=== PATIENT | female | born 1950 | race Hispanic/Latino ===

== ENCOUNTER 2018-04-19 09:06 | Emergency (ER) | payer OTHER ==
--- NOTE | 2018-04-19 11:08 | EDPHYS ---
Physician Documentation [facility] Name: Mita Luong Age: 67 yrs Sex: Female : 1950 Arrival Date: 04/19/2018 Time: 09:11 Bed 14 Private MD: ED Physician Delio Lainez HPI: 04/19 10:16 This 67 yrs old Female presents to ER via Ambulatory with complaints of Leg jr8 Swelling. 10:16 Family stated that she lost her compression socks. Stated that her right leg had total jr8 knee repair a month ago. Has been going to rehab for the knee. For the past week noticed increase in swelling to leg with pain . Historical: - Allergies: : No Known Allergies; ss - PMHx: :31 Diabetes - NIDDM; Hypertension; ss - Immunization history:: Adult Immunizations up to date. - Social history:: Smoking status: Patient/guardian denies using tobacco. - Ebola Screening: : No symptoms or risks identified at this time. ROS: 10:16 Constitutional: Negative for fever, chills, and weight loss. jr8 10:16 MS/extremity: Positive for pain, swelling, tenderness, of the right leg. 10:16 All other systems are negative. Exam: 10:16 Cardiovascular: Regular rate and rhythm with a normal S1 and S2. No gallops, murmurs, jr8 or rubs. Normal PMI, no JVD. No pulse deficits. Respiratory: Lungs have equal breath sounds bilaterally, clear to auscultation and percussion. No rales, rhonchi or wheezes noted. No increased work of breathing, no retractions or nasal flaring. Abdomen/GI: Soft, non-tender, with normal bowel sounds. No distension or tympany. No guarding or rebound. No evidence of tenderness throughout. Back: No spinal tenderness. No costovertebral tenderness. Full range of motion. Skin: Warm, dry with normal turgor. Normal color with no rashes, no lesions, and no evidence of cellulitis. Neuro: Awake and alert, GCS 15, oriented to person, place, time, and situation. Cranial nerves II-XII grossly intact. Motor strength 5/5 in all extremities. Sensory grossly intact. Cerebellar exam normal. Normal gait. 10:16 Musculoskeletal/extremity: Extremities: grossly normal except: noted in the right leg: Edema to right leg from knee to foot. 2+ pedal pulses present bilateral with normal sensation. Mild warmth noted to right leg when compared to left. Tenderness to anterior tibial region with palpation . Vital Signs: 09:31 BP 123 / 58; Pulse 78; Resp 17; Temp 97.6(TE); Pulse Ox 99% on R/A; Weight 96.62 kg; aa5 Height 5 ft. 6 in. (167.64 cm); Pain 5/10; 11:00 BP 124 / 60; Pulse 74; Resp 16 S; Pulse Ox 98% on R/A; Pain 4/10; aa5 09:31 Body Mass Index 34.38 (96.62 kg, 167.64 cm) aa5 MDM: 09:28 Patient medically screened. jr8 11:05 Data reviewed: vital signs, nurses notes, radiologic studies, ultrasound. Data jr8 interpreted: Pulse oximetry: on room air is 100 %. Interpretation: normal. Counseling: I had a detailed discussion with the patient and/or guardian regarding: the historical points, exam findings, and any diagnostic results supporting the discharge/admit diagnosis, radiology results, the need for outpatient follow up, a family practitioner, to return to the emergency department if symptoms worsen or persist or if there are any questions or concerns that arise at home. 04/19 10:04 Order name: US Extremity Venous Unilateral Ltd; Complete Time: 11:31 jr8 04/19 10:22 Order name: Qi Monteiro Jason; Complete Time: 10:22 aa5 Administered Medications: No medications were administered Disposition: 12:29 Co-signature as Attending Physician, Delio Lainez MD I agree with the assessment and ivonne plan of care. Disposition: 04/19/18 11:07 Discharged to Home. Impression: Edema, unspecified - Right lower extremity . - Condition is Stable. - Discharge Instructions: Edema. - Medication Reconciliation Form, Thank You Letter, Antibiotic Education, Prescription Opioid Use form. - Follow up: Private Physician; When: 5 - 6 days; Reason: Recheck today's complaints, Continuance of care, Re-evaluation by your physician. - Problem is new. - Symptoms have improved. Signatures: Dispatcher [employer] Delio Maria MD MD cha Calderon, Audri, RN RN [facility] Samara Russo RN RN Danie Bagley PA PA 8 Corrections: (The following items were deleted from the chart) 11:33 11:07 04/19/2018 11:07 Discharged to Home. Impression: Edema, unspecified - Right lower aa5 extremity . Condition is Stable. Forms are Medication Reconciliation Form, Thank You Letter, Antibiotic Education, Prescription Opioid Use. Follow up: Private Physician; When: 5 - 6 days; Reason: Recheck today's complaints, Continuance of care, Re-evaluation by your physician. Problem is new. Symptoms have improved. jr8
--- NOTE | 2018-04-19 11:08 | ER ---
Nurse's Notes [facility] Name: Mita Luong Age: 67 yrs Sex: Female : 1950 Arrival Date: 04/19/2018 Time: 09:11 Bed 14 Private MD: Diagnosis: Edema, unspecified-Right lower extremity Presentation: 04/19 09:29 Presenting complaint: Patient states: Sent by Pysical therapy to R/O DVT to R leg. Pt ss reports she had a R total knee replacement on 03/18/18 and has had redness, swelling and warmth to touch since then. Transition of care: patient was not received from another setting of care. Onset of symptoms was March 18, 2018. Risk Assessment: Do you want to hurt yourself or someone else? Patient reports no desire to harm self or others. Initial Sepsis Screen: Does the patient meet any 2 criteria? No. Patient's initial sepsis screen is negative. Does the patient have a suspected source of infection? No. Patient's initial sepsis screen is negative. Care prior to arrival: None. 09:29 Method Of Arrival: Ambulatory ss 09:29 Acuity: RODNEY 3 ss Historical: - Allergies: 09:31 No Known Allergies; ss - PMHx: 09:31 Diabetes - NIDDM; Hypertension; ss - Immunization history:: Adult Immunizations up to date. - Social history:: Smoking status: Patient/guardian denies using tobacco. - Ebola Screening: : No symptoms or risks identified at this time. Screenin:40 Abuse screen: Denies threats or abuse. Nutritional screening: No deficits noted. aa5 Tuberculosis screening: No symptoms or risk factors identified. Fall Risk Fall in past 12 months (25 points). No secondary diagnosis (0 pts). No IV (0 pts). Ambulatory Aid- Crutches/Cane/Walker (15 pts). Gait- Normal/Bed Rest/Wheelchair (0 pts) Mental Status- Oriented to own ability (0 pts). Total Benites Fall Scale indicates Low Risk Score (25-44 pts). Fall prevention measures have been instituted. Side Rails Up X 2 Placed close to Nursing Station Family Present and informed to notify staff if they need to leave bedside. Assessment: 09:40 General: Appears comfortable, Behavior is calm, cooperative. Pain: Complains of pain in aa5 right knee Pain does not radiate. Pain currently is 4 out of 10 on a pain scale. Quality of pain is described as aching, Pain began 1 month ago Is continuous, Aggravated by increased activity. Neuro: Level of Consciousness is awake, alert, obeys commands, Oriented to person, place, time, situation. Cardiovascular: Heart tones S1 S2 present Rhythm is regular. Respiratory: Airway is patent Respiratory effort is even, unlabored, Respiratory pattern is regular, symmetrical, Breath sounds are clear bilaterally. GI: Abdomen is obese, Bowel sounds present X 4 quads. Abd is soft and non tender X 4 quads. : No signs and/or symptoms were reported regarding the genitourinary system. EENT: No signs and/or symptoms were reported regarding the EENT system. Derm: Skin is pink, warm \T\ dry. Musculoskeletal: Range of motion: intact in all extremities, Swelling present in right knee, right lower leg, and dorsum of right foot. No redness noted to right leg, right leg is mildly hot to the touch compared to left lower leg. 10:50 Reassessment: Patient is alert, oriented x 3, equal unlabored respirations, skin aa5 warm/dry/pink. Anti-embolism stocking applied by PA to right leg. . 11:30 Reassessment: Patient is alert, oriented x 3, equal unlabored respirations, skin aa5 warm/dry/pink. Vital Signs: 09:31 BP 123 / 58; Pulse 78; Resp 17; Temp 97.6(TE); Pulse Ox 99% on R/A; Weight 96.62 kg; aa5 Height 5 ft. 6 in. (167.64 cm); Pain 5/10; 11:00 BP 124 / 60; Pulse 74; Resp 16 S; Pulse Ox 98% on R/A; Pain 4/10; aa5 09:31 Body Mass Index 34.38 (96.62 kg, 167.64 cm) aa5 ED Course: 09:11 Patient arrived in ED. mr 09:28 Danie Bagley PA is PHCP. jr8 09:28 Delio Lainez MD is Attending Physician. jr8 09:31 Triage completed. ss 09:31 Arm band placed on right wrist. ss 09:32 Bindu Lacy, SERA is Primary Nurse. aa5 09:40 Patient has correct armband on for positive identification. Placed in gown. Bed in low aa5 position. Call light in reach. Side rails up X2. Adult w/ patient. 10:00 No provider procedures requiring assistance completed. aa5 10:56 US Extremity Venous Unilateral Ltd In Process Unspecified. EDMS 11:30 Patient did not have IV access during this emergency room visit. aa5 Administered Medications: No medications were administered Outcome: 11:07 Discharge ordered by . will 11:30 Discharged to home ambulatory, with walker and accompanied by aa5 11:30 Condition: good 11:30 Discharge instructions given to patient, Instructed on discharge instructions, follow up and referral plans. Demonstrated understanding of instructions, follow-up care. 11:33 Patient left the ED. aa5 Signatures: Dispatcher [employer] LAURANE Jessica Ulrich ReginoBindu, RN RN aaSamara Reyes RN RN Danie Jeffers, ESPERANZA MATA jr8 Corrections: (The following items were deleted from the chart) 11:16 09:31 Resp 17bpm; Temp 97.6F Temporal; 96.62 kg; Height 5 ft. 6 in.; BMI: 34.3; Pain aa5 5/10; ss 11:36 09:31 BP 123 / 58; Pulse 78bpm; Resp 17bpm; Temp 97.6F Temporal; 96.62 kg; Height 5 ft. aa5 6 in.; BMI: 34.3; Pain 5/10; aa5
--- NOTE | 2018-04-19 11:27 | RAD REPORT ---
EXAM DESCRIPTION: US - Extremity Venous Uni Ltd - 04/19/2018 11:22 am CLINICAL HISTORY: Right leg pain and swelling COMPARISON: None. TECHNIQUE: Real-time sonographic evaluation of the right lower extremity deep venous systems was per formed. FINDINGS: Normal compressibility, flow augmentation, phasic flow and spontaneous flow are identified in the right lower extremity common femoral, superficial femoral, popliteal and posterior tibial vei ns. No intraluminal filling defects seen. IMPRESSION: No DVT in the right lower extremity.
== END 2018-04-19 11:33 | disposition home or self-care (01) ==
LOC: ER 09:06
DX: R60.0 Localized edema (principal); I10 Essential (primary) hypertension
CPT/HCPCS: 93971; 99283

== ENCOUNTER 2023-11-07 20:05 | Emergency (ER) | payer OTHER ==
--- OUTSIDE RECORDS SUMMARY | 2023-11-07 20:10 | XMS REPORT | Continuity of Care Document ---
Author Name Unknown Address [address] [facility] [address] [place] [address] [facility] thconnect Address [address] [facility] [place] [address] Care Team Providers Care Nuclear Reactor Technician Name Role Phone Solomon Medina Primary Care Physician [phone] Solomon Medina Attending Clinician Unavailable Dulce Fernández MA Attending Clinician Unavaildong Perez NP, Shabbir Attending Clinician [phone] SHABBIR PEREZ Attending Clinician Unavailjordana ble Doctor Unassigned, [place] Attending Clinician U GARRETT Gomez Attending Clinician Unavailable Payers Payer Name Policy Type Policy Number Effective Date Expirati on Date Source [id number] 2021 00:00:00 [facility] MEDICAID OF [place] [id number] 2017 00:00:00 MEDICARE PART A \T\ B [id number] 2014 00:00:00 [facility] (Medicaid) [id number] 2014 00:00:00 [facility] [employer] (Medicaid) [id number] 2014 00:00:00 [facility] Problems Condition Name Condition Details Condition Category Status Onset Date Resolution Date Last Treatment Date Treating Clinician Comments Source Intertrigi nous candidiasi s Intertrigi nous candidiasi s Disease Active 08-26 00:00: 00 [facility] Hypertensi ve heart failure Hypertensi ve heart disease with heart failure Problem [facility] Heart failure Heart failure, unspecifie d Problem [facility] Type 2 diabetes mellitus without complicati on Type 2 diabetes mellitus without complicati on Problem [facility] 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 Atheroscle rotic heart disease Problem [facility] [id number] Thrombocyt openic Problem [facility] [id number] Odynophagi a Problem [facility] [id number] Pain, joint, hip, right Problem [facility] [id number] Unilateral post-traum atic osteoarthr itis, right hip Problem [facility] [id number] Mixed hyperlipid emia Problem [facility] [id number] Right sciatic nerve pain Problem [facility] [id number] Type 2 diabetes mellitus with hyperglyce iraj, without long-term current use of insulin Problem [facility] 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 Problem [facility] [id number] Memory changes Problem [facility] [id number] Coronary artery disease involving [place] coronary artery of [place] heart with other form of angina pectoris Problem [facility] [id number] Adult BMI 33.0-33.9 kg/sq m Problem [facility] Chronic kidney disease stage 3 (disorder) Chronic kidney disease, stage 3 unspecifie d Problem [facility] [id number] GERD without esophagiti s Problem [facility] [id number] Essential hypertensi on Problem [facility] [id number] Trochanter ic bursitis of right hip Problem [facility] [id number] Primary osteoarthr itis of right hip Problem [facility] [id number] Pain from implanted hardware, subsequent encounter Problem [facility] [id number] 105 History of total right knee replacemen t Problem [facility] Allergies, Adverse Reactions, Alerts Allergy Name Allergy Type Status Severity Reaction(s) Onset Date Inactive Date Treating Clinician Comments Source NO KNOWN ALLERGIE S Drug Class Active [facility] sulfamet hoxazole / trimetho prim sulfamet hoxazole / trimetho prim Active hives, itching [facility] Social History Social Habit Start Date Stop Date Quantity Comments Source History of Tobacco Use [facility] Sex Assigned At [facility] Alcohol intake 2021-10-18 00:00:00 2021-10-18 00:00:00 Ex-drinker (finding) [facility] Tobacco use and exposure 2021-08-26 00:00:00 2021-08-26 00:00:00 Smokeless tobacco non-user [facility] Smoking Status Start Date Stop Date Source Never Smoker [facility] Ex-smoker 2021-08-26 00:00:00 2021-08-26 00:00:00 U [facility] Medications Ordered Medication Name Filled Medication Name Start Date Stop Date Current Medication? Ordering Clinician Indication Dosage Frequency Signature (SIG) Comments Components Source Lidocaine Lidocaine 06-20 00:00: 00 No 5mL [facility] Kenalog (Triamcinol one) Kenalog (Triamcinol one) 06-20 00:00: 00 No 2mL [facility] Cephalexin 500 MG Cephalexin 500 MG 2022-06 00:00: 00 No 1{table t} TID Cephalexin 500 MG fluconazole 200 mg tablet 10-18 00:00: 00 12-18 04:59 :00 No [id number] 200mg Take 1 tablet by mouth weekly for 60 days. [facility] nystatin 100,000 unit/gram powder 10-18 00:00: 00 10-29 04:59 :00 No [id number] Apply to area(s) 2 (two) times daily for 10 days. [facility] nystatin-tr iamcinolone cream 10-18 00:00: 00 10-26 04:59 :00 No [id number] Apply to area(s) 3 (three) times daily for 7 days. [facility] omeprazole 40 mg capsule 08-26 15:30: 07 Yes 40mg Take 40 mg by mouth daily. [facility] BABY ASPIRIN ORAL 08-26 15:30: 07 Yes 81mg Take 81 mg by mouth daily. [facility] clopidogrel (PLAVIX) 75 mg tablet 08-26 15:30: 07 Yes 75mg Take 75 mg by mouth daily. [facility] gabapentin 100 mg capsule 08-26 15:30: 07 Yes 100mg Take 100 mg by mouth 3 (three) times daily. [facility] carvedilol (COREG) 12.5 mg tablet 08-26 15:30: 07 Yes 12.5mg Take 12.5 mg by mouth 2 (two) times daily with meals. [facility] pravastatin 40 mg tablet 08-26 15:30: 07 Yes 40mg Take 40 mg by mouth at bedtime. [facility] losartan 50 mg tablet 08-26 15:30: 07 Yes 50mg Take 50 mg by mouth daily. [facility] furosemide (LASIX) 40 mg tablet 08-26 15:30: 07 Yes 40mg Take 40 mg by mouth daily. [facility] metFORMIN 500 mg tablet 08-26 14:43: 23 Yes 500mg Take 500 mg by mouth daily. [facility] ONETOUCH ULTRA TEST strip 08-11 00:00: 00 Yes [id number] USE DIRECTED EVERY MORNING AND EVENING [facility] Losartan Potassium 25 MG Losartan Potassium 25 MG No 1{table t} QD Losartan Potassium 25 MG Pantoprazol e Sodium 40 MG Pantoprazol e Sodium 40 MG No 1{table t} QD Pantoprazo le Sodium 40 MG Pravastatin Sodium 40 MG Pravastatin Sodium 40 MG No 1{table t} QD Pravastati n Sodium 40 MG metFORMIN HCl 500 MG metFORMIN HCl 500 MG No 1{table t_with_ a_meal} QD metFORMIN HCl 500 MG Clopidogrel Bisulfate 75 MG Clopidogrel Bisulfate 75 MG No 1{table t} QD Clopidogre l Bisulfate 75 MG Carvedilol 12.5 MG Carvedilol 12.5 MG No 1{table t_with_ food} QD Carvedilol 12.5 MG Furosemide 40 MG Furosemide 40 MG No 1{table t} QD Furosemide 40 MG Thiamine Mononitrate 100 MG Thiamine Mononitrate 100 MG No Thiamine Mononitrat e 100 MG Immunizations Ordered Immunization Name Filled Immunization Name Date Status Comments Source Moderna COVID-19 Vaccine (Low Dose Booster) Moderna COVID-19 Vaccine (Low Dose Booster) 2021-08-24 09:59:00 Completed [facility] Moderna COVID-19 Vaccine (Low Dose Booster) Moderna COVID-19 Vaccine (Low Dose Booster) 2021-08-24 09:59:00 Completed [facility] Moderna COVID-19 Vaccine (Low Dose Booster) Moderna COVID-19 Vaccine (Low Dose Booster) 2021-08-24 09:59:00 Completed [facility] Moderna COVID-19 Vaccine (Low Dose Booster) Moderna COVID-19 Vaccine (Low Dose Booster) 2021-08-24 09:59:00 Completed [facility] Moderna COVID-19 Vaccine (Low Dose Booster) Moderna COVID-19 Vaccine (Low Dose Booster) 2021-08-24 09:59:00 Completed [facility] Moderna COVID-19 Vaccine (Low Dose Booster) Moderna COVID-19 Vaccine (Low Dose Booster) 2021-08-24 09:59:00 Completed [facility] Moderna COVID-19 Vaccine (Low Dose Booster) Moderna COVID-19 Vaccine (Low Dose Booster) 2021-08-24 09:59:00 Completed [facility] Moderna COVID-19 Vaccine (Low Dose Booster) Moderna COVID-19 Vaccine (Low Dose Booster) 2021-08-24 09:59:00 Completed [facility] Moderna COVID-19 Vaccine (Low Dose Booster) Moderna COVID-19 Vaccine (Low Dose Booster) 2021-08-24 09:59:00 Completed [facility] Moderna COVID-19 Vaccine (Low Dose Booster) Moderna COVID-19 Vaccine (Low Dose Booster) 2021-08-24 09:59:00 Completed [facility] Moderna COVID-19 Vaccine (Low Dose Booster) Moderna COVID-19 Vaccine (Low Dose Booster) 2021-08-24 09:59:00 Completed [facility] Moderna COVID-19 Vaccine (Low Dose Booster) Moderna COVID-19 Vaccine (Low Dose Booster) 2021-08-24 09:59:00 Completed [facility] Moderna COVID-19 Vaccine (Low Dose Booster) Moderna COVID-19 Vaccine (Low Dose Booster) 2021-08-24 09:59:00 Completed [facility] Moderna COVID-19 Vaccine (Low Dose Booster) Moderna COVID-19 Vaccine (Low Dose Booster) 2021-08-24 09:59:00 Completed [facility] Moderna COVID-19 Vaccine (Low Dose Booster) Moderna COVID-19 Vaccine (Low Dose Booster) 2021-08-24 09:59:00 Completed [facility] Moderna COVID-19 Vaccine (Low Dose Booster) Moderna COVID-19 Vaccine (Low Dose Booster) 2021-08-24 09:59:00 Completed [facility] Moderna COVID-19 Vaccine (Low Dose Booster) Moderna COVID-19 Vaccine (Low Dose Booster) 2021-08-24 09:59:00 Completed [facility] Moderna COVID-19 Vaccine (Low Dose Booster) Moderna COVID-19 Vaccine (Low Dose Booster) 2021-08-24 09:59:00 Completed [facility] Moderna COVID-19 Vaccine (Low Dose Booster) Moderna COVID-19 Vaccine (Low Dose Booster) 2021-08-24 09:59:00 Completed [facility] Moderna COVID-19 Vaccine Moderna COVID-19 Vaccine 2020-12-17 09:20:00 Completed [facility] Moderna COVID-19 Vaccine Moderna COVID-19 Vaccine 2020-12-17 09:20:00 Completed [facility] Moderna COVID-19 Vaccine Moderna COVID-19 Vaccine 2020-12-17 09:20:00 Completed [facility] Moderna COVID-19 Vaccine Moderna COVID-19 Vaccine 2020-12-17 09:20:00 Completed [facility] Moderna COVID-19 Vaccine Moderna COVID-19 Vaccine 2020-12-17 09:20:00 Completed [facility] Moderna COVID-19 Vaccine Moderna COVID-19 Vaccine 2020-12-17 09:20:00 Completed [facility] Moderna COVID-19 Vaccine Moderna COVID-19 Vaccine 2020-12-17 09:20:00 Completed [facility] Moderna COVID-19 Vaccine Moderna COVID-19 Vaccine 2020-12-17 09:20:00 Completed [facility] Moderna COVID-19 Vaccine Moderna COVID-19 Vaccine 2020-12-17 09:20:00 Completed [facility] Moderna COVID-19 Vaccine Moderna COVID-19 Vaccine 2020-12-17 09:20:00 Completed [facility] Moderna COVID-19 Vaccine Moderna COVID-19 Vaccine 2020-12-17 09:20:00 Completed [facility] Moderna COVID-19 Vaccine Moderna COVID-19 Vaccine 2020-12-17 09:20:00 Completed [facility] Moderna COVID-19 Vaccine Moderna COVID-19 Vaccine 2020-12-17 09:20:00 Completed Common [facility] Moderna COVID-19 Vaccine Moderna COVID-19 Vaccine 2020-12-17 09:20:00 Completed [facility] Moderna COVID-19 Vaccine Moderna COVID-19 Vaccine 2020-12-17 09:20:00 Completed [facility] Moderna COVID-19 Vaccine Moderna COVID-19 Vaccine 2020-12-17 09:20:00 Completed [facility] Moderna COVID-19 Vaccine Moderna COVID-19 Vaccine 2020-12-17 09:20:00 Completed [facility] Moderna COVID-19 Vaccine Moderna COVID-19 Vaccine 2020-12-17 09:20:00 Completed [facility] Moderna COVID-19 Vaccine Moderna COVID-19 Vaccine 2020-12-17 09:20:00 Completed [facility] Moderna COVID-19 Vaccine Moderna COVID-19 Vaccine 2020-12-17 09:20:00 Completed [facility] Moderna COVID-19 Vaccine Moderna COVID-19 Vaccine 2020-12-17 09:20:00 Completed [facility] Moderna COVID-19 Vaccine Moderna COVID-19 Vaccine 2020-12-17 09:20:00 Completed [facility] Moderna COVID-19 Vaccine Moderna COVID-19 Vaccine 2020-12-17 09:20:00 Completed [facility] Moderna COVID-19 Vaccine Moderna COVID-19 Vaccine 2020-12-17 09:20:00 Completed [facility] Moderna COVID-19 Vaccine Moderna COVID-19 Vaccine 2020-12-17 09:20:00 Completed [facility] Moderna COVID-19 Vaccine Moderna COVID-19 Vaccine 2020-12-17 09:20:00 Completed [facility] Moderna COVID-19 Vaccine Moderna COVID-19 Vaccine 2020-12-17 09:20:00 Completed [facility] Moderna COVID-19 Vaccine Moderna COVID-19 Vaccine 2020-12-17 09:20:00 Completed [facility] Moderna COVID-19 Vaccine (Low Dose Booster) Moderna COVID-19 Vaccine (Low Dose Booster) Unknown Completed [facility] Moderna COVID-19 Vaccine Moderna COVID-19 Vaccine Unknown Completed [facility] Moderna COVID-19 Vaccine (Low Dose Booster) Moderna COVID-19 Vaccine (Low Dose Booster) Unknown Completed [facility] Moderna COVID-19 Vaccine Moderna COVID-19 Vaccine Unknown Completed [facility] MODERNA COVID-19 VACCINE (LOW DOSE BOOSTER) MODERNA COVID-19 VACCINE (LOW DOSE BOOSTER) Unknown Completed [facility] Moderna COVID-19 Vaccine Moderna COVID-19 Vaccine Unknown Completed [facility] MODERNA COVID-19 VACCINE (LOW DOSE BOOSTER) MODERNA COVID-19 VACCINE (LOW DOSE BOOSTER) Unknown Completed [facility] Moderna COVID-19 Vaccine Moderna COVID-19 Vaccine Unknown Completed [facility] MODERNA COVID-19 VACCINE (LOW DOSE BOOSTER) MODERNA COVID-19 VACCINE (LOW DOSE BOOSTER) Unknown Completed [facility] Moderna COVID-19 Vaccine Moderna COVID-19 Vaccine Unknown Completed [facility] MODERNA COVID-19 VACCINE (LOW DOSE BOOSTER) MODERNA COVID-19 VACCINE (LOW DOSE BOOSTER) Unknown Completed [facility] Moderna COVID-19 Vaccine Moderna COVID-19 Vaccine Unknown Completed [facility] Moderna COVID-19 Vaccine (Low Dose Booster) Moderna COVID-19 Vaccine (Low Dose Booster) Unknown Completed [facility] Moderna COVID-19 Vaccine Moderna COVID-19 Vaccine Unknown Completed [facility] Moderna COVID-19 Vaccine (Low Dose Booster) Moderna COVID-19 Vaccine (Low Dose Booster) Unknown Completed [facility] Moderna COVID-19 Vaccine Moderna COVID-19 Vaccine Unknown Completed [facility] Moderna COVID-19 Vaccine (Low Dose Booster) Moderna COVID-19 Vaccine (Low Dose Booster) Unknown Completed [facility] Moderna COVID-19 Vaccine Moderna COVID-19 Vaccine Unknown Completed [facility] Moderna COVID-19 Vaccine (Low Dose Booster) Moderna COVID-19 Vaccine (Low Dose Booster) Unknown Completed [facility] Moderna COVID-19 Vaccine Moderna COVID-19 Vaccine Unknown Completed [facility] Moderna COVID-19 Vaccine (Low Dose Booster) Moderna COVID-19 Vaccine (Low Dose Booster) Unknown Completed [facility] Moderna COVID-19 Vaccine Moderna COVID-19 Vaccine Unknown Completed [facility] Moderna COVID-19 Vaccine (Low Dose Booster) Moderna COVID-19 Vaccine (Low Dose Booster) Unknown Completed [facility] Moderna COVID-19 Vaccine Moderna COVID-19 Vaccine Unknown Completed [facility] Moderna COVID-19 Vaccine (Low Dose Booster) Moderna COVID-19 Vaccine (Low Dose Booster) Unknown Completed [facility] Moderna COVID-19 Vaccine Moderna COVID-19 Vaccine Unknown Completed [facility] Moderna COVID-19 Vaccine (Low Dose Booster) Moderna COVID-19 Vaccine (Low Dose Booster) Unknown Completed [facility] Moderna COVID-19 Vaccine Moderna COVID-19 Vaccine Unknown Completed [facility] Moderna COVID-19 Vaccine (Low Dose Booster) Moderna COVID-19 Vaccine (Low Dose Booster) Unknown Completed [facility] Moderna COVID-19 Vaccine Moderna COVID-19 Vaccine Unknown Completed [facility] Vital Signs Vital Name Observation Time Observation Value Comments S brody height 2023-09-07 09:30:00 67 [in_i] Commo n [facility] weight 2023-09-07 09:30:00 213.4 [lb_av] Co [facility] temperature 2023-09-07 09:30:00 97.2 [degF] Com [facility] bmi 2023-09-07 09:30:00 33.42 kg/m2 Comm on [facility] oximetry 2023-09-07 09:30:00 96 % Commo n [facility] blood pressure systolic 2023-09-07 09:30:00 126 mm[Hg] Common [facility] blood pressure diastolic 2023-09-07 09:30:00 66 mm[Hg] Common [facility] height 2023-06-20 14:30:00 67 [in_i] Commo n [facility] weight 2023-06-20 14:30:00 221.4 [lb_av] Co [facility] temperature 2023-06-20 14:30:00 98.6 [degF] Com [facility] bmi 2023-06-20 14:30:00 34.67 kg/m2 Comm on [facility] blood pressure systolic 2023-06-20 14:30:00 128 mm[Hg] [facility] blood pressure diastolic 2023-06-20 14:30:00 62 mm[Hg] Common [facility] height 2023-06-06 08:50:00 67 [in_i] Commo n [facility] weight 2023-06-06 08:50:00 220 [lb_av] Comm on [facility] temperature 2023-06-06 08:50:00 97.4 [degF] Com [facility] bmi 2023-06-06 08:50:00 34.45 kg/m2 Comm on [facility] oximetry 2023-06-06 08:50:00 99 % Commo n [facility] blood pressure systolic 2023-06-06 08:50:00 130 mm[Hg] [facility] blood pressure diastolic 2023-06-06 08:50:00 72 mm[Hg] [facility] height 2023-04-11 13:00:00 67 [in_i] Commo n [facility] weight 2023-04-11 13:00:00 222.0 [lb_av] Co mmon [facility] temperature 2023-04-11 13:00:00 97.7 [degF] Com [facility] bmi 2023-04-11 13:00:00 34.77 kg/m2 Comm on [facility] oximetry 2023-04-11 13:00:00 97 % Commo n [facility] respiratory rate 2023-04-11 13:00:00 18 /min [facility] blood pressure systolic 2023-04-11 13:00:00 139 mm[Hg] [facility] blood pressure diastolic 2023-04-11 13:00:00 63 mm[Hg] [facility] height 2023-02-26 10:40:00 67 [in_i] Commo n [facility] weight 2023-02-26 10:40:00 223.0 [lb_av] Co mmon [facility] temperature 2023-02-26 10:40:00 97.7 [degF] Com mon [facility] bmi 2023-02-26 10:40:00 34.92 kg/m2 Comm on [facility] oximetry 2023-02-26 10:40:00 95 % Commo n [facility] respiratory rate 2023-02-26 10:40:00 17 /min [facility] blood pressure systolic 2023-02-26 10:40:00 124 mm[Hg] [facility] blood pressure diastolic 2023-02-26 10:40:00 73 mm[Hg] [facility] height 2022-11-21 10:30:00 67 [in_i] Commo n [facility] weight 2022-11-21 10:30:00 221.8 [lb_av] Co mmon [facility] temperature 2022-11-21 10:30:00 97.5 [degF] Com mon [facility] bmi 2022-11-21 10:30:00 34.73 kg/m2 Comm on [facility] oximetry 2022-11-21 10:30:00 95 % Commo n [facility] respiratory rate 2022-11-21 10:30:00 17 /min [facility] blood pressure systolic 2022-11-21 10:30:00 129 mm[Hg] [facility] blood pressure diastolic 2022-11-21 10:30:00 72 mm[Hg] [facility] height 2022-08-09 10:00:00 67 [in_i] Commo n [facility] weight 2022-08-09 10:00:00 220.0 [lb_av] Co mmon [facility] temperature 2022-08-09 10:00:00 97.0 [degF] Com mon [facility] bmi 2022-08-09 10:00:00 34.45 kg/m2 Comm on [facility] oximetry 2022-08-09 10:00:00 95 % Commo n [facility] respiratory rate 2022-08-09 10:00:00 16 /min [facility] blood pressure systolic 2022-08-09 10:00:00 127 mm[Hg] [facility] blood pressure diastolic 2022-08-09 10:00:00 69 mm[Hg] Common [facility] height 2022-08-09 10:20:00 67 [in_i] Commo n [facility] weight 2022-08-09 10:20:00 220.0 [lb_av] Co [facility] temperature 2022-08-09 10:20:00 97.0 [degF] Com [facility] bmi 2022-08-09 10:20:00 34.45 kg/m2 Comm on [facility] oximetry 2022-08-09 10:20:00 95 % Commo n [facility] respiratory rate 2022-08-09 10:20:00 16 /min [facility] blood pressure systolic 2022-08-09 10:20:00 127 mm[Hg] Common [facility] blood pressure diastolic 2022-08-09 10:20:00 69 mm[Hg] [facility] height 2022-04-05 10:40:00 67 [in_i] Commo n [facility] weight 2022-04-05 10:40:00 214.7 [lb_av] Co [facility] temperature 2022-04-05 10:40:00 97.3 [degF] Com [facility] bmi 2022-04-05 10:40:00 33.62 kg/m2 Comm on [facility] oximetry 2022-04-05 10:40:00 97 % Commo n [facility] respiratory rate 2022-04-05 10:40:00 17 /min Common [facility] blood pressure systolic 2022-04-05 10:40:00 131 mm[Hg] [facility] blood pressure diastolic 2022-04-05 10:40:00 70 mm[Hg] Common [facility] height 2022-02-08 10:00:00 67 [in_i] Commo n [facility] weight 2022-02-08 10:00:00 214.4 [lb_av] Co mmon [facility] temperature 2022-02-08 10:00:00 97.3 [degF] Com [facility] bmi 2022-02-08 10:00:00 33.58 kg/m2 Comm on [facility] oximetry 2022-02-08 10:00:00 97 % Commo n [facility] respiratory rate 2022-02-08 10:00:00 17 /min Common [facility] blood pressure systolic 2022-02-08 10:00:00 137 mm[Hg] [facility] blood pressure diastolic 2022-02-08 10:00:00 75 mm[Hg] Common [facility] height 2022-01-06 10:30:00 67 [in_i] Commo n [facility] weight 2022-01-06 10:30:00 204.6 [lb_av] Co mmon [facility] temperature 2022-01-06 10:30:00 97.1 [degF] Com [facility] bmi 2022-01-06 10:30:00 32.04 kg/m2 Comm on [facility] oximetry 2022-01-06 10:30:00 95 % Commo n [facility] [facility] respiratory rate 2022-01-06 10:30:00 18 /min Common [facility] blood pressure systolic 2022-01-06 10:30:00 125 mm[Hg[facility] blood pressure diastolic 2022-01-06 10:30:00 62 mm[Hg] [facility] Systolic blood pressure 2021-10-18 14:50:00 138 mm[Hg] [facility] Diastolic blood pressure 2021-10-18 14:50:00 72 mm[Hg] [facility] Heart rate 2021-10-18 14:50:00 78 /min [facility] Body temperature 2021-10-18 14:50:00 36.39 Mehnaz [facility] Respiratory rate 2021-10-18 14:50:00 18 /min [facility] Body height 2021-10-18 14:50:00 160 cm [facility] Body weight 2021-10-18 14:50:00 96.163 kg [facility] BMI 2021-10-18 14:50:00 37.55 kg/m2 [facility] height 2021-10-06 10:20:00 67 [in_i] Commo n [facility] weight 2021-10-06 10:20:00 209.6 [lb_av] Co mmon [facility] temperature 2021-10-06 10:20:00 97.5 [degF] Com [facility] bmi 2021-10-06 10:20:00 32.82 kg/m2 Comm on [facility] oximetry 2021-10-06 10:20:00 97 % Commo n [facility] respiratory rate 2021-10-06 10:20:00 17 /min Common [facility] blood pressure systolic 2021-10-06 10:20:00 134 mm[Hg] [facility] blood pressure diastolic 2021-10-06 10:20:00 62 mm[Hg] Common [facility] height 2021-10-06 10:20:00 67 [in_i] Commo n [facility] weight 2021-10-06 10:20:00 209.6 [lb_av] Co mmon [facility] temperature 2021-10-06 10:20:00 97.5 [degF] Com [facility] bmi 2021-10-06 10:20:00 32.82 kg/m2 Comm on [facility] oximetry 2021-10-06 10:20:00 97 % Commo n [facility] respiratory rate 2021-10-06 10:20:00 17 /min Common [facility] blood pressure systolic 2021-10-06 10:20:00 134 mm[Hg] Common [facility] blood pressure diastolic 2021-10-06 10:20:00 62 mm[Hg] [facility] height 2021-07-25 10:40:00 67 [in_i] Commo n [facility] weight 2021-07-25 10:40:00 213 [lb_av] Comm on [facility] temperature 2021-07-25 10:40:00 96.7 [degF] Com mon [facility] bmi 2021-07-25 10:40:00 33.36 kg/m2 Comm on [facility] oximetry 2021-07-25 10:40:00 95 % Commo n [facility] respiratory rate 2021-07-25 10:40:00 18 /min Common [facility] blood pressure systolic 2021-07-25 10:40:00 133 mm[Hg] [facility] blood pressure diastolic 2021-07-25 10:40:00 63 mm[Hg] Common [facility] height 2021-07-20 13:00:00 67 [in_i] Commo n [facility] weight 2021-07-20 13:00:00 220.0 [lb_av] Co mmon [facility] temperature 2021-07-20 13:00:00 97.4 [degF] Com mon [facility] bmi 2021-07-20 13:00:00 34.45 kg/m2 Comm on [facility] oximetry 2021-07-20 13:00:00 97 % Commo n [facility] respiratory rate 2021-07-20 13:00:00 16 /min Common [facility] blood pressure systolic 2021-07-20 13:00:00 136 mm[Hg] [facility] blood pressure diastolic 2021-07-20 13:00:00 60 mm[Hg] [facility] height 2021-06-27 13:40:00 67 [in_i] Commo n [facility] weight 2021-06-27 13:40:00 235 [lb_av] Comm on [facility] temperature 2021-06-27 13:40:00 95.8 [degF] Com mon [facility] bmi 2021-06-27 13:40:00 36.8 kg/m2 Commo n [facility] blood pressure systolic 2021-06-27 13:40:00 116 mm[Hg] [facility] blood pressure diastolic 2021-06-27 13:40:00 71 mm[Hg] Common [facility] height 2021-06-15 11:40:00 67 [in_i] Commo n [facility] weight 2021-06-15 11:40:00 200 [lb_av] Comm on [facility] temperature 2021-06-15 11:40:00 98 [degF] Comm on [facility] bmi 2021-06-15 11:40:00 31.32 kg/m2 Comm on [facility] height 2021-05-02 10:50:00 67 [in_i] Commo n [facility] weight 2021-05-02 10:50:00 228.3 [lb_av] Co mmon [facility] temperature 2021-05-02 10:50:00 97.3 [degF] Com mon [facility] bmi 2021-05-02 10:50:00 35.75 kg/m2 Comm on [facility] oximetry 2021-05-02 10:50:00 83 % Commo n [facility] respiratory rate 2021-05-02 10:50:00 16 /min Common [facility] blood pressure systolic 2021-05-02 10:50:00 133 mm[Hg] [facility] blood pressure diastolic 2021-05-02 10:50:00 76 mm[Hg] [facility] Encounters Start Date/Time End Date/Time Encounter Type Admission Type Attending [facility] Care Facility Care Department Encounter ID Source 2023-09-05 10:21:00 Outpatient Medina, Solomon STLMLC STLMLC [id number] [facility] 2023-08-31 16:02:00 Outpatient Medina, Solomon STLMLC STLMLC [id number] [facility] 2023-07-10 16:00:00 Outpatient Medina, Solomon STLMLC STLMLC [id number] [facility] 2023-06-20 14:30:00 Outpatient Medina, Solomon STLMLC STLMLC [id number] [facility] 2023-06-18 16:17:00 Outpatient Medina, Sloomon STLC STLMLC [id number] [facility] 2023-06-13 10:18:00 Outpatient Medina, Solomon STLMLC STLMLC [id number] [facility] 2023-05-09 15:40:00 Outpatient Medina, Solomon STLC STLMLC [id number] [facility] 2023-04-10 15:20:00 Outpatient Medina, Solomon STLMLC STLMLC [id number] [facility] 2023-01-10 13:29:00 Outpatient Medina, Solomon STLMLC STLMLC [id number] [facility] 2022-12-08 10:35:00 Outpatient Medina, Solomon STLMLC STLMLC [id number] [facility] 2022-04-03 10:44:02 Outpatient Medina, Solomon STLMLC STLMLC [id number] [facility] 2022-02-08 10:57:01 Outpatient Medina, Solomon STLC STLC [id number] [facility] 2022-02-06 13:16:01 Outpatient Medina, Solomon STLC STLC [id number] [facility] 2022-02-01 09:59:01 [facility] [id number] [facility] 2021-10-05 10:04:00 Outpatient Medina, Solomon STLC STLC [id number] [facility] 2021-08-24 09:59:00 Outpatient Medina, Solomon STLC STLC [id number] [facility] 2021-08-08 11:26:00 Outpatient Medina, Solomon STLC STLC [id number] [facility] 2021-07-21 16:15:10 Outpatient Medina[facility] [id number] [facility] 2021-07-20 13:06:02 Outpatient Medina, [facility] [id number] [facility] 2021-07-06 14:35:51 Outpatient Medina, [facility] [id number] [facility] 2021-07-06 14:31:16 Outpatient Medina, Solomon STLC STLC [id number] [facility] 2021-07-06 13:41:42 Outpatient Medina, Solomon STLC STLC [id number] [facility] 2021-07-06 13:39:08 Outpatient Medina, Solomno STLC STLC [id number] [facility] 2021-07-06 13:23:59 Outpatient Medina, Solomon STLC STLC [id number] [facility] 2021-07-06 12:49:32 Outpatient Medina, Solomon STLMLC STLMLC [id number] [facility] 2021-07-06 12:34:18 Outpatient Medina, Solomon STLMLC STLMLC [id number] [facility] 2021-07-06 12:10:08 Outpatient Medina, Solomon STLMLC STLMLC [id number] [facility] 2021-07-06 11:29:33 Outpatient Medina, Solomon STLMLC STLMLC [id number] [facility] 2023-11-06 00:00:00 2023-11-06 00:00:00 (TEL) STLMLC STLMLC [id number] [facility] 2023-10-22 00:00:00 2023-10-22 00:00:00 (TEL) STLMLC STLMLC [id number] [facility] 2023-09-07 00:00:00 2023-09-07 00:00:00 OFFICE VISIT ESTAB PT LEVEL 4 STLMLC STLMLC [id number] [facility] 2023-06-20 00:00:00 2023-06-20 00:00:00 (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 Patient STLMLC STLMLC [id number] [facility] 2023-06-06 00:00:00 2023-06-06 00:00:00 OFFICE VISIT ESTAB PT LEVEL 4 STLMLC STLMLC [id number] [facility] 2023-04-11 00:00:00 2023-04-11 00:00:00 OFFICE VISIT ESTAB PT LEVEL 3 STLMLC STLMLC [id number] [facility] 2023-04-09 00:00:00 2023-04-09 00:00:00 (TEL) STLMLC STLMLC [id number] [facility] 2023-02-26 00:00:00 2023-02-26 00:00:00 OFFICE VISIT ESTAB PT LEVEL 4 STLMLC STLMLC [id number] [facility] 2023-02-26 00:00:00 2023-02-26 00:00:00 (TEL) STLMLC STLMLC [id number] [facility] 2023-01-10 00:00:00 2023-01-10 00:00:00 (TEL) STLMLC STLMLC [id number] [facility] 2023-01-10 00:00:00 2023-01-10 00:00:00 (TEL) STLMLC STLMLC [id number] [facility] 2022-12-14 00:00:00 2022-12-14 00:00:00 (TEL) STLMLC STLMLC [id number] [facility] 2022-11-21 00:00:00 2022-11-21 00:00:00 OFFICE VISIT ESTAB PT LEVEL 4 STLMLC STLMLC [id number] [facility] 2022-08-09 00:00:00 2022-08-09 00:00:00 OFFICE VISIT ESTAB PT LEVEL 4 STLMLC STLMLC [id number] [facility] 2022-08-09 00:00:00 2022-08-09 00:00:00 SUB ANNUAL [facility] VISIT STLMLC STLMLC [id number] [facility] 2022-05-30 00:00:00 2022-05-30 00:00:00 Case Management Dulce Fernández [id number] [facility] 2022-04-05 00:00:00 2022-04-05 00:00:00 OFFICE VISIT ESTAB PT LEVEL 4 STLMLC STLMLC [id number] [facility] 2022-04-05 00:00:00 2022-04-05 00:00:00 (TEL) STLMLC STLMLC [id number] [facility] 2022-02-10 00:00:00 2022-02-10 00:00:00 (TEL) STLMLC STLMLC [id number] [facility] 2022-02-08 00:00:00 2022-02-08 00:00:00 OFFICE VISIT ESTAB PT LEVEL 4 STLMLC STLMLC [id number] [facility] 2022-01-31 00:00:00 2022-01-31 00:00:00 (TEL) STLMLC STLMLC [id number] [facility] 2022-01-31 00:00:00 2022-01-31 00:00:00 (TEL) STLMLC STLMLC [id number] [facility] 2022-01-19 00:00:00 2022-01-19 00:00:00 (TEL) STLMLC STLMLC [id number] [facility] 2022-01-19 00:00:00 2022-01-19 00:00:00 (TEL) STLMLC STLMLC [id number] [facility] 2022-01-16 00:00:00 2022-01-16 00:00:00 (TEL) STLMLC STLMLC [id number] [facility] 2022-01-06 00:00:00 2022-01-06 00:00:00 OFFICE VISIT ESTAB PT LEVEL 4 STLMLC STLMLC [id number] [facility] 2021-10-25 00:00:00 2021-10-25 00:00:00 Telephone Shabbir Perez [facility] [id number] [facility] 2021-10-18 09:30:00 2021-10-18 14:00:59 Outpatient R SHABBIR PEREZ CHERYAL [facility] [id number] [facility] 2021-10-18 09:30:00 2021-10-18 14:00:59 Office Visit Shabbir Perez [facility] [id number] [facility] 2021-10-06 00:00:00 2021-10-06 00:00:00 OFFICE VISIT ESTAB PT LEVEL 4 STLMLC STLMLC [id number] [facility] 2021-10-06 00:00:00 2021-10-06 00:00:00 (TEL) STLMLC STLMLC [id number] [facility] 2021-10-06 00:00:00 2021-10-06 00:00:00 (TEL) STLMLC STLMLC [id number] [facility] 2021-10-06 00:00:00 2021-10-06 00:00:00 SUB ANNUAL [facility] VIS[facility] STLC STLMLC [id number] [facility] 2021-09-26 00:00:00 2021-09-26 00:00:00 (TEL) STLMLC STLMLC [id number] [facility] 2021-08-26 14:00:00 2021-08-26 15:51:25 Outpatient R SHABBIR PEREZ [facility] [id number] [facility] 2021-08-26 14:00:00 2021-08-26 14:30:00 Office Visit Shabbir Perez [facility] [id number] [facility] 2021-08-26 14:00:00 2021-08-26 14:00:00 Outpatient R SHABBIR PEREZ [facility] [id number] [facility] 2021-08-26 00:00:00 2021-08-26 00:00:00 Orders Only Doctor Unassigned, [place] [facility] [id number] [facility] 2021-08-24 00:00:00 2021-08-24 00:00:00 (COVID Inj) COVID Injection STLMLC STLMLC [id number] [facility] 2021-08-15 00:00:00 2021-08-15 00:00:00 (TEL) STLMLC STLMLC [id number] [facility] 2021-07-25 00:00:00 2021-07-25 00:00:00 OFFICE VISIT EST PT LEVEL 3 STLMLC STLMLC [id number] [facility] 2021-07-20 00:00:00 2021-07-20 00:00:00 OFFICE VISIT EST PT LEVEL 3 STLMLC STLMLC [id number] [facility] 2021-07-19 00:00:00 2021-07-19 00:00:00 (TEL) STLMLC STLMLC [id number] [facility] 2021-07-12 10:30:00 2021-07-12 10:30:00 Outpatient GARRETT MEJIA [facility] [id number] [facility] 2021-07-01 00:00:00 2021-07-01 00:00:00 (TEL) STLMLC STLMLC [id number] [facility] 2021-06-27 00:00:00 2021-06-27 00:00:00 OFFICE VISIT EST PT LEVEL 3 STLMLC STLMLC [id number] [facility] 2021-06-27 00:00:00 2021-06-27 00:00:00 (TEL) STLMLC STLMLC [id number] [facility] 2021-06-15 00:00:00 2021-06-15 00:00:00 OFFICE VISIT EST PT LEVEL 3 STLMLC STLMLC [id number] [facility] 2021-06-15 00:00:00 2021-06-15 00:00:00 (TEL) STLMLC STLMLC [id number] [facility] 2021-05-02 00:00:00 2021-05-02 00:00:00 OFFICE VISIT ESTAB PT LEVEL 4 STLMLC STLMLC [id number] [facility] 2021-03-15 00:00:00 2021-03-15 00:00:00 (TEL) STLMLC STLMLC [id number] [facility] 2021-02-01 00:00:00 2021-02-01 00:00:00 Outpatient STLMLC STLMLC [id number] [facility] 2021-01-06 00:00:00 2021-01-06 00:00:00 Outpatient STLMLC STLMLC [id number] [facility] 2020-12-17 00:00:00 2020-12-17 00:00:00 Outpatient STLMLC STLMLC [id number] [facility] 2020-12-10 00:00:00 2020-12-10 00:00:00 Outpatient STLMLC STLMLC [id number] [facility] 2020-11-22 00:00:00 2020-11-22 00:00:00 Outpatient STLMLC STLMLC [id number] [facility] 2020-11-05 00:00:00 2020-11-05 00:00:00 Outpatient STLMLC STLMLC [id number] [facility] 2020-09-07 00:00:00 2020-09-07 00:00:00 Outpatient STLMLC STLMLC [id number] [facility] 2020-08-10 00:00:00 2020-08-10 00:00:00 Outpatient STLMLC STLMLC [id number] [facility] 2020-07-29 00:00:00 2020-07-29 00:00:00 Outpatient STLMLC STLMLC [id number] [facility] 2020-05-13 00:00:00 2020-05-13 00:00:00 Outpatient STLMLC STLC [id number] [facility] 2020-02-23 15:50:00 2020-02-23 15:50:00 [facility] [id number] [facility] 2020-01-14 10:30:00 2020-01-14 10:30:00 [facility] [id number] [facility] 2020-01-14 10:00:00 2020-01-14 10:00:00 [facility] [id number] [facility] 2019-12-24 09:39:00 2019-12-24 09:39:00 [facility] [id number] [facility] 2019-12-17 11:31:00 2019-12-17 11:31:00 [facility] [id number] [facility] 2019-12-11 11:00:00 2019-12-11 11:00:00 [facility] [id number] [facility] 2011-07-25 00:00:00 2011-07-25 16:17:33 Outpatient [facility] [id number] [address] [place] [address] Results Test Description Test Time Test Comments Results Result Co mments Source HEMOGLOBIN [id number] 00:00:00* Test Item Value Reference Range Interpretation Comme nts HEMOGLOBIN A1c (test code = 4548-4) 5.5 % See_Comment [Automated [employer]] The system which generated this result transmitted reference range: 4.2-5.6 %. The reference range was not used to interpret this result as normal/abnormal. LIPID PANEL WITH REFLEX DIRECT [id number] 00:00:00* Test Item Value Reference Range Interpretation Comme nts CALC LDL CHOL (test code = 55581-0) 89 MG/DL See_Comment [Automated messa ge] The system which generated this result transmitted reference range: <100 MG/DL. The reference range was not used to interpret this result as normal/abnormal. CHOLESTEROL (test code = 2093-3) 206 MG/DL See_Comment H [Automated messa ge] The system which generated this result transmitted reference range: <200 MG/DL. The reference range was not used to interpret this result as normal/abnormal. HDL CHOLESTEROL (test code = 2085-9) 100 MG/DL See_Comment [Automated messa ge] The system which generated this result transmitted reference range: >39 MG/DL. The reference range was not used to interpret this result as normal/abnormal. RISK RATIO LDL/HDL (test code = 42291-2) 0.89 RATIO See_Comment [Automated message] The system which generated this result transmitted reference range: <3.22 RATIO. The reference range was not used to interpret this result as normal/abnormal. TRIGLYCERIDES (test code = 2571-8) 77 MG/DL See_Comment [Automated messa ge] The system which generated this result transmitted reference range: <150 MG/DL. The reference range was not used to interpret this result as normal/abnormal. ALBUMIN/CREATININE RATIO, RANDOM [id number] 00:00:00* Test Item Value Reference Range Interpretation Comme nts ALBUMIN, URINE, RANDOM (test code = 94831-9) 0.4 MG/DL NOT ESTAB MG/DL CALC ALBUMIN/CREAT, RND (test code = 89245-2) 4 MG/G See_Comment [Automated messa ge] The system which generated this result transmitted reference range: <30 MG/G. The reference range was not used to interpret this result as normal/abnormal. CREATININE, URINE, CONC. (test code = 2161-8) 110.9 MG/DL NOT ESTAB MG/DL COMPREHENSIVE METABOLIC [id number] 00:00:00* Test Item Value Reference Range Interpretation Comme nts ALBUMIN (test code = 1751-7) 3.9 G/DL See_Comment [Automated messa ge] The system which generated this result transmitted reference range: 3.5-5.2 G/DL. The reference range was not used to interpret this result as normal/abnormal. ALKALINE PHOSPHATASE (test code = 6768-6) 109 U/L See_Comment [Automated message] The system which generated this result transmitted reference range: 40-142 U/L. The reference range was not used to interpret this result as normal/abnormal. BILIRUBIN, TOTAL (test code = 1975-2) 0.7 MG/DL See_Comment [Automated message] The system which generated this result transmitted reference range: <=1.2 MG/DL. The reference range was not used to interpret this result as normal/abnormal. BUN (test code = 3094-0) 17 MG/DL See_Comment [Automated messa ge] The system which generated this result transmitted reference range: 8-23 MG/DL. The reference range was not used to interpret this result as normal/abnormal. CALCIUM (test code = 99261-4) 9.1 MG/DL See_Comment [Automated messa ge] The system which generated this result transmitted reference range: 8.5-10.5 MG/DL. The reference range was not used to interpret this result as normal/abnormal. CALC A/G RATIO (test code = 1759-0) 1.9 RATIO See_Comment [Automated messa ge] The system which generated this result transmitted reference range: 1.0-2.6 RATIO. The reference range was not used to interpret this result as normal/abnormal. CALC BUN/CREAT (test code = 3097-3) 15 RATIO See_Comment [Automated messa ge] The system which generated this result transmitted reference range: 6-28 RATIO. The reference range was not used to interpret this result as normal/abnormal. CALC GLOBULIN (test code = 30514-0) 2.1 G/DL See_Comment [Automated messa ge] The system which generated this result transmitted reference range: 1.9-3.7 G/DL. The reference range was not used to interpret this result as normal/abnormal. CARBON DIOXIDE (test code = 1963-8) 28 MEQ/L See_Comment [Automated messa ge] The system which generated this result transmitted reference range: 19-31 MEQ/L. The reference range was not used to interpret this result as normal/abnormal. CHLORIDE (test code = 2075-0) 102 MEQ/L See_Comment [Automated messa ge] The system which generated this result transmitted reference range: 95-107 MEQ/L. The reference range was not used to interpret this result as normal/abnormal. CREATININE (test code = 2160-0) 1.10 MG/DL See_Comment [Automated messa ge] The system which generated this result transmitted reference range: 0.60-1.30 MG/DL. The reference range was not used to interpret this result as normal/abnormal. eGFR (2020 CKD-EPI) (test code = 80609-5) 53 ML/MIN/1.73 See_Comment L [Automated messa ge] The system which generated this result transmitted reference range: >60 ML/MIN/1.73. The reference range was not used to interpret this result as normal/abnormal. GLUCOSE (test code = 1558-6) 118 MG/DL See_Comment H [Automated messa ge] The system which generated this result transmitted reference range: 70-99 MG/DL. The reference range was not used to interpret this result as normal/abnormal. POTASSIUM (test code = 2823-3) 4.5 MEQ/L See_Comment [Automated messa ge] The system which generated this result transmitted reference range: 3.5-5.4 MEQ/L. The reference range was not used to interpret this result as normal/abnormal. PROTEIN, TOTAL (test code = 2885-2) 6.0 G/DL See_Comment L [Automated messa ge] The system which generated this result transmitted reference range: 6.1-8.3 G/DL. The reference range was not used to interpret this result as normal/abnormal. AST (test code = 1920-8) 16 U/L See_Comment [Automated messa ge] The system which generated this result transmitted reference range: 9-40 U/L. The reference range was not used to interpret this result as normal/abnormal. ALT (test code = 1742-6) 14 U/L See_Comment [Automated messa ge] The system which generated this result transmitted reference range: 5-40 U/L. The reference range was not used to interpret this result as normal/abnormal. SODIUM (test code = 2951-2) 141 MEQ/L See_Comment [Automated messa ge] The system which generated this result transmitted reference range: 133-146 MEQ/L. The reference range was not used to interpret this result as normal/abnormal. CBC W/AUTO [id number] 00:00:00* Test Item Value Reference Range Interpretation Comme nts NUCLEATED RBCS (test code = 36723-0) 0.0 /100 WBC'S See_Comment [Automated messa ge] The system which generated this result transmitted reference range: 0.0 /100 WBC'S. The reference range was not used to interpret this result as normal/abnormal. ABSOLUTE EOSINOPHILS (test code = 69467-4) 0.35 K/UL See_Comment [Automated messa ge] The system which generated this result transmitted reference range: 0.00-0.50 K/UL. The reference range was not used to interpret this result as normal/abnormal. ABSOLUTE LYMPHOCYTES (test code = 56091-8) 1.60 K/UL See_Comment [Automated messa ge] The system which generated this result transmitted reference range: 1.00-4.00 K/UL. The reference range was not used to interpret this result as normal/abnormal. ABSOLUTE MONOCYTES (test code = 46032-8) 0.50 K/UL See_Comment [Automated messa ge] The system which generated this result transmitted reference range: 0.20-1.00 K/UL. The reference range was not used to interpret this result as normal/abnormal. ABSOLUTE NEUTROPHILS (test code = 03760-8) 4.85 K/UL See_Comment [Automated messa ge] The system which generated this result transmitted reference range: 1.50-7.50 K/UL. The reference range was not used to interpret this result as normal/abnormal. BASOPHILS (test code = 25387-7) 0.7 % EOSINOPHILS (test code = 33286-8) 4.7 % HEMATOCRIT (test code = 28938-2) 38.9 % See_Comment [Automated messa ge] The system which generated this result transmitted reference range: 34.0-45.0 %. The reference range was not used to interpret this result as normal/abnormal. HEMOGLOBIN (test code = 718-7) 12.8 G/DL See_Comment [Automated messa ge] The system which generated this result transmitted reference range: 11.5-15.5 G/DL. The reference range was not used to interpret this result as normal/abnormal. LYMPHOCYTES (test code = 57698-3) 21.7 % MCH (test code = 99593-4) 29.4 PG See_Comment [Automated messa ge] The system which generated this result transmitted reference range: 25.0-33.0 PG. The reference range was not used to interpret this result as normal/abnormal. MCHC (test code = 87403-0) 32.9 G/DL See_Comment [Automated messa ge] The system which generated this result transmitted reference range: 31.0-36.0 G/DL. The reference range was not used to interpret this result as normal/abnormal. MCV (test code = 54689-3) 89.4 fL See_Comment [Automated messa ge] The system which generated this result transmitted reference range: 80.0-99.0 fL. The reference range was not used to interpret this result as normal/abnormal. MONOCYTES (test code = 72694-9) 6.8 % NEUTROPHILS (test code = 16743-3) 65.8 % PLATELET COUNT (test code = 53766-5) 171 K/UL See_Comment [Automated messa ge] The system which generated this result transmitted reference range: 130-400 K/UL. The reference range was not used to interpret this result as normal/abnormal. RBC (test code = 92464-2) 4.35 M/UL See_Comment [Automated messa ge] The system which generated this result transmitted reference range: 3.80-5.40 M/UL. The reference range was not used to interpret this result as normal/abnormal. RDW (test code = 87123-0) 13.1 % See_Comment [Automated messa ge] The system which generated this result transmitted reference range: 11.5-15.0 %. The reference range was not used to interpret this result as normal/abnormal. WBC (test code = 52437-0) 7.4 K/UL See_Comment [Automated messa ge] The system which generated this result transmitted reference range: 3.5-11.0 K/UL. The reference range was not used to interpret this result as normal/abnormal. HEMOGLOBIN [id number] 00:00:00* Test Item Value Reference Range Interpretation Comme nts HEMOGLOBIN A1c (test code = 4548-4) 5.8 % See_Comment H [Automated messa ge] The system which generated this result transmitted reference range: 4.2-5.6 %. The reference range was not used to interpret this result as normal/abnormal. LIPID PANEL WITH REFLEX DIRECT [id number] 00:00:00* Test Item Value Reference Range Interpretation Comme nts CALC LDL CHOL (test code = 76525-7) 95 MG/DL See_Comment [Automated messa ge] The system which generated this result transmitted reference range: <100 MG/DL. The reference range was not used to interpret this result as normal/abnormal. CHOLESTEROL (test code = 2093-3) 211 MG/DL See_Comment H [Automated messa ge] The system which generated this result transmitted reference range: <200 MG/DL. The reference range was not used to interpret this result as normal/abnormal. HDL CHOLESTEROL (test code = 2085-9) 100 MG/DL See_Comment [Automated messa ge] The system which generated this result transmitted reference range: >39 MG/DL. The reference range was not used to interpret this result as normal/abnormal. RISK RATIO LDL/HDL (test code = 79791-6) 0.95 RATIO See_Comment [Automated message] The system which generated this result transmitted reference range: <3.22 RATIO. The reference range was not used to interpret this result as normal/abnormal. TRIGLYCERIDES (test code = 2571-8) 75 MG/DL See_Comment [Automated messa ge] The system which generated this result transmitted reference range: <150 MG/DL. The reference range was not used to interpret this result as normal/abnormal. ALBUMIN/CREATININE RATIO, RANDOM [id number] 00:00:00* Test Item Value Reference Range Interpretation Comme nts ALBUMIN, URINE, RANDOM (test code = 33406-4) 0.4 MG/DL NOT ESTAB MG/DL CALC ALBUMIN/CREAT, RND (test code = 26423-5) 3 MG/G See_Comment [Automated messa ge] The system which generated this result transmitted reference range: <30 MG/G. The reference range was not used to interpret this result as normal/abnormal. CREATININE, URINE, CONC. (test code = 2161-8) 134.8 MG/DL NOT ESTAB MG/DL COMPREHENSIVE METABOLIC [id number] 00:00:00* Test Item Value Reference Range Interpretation Comme nts ALBUMIN (test code = 1751-7) 4.0 G/DL See_Comment [Automated messa ge] The system which generated this result transmitted reference range: 3.5-5.2 G/DL. The reference range was not used to interpret this result as normal/abnormal. ALKALINE PHOSPHATASE (test code = 6768-6) 118 U/L See_Comment [Automated message] The system which generated this result transmitted reference range: 40-142 U/L. The reference range was not used to interpret this result as normal/abnormal. BILIRUBIN, TOTAL (test code = 1975-2) 0.7 MG/DL See_Comment [Automated message] The system which generated this result transmitted reference range: <=1.2 MG/DL. The reference range was not used to interpret this result as normal/abnormal. BUN (test code = 3094-0) 15 MG/DL See_Comment [Automated messa ge] The system which generated this result transmitted reference range: 8-23 MG/DL. The reference range was not used to interpret this result as normal/abnormal. CALCIUM (test code = 29783-0) 9.0 MG/DL See_Comment [Automated messa ge] The system which generated this result transmitted reference range: 8.5-10.5 MG/DL. The reference range was not used to interpret this result as normal/abnormal. CALC A/G RATIO (test code = 1759-0) 1.8 RATIO See_Comment [Automated messa ge] The system which generated this result transmitted reference range: 1.0-2.6 RATIO. The reference range was not used to interpret this result as normal/abnormal. CALC BUN/CREAT (test code = 3097-3) 14 RATIO See_Comment [Automated messa ge] The system which generated this result transmitted reference range: 6-28 RATIO. The reference range was not used to interpret this result as normal/abnormal. CALC GLOBULIN (test code = 11763-8) 2.2 G/DL See_Comment [Automated messa ge] The system which generated this result transmitted reference range: 1.9-3.7 G/DL. The reference range was not used to interpret this result as normal/abnormal. CARBON DIOXIDE (test code = 1963-8) 28 MEQ/L See_Comment [Automated messa ge] The system which generated this result transmitted reference range: 19-31 MEQ/L. The reference range was not used to interpret this result as normal/abnormal. CHLORIDE (test code = 2075-0) 100 MEQ/L See_Comment [Automated messa ge] The system which generated this result transmitted reference range: 95-107 MEQ/L. The reference range was not used to interpret this result as normal/abnormal. CREATININE (test code = 2160-0) 1.09 MG/DL See_Comment [Automated messa ge] The system which generated this result transmitted reference range: 0.60-1.30 MG/DL. The reference range was not used to interpret this result as normal/abnormal. eGFR (2020 CKD-EPI) (test code = 48969-7) 54 ML/MIN/1.73 See_Comment L [Automated messa ge] The system which generated this result transmitted reference range: >60 ML/MIN/1.73. The reference range was not used to interpret this result as normal/abnormal. GLUCOSE (test code = 1558-6) 121 MG/DL See_Comment H [Automated messa ge] The system which generated this result transmitted reference range: 70-99 MG/DL. The reference range was not used to interpret this result as normal/abnormal. POTASSIUM (test code = 2823-3) 4.1 MEQ/L See_Comment [Automated messa ge] The system which generated this result transmitted reference range: 3.5-5.4 MEQ/L. The reference range was not used to interpret this result as normal/abnormal. PROTEIN, TOTAL (test code = 2885-2) 6.2 G/DL See_Comment [Automated messa ge] The system which generated this result transmitted reference range: 6.1-8.3 G/DL. The reference range was not used to interpret this result as normal/abnormal. AST (test code = 1920-8) 17 U/L See_Comment [Automated messa ge] The system which generated this result transmitted reference range: 9-40 U/L. The reference range was not used to interpret this result as normal/abnormal. ALT (test code = 1742-6) 12 U/L See_Comment [Automated messa ge] The system which generated this result transmitted reference range: 5-40 U/L. The reference range was not used to interpret this result as normal/abnormal. SODIUM (test code = 2951-2) 139 MEQ/L See_Comment [Automated messa ge] The system which generated this result transmitted reference range: 133-146 MEQ/L. The reference range was not used to interpret this result as normal/abnormal. HEMOGLOBIN [id number] 00:00:00* Test Item Value Reference Range Interpretation Comme nts A1C (test code = 4548-4) 5.4
--- NOTE | 2023-11-07 20:30 | EDPHYS ---
Physician Documentation [facility] Name: Mita Olson Age: 73 yrs Sex: Female : 1950 Arrival Date: 11/07/2023 Time: 20:05 Bed IW4 Private MD: ED Physician Clarence Torres HPI: 11/06 20:31 This 73 yrs old Female presents to ER via Ambulatory with complaints of sb4 Laceration To Leg. 20:31 patient sustained a laceration to right lower leg 12 days ago, refused to be seen sb4 initially. saw PCP today and was sent here with concerns of cellulitis. patient denies any fever, chills, nausea, vomiting. she is diabetic, but controllec. Historical: - Allergies: 20:29 No Known Allergies; cm10 - PMHx: 20:29 Diabetes - NIDDM; Hypertension; cm10 - Immunization history:: Adult Immunizations. - Infectious Disease History:: Denies. - Social history:: Smoking status: Patient denies any tobacco usage or history of. ROS: 20:31 Constitutional: Negative for fever, chills, and weight loss, sb4 20:31 Skin: Positive for cellulitis, laceration(s), 20:31 All other systems are negative, Exam: 20:31 Constitutional: This is a well developed, well nourished patient who is awake, alert, sb4 and in no acute distress. Head/Face: Normocephalic, atraumatic. Eyes: Extra-ocular motions intact. Periorbital areas with no swelling, redness, or edema. ENT: Mucous membranes moist. MS/ Extremity: Pulses equal, no cyanosis. Neurovascular intact. Full, normal range of motion. Neuro: Awake and alert, GCS 15, oriented to person, place, time, and situation. Motor strength 5/5 in all extremities. Sensory grossly intact. 20:31 Skin: cellulitis, that is mild, surrounding laceration, injury, laceration(s), the wound is approximately 3 cm(s), of the medial aspect of right calf, that can be described as linear, without bleeding, healing, Vital Signs: 20:26 BP 150 / 65; Pulse 83; Resp 18; Temp 97.4(O); Pulse Ox 98% on R/A; Weight 98.88 kg; cm10 Height 5 ft. 2 in. ; Pain /; 20:26 Body Mass Index 39.87 (98.88 kg, 157.48 cm) cm10 20:26 Pain Scale: Adult cm10 MDM: 20:20 Patient medically screened. sb4 20:31 Data reviewed: vital signs, nurses notes, and as a result, I will discharge patient. sb4 Counseling: I had a detailed discussion with the patient and/or guardian regarding the historical points, exam findings, and any diagnostic results supporting the discharge/admit diagnosis, the need for outpatient follow up, in 1 week for wound recheck, to return to the emergency department if symptoms worsen or persist or if there are any questions or concerns that arise at home. Administered Medications: 20:36 Drug: Trimethoprim-Sulfamethoxazole PO (160 mg-800 mg (DS) 1 tablet PO once Route: PO; cm10 20:36 Follow up: Response: Medication administered at discharge. cm10 Disposition: 11/07 06:05 Co-signature as Attending Physician, Clarence Torres MD I agree with the assessment sp4 and plan of care. I reviewed the patient's care provided by the Advanced Practice Provider and agree with the diagnosis and treatment plan. Disposition Summary: 11/07/23 20:29 Discharge Ordered Notes: Location: Home sb4 Problem: new sb4 Symptoms: are unchanged sb4 Condition: Stable sb4 Diagnosis - Cellulitis of right lower limb sb4 Followup: sb4 - With: Private Physician - When: 1 week - Reason: Wound Recheck Discharge Instructions: - Discharge Summary Sheet sb4 - Cellulitis, Adult sb4 Forms: - Antibiotic Education sb4 - Patient Portal Instructions sb4 - Leadership Thank You Letter sb4 Prescriptions: - Bactrim DS 800-160 mg Oral Tablet - take 1 tablet ORAL route every 12 hours for 10 days; 20 tablet; Refills: 0, sb4 Product Selection Permitted Signatures: Chana Lyon PA-C PA-C sb4 Clarence Torres MD MD sp4 Skyla Rojas RN RN cm10
--- NOTE | 2023-11-07 20:30 | ER ---
Nurse's Notes [facility] Name: Mita Olson Age: 73 yrs Sex: Female : 1950 Arrival Date: 11/07/2023 Time: 20:05 Bed IW4 Private MD: Diagnosis: Cellulitis of right lower limb Presentation: 11/06 20:26 Chief complaint: Patient states: wound to right lower leg onset last Sunday. Pt states cm10 that she had a laceration and was seen at her PCP and was told to come to the ED. Pt reports that she is having drainage. Coronavirus screen: Client denies travel out of the [place] in the last 14 days. At this time, the client does not indicate any symptoms associated with coronavirus-19. Ebola Screen: Patient denies travel to an Ebola-affected area in the 21 days before illness onset. No symptoms or risks identified at this time. Complicating Factors: There are no complicating factors for this patient. Initial Sepsis Screen: Does the patient meet any 2 criteria? No. Patient's initial sepsis screen is negative. Does the patient have a suspected source of infection? No. Patient's initial sepsis screen is negative. Risk Assessment: Do you want to hurt yourself or someone else? Patient reports no desire to harm self or others. Onset of symptoms was November 07, 2023. 20:26 Method Of Arrival: Ambulatory cm10 20:26 Acuity: RODNEY 3 cm10 Triage Assessment: 20:29 General: Appears in no apparent distress. comfortable, Behavior is calm, cooperative. cm10 Pain: Complains of pain in right leg. Neuro: No deficits noted. Level of Consciousness is awake, alert, obeys commands, Oriented to person, place, time, situation. Respiratory: No deficits noted. Airway is patent Respiratory effort is even, unlabored, Respiratory pattern is regular, symmetrical. Derm: Wound noted medial aspect of right calf. Musculoskeletal: No deficits noted. Range of motion: intact in all extremities. Historical: - Allergies: 20:29 No Known Allergies; cm10 - PMHx: 20:29 Diabetes - NIDDM; Hypertension; cm10 - Immunization history:: Adult Immunizations. - Infectious Disease History:: Denies. - Social history:: Smoking status: Patient denies any tobacco usage or history of. Screenin:38 [facility] ED Fall Risk Assessment (Adult) History of falling in the last 3 months, cm10 including since admission No falls in past 3 months (0 pts) Confusion or Disorientation No (0 pts) Intoxicated or Sedated No (0 pts) Impaired Gait No (0 pts) Mobility Assist Device Used No (0 pt) Altered Elimination No (0 pt) Score/Fall Risk Level 0 - 2 = Low Risk Oriented to surroundings, Maintained a safe environment. Abuse screen: Denies threats or abuse. Denies injuries from another. Nutritional screening: No deficits noted. Tuberculosis screening: No symptoms or risk factors identified. Vital Signs: 20:26 BP 150 / 65; Pulse 83; Resp 18; Temp 97.4(O); Pulse Ox 98% on R/A; Weight 98.88 kg; cm10 Height 5 ft. 2 in. ; Pain 2/10; 20:26 Body Mass Index 39.87 (98.88 kg, 157.48 cm) cm10 20:26 Pain Scale: Adult cm10 ED Course: 20:17 Patient arrived in ED. gm2 20:17 Chana Lyon PA-C is PHCP. sb4 20:17 Clarence Torres MD is Attending Physician. sb4 20:29 Triage completed. cm10 20:29 Arm band placed on Patient placed in waiting room. cm10 20:38 Patient has correct armband on for positive identification. Provided Education on: cm10 Follow-up instructions. 20:39 No provider procedures requiring assistance completed. Patient did not have IV access cm10 during this emergency room visit. Administered Medications: 20:36 Drug: Trimethoprim-Sulfamethoxazole PO (160 mg-800 mg (DS) 1 tablet PO once Route: PO; cm10 20:36 Follow up: Response: Medication administered at discharge. cm10 Medication: 20:38 VIS not applicable for this client. cm10 Outcome: 20:29 Discharge ordered by MD. sb4 20:39 Discharged to home ambulatory, with family, cm10 20:39 Condition: good 20:39 Discharge instructions given to patient, family, Instructed on discharge instructions, follow up and referral plans. medication usage, wound care, Demonstrated understanding of instructions, follow-up care, medications, wound care, Prescriptions given X 1, 20:39 Patient left the ED. cm10 Signatures: Chana Lyon PA-C PA-C sb4 Skyla Rojas, RN RN cm10 Karol Delgado gm2 Corrections: (The following items were deleted from the chart) 20: 20:26 Acuity: RODNEY 4 cm10 10
[2023-11-07] MEDS ORDERED: SMZ./TMP. 800/160 MG TABLET ONE (20:32)
[2023-11-07 20:45] VITALS: BP 150/65; TEMP 97.4; O2SAT 98
== END 2023-11-07 20:39 | disposition home or self-care (01) ==
LOC: ER 20:05
DX: L03.115 Cellulitis of right lower limb (principal)
CPT/HCPCS: 99283

== ENCOUNTER 2024-03-19 13:07 | Inpatient (IN) | payer OTHER ==
--- OUTSIDE RECORDS SUMMARY | 2024-03-19 13:17 | XMS REPORT | Continuity of Care Document ---
Author Name Unknown Address [address] [facility] [address] [place] [address] [facility] thconnect Address [address] [facility] [place] [address] Care Team Providers Care Product Safety Associate Name Role Phone Solomon Medina Attending Clinician Unavailable Flavio Ballesteros X Attending Clinician Unavailable Aliza Chavez Cardiology Attending Clinician Unavailable Flavio Ballesteros X Admitting Clinician Unavailable Solomon Medina Admitting Clinician Unavailable UNDEFINED Admitting Clinician Unavailable Physician, No Primary or Family Admitting Clinic doris Unavailable Payers Payer Name Policy Type Policy Number Effective Date Expirati on Date Source [facility] Dual Complete Choice (Regional PPO D-SNP) [id number] 2023 00:00:[address] [facility] (Medicaid) [id number] 2014 00:00:[address] 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 Atheroscle rotic heart disease Problem [facility] [id number] Thrombocyt openic Problem [facility] [id number] Odynophagi a Problem [facility] [id number] Pain, joint, hip, right Problem [facility] [id number] Unilateral post-traum atic osteoarthr itis, right hip Problem [facility] [id number] Mixed hyperlipid emia Problem [facility] [id number] Right sciatic nerve pain Problem [facility] [id number] Type 2 diabetes mellitus with hyperglyce iraj, without long-term current use of insulin Problem [facility] 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 Problem [facility] [id number] Memory changes Problem [facility] [id number] Coronary artery disease involving [place] coronary artery of [place] heart with other form of angina pectoris Problem [facility] [id number] Adult BMI 33.0-33.9 kg/sq m Problem [facility] Chronic kidney disease stage 3 (disorder) Chronic kidney disease, stage 3 unspecifie d Problem [facility] [id number] GERD without esophagiti s Problem [facility] [id number] Essential hypertensi on Problem [facility] [id number] Trochanter ic bursitis of right hip Problem [facility] [id number] Primary osteoarthr itis of right hip Problem [facility] [id number] Pain from implanted hardware, subsequent encounter Problem [facility] [id number] 105 History of total right knee replacemen t Problem [facility] Allergies, Adverse Reactions, Alerts Allergy Name Allergy Type Status Severity Reaction(s) Onset Date Inactive Date Treating Clinician Comments Source No Known Allergie s DA Active U 01-29 00:00: 00 [facility] No Known Allergie s DA Active U 01-20 00:00: 00 [facility] sulfamet hoxazole / trimetho prim sulfamet hoxazole / trimetho prim Active hives, itching [facility] Social History Social Habit Start Date Stop Date Quantity Comments Source History of Tobacco Use [facility] Sex Assigned At [facility] Smoking Status Start Date Stop Date Source Never Smoker [facility] Medications Ordered Medication Name Filled Medication Name Start Date Stop Date Current Medication? Ordering Clinician Indication Dosage Frequency Signature (SIG) Comments Components Source Lidocaine Lidocaine 06-20 00:00: 00 No 5mL [facility] Kenalog (Triamcinol one) Kenalog (Triamcinol one) 06-20 00:00: 00 No 2mL [facility] Losartan Potassium 25 MG Losartan Potassium 25 [...] 1{table t_with_ food} QD Carvedilol 12.5 MG Immunizations Ordered Immunization Name Filled Immunization Name Date Status Comments Source Moderna COVID-19 Vaccine (Low Dose Booster) Moderna COVID-19 Vaccine (Low Dose Booster) 2021-08-24 09:59:00 Completed [facility] Moderna COVID-19 Vaccine (Low Dose Booster) Moderna COVID-19 Vaccine (Low Dose Booster) 2021-08-24 09:59:00 Completed [facility] Moderna COVID-19 Vaccine (Low Dose Booster) Moderna COVID-19 Vaccine (Low Dose Booster) 2021-08-24 09:59:00 Completed [facility] Moderna COVID-19 Vaccine (Low Dose Booster) Moderna COVID-19 Vaccine (Low Dose Booster) 2021-08-24 09:59:00 Completed [facility] Moderna COVID-19 Vaccine (Low Dose Booster) Moderna COVID-19 Vaccine (Low Dose Booster) 2021-08-24 09:59:00 Completed [facility] Moderna COVID-19 Vaccine (Low Dose Booster) Moderna COVID-19 Vaccine (Low Dose Booster) 2021-08-24 09:59:00 Completed [facility] Moderna COVID-19 Vaccine (Low Dose Booster) Moderna COVID-19 Vaccine (Low Dose Booster) 2021-08-24 09:59:00 Completed [facility] Moderna COVID-19 Vaccine (Low Dose Booster) Moderna COVID-19 Vaccine (Low Dose Booster) 2021-08-24 09:59:00 Completed [facility] Moderna COVID-19 Vaccine (Low Dose Booster) Moderna COVID-19 Vaccine (Low Dose Booster) 2021-08-24 09:59:00 Completed [facility] Moderna COVID-19 Vaccine Moderna COVID-19 Vaccine 2020-12-17 09:20:00 Completed [facility] Moderna COVID-19 Vaccine Moderna COVID-19 Vaccine 2020-12-17 09:20:00 Completed [facility] Moderna COVID-19 Vaccine Moderna COVID-19 Vaccine 2020-12-17 09:20:00 Completed [facility] Moderna COVID-19 Vaccine Moderna COVID-19 Vaccine 2020-12-17 09:20:00 Completed [facility] Moderna COVID-19 Vaccine Moderna COVID-19 Vaccine 2020-12-17 09:20:00 Completed [facility] Moderna COVID-19 Vaccine Moderna COVID-19 Vaccine 2020-12-17 09:20:00 Completed [facility] Moderna COVID-19 Vaccine Moderna COVID-19 Vaccine 2020-12-17 09:20:00 Completed [facility] Moderna COVID-19 Vaccine Moderna COVID-19 Vaccine 2020-12-17 09:20:00 Completed [facility] Moderna COVID-19 Vaccine Moderna COVID-19 Vaccine 2020-12-17 09:20:00 Completed [facility] Moderna COVID-19 Vaccine Moderna COVID-19 Vaccine 2020-12-17 09:20:00 Completed [facility] Moderna COVID-19 Vaccine Moderna COVID-19 Vaccine 2020-12-17 09:20:00 Completed [facility] Moderna COVID-19 Vaccine (Low Dose Booster) Moderna COVID-19 Vaccine (Low Dose Booster) Unknown Completed [facility] Moderna COVID-19 Vaccine Moderna COVID-19 Vaccine Unknown Completed [facility] Moderna COVID-19 Vaccine (Low Dose Booster) Moderna COVID-19 Vaccine (Low Dose Booster) Unknown Completed [facility] Moderna COVID-19 Vaccine Moderna COVID-19 Vaccine Unknown Completed [facility] MODERNA COVID-19 VACCINE (LOW DOSE BOOSTER) MODERNA COVID-19 VACCINE (LOW DOSE BOOSTER) Unknown Completed [facility] Moderna COVID-19 Vaccine Moderna COVID-19 Vaccine Unknown Completed [facility] MODERNA COVID-19 VACCINE (LOW DOSE BOOSTER) MODERNA COVID-19 VACCINE (LOW DOSE BOOSTER) Unknown Completed [facility] Moderna COVID-19 Vaccine Moderna COVID-19 Vaccine Unknown Completed [facility] MODERNA COVID-19 VACCINE (LOW DOSE BOOSTER) MODERNA COVID-19 VACCINE (LOW DOSE BOOSTER) Unknown Completed [facility] Moderna COVID-19 Vaccine Moderna COVID-19 Vaccine Unknown Completed [facility] MODERNA COVID-19 VACCINE (LOW DOSE BOOSTER) MODERNA COVID-19 VACCINE (LOW DOSE BOOSTER) Unknown Completed [facility] Moderna COVID-19 Vaccine Moderna COVID-19 Vaccine Unknown Completed [facility] Moderna COVID-19 Vaccine (Low Dose Booster) Moderna COVID-19 Vaccine (Low Dose Booster) Unknown Completed [facility] Moderna COVID-19 Vaccine Moderna COVID-19 Vaccine Unknown Completed [facility] Moderna COVID-19 Vaccine (Low Dose Booster) Moderna COVID-19 Vaccine (Low Dose Booster) Unknown Completed [facility] Moderna COVID-19 Vaccine Moderna COVID-19 Vaccine Unknown Completed [facility] Moderna COVID-19 Vaccine (Low Dose Booster) Moderna COVID-19 Vaccine (Low Dose Booster) Unknown Completed [facility] Moderna COVID-19 Vaccine Moderna COVID-19 Vaccine Unknown Completed [facility] Moderna COVID-19 Vaccine (Low Dose Booster) Moderna COVID-19 Vaccine (Low Dose Booster) Unknown Completed [facility] Moderna COVID-19 Vaccine Moderna COVID-19 Vaccine Unknown Completed [facility] Moderna COVID-19 Vaccine (Low Dose Booster) Moderna COVID-19 Vaccine (Low Dose Booster) Unknown Completed [facility] Moderna COVID-19 Vaccine Moderna COVID-19 Vaccine Unknown Completed [facility] Moderna COVID-19 Vaccine (Low Dose Booster) Moderna COVID-19 Vaccine (Low Dose Booster) Unknown Completed [facility] Moderna COVID-19 Vaccine Moderna COVID-19 Vaccine Unknown Completed [facility] Moderna COVID-19 Vaccine (Low Dose Booster) Moderna COVID-19 Vaccine (Low Dose Booster) Unknown Completed [facility] Moderna COVID-19 Vaccine Moderna COVID-19 Vaccine Unknown Completed [facility] Moderna COVID-19 Vaccine (Low Dose Booster) Moderna COVID-19 Vaccine (Low Dose Booster) Unknown Completed [facility] Moderna COVID-19 Vaccine Moderna COVID-19 Vaccine Unknown Completed [facility] Moderna COVID-19 Vaccine (Low Dose Booster) Moderna COVID-19 Vaccine (Low Dose Booster) [facility] Vaccine Unknown Completed [facility] Vital Signs Vital Name Observation Time Observation Value Comments S ource height 2024-01-07 15:00:00 67 [in_i] Commo n [facility] weight 2024-01-07 15:00:00 213.8 [lb_av] Co mmon [facility] temperature 2024-01-07 15:00:00 97.9 [degF] Com mon [facility] bmi 2024-01-07 15:00:00 33.48 kg/m2 Comm on [facility] oximetry 2024-01-07 15:00:00 96 % Commo n [facility] blood pressure systolic 2024-01-07 15:00:00 130 mm[Hg] [facility] blood pressure diastolic 2024-01-07 15:00:00 66 mm[Hg] Common [facility] height 2024-01-07 15:20:00 67 [in_i] Commo n [facility] weight 2024-01-07 15:20:00 213.8 [lb_av] Co mmon [facility] temperature 2024-01-07 15:20:00 97.9 [degF] Com [facility] bmi 2024-01-07 15:20:00 33.48 kg/m2 Comm on [facility] oximetry 2024-01-07 15:20:00 96 % Commo n [facility] blood pressure systolic 2024-01-07 15:20:00 130 mm[Hg] Common [facility] blood pressure diastolic 2024-01-07 15:20:00 66 mm[Hg] [facility] height 2023-11-07 14:00:00 67 [in_i] Commo n [facility] weight 2023-11-07 14:00:00 218 [lb_av] Comm on [facility] temperature 2023-11-07 14:00:00 97.4 [degF] Com [facility] bmi 2023-11-07 14:00:00 34.14 kg/m2 Comm on [facility] oximetry 2023-11-07 14:00:00 97 % [facility]mo n [facility] respiratory rate 2023-11-07 14:00:00 18 /min [facility] blood pressure systolic 2023-11-07 14:00:00 137 mm[Hg] [facility] blood pressure diastolic 2023-11-07 14:00:00 59 mm[Hg] [facility] height 2023-09-07 09:30:00 67 [in_i] Commo n [facility] weight 2023-09-07 09:30:00 213.4 [lb_av] Co mmon [facility] temperature 2023-09-07 09:30:00 97.2 [degF] Com [facility] bmi 2023-09-07 09:30:00 33.42 kg/m2 Comm on [facility] oximetry 2023-09-07 09:30:00 96 % Commo n [facility] blood pressure systolic 2023-09-07 09:30:00 126 mm[Hg] Common [facility] blood pressure diastolic 2023-09-07 09:30:00 66 mm[Hg] Common [facility] height 2023-06-20 14:30:00 67 [in_i] Commo n [facility] weight 2023-06-20 14:30:00 221.4 [lb_av] Co mmon [facility] temperature 2023-06-20 14:30:00 98.6 [degF] Com mon [facility] bmi 2023-06-20 14:30:00 34.67 kg/m2 Comm on [facility] blood pressure systolic 2023-06-20 14:30:00 128 mm[Hg] Common [facility] blood pressure diastolic 2023-06-20 14:30:00 62 mm[Hg] Common [facility] height 2023-06-06 08:50:00 67 [in_i] Commo n [facility] weight 2023-06-06 08:50:00 220 [lb_av] Comm on [facility] temperature 2023-06-06 08:50:00 97.4 [degF] Com mon [facility] bmi 2023-06-06 08:50:00 34.45 kg/m2 Comm on [facility] oximetry 2023-06-06 08:50:00 99 % Commo n [facility] blood pressure systolic 2023-06-06 08:50:00 130 mm[Hg] [facility] blood pressure diastolic 2023-06-06 08:50:00 72 mm[Hg] Common [facility] height 2023-04-11 13:00:00 67 [in_i] Commo n [facility] weight 2023-04-11 13:00:00 222.0 [lb_av] Co mmon [facility] temperature 2023-04-11 13:00:00 97.7 [degF] Com mon [facility] bmi 2023-04-11 13:00:00 34.77 kg/m2 Comm on [facility] oximetry 2023-04-11 13:00:00 97 % Commo n [facility] respiratory rate 2023-04-11 13:00:00 18 /min Common [facility] blood pressure systolic 2023-04-11 13:00:00 139 mm[Hg] Common [facility] blood pressure diastolic 2023-04-11 13:00:00 63 mm[Hg] [facility] height 2023-02-26 10:40:00 67 [in_i] Commo n [facility] weight 2023-02-26 10:40:00 223.0 [lb_av] Co [facility] temperature 2023-02-26 10:40:00 97.7 [degF] Com [facility] bmi 2023-02-26 10:40:00 34.92 kg/m2 Comm on [facility] oximetry 2023-02-26 10:40:00 95 % Commo n [facility] respiratory rate 2023-02-26 10:40:00 17 /min Common [facility] blood pressure systolic 2023-02-26 10:40:00 124 mm[Hg] Common [facility] blood pressure diastolic 2023-02-26 10:40:00 73 mm[Hg] [facility] height 2022-11-21 10:30:00 67 [in_i] Commo n [facility] weight 2022-11-21 10:30:00 221.8 [lb_av] Co [facility] temperature 2022-11-21 10:30:00 97.5 [degF] Com [facility] bmi 2022-11-21 10:30:00 34.73 kg/m2 Comm on [facility] oximetry 2022-11-21 10:30:00 95 % Commo n [facility] respiratory rate 2022-11-21 10:30:00 17 /min [facility] blood pressure systolic 2022-11-21 10:30:00 129 mm[Hg] [facility] blood pressure diastolic 2022-11-21 10:30:00 72 mm[Hg] [facility] height 2022-08-09 10:00:00 67 [in_i] Commo n [facility] weight 2022-08-09 10:00:00 220.0 [lb_av] Co [facility] temperature 2022-08-09 10:00:00 97.0 [degF] Com [facility] bmi 2022-08-09 10:00:00 34.45 kg/m2 Comm on [facility] oximetry 2022-08-09 10:00:00 95 % Commo n [facility] respiratory rate 2022-08-09 10:00:00 16 /min [facility] blood pressure systolic 2022-08-09 10:00:00 127 mm[Hg] Common [facility] blood pressure diastolic 2022-08-09 10:00:00 69 mm[Hg] Common [facility] height 2022-08-09 10:20:00 67 [in_i] Commo n [facility] weight 2022-08-09 10:20:00 220.0 [lb_av] Co [facility] temperature 2022-08-09 10:20:00 97.0 [degF] Com [facility] bmi 2022-08-09 10:20:00 34.45 kg/m2 Comm on [facility] oximetry 2022-08-09 10:20:00 95 % Commo n [facility] respiratory rate 2022-08-09 10:20:00 16 /min Common [facility] blood pressure systolic 2022-08-09 10:20:00 127 mm[Hg] Common [facility] blood pressure diastolic 2022-08-09 10:20:00 69 mm[Hg] [facility] height 2022-04-05 10:40:00 67 [in_i] Commo n [facility] weight 2022-04-05 10:40:00 214.7 [lb_av] Co [facility]mon [facility] temperature 2022-04-05 10:40:00 97.3 [degF] Com [facility] bmi 2022-04-05 10:40:00 33.62 kg/m2 Comm on [facility] oximetry 2022-04-05 10:40:00 97 % Commo n [facility] respiratory rate 2022-04-05 10:40:00 17 /min [facility] blood pressure systolic 2022-04-05 10:40:00 131 mm[Hg] [facility] blood pressure diastolic 2022-04-05 10:40:00 70 mm[Hg] Common [facility] height 2022-02-08 10:00:00 67 [in_i] Commo n [facility] weight 2022-02-08 10:00:00 214.4 [lb_av] Co mmon [facility] temperature 2022-02-08 10:00:00 97.3 [degF] Com [facility] bmi 2022-02-08 10:00:00 33.58 kg/m2 Comm on [facility] oximetry 2022-02-08 10:00:00 97 % Commo n [facility] respiratory rate 2022-02-08 10:00:00 17 /min [facility] blood pressure systolic 2022-02-08 10:00:00 137 mm[Hg] [facility] blood pressure diastolic 2022-02-08 10:00:00 75 mm[Hg] [facility] height 2022-01-06 10:30:00 67 [in_i] Commo n [facility] weight 2022-01-06 10:30:00 204.6 [lb_av] Co [facility]mon [facility] temperature 2022-01-06 10:30:00 97.1 [degF] Com mon [facility] bmi 2022-01-06 10:30:00 32.04 kg/m2 Comm on [facility] oximetry 2022-01-06 10:30:00 95 % Commo n [facility] respiratory rate 2022-01-06 10:30:00 18 /min [facility] blood pressure systolic 2022-01-06 10:30:00 125 mm[Hg] [facility] blood pressure diastolic 2022-01-06 10:30:00 62 mm[Hg] Common [facility] height 2021-10-06 10:20:00 67 [in_i] Commo n [facility] weight 2021-10-06 10:20:00 209.6 [lb_av] Co [facility] temperature 2021-10-06 10:20:00 97.5 [degF] Com mon [facility] bmi 2021-10-06 10:20:00 32.82 kg/m2 Comm on [facility] oximetry 2021-10-06 10:20:00 97 % Commo n [facility] respiratory rate 2021-10-06 10:20:00 17 /min Common [facility] blood pressure systolic 2021-10-06 10:20:00 134 mm[Hg] [facility] blood pressure diastolic 2021-10-06 10:20:00 62 mm[Hg] [facility] height 2021-10-06 10:20:00 67 [in_i] Commo n [facility] weight 2021-10-06 10:20:00 209.6 [lb_av] Co [facility]mon [facility] temperature 2021-10-06 10:20:00 97.5 [degF] Com [facility] bmi 2021-10-06 10:20:00 32.82 kg/m2 Comm on [facility] oximetry 2021-10-06 10:20:00 97 % Commo n [facility] respiratory rate 2021-10-06 10:20:00 17 /min Common [facility] blood pressure systolic 2021-10-06 10:20:00 134 mm[Hg] Common [facility] blood pressure diastolic 2021-10-06 10:20:00 62 mm[Hg] Common [facility] height 2021-07-25 10:40:00 67 [in_i] Commo n [facility] weight 2021-07-25 10:40:00 213 [lb_av] Comm on [facility] temperature 2021-07-25 10:40:00 96.7 [degF] Com [facility] bmi 2021-07-25 10:40:00 33.36 kg/m2 Comm on [facility] oximetry 2021-07-25 10:40:00 95 % Commo n [facility] respiratory rate 2021-07-25 10:40:00 18 /min Common [facility] blood pressure systolic 2021-07-25 10:40:00 133 mm[Hg] [facility] blood pressure diastolic 2021-07-25 10:40:00 63 mm[Hg] Common [facility] height 2021-07-20 13:00:00 67 [in_i] Commo n [facility] weight 2021-07-20 13:00:00 220.0 [lb_av] Co mmon [facility] temperature 2021-07-20 13:00:00 97.4 [degF] Com mon [facility] bmi 2021-07-20 13:00:00 34.45 kg/m2 Comm on [facility] oximetry 2021-07-20 13:00:00 97 % Commo n [facility] respiratory rate 2021-07-20 13:00:00 16 /min Common [facility] blood pressure systolic 2021-07-20 13:00:00 136 mm[Hg] [facility] blood pressure diastolic 2021-07-20 13:00:00 60 mm[Hg] Common [facility] height 2021-06-27 13:40:00 67 [in_i] Commo n [facility] weight 2021-06-27 13:40:00 235 [lb_av] Comm on [facility] temperature 2021-06-27 13:40:00 95.8 [degF] Com mon [facility] bmi 2021-06-27 13:40:00 36.8 kg/m2 Commo n [facility] blood pressure systolic 2021-06-27 13:40:00 116 mm[Hg] Common [facility] blood pressure diastolic 2021-06-27 13:40:00 71 mm[Hg] Common [facility] height 2021-06-15 11:40:00 67 [in_i] Commo n [facility] weight 2021-06-15 11:40:00 200 [lb_av] Comm on [facility] temperature 2021-06-15 11:40:00 98 [degF] Comm on [facility] bmi 2021-06-15 11:40:00 31.32 kg/m2 Comm on [facility] height 2021-05-02 10:50:00 67 [in_i] Commo n [facility] weight 2021-05-02 10:50:00 228.3 [lb_av] Co mmon [facility] temperature 2021-05-02 10:50:00 97.3 [degF] Com mon [facility] bmi 2021-05-02 10:50:00 35.75 kg/m2 Comm on [facility] oximetry 2021-05-02 10:50:00 83 % Commo n [facility] respiratory rate 2021-05-02 10:50:00 16 /min Common [facility] blood pressure systolic 2021-05-02 10:50:00 133 mm[Hg] [facility] blood pressure diastolic 2021-05-02 10:50:00 76 mm[Hg] [facility] Procedures Procedure Date / Time Performed Performing Clinicia n Source [id number] 2024-02-12 00:00:00 [facility] [id number] 2024-02-12 00:00:00 [facility] [id number] 2024-02-12 00:00:00 POREY [facility] [id number] 2024-02-12 [facility] [id number] 2024-02-12 00:00:00 YOUAD [facility] [id number] 2024-02-12 00:00[facility] [id number] 2024-02-12 00:00:00 [facility] [id number] 2024-02-12 00:00:00 [facility] [id number] 2024-02-12 00:00:00 YOUAD [facility] [id number] 2024-02-12 00:00:00 [facility] [id number] 2024-02-12 00:00:00 POREY [facility] [id number] 2024-02-12 00:00:00 POREY [facility] [id number] 2024-02-12 00:00:00 POREY [facility] [id number] 2024-02-12 00:00:00 AFSHIN [facility] [id number] 2024-02-12 00:00:00 AFSHIN [facility] Encounters Start Date/Time End Date/Time Encounter Type Admission Type Attending [facility] Care Facility Care Department Encounter ID Source 2023-12-07 16:11:00 Outpatient Medina, Solomon STLMLC STLMLC [id number] [facility] 2023-09-05 10:21:00 Outpatient Medina, Solomon STLMLC STLMLC [id number] [facility] 2023-08-31 16:02:00 Outpatient Medina, Solomon STLMLC STLMLC [id number] [facility] 2023-07-10 16:00:00 Outpatient Medina, Solomon STLMLC STLMLC [id number] [facility] 2023-06-20 14:30:00 Outpatient Medina, Solomon STLMLC STLMLC [id number] [facility] 2023-06-18 16:17:00 Outpatient Medina, Solomon STLMLC STLMLC [id number] [facility] 2023-06-13 10:18:00 Outpatient Medina, Solomon STLMLC STLMLC [id number] [facility] 2023-05-09 15:40:00 Outpatient Medina, Solomon STLMLC STLMLC [id number] [facility] 2023-04-10 15:20:00 Outpatient Medina, Solomon STLMLC STLMLC [id number] [facility] 2023-01-10 13:29:00 Outpatient Medina, Solomon STLMLC STLMLC [id number] [facility] 2022-12-08 10:35:00 Outpatient Medina, Solomon STLMLC STLMLC [id number] [facility] 2022-04-03 10:44:02 Outpatient Medina, Solomon STLC STLMLC [id number] [facility] 2022-02-08 10:57:01 Outpatient Medina, Solomon STLC STLMLC [id number] [facility] 2022-02-06 13:16:01 Outpatient Medina, Solomon STLC STLMLC [id number] [facility] 2022-02-01 09:59:01 Outpatient Medina, Solomon STLC STLMLC [id number] [facility] 2021-10-05 10:04:00 Outpatient Medina, Solomon STLC STLC [id number] [facility] 2021-08-24 09:59:00 Outpatient Medina, Solomon STLC STLC [id number] [facility] 2021-08-08 11:26:00 Outpatient Medina, Solomon STLC STLC [id number] [facility] 2021-07-21 16:15:10 Outpatient Medina, Solomon STLC STLC [id number] [facility] 2021-07-20 13:06:02 Outpatient Medina, Solomon STLC STLMLC [id number] [facility] 2021-07-06 14:35:51 Outpatient Medina, Solomon STLC STLMLC [id number] [facility] 2021-07-06 14:31:16 Outpatient Medina, Solomon STLC STLMLC [id number] [facility] 2021-07-06 13:41:42 Outpatient Medina, Solomon STLC STLMLC [id number] [facility] 2021-07-06 13:39:08 Outpatient Medina, Solomon STLC STLMLC [id number] [facility] 2021-07-06 13:23:59 Outpatient Medina, Solomon [facility] [id number] [facility] 2021-07-06 12:49:32 Outpatient Medina, Solomon [facility] [id number] [facility] 2021-07-06 12:34:18 Outpatient Medina, Solomon [facility] [id number] [facility] 2021-07-06 12:10:08 Outpatient Medina, Solomon [facility] [id number] [facility] 2021-07-06 11:29:33 [facility] [id number] [facility] 2024-03-10 00:00:00 2024-03-10 00:00:00 (TEL) STLC STLC [id number] [facility] 2024-03-05 00:00:00 2024-03-05 00:00:00 (TEL) [facility] STLC [id number] [facility] 2024-01-30 12:46:00 2024-02-21 13:10:00 Inpatient EM Flavio Ballesteros [facility] ICU [id number] [facility] 2024-01-30 13:19:00 2024-01-30 13:19:00 [facility] [id number] [facility] 2024-01-26 04:54:00 2024-01-26 04:54:00 Outpatient Aliza Guillaume [facility] C[facility] [id number] [facility] 2024-01-07 00:00:00 2024-01-07 00:00:00 OFFICE VISIT ESTAB PT LEVEL 4 [facility] [id number] [facility] 2024-01-07 00:00:00 2024-01-07 00:00:00 SUB ANNUAL MCR WELLNESS VISIT STLMLC STLMLC [id number] [facility] 2023-12-20 00:00:00 2023-12-20 00:00:00 (TEL) STLMLC STLMLC [id number] [facility] 2023-12-14 08:41:00 2023-12-14 08:41:00 Outpatient Aliza Guillaume [facility] [id number] 94 [facility] 2023-11-07 00:00:00 2023-11-07 00:00:00 OFFICE VISIT ESTAB PT LEVEL 4 STLMLC STLMLC [id number] [facility] 2023-11-06 00:00:00 2023-11-06 00:00:00 (TEL) STLMLC STLMLC [id number] [facility] 2023-10-22 00:00:00 2023-10-22 00:00:00 (TEL) STLMLC STLMLC [id number] [facility] 2023-09-07 00:00:00 2023-09-07 00:00:00 OFFICE VISIT ESTAB PT LEVEL 4 STLMLC STLMLC [id number] [facility] 2023-06-20 00:00:00 2023-06-20 00:00:00 (YOUTH NUTRITIONAL MONITOR) New Patient STLMLC STLMLC [id number] [facility] 2023-06-06 00:00:00 2023-06-06 00:00:00 OFFICE VISIT ESTAB PT LEVEL 4 STLMLC STLMLC [id number] [facility] 2023-04-11 00:00:00 2023-04-11 00:00:00 OFFICE VISIT ESTAB PT LEVEL 3 STLMLC STLMLC [id number] [facility] 2023-04-09 00:00:00 2023-04-09 00:00:00 (TEL) STLMLC STLMLC [id number] [facility] 2023-02-26 00:00:00 2023-02-26 00:00:00 OFFICE VISIT ESTAB PT LEVEL 4 STLMLC STLMLC [id number] [facility] 2023-02-26 00:00:00 2023-02-26 00:00:00 (TEL) STLMLC STLMLC [id number] [facility] 2023-01-10 00:00:00 2023-01-10 00:00:00 (TEL) STLMLC STLMLC [id number] [facility] 2023-01-10 00:00:00 2023-01-10 00:00:00 (TEL) STLMLC STLMLC [id number] [facility] 2022-12-14 00:00:00 2022-12-14 00:00:00 (TEL) STLMLC STLMLC [id number] [facility] 2022-11-21 00:00:00 2022-11-21 00:00:00 OFFICE VISIT ESTAB PT LEVEL 4 STLMLC STLMLC [id number] [facility] 2022-08-09 00:00:00 2022-08-09 00:00:00 OFFICE VISIT ESTAB PT LEVEL 4 STLMLC STLMLC [id number] [facility] 2022-08-09 00:00:00 2022-08-09 00:00:00 SUB ANNUAL [facility] WELLNESS VISIT STLMLC STLMLC [id number] [facility] 2022-04-05 00:00:00 2022-04-05 00:00:00 OFFICE VISIT ESTAB PT LEVEL 4 STLMLC STLMLC [id number] [facility] 2022-04-05 00:00:00 2022-04-05 00:00:00 (TEL) STLMLC STLMLC [id number] [facility] 2022-02-10 00:00:00 2022-02-10 00:00:00 (TEL) STLMLC STLMLC [id number] [facility] 2022-02-08 00:00:00 2022-02-08 00:00:00 OFFICE VISIT ESTAB PT LEVEL 4 STLMLC STLMLC [id number] [facility] 2022-01-31 00:00:00 2022-01-31 00:00:00 (TEL) STLMLC STLMLC [id number] [facility] 2022-01-31 00:00:00 2022-01-31 00:00:00 (TEL) STLMLC STLMLC [id number] [facility] 2022-01-19 00:00:00 2022-01-19 00:00:00 (TEL) STLMLC STLMLC [id number] [facility] 2022-01-19 00:00:00 2022-01-19 00:00:00 (TEL) STLMLC STLMLC [id number] [facility] 2022-01-16 00:00:00 2022-01-16 00:00:00 (TEL) STLMLC STLMLC [id number] [facility] 2022-01-06 00:00:00 2022-01-06 00:00:00 OFFICE VISIT ESTAB PT LEVEL 4 STLMLC STLMLC [id number] [facility] 2021-10-06 00:00:00 2021-10-06 00:00:00 OFFICE VISIT ESTAB PT LEVEL 4 STLMLC STLMLC [id number] [facility] 2021-10-06 00:00:00 2021-10-06 00:00:00 (TEL) STLMLC STLMLC [id number] [facility] 2021-10-06 00:00:00 2021-10-06 00:00:00 (TEL) STLMLC STLMLC [id number] [facility] 2021-10-06 00:00:00 2021-10-06 00:00:00 SUB ANNUAL [facility] WELLNESS VISIT STLMLC STLMLC [id number] [facility] 2021-09-26 00:00:00 2021-09-26 00:00:00 (TEL) STLMLC STLMLC [id number] [facility] 2021-08-24 00:00:00 2021-08-24 00:00:00 (COVID Inj) COVID Injection STLMLC STLMLC [id number] [facility] 2021-08-15 00:00:00 2021-08-15 00:00:00 (TEL) STLMLC STLMLC [id number] [facility] 2021-07-25 00:00:00 2021-07-25 00:00:00 OFFICE VISIT EST PT LEVEL 3 STLMLC STLMLC [id number] [facility] 2021-07-20 00:00:00 2021-07-20 00:00:00 OFFICE VISIT EST PT LEVEL 3 STLMLC STLMLC [id number] [facility] 2021-07-19 00:00:00 2021-07-19 00:00:00 (TEL) STLMLC STLMLC [id number] [facility] 2021-07-01 00:00:00 2021-07-01 00:00:00 (TEL) STLMLC STLMLC [id number] [facility] 2021-06-27 00:00:00 2021-06-27 00:00:00 OFFICE VISIT EST PT LEVEL 3 STLMLC STLMLC [id number] [facility] 2021-06-27 00:00:00 2021-06-27 00:00:00 (TEL) STLMLC STLMLC [id number] [facility] 2021-06-15 00:00:00 2021-06-15 00:00:00 OFFICE VISIT EST PT LEVEL 3 STLMLC STLMLC [id number] [facility] 2021-06-15 00:00:00 2021-06-15 00:00:00 (TEL) STLMLC STLMLC [id number] [facility] 2021-05-02 00:00:00 2021-05-02 00:00:00 OFFICE VISIT ESTAB PT LEVEL 4 STLMLC STLMLC [id number] [facility] 2021-03-15 00:00:00 2021-03-15 00:00:00 (TEL) STLMLC STLMLC [id number] [facility] 2021-02-01 00:00:00 2021-02-01 00:00:00 Outpatient STLMLC STLMLC [id number] [facility] 2021-01-06 00:00:00 2021-01-06 00:00:00 Outpatient STLMLC STLMLC [id number] [facility] 2020-12-17 00:00:00 2020-12-17 00:00:00 Outpatient STLMLC STLMLC [id number] [facility] 2020-12-10 00:00:00 2020-12-10 00:00:00 Outpatient STLMLC STLMLC [id number] [facility] 2020-11-22 00:00:00 2020-11-22 00:00:00 Outpatient STLMLC STLMLC [id number] [facility] 2020-11-05 00:00:00 2020-11-05 00:00:00 Outpatient STLMLC STLMLC [id number] [facility] 2020-09-07 00:00:00 2020-09-07 00:00:00 Outpatient STLMLC STLMLC [id number] [facility] 2020-08-10 00:00:00 2020-08-10 00:00:00 Outpatient STLMLC STLMLC [id number] [facility] 2020-07-29 00:00:00 2020-07-29 00:00:00 Outpatient STLMLC STLMLC [id number] [facility] 2020-05-13 00:00:00 2020-05-13 00:00:00 Outpatient STLMLC STLMLC [id number] [facility] 2020-02-23 15:50:00 2020-02-23 15:50:[address] [facility] [id number] [facility] 2020-01-14 10:30:00 2020-01-14 10:30:00 Outpatient [facility] [id number] [facility] 2020-01-14 10:00:00 2020-01-14 10:00:00 Outpatient [facility] [id number] [facility] 2019-12-24 09:39:00 2019-12-24 09:39:00 Outpatient [facility] [id number] [facility] 2019-12-17 11:31:00 2019-12-17 11:31:00 Outpatient [facility] [id number] [facility] 2019-12-11 11:00:00 2019-12-11 11:00:00 [facility] [id number] [facility] Results Test Description Test Time Test Comments Results Result Co mments Source BASIC METABOLIC [id number] 04:55:00* Test Item Value Reference Range Interpretation Comme nts SODIUM (test code = NA) 136 mmol/L 136-145 N POTASSIUM (test code = K) 3.8 mmol/L 3.5-5.1 N CHLORIDE (test code = CL) 97 mmol/l 98-107 L CARBON DIOXIDE (test code = CO2) 32 mmol/L 20-31 H GLUCOSE (test code = GLU) 109 mg/dL 74-106 H BLOOD UREA NITROGEN (test code = BUN) 29 mg/dL 9-23 H GLOMERULAR FILTRATION RATE (test code = GFR) 53 mL/min >60 L The Glomerular Filtration Rate is a calculated parameterbased on serum Creatinine, patient age and sex. GFR valuesless than 60 mL/min/1.73 square meters are indicative ofChronic Kidney Disease. Values less than 15 mL/min/1.73square meters indicate Kidney failure. The calculation forGFR is based on the CKD-EPI (2020) calculation. This formulais race indifferent and is the recommended formula for GFRby the National Kidney Foundation for Adults.The GFR will not calculate if the sex is unknown or if thepatient's age is <18 years. CREATININE (test code = CREAT) 1.10 mg/dL 0.55-1.02 H CALCIUM (test code = CA) 8.4 mg/dL 8.7-10.4 L [id number] 04:55:00* Test Item Value Reference Range Interpretation Comme nts PHOSPHOROUS (test code = PHOS) 4.2 mg/dL 2.4-5.1 N [id number] 04:55:00* Test Item Value Reference Range Interpretation Comme nts MAGNESIUM (test code = MAG) 2.2 mg/dL 1.6-2.6 N CBC W/AUTO [id number] 04:41:00* Test Item Value Reference Range Interpretation Comme nts WHITE BLOOD CELL (test code = WBC) 6.6 x10 3/uL 4.8-10.8 N RED BLOOD CELL (test code = RBC) 3.52 x10 6/uL 4.20-5.40 L HEMOGLOBIN (test code = HGB) 10.5 g/dL 12.0-16.0 L HEMATOCRIT (test code = HCT) 32.2 % 37.0-47.0 L MEAN CELL VOLUME (test code = MCV) 91.5 fL 81.0-99.0 N MEAN CELL HGB (test code = MCH) 29.8 pg 27-31 N MEAN CELL HGB CONCENTRATION (test code = MCHC) 32.6 G/DL 33-36.5 L RED CELL DISTRIBUTION WIDTH (test code = RDW) 16.8 % 12.9-16.9 N PLATELET COUNT (test code = PLT) 153 x10 3/uL 150-440 N MEAN PLATELET VOLUME (test c ode = MPV) 12.5 fL 8.9-12.4 H NEUTROPHIL % (test code = NT%) 59.0 % 42.2-75.2 N LYMPHOCYTE % (test code = LY%) 25.5 % 20.5-51.1 N MONOCYTE % (test code = MO%) 8.5 % 1.7-9.3 N EOSINOPHIL % (test code = EO%) 5.8 % 0.0-7.0 N BASOPHIL % (test code = BA%) 0.6 % 0-2.5 N NEUTROPHIL # (test code = NT#) 3.90 x10 3/uL 1.80-7.70 N LYMPHOCYTE # (test code = LY#) 1.68 x10 3/uL 1.00-4.80 N MONOCYTE # (test code = MO#) 0.56 x10 3/uL 0.00-0.80 N EOSINOPHIL # (test code = EO#) 0.38 x10 3/uL 0.00-0.45 N BASOPHIL # (test code = BA#) 0.04 x10 3/uL 0.0-0.20 N [id number] 01:03:00* Test Item Value Reference Range Interpretation Comme nts GLUBED (test code = GLUBED) 123 MG/DL 70-105 H [id number] 17:58:00* Test Item Value Reference Range Interpretation Comme nts GLUBED (test code = GLUBED) 206 MG/DL 70-105 H [id number] 12:08:00* Test Item Value Reference Range Interpretation Comme nts GLUBED (test code = GLUBED) 157 MG/DL 70-105 H [id number] 06:39:00* Test Item Value Reference Range Interpretation Comme nts GLUBED (test code = GLUBED) 143 MG/DL 70-105 H COMPREHENSIVE METABOLIC [id number] 03:29:00* Test Item Value Reference Range Interpretation Comme nts SODIUM (test code = NA) 135 mmol/L 136-145 L POTASSIUM (test code = K) 3.7 mmol/L 3.5-5.1 N CHLORIDE (test code = CL) 97 mmol/l 98-107 L CARBON DIOXIDE (test code = CO2) 32 mmol/L 20-31 H GLUCOSE (test code = GLU) 128 mg/dL 74-106 H BLOOD UREA NITROGEN (test code = BUN) 26 mg/dL 9-23 H GLOMERULAR FILTRATION RATE (test code = GFR) 48 mL/min >60 L The Glomerular Filtration Rate is a calculated parameterbased on serum Creatinine, patient age and sex. GFR valuesless than 60 mL/min/1.73 square meters are indicative ofChronic Kidney Disease. Values less than 15 mL/min/1.73square meters indicate Kidney failure. The calculation forGFR is based on the CKD-EPI (2020) calculation. This formulais race indifferent and is the recommended formula for GFRby the National Kidney Foundation for Adults.The GFR will not calculate if the sex is unknown or if thepatient's age is <18 years. CREATININE (test code = CREAT) 1.20 mg/dL 0.55-1.02 H TOTAL PROTEIN (test code = PROT) 5.5 g/dL 5.7-8.2 L ALBUMIN (test code = ALB) 3.6 g/dL 3.2-4.8 N CALCIUM (test code = CA) 8.7 mg/dL 8.7-10.4 N BILIRUBIN TOTAL (test code = BILT) 1.5 mg/dL 0.3-1.2 H SGOT/AST (test code = AST) 32 U/L <34 N SGPT/ALT (test code = ALT) 31 U/L 10-49 N ALKALINE PHOSPHATASE (test code = ALKP) 87.0 U/L 46-116 N [id number] 03:29:00* Test Item Value Reference Range Interpretation Comme nts PHOSPHOROUS (test code = PHOS) 3.4 mg/dL 2.4-5.1 N [id number] 03:29:00* Test Item Value Reference Range Interpretation Comme nts MAGNESIUM (test code = MAG) 2.2 mg/dL 1.6-2.6 N PROTHROMBIN [id number] 03:18:00* Test Item Value Reference Range Interpretation Comme nts PROTHROMBIN TIME PATIENT (test code = PTP) 13.3 SECONDS 10.3-12.9 H INTERNATIONAL NORMAL RATIO (test code = INR) 1.19 0.9-1.11 H INR goals are individualized based on patient specificfactors. The following are only general guidelines: Indications: INR Goal:1. Treatment of venous thromboembolism and 2.0 - 3.0 systemic anticoagulation in a variety of conditions, including atrial fibrillation and mechanical heart valves 2. Mechanical mitral and tricuspid valves, 2.5 - 3.5 systemic anticoagulation for high-risk conditions THROMBOPLASTIN TIME [id number] 03:18:00* Test Item Value Reference Range Interpretation Comme nts THROMBOPLASTIN TIME PARTIAL (test code = PTT) 26.5 secs 23.8-34.8 N INTERPRETATIVE D PABLITO: Therapeutic range: Unfractionated Heparin: 60-90 seconds Argatroban: 60-90 seconds CBC W/AUTO [id number] 03:10:00* Test Item Value Reference Range Interpretation Comme nts WHITE BLOOD CELL (test code = WBC) 6.2 x10 3/uL 4.8-10.8 N RED BLOOD CELL (test code = RBC) 3.42 x10 6/uL 4.20-5.40 L HEMOGLOBIN (test code = HGB) 10.1 g/dL 12.0-16.0 L HEMATOCRIT (test code = HCT) 31.0 % 37.0-47.0 L MEAN CELL VOLUME (test code = MCV) 90.6 fL 81.0-99.0 N MEAN CELL HGB (test code = MCH) 29.5 pg 27-31 N MEAN CELL HGB CONCENTRATION (test code = MCHC) 32.6 G/DL 33-36.5 L RED CELL DISTRIBUTION WIDTH (test code = RDW) 16.1 % 12.9-16.9 N PLATELET COUNT (test code = PLT) 127 x10 3/uL 150-440 L MEAN PLATELET VOLUME (test c ode = MPV) 12.3 fL 8.9-12.4 N NEUTROPHIL % (test code = NT%) 64.0 % 42.2-75.2 N LYMPHOCYTE % (test code = LY%) 20.4 % 20.5-51.1 L MONOCYTE % (test code = MO%) 8.7 % 1.7-9.3 N EOSINOPHIL % (test code = EO%) 5.8 % 0.0-7.0 N BASOPHIL % (test code = BA%) 0.5 % 0-2.5 N NEUTROPHIL # (test code = NT#) 4.00 x10 3/uL 1.80-7.70 N LYMPHOCYTE # (test code = LY#) 1.27 x10 3/uL 1.00-4.80 N MONOCYTE # (test code = MO#) 0.54 x10 3/uL 0.00-0.80 N EOSINOPHIL # (test code = EO#) 0.36 x10 3/uL 0.00-0.45 N BASOPHIL # (test code = BA#) 0.03 x10 3/uL 0.0-0.20 N [id number] 23:09:00* Test Item Value Reference Range Interpretation Comme nts GLUBED (test code = GLUBED) 119 MG/DL 70-105 H [id number] 18:23:00* Test Item Value Reference Range Interpretation Comme nts GLUBED (test code = GLUBED) 214 MG/DL 70-105 H [id number] 12:24:00* Test Item Value Reference Range Interpretation Comme nts GLUBED (test code = GLUBED) 249 MG/DL 70-105 H [id number] 05:42:00* Test Item Value Reference Range Interpretation Comme nts GLUBED (test code = GLUBED) 132 MG/DL 70-105 H COMPREHENSIVE METABOLIC [id number] 04:13:00* Test Item Value Reference Range Interpretation Comme nts SODIUM (test code = NA) 135 mmol/L 136-145 L POTASSIUM (test code = K) 4.4 mmol/L 3.5-5.1 N CHLORIDE (test code = CL) 96 mmol/l 98-107 L CARBON DIOXIDE (test code = CO2) 32 mmol/L 20-31 H GLUCOSE (test code = GLU) 134 mg/dL 74-106 H BLOOD UREA NITROGEN (test code = BUN) 21 mg/dL 9-23 N GLOMERULAR FILTRATION RATE (test code = GFR) 59 mL/min >60 L The Glomerular Filtration Rate is a calculated parameterbased on serum Creatinine, patient age and sex. GFR valuesless than 60 mL/min/1.73 square meters are indicative ofChronic Kidney Disease. Values less than 15 mL/min/1.73square meters indicate Kidney failure. The calculation forGFR is based on the CKD-EPI (2020) calculation. This formulais race indifferent and is the recommended formula for GFRby the National Kidney Foundation for Adults.The GFR will not calculate if the sex is unknown or if thepatient's age is <18 years. CREATININE (test code = CREAT) 1.00 mg/dL 0.55-1.02 N TOTAL PROTEIN (test code = PROT) 5.4 g/dL 5.7-8.2 L ALBUMIN (test code = ALB) 3.5 g/dL 3.2-4.8 N CALCIUM (test code = CA) 8.1 mg/dL 8.7-10.4 L BILIRUBIN TOTAL (test code = BILT) 1.3 mg/dL 0.3-1.2 H SGOT/AST (test code = AST) 49 U/L <34 H SGPT/ALT (test code = ALT) 40 U/L 10-49 N ALKALINE PHOSPHATASE (test code = ALKP) 95.0 U/L 46-116 N [id number] 04:13:00* Test Item Value Reference Range Interpretation Comme [facility] PHOSPHOROUS (test code = PHOS) 3.2 mg/dL 2.4-5.1 N [id number] 04:13:00* Test Item Value Reference Range Interpretation Comme nts MAGNESIUM (test code = MAG) 2.1 mg/dL 1.6-2.6 N PROTHROMBIN [id number] 04:07:00* Test Item Value Reference Range Interpretation Comme [facility] PROTHROMBIN TIME PATIENT (test code = PTP) 12.9 SECONDS 10.3-12.9 N INTERNATIONAL NORMAL RATIO (test code = INR) 1.16 0.9-1.11 H INR goals are individualized based on patient specificfactors. The following are only general guidelines: Indications: INR Goal:1. Treatment of venous thromboembolism and 2.0 - 3.0 systemic anticoagulation in a variety of conditions, including atrial fibrillation and mechanical heart valves 2. Mechanical mitral and tricuspid valves, 2.5 - 3.5 systemic anticoagulation for high-risk conditions THROMBOPLASTIN TIME [id number] 04:07:00* Test Item Value Reference Range Interpretation Comme [facility] THROMBOPLASTIN TIME PARTIAL (test code = PTT) 25.5 secs 23.8-34.8 N INTERPRETATIVE D PABLITO: Therapeutic range: Unfractionated Heparin: 60-90 seconds Argatroban: 60-90 seconds CBC W/AUTO [id number] 03:56:00* Test Item Value Reference Range Interpretation Comme [facility] WHITE BLOOD CELL (test code = WBC) 7.5 x10 3/uL 4.8-10.8 N RED BLOOD CELL (test code = RBC) 3.62 x10 6/uL 4.20-5.40 L HEMOGLOBIN (test code = HGB) 10.7 g/dL 12.0-16.0 L HEMATOCRIT (test code = HCT) 31.7 % 37.0-47.0 L MEAN CELL VOLUME (test code = MCV) 87.6 fL 81.0-99.0 N MEAN CELL HGB (test code = MCH) 29.6 pg 27-31 N MEAN CELL HGB CONCENTRATION (test code = MCHC) 33.8 G/DL 33-36.5 N RED CELL DISTRIBUTION WIDTH (test code = RDW) 15.8 % 12.9-16.9 N PLATELET COUNT (test code = PLT) 130 x10 3/uL 150-440 L MEAN PLATELET VOLUME (test c ode = MPV) 12.4 fL 8.9-12.4 N NEUTROPHIL % (test code = NT%) 69.0 % 42.2-75.2 N LYMPHOCYTE % (test code = LY%) 16.9 % 20.5-51.1 L MONOCYTE % (test code = MO%) 8.2 % 1.7-9.3 N EOSINOPHIL % (test code = EO%) 4.9 % 0.0-7.0 N BASOPHIL % (test code = BA%) 0.5 % 0-2.5 N NEUTROPHIL # (test code = NT#) 5.18 x10 3/uL 1.80-7.70 N LYMPHOCYTE # (test code = LY#) 1.27 x10 3/uL 1.00-4.80 N MONOCYTE # (test code = MO#) 0.62 x10 3/uL 0.00-0.80 N EOSINOPHIL # (test code = EO#) 0.37 x10 3/uL 0.00-0.45 N BASOPHIL # (test code = BA#) 0.04 x10 3/uL 0.0-0.20 N [id number] 23:44:00* Test Item Value Reference Range Interpretation Comme nts GLUBED (test code = GLUBED) 117 MG/DL 70-105 H BASIC METABOLIC [id number] 21:31:00* Test Item Value Reference Range Interpretation Comme nts SODIUM (test code = NA) 136 mmol/L 136-145 N POTASSIUM (test code = K) 3.9 mmol/L 3.5-5.1 N CHLORIDE (test code = CL) 94 mmol/l 98-107 L CARBON DIOXIDE (test code = CO2) 35 mmol/L 20-31 H GLUCOSE (test code = GLU) 148 mg/dL 74-106 H BLOOD UREA NITROGEN (test code = BUN) 21 mg/dL 9-23 N GLOMERULAR FILTRATION RATE (test code = GFR) 53 mL/min >60 L The Glomerular Filtration Rate is a calculated parameterbased on serum Creatinine, patient age and sex. GFR valuesless than 60 mL/min/1.73 square meters are indicative ofChronic Kidney Disease. Values less than 15 mL/min/1.73square meters indicate Kidney failure. The calculation forGFR is based on the CKD-EPI (202) calculation. This formulais race indifferent and is the recommended formula for GFRby the National Kidney Foundation for Adults.The GFR will not calculate if the sex is unknown or if thepatient's age is <18 years. CREATININE (test code = CREAT) 1.10 mg/dL 0.55-1.02 H CALCIUM (test code = CA) 8.0 mg/dL 8.7-10.4 L [id number] 21:31:00* Test Item Value Reference Range Interpretation Comme nts PHOSPHOROUS (test code = PHOS) 3.2 mg/dL 2.4-5.1 N [id number] 21:31:00* Test Item Value Reference Range Interpretation Comme nts MAGNESIUM (test code = MAG) 1.8 mg/dL 1.6-2.6 N [id number] 17:17:00* Test Item Value Reference Range Interpretation Comme nts GLUBED (test code = GLUBED) 196 MG/DL 70-105 H BASIC METABOLIC [id number] 14:34:00* Test Item Value Reference Range Interpretation Comme nts SODIUM (test code = NA) 134 mmol/L 136-145 L POTASSIUM (test code = K) 3.3 mmol/L 3.5-5.1 L CHLORIDE (test code = CL) 96 mmol/l 98-107 L CARBON DIOXIDE (test code = CO2) 33 mmol/L 20-31 H GLUCOSE (test code = GLU) 307 mg/dL 74-106 H BLOOD UREA NITROGEN (test code = BUN) 22 mg/dL 9-23 N GLOMERULAR FILTRATION RATE (test code = GFR) 48 mL/min >60 L The Glomerular Filtration Rate is a calculated parameterbased on serum Creatinine, patient age and sex. GFR valuesless than 60 mL/min/1.73 square meters are indicative ofChronic Kidney Disease. Values less than 15 mL/min/1.73square meters indicate Kidney failure. The calculation forGFR is based on the CKD-EPI (2020) calculation. This formulais race indifferent and is the recommended formula for GFRby the National Kidney Foundation for Adults.The GFR will not calculate if the sex is unknown or if thepatient's age is <18 years. CREATININE (test code = CREAT) 1.20 mg/dL 0.55-1.02 H CALCIUM (test code = CA) 8.2 mg/dL 8.7-10.4 L [id number] 14:34:00* Test Item Value Reference Range Interpretation Comme nts MAGNESIUM (test code = MAG) 2.1 mg/dL 1.6-2.6 N [id number] 11:40:00* Test Item Value Reference Range Interpretation Comme nts GLUBED (test code = GLUBED) 288 MG/DL 70-105 H COMPREHENSIVE METABOLIC [id number] 04:14:00* Test Item Value Reference Range Interpretation Comme nts SODIUM (test code = NA) 136 mmol/L 136-145 N POTASSIUM (test code = K) 3.3 mmol/L 3.5-5.1 L CHLORIDE (test code = CL) 99 mmol/l 98-107 N CARBON DIOXIDE (test code = CO2) 32 mmol/L 20-31 H GLUCOSE (test code = GLU) 121 mg/dL 74-106 H BLOOD UREA NITROGEN (test code = BUN) 17 mg/dL 9-23 N GLOMERULAR FILTRATION RATE (test code = GFR) 59 mL/min >60 L The Glomerular Filtration Rate is a calculated parameterbased on serum Creatinine, patient age and sex. GFR valuesless than 60 mL/min/1.73 square meters are indicative ofChronic Kidney Disease. Values less than 15 mL/min/1.73square meters indicate Kidney failure. The calculation forGFR is based on the CKD-EPI (2021) calculation. This formulais race indifferent and is the recommended formula for GFRby the National Kidney Foundation for Adults.The GFR will not calculate if the sex is unknown or if thepatient's age is <18 years. CREATININE (test code = CREAT) 1.00 mg/dL 0.55-1.02 N TOTAL PROTEIN (test code = PROT) 5.3 g/dL 5.7-8.2 L ALBUMIN (test code = ALB) 3.3 g/dL 3.2-4.8 N CALCIUM (test code = CA) 8.4 mg/dL 8.7-10.4 L BILIRUBIN TOTAL (test code = BILT) 1.3 mg/dL 0.3-1.2 H SGOT/AST (test code = AST) 33 U/L <34 N SGPT/ALT (test code = ALT) 25 U/L 10-49 N ALKALINE PHOSPHATASE (test code = ALKP) 86.0 U/L 46-116 N [id number] 04:14:00* Test Item Value Reference Range Interpretation Comme nts PHOSPHOROUS (test code = PHOS) 3.7 mg/dL 2.4-5.1 N [id number] 04:14:00* Test Item Value Reference Range Interpretation Comme nts MAGNESIUM (test code = MAG) 1.8 mg/dL 1.6-2.6 N PROTHROMBIN [id number] 04:11:00* Test Item Value Reference Range Interpretation Comme nts PROTHROMBIN TIME PATIENT (test code = PTP) 13.3 SECONDS 10.3-12.9 H INTERNATIONAL NORMAL RATIO (test code = INR) 1.19 0.9-1.11 H INR goals are individualized based on patient specificfactors. The following are only general guidelines: Indications: INR Goal:1. Treatment of venous thromboembolism and 2.0 - 3.0 systemic anticoagulation in a variety of conditions, including atrial fibrillation and mechanical heart valves 2. Mechanical mitral and tricuspid valves, 2.5 - 3.5 systemic anticoagulation for high-risk conditions THROMBOPLASTIN TIME [id number] 04:11:00* Test Item Value Reference Range Interpretation Comme [facility] THROMBOPLASTIN TIME PARTIAL (test code = PTT) 24.5 secs 23.8-34.8 N INTERPRETATIVE D PABLITO: Therapeutic range: Unfractionated Heparin: 60-90 seconds Argatroban: 60-90 seconds CBC W/AUTO [id number] 03:51:00* Test Item Value Reference Range Interpretation Comme nts WHITE BLOOD CELL (test code = WBC) 6.6 x10 3/uL 4.8-10.8 N RED BLOOD CELL (test code = RBC) 3.57 x10 6/uL 4.20-5.40 L HEMOGLOBIN (test code = HGB) 10.6 g/dL 12.0-16.0 L HEMATOCRIT (test code = HCT) 31.6 % 37.0-47.0 L MEAN CELL VOLUME (test code = MCV) 88.5 fL 81.0-99.0 N MEAN CELL HGB (test code = MCH) 29.7 pg 27-31 N MEAN CELL HGB CONCENTRATION (test code = MCHC) 33.5 G/DL 33-36.5 N RED CELL DISTRIBUTION WIDTH (test code = RDW) 16.1 % 12.9-16.9 N PLATELET COUNT (test code = PLT) 108 x10 3/uL 150-440 L MEAN PLATELET VOLUME (test c ode = MPV) 12.2 fL 8.9-12.4 N NEUTROPHIL % (test code = NT%) 63.6 % 42.2-75.2 N LYMPHOCYTE % (test code = LY%) 20.8 % 20.5-51.1 N MONOCYTE % (test code = MO%) 9.3 % 1.7-9.3 N EOSINOPHIL % (test code = EO%) 5.2 % 0.0-7.0 N BASOPHIL % (test code = BA%) 0.5 % 0-2.5 N NEUTROPHIL # (test code = NT#) 4.17 x10 3/uL 1.80-7.70 N LYMPHOCYTE # (test code = LY#) 1.36 x10 3/uL 1.00-4.80 N MONOCYTE # (test code = MO#) 0.61 x10 3/uL 0.00-0.80 N EOSINOPHIL # (test code = EO#) 0.34 x10 3/uL 0.00-0.45 N BASOPHIL # (test code = BA#) 0.03 x10 3/uL 0.0-0.20 N [id number] 07:04:00* Test Item Value Reference Range Interpretation Comme nts GLUBED (test code = GLUBED) 137 MG/DL 70-105 H PROTHROMBIN [id number] 04:15:00* Test Item Value Reference Range Interpretation Comme nts PROTHROMBIN TIME PATIENT (test code = PTP) 15.2 SECONDS 10.3-12.9 H INTERNATIONAL NORMAL RATIO (test code = INR) 1.37 0.9-1.11 H INR goals are individualized based on patient specificfactors. The following are only general guidelines: Indications: INR Goal:1. Treatment of venous thromboembolism and 2.0 - 3.0 systemic anticoagulation in a variety of conditions, including atrial fibrillation and mechanical heart valves 2. Mechanical mitral and tricuspid valves, 2.5 - 3.5 systemic anticoagulation for high-risk conditions THROMBOPLASTIN TIME [id number] 04:15:00* Test Item Value Reference Range Interpretation Comme nts THROMBOPLASTIN TIME PARTIAL (test code = PTT) 29.9 secs 23.8-34.8 N INTERPRETATIVE D PABLITO: Therapeutic range: Unfractionated Heparin: 60-90 seconds Argatroban: 60-90 seconds COMPREHENSIVE METABOLIC [id number] 04:13:00* Test Item Value Reference Range Interpretation Comme nts SODIUM (test code = NA) 138 mmol/L 136-145 N POTASSIUM (test code = K) 3.5 mmol/L 3.5-5.1 N CHLORIDE (test code = CL) 99 mmol/l 98-107 N CARBON DIOXIDE (test code = CO2) 37 mmol/L 20-31 H GLUCOSE (test code = GLU) 116 mg/dL 74-106 H BLOOD UREA NITROGEN (test code = BUN) 22 mg/dL 9-23 N GLOMERULAR FILTRATION RATE (test code = GFR) 53 mL/min >60 L The Glomerular Filtration Rate is a calculated parameterbased on serum Creatinine, patient age and sex. GFR valuesless than 60 mL/min/1.73 square meters are indicative ofChronic Kidney Disease. Values less than 15 mL/min/1.73square meters indicate Kidney failure. The calculation forGFR is based on the CKD-EPI (2020) calculation. This formulais race indifferent and is the recommended formula for GFRby the National Kidney Foundation for Adults.The GFR will not calculate if the sex is unknown or if thepatient's age is <18 years. CREATININE (test code = CREAT) 1.10 mg/dL 0.55-1.02 H TOTAL PROTEIN (test code = PROT) 5.2 g/dL 5.7-8.2 L ALBUMIN (test code = ALB) 3.4 g/dL 3.2-4.8 N CALCIUM (test code = CA) 8.8 mg/dL 8.7-10.4 N BILIRUBIN TOTAL (test code = BILT) 1.3 mg/dL 0.3-1.2 H SGOT/AST (test code = AST) 48 U/L <34 H SGPT/ALT (test code = ALT) 31 U/L 10-49 N ALKALINE PHOSPHATASE (test code = ALKP) 89.0 U/L 46-116 N [id number] 04:13:00* Test Item Value Reference Range Interpretation Comme nts PHOSPHOROUS (test code = PHOS) 3.6 mg/dL 2.4-5.1 N [id number] 04:13:00* Test Item Value Reference Range Interpretation Comme nts MAGNESIUM (test code = MAG) 1.7 mg/dL 1.6-2.6 N CBC W/AUTO [id number] 03:58:00* Test Item Value Reference Range Interpretation Comme nts WHITE BLOOD CELL (test code = WBC) 6.1 x10 3/uL 4.8-10.8 N RED BLOOD CELL (test code = RBC) 3.43 x10 6/uL 4.20-5.40 L HEMOGLOBIN (test code = HGB) 10.1 g/dL 12.0-16.0 L HEMATOCRIT (test code = HCT) 31.1 % 37.0-47.0 L MEAN CELL VOLUME (test code = MCV) 90.7 fL 81.0-99.0 N MEAN CELL HGB (test code = MCH) 29.4 pg 27-31 N MEAN CELL HGB CONCENTRATION (test code = MCHC) 32.5 G/DL 33-36.5 L RED CELL DISTRIBUTION WIDTH (test code = RDW) 16.0 % 12.9-16.9 N PLATELET COUNT (test code = PLT) 99 x10 3/uL 150-440 L MEAN PLATELET VOLUME (test c ode = MPV) 12.0 fL 8.9-12.4 N NEUTROPHIL % (test code = NT%) 65.4 % 42.2-75.2 N LYMPHOCYTE % (test code = LY%) 21.1 % 20.5-51.1 N MONOCYTE % (test code = MO%) 8.9 % 1.7-9.3 N EOSINOPHIL % (test code = EO%) 3.6 % 0.0-7.0 N BASOPHIL % (test code = BA%) 0.3 % 0-2.5 N NEUTROPHIL # (test code = NT#) 3.98 x10 3/uL 1.80-7.70 N LYMPHOCYTE # (test code = LY#) 1.28 x10 3/uL 1.00-4.80 N MONOCYTE # (test code = MO#) 0.54 x10 3/uL 0.00-0.80 N EOSINOPHIL # (test code = EO#) 0.22 x10 3/uL 0.00-0.45 N BASOPHIL # (test code = BA#) 0.02 x10 3/uL 0.0-0.20 N [id number] 01:07:00* Test Item Value Reference Range Interpretation Comme nts GLUBED (test code = GLUBED) 129 MG/DL 70-105 H BASIC METABOLIC [id number] 18:31:00* Test Item Value Reference Range Interpretation Comme nts SODIUM (test code = NA) 139 mmol/L 136-145 N POTASSIUM (test code = K) 3.5 mmol/L 3.5-5.1 N CHLORIDE (test code = CL) 98 mmol/l 98-107 N CARBON DIOXIDE (test code = CO2) 36 mmol/L 20-31 H GLUCOSE (test code = GLU) 148 mg/dL 74-106 H BLOOD UREA NITROGEN (test code = BUN) 20 mg/dL 9-23 N GLOMERULAR FILTRATION RATE (test code = GFR) 43 mL/min >60 L The Glomerular Filtration Rate is a calculated parameterbased on serum Creatinine, patient age and sex. GFR valuesless than 60 mL/min/1.73 square meters are indicative ofChronic Kidney Disease. Values less than 15 mL/min/1.73square meters indicate Kidney failure. The calculation forGFR is based on the CKD-EPI (202) calculation. This formulais race indifferent and is the recommended formula for GFRby the National Kidney Foundation for Adults.The GFR will not calculate if the sex is unknown or if thepatient's age is <18 years. CREATININE (test code = CREAT) 1.30 mg/dL 0.55-1.02 H CALCIUM (test code = CA) 8.0 mg/dL 8.7-10.4 L [id number] 18:31:00* Test Item Value Reference Range Interpretation Comme nts PHOSPHOROUS (test code = PHOS) 3.0 mg/dL 2.4-5.1 N [id number] 18:31:00* Test Item Value Reference Range Interpretation Comme nts MAGNESIUM (test code = MAG) 2.0 mg/dL 1.6-2.6 N CBC W/AUTO [id number] 18:16:00* Test Item Value Reference Range Interpretation Comme nts WHITE BLOOD CELL (test code = WBC) 6.0 x10 3/uL 4.8-10.8 N RED BLOOD CELL (test code = RBC) 3.56 x10 6/uL 4.20-5.40 L HEMOGLOBIN (test code = HGB) 10.6 g/dL 12.0-16.0 L HEMATOCRIT (test code = HCT) 32.4 % 37.0-47.0 L MEAN CELL VOLUME (test code = MCV) 91.0 fL 81.0-99.0 N MEAN CELL HGB (test code = MCH) 29.8 pg 27-31 N MEAN CELL HGB CONCENTRATION (test code = MCHC) 32.7 G/DL 33-36.5 L RED CELL DISTRIBUTION WIDTH (test code = RDW) 16.0 % 12.9-16.9 N PLATELET COUNT (test code = PLT) 106 x10 3/uL 150-440 L MEAN PLATELET VOLUME (test c ode = MPV) 12.0 fL 8.9-12.4 N NEUTROPHIL % (test code = NT%) 74.5 % 42.2-75.2 N LYMPHOCYTE % (test code = LY%) 13.9 % 20.5-51.1 L MONOCYTE % (test code = MO%) 8.4 % 1.7-9.3 N EOSINOPHIL % (test code = EO%) 2.2 % 0.0-7.0 N BASOPHIL % (test code = BA%) 0.3 % 0-2.5 N NEUTROPHIL # (test code = NT#) 4.50 x10 3/uL 1.80-7.70 N LYMPHOCYTE # (test code = LY#) 0.84 x10 3/uL 1.00-4.80 L MONOCYTE # (test code = MO#) 0.51 x10 3/uL 0.00-0.80 N EOSINOPHIL # (test code = EO#) 0.13 x10 3/uL 0.00-0.45 N BASOPHIL # (test code = BA#) 0.02 x10 3/uL 0.0-0.20 N [id number] 12:09:00* Test Item Value Reference Range Interpretation Comme nts GLUBED (test code = GLUBED) 232 MG/DL 70-105 H [id number] 08:53:00* Test Item Value Reference Range Interpretation Comme nts GLUBED (test code = GLUBED) 107 MG/DL 70-105 H COMPREHENSIVE METABOLIC [id number] 02:32:00* Test Item Value Reference Range Interpretation Comme nts SODIUM (test code = NA) 138 mmol/L 136-145 N POTASSIUM (test code = K) 3.6 mmol/L 3.5-5.1 N CHLORIDE (test code = CL) 98 mmol/l 98-107 N CARBON DIOXIDE (test code = CO2) 34 mmol/L 20-31 H GLUCOSE (test code = GLU) 96 mg/dL 74-106 N BLOOD UREA NITROGEN (test code = BUN) 16 mg/dL 9-23 N GLOMERULAR FILTRATION RATE (test code = GFR) 53 mL/min >60 L The Glomerular Filtration Rate is a calculated parameterbased on serum Creatinine, patient age and sex. GFR valuesless than 60 mL/min/1.73 square meters are indicative ofChronic Kidney Disease. Values less than 15 mL/min/1.73square meters indicate Kidney failure. The calculation forGFR is based on the CKD-EPI (2020) calculation. This formulais race indifferent and is the recommended formula for GFRby the National Kidney Foundation for Adults.The GFR will not calculate if the sex is unknown or if thepatient's age is <18 years. CREATININE (test code = CREAT) 1.10 mg/dL 0.55-1.02 H TOTAL PROTEIN (test code = PROT) 5.3 g/dL 5.7-8.2 L ALBUMIN (test code = ALB) 3.5 g/dL 3.2-4.8 N CALCIUM (test code = CA) 8.4 mg/dL 8.7-10.4 L BILIRUBIN TOTAL (test code = BILT) 1.6 mg/dL 0.3-1.2 H SGOT/AST (test code = AST) 28 U/L <34 N SGPT/ALT (test code = ALT) 14 U/L 10-49 N ALKALINE PHOSPHATASE (test code = ALKP) 80.0 U/L 46-116 N [id number] 02:32:00* Test Item Value Reference [facility] (test code = PHOS) 3.0 mg/dL 2.4-5.1 N [id number] 02:32:00* Test Item Value Reference Range [facility]ation [facility] MAGNESI[facility] (test code = MAG) 1.8 mg/dL 1.6-2.6 N PROTHROMBIN [id number] 02:23:00* Test Item Value Reference Range Interpretation Comme [facility] PROTHROMBIN TIME PATIENT (test code = PTP) 20.0 SECONDS 10.3-12.9 H INTERNATIONAL NORMAL RATIO (test code = INR) 1.81 0.9-1.11 H INR goals are individualized based on patient specificfactors. The following are only general guidelines: Indications: INR Goal:1. Treatment of venous thromboembolism and 2.0 - 3.0 systemic anticoagulation in a variety of conditions, including atrial fibrillation and mechanical heart valves 2. Mechanical mitral and tricuspid valves, 2.5 - 3.5 systemic anticoagulation for high-risk conditions THROMBOPLASTIN TIME [id number] 02:23:00* Test Item Value Reference Range [facility]ation [facility] PARTIAL (test code = PTT) 36.3 secs 23.8-34.8 H INTERPRETATIVE D PABLITO: Therapeutic range: Unfractionated Heparin: 60-90 seconds Argatroban: 60-90 seconds CBC W/AUTO [id number] 02:22:00* Test Item Value Reference Range Interpretation Comme [facility] WHITE BLOOD CELL (test code = WBC) 6.5 x10 3/uL 4.8-10.8 N RED BLOOD CELL (test code = RBC) 3.35 x10 6/uL 4.20-5.40 L HEMOGLOBIN (test code = HGB) 9.9 g/dL 12.0-16.0 L HEMATOCRIT (test code = HCT) 30.0 % 37.0-47.0 L MEAN CELL VOLUME (test code = MCV) 89.6 fL 81.0-99.0 MEAN CELL HGB (test code = MCH) 29.6 pg 27-31 N MEAN CELL HGB CONCENTRATION (test code = MCHC) 33.0 G/DL 33-36.5 N RED CELL DISTRIBUTION WIDTH (test code = RDW) 15.8 % 12.9-16.9 N PLATELET COUNT (test code = PLT) 87 x10 3/uL 150-440 L MEAN PLATELET VOLUME (test c ode = MPV) 12.0 fL 8.9-12.4 N NEUTROPHIL % (test code = NT%) 70.7 % 42.2-75.2 N LYMPHOCYTE % (test code = LY%) 17.3 % 20.5-51.1 L MONOCYTE % (test code = MO%) 7.8 % 1.7-9.3 N EOSINOPHIL % (test code = EO%) 3.4 % 0.0-7.0 N BASOPHIL % (test code = BA%) 0.3 % 0-2.5 N NEUTROPHIL # (test code = NT#) 4.62 x10 3/uL 1.80-7.70 N LYMPHOCYTE # (test code = LY#) 1.13 x10 3/uL 1.00-4.80 N MONOCYTE # (test code = MO#) 0.51 x10 3/uL 0.00-0.80 N EOSINOPHIL # (test code = EO#) 0.22 x10 3/uL 0.00-0.45 N BASOPHIL # (test code = BA#) 0.02 x10 3/uL 0.0-0.20 N [id number] 23:43:00* Test Item Value Reference Range Interpretation Comme nts GLUBED (test code = GLUBED) 109 MG/DL 70-105 H BASIC METABOLIC [id number] 19:41:00* Test Item Value Reference Range Interpretation Comme nts SODIUM (test code = NA) 136 mmol/L 136-145 N POTASSIUM (test code = K) 4.1 mmol/L 3.5-5.1 N CHLORIDE (test code = CL) 99 mmol/l 98-107 N CARBON DIOXIDE (test code = CO2) 31 mmol/L 20-31 N GLUCOSE (test code = GLU) 131 mg/dL 74-106 H BLOOD UREA NITROGEN (test code = BUN) 13 mg/dL 9-23 N GLOMERULAR FILTRATION RATE (test code = GFR) 53 mL/min >60 L The Glomerular Filtration Rate is a calculated parameterbased on serum Creatinine, patient age and sex. GFR valuesless than 60 mL/min/1.73 square meters are indicative ofChronic Kidney Disease. Values less than 15 mL/min/1.73square meters indicate Kidney failure. The calculation forGFR is based on the CKD-EPI (2020) calculation. This formulais race indifferent and is the recommended formula for GFRby the National Kidney Foundation for Adults.The GFR will not calculate if the sex is unknown or if thepatient's age is <18 years. CREATININE (test code = CREAT) 1.10 mg/dL 0.55-1.02 H CALCIUM (test code = CA) 8.1 mg/dL 8.7-10.4 L [id number] 19:41:00* Test Item Value Reference Range Interpretation Comme nts PHOSPHOROUS (test code = PHOS) 2.8 mg/dL 2.4-5.1 N [id number] 19:41:00* Test Item Value Reference Range Interpretation Comme nts MAGNESIUM (test code = MAG) 1.9 mg/dL 1.6-2.6 N [id number] 16:16:00* Test Item Value Reference Range Interpretation Comme nts GLUBED (test code = GLUBED) 113 MG/DL 70-105 H [id number] 06:16:00* Test Item Value Reference Range Interpretation Comme nts GLUBED (test code = GLUBED) 105 MG/DL 70-105 N VENOUS BLOOD [id number] 05:59:00* Test Item Value Reference Range Interpretation Comme nts VENOUS BLOOD GAS PH (test code = PHV) 7.34 7.35-7.45 L VENOUS BLOOD GAS PCO2 (test code = PCO2V) 52.8 mmHg See_Comment [Automated [employer]] The system which generated this result transmitted reference range: 46. The reference range was not used to interpret this result as normal/abnormal. VENOUS BLOOD GAS PO2 (test code = PO2V) 28.9 mmHg See_Comment [Automated [employer]] The system which generated this result transmitted reference range: 40. The reference range was not used to interpret this result as normal/abnormal. VBG HCO3 (test code = HCO3V) 28 meq/L VBG BASE EXCESS (test code = CODY) 1.6 MMOL/L VENOUS BLOOD GAS O2 SAT (test code = O2SATV) 54 % See_Comment [Automated [employer]] The system which generated this result transmitted reference range: 75. The reference range was not used to interpret this result as normal/abnormal. VENOUS BLOOD GAS TYPE (test code = TYPEV) Venous VENOUS BLOOD GAS FIO2 (test code = FIO2V) 36.0 % VBG VENT MODE (test code = MODEV) Ventilator BASIC METABOLIC [id number] 04:33:00* Test Item Value Reference Range Interpretation Comme nts SODIUM (test code = NA) 136 mmol/L 136-145 N POTASSIUM (test code = K) 3.9 mmol/L 3.5-5.1 N CHLORIDE (test code = CL) 101 mmol/l 98-107 N CARBON DIOXIDE (test code = CO2) 33 mmol/L 20-31 H GLUCOSE (test code = GLU) 101 mg/dL 74-106 N BLOOD UREA NITROGEN (test code = BUN) 15 mg/dL 9-23 N GLOMERULAR FILTRATION RATE (test code = GFR) 53 mL/min >60 L The Glomerular Filtration Rate is a calculated parameterbased on serum Creatinine, patient age and sex. GFR valuesless than 60 mL/min/1.73 square meters are indicative ofChronic Kidney Disease. Values less than 15 mL/min/1.73square meters indicate Kidney failure. The calculation forGFR is based on the CKD-EPI (202) calculation. This formulais race indifferent and is the recommended formula for GFRby the National Kidney Foundation for Adults.The GFR will not calculate if the sex is unknown or if thepatient's age is <18 years. CREATININE (test code = CREAT) 1.10 mg/dL 0.55-1.02 H CALCIUM (test code = CA) 8.1 mg/dL 8.7-10.4 L [id number] 04:33:00* Test Item Value Reference Range Interpretation Comme nts PHOSPHOROUS (test code = PHOS) 2.9 mg/dL 2.4-5.1 N [id number] 04:33:00* Test Item Value Reference Range Interpretation Comme nts MAGNESIUM (test code = MAG) 2.1 mg/dL 1.6-2.6 N CBC W/AUTO [id number] 04:23:00* Test Item Value Reference Range Interpretation Comme nts WHITE BLOOD CELL (test code = WBC) 6.1 x10 3/uL 4.8-10.8 N RED BLOOD CELL (test code = RBC) 2.22 x10 6/uL 4.20-5.40 L HEMOGLOBIN (test code = HGB) 6.6 g/dL 12.0-16.0 LL Critical Value reported toFirst Name:LUIS Last Name:MENSAHRESULTS READ BACK AND VERIFIEDby Juan Francisco, on 02/15/24, @ 5382. HEMATOCRIT (test code = HCT) 20.9 % 37.0-47.0 L MEAN CELL VOLUME (test code = MCV) 94.1 fL 81.0-99.0 N MEAN CELL HGB (test code = MCH) 29.7 pg 27-31 N MEAN CELL HGB CONCENTRATION (test code = MCHC) 31.6 G/DL 33-36.5 L RED CELL DISTRIBUTION WIDTH (test code = RDW) 14.9 % 12.9-16.9 N PLATELET COUNT (test code = PLT) 66 x10 3/uL 150-440 L MEAN PLATELET VOLUME (test code = MPV) 12.5 fL 8.9-12.4 H NEUTROPHIL % (test code = NT%) 72.8 % 42.2-75.2 N LYMPHOCYTE % (test code = LY%) 14.5 % 20.5-51.1 L MONOCYTE % (test code = MO%) 7.1 % 1.7-9.3 N EOSINOPHIL % (test code = EO%) 4.6 % 0.0-7.0 N BASOPHIL % (test code = BA%) 0.5 % 0-2.5 N NEUTROPHIL # (test code = NT#) 4.40 x10 3/uL 1.80-7.70 N LYMPHOCYTE # (test code = LY#) 0.88 x10 3/uL 1.00-4.80 L MONOCYTE # (test code = MO#) 0.43 x10 3/uL 0.00-0.80 N EOSINOPHIL # (test code = EO#) 0.28 x10 3/uL 0.00-0.45 N BASOPHIL # (test code = BA#) 0.03 x10 3/uL 0.0-0.20 N [id number] 23:40:00* Test Item Value Reference Range Interpretation Comme nts GLUBED (test code = GLUBED) 101 MG/DL 70-105 N BASIC METABOLIC [id number] 22:05:00* Test Item Value Reference Range Interpretation Comme nts SODIUM (test code = NA) 138 mmol/L 136-145 N POTASSIUM (test code = K) 4.3 mmol/L 3.5-5.1 N CHLORIDE (test code = CL) 102 mmol/l 98-107 N CARBON DIOXIDE (test code = CO2) 32 mmol/L 20-31 H GLUCOSE (test code = GLU) 108 mg/dL 74-106 H BLOOD UREA NITROGEN (test code = BUN) 15 mg/dL 9-23 N GLOMERULAR FILTRATION RATE (test code = GFR) 48 mL/min >60 L The Glomerular Filtration Rate is a calculated parameterbased on serum Creatinine, patient age and sex. GFR valuesless than 60 mL/min/1.73 square meters are indicative ofChronic Kidney Disease. Values less than 15 mL/min/1.73square meters indicate Kidney failure. The calculation forGFR is based on the CKD-EPI (2020) calculation. This formulais race indifferent and is the recommended formula for GFRby the [employer] Kid[employer] Foundation for Adults.The GFR will not calculate if the sex is unknown or if thepatient's age is <18 years. CREATININE (test code = CREAT) 1.20 mg/dL 0.55-1.02 H CALCIUM (test code = CA) 7.8 mg/dL 8.7-10.4 L [id number] 22:05:00* Test Item Value Reference Range Interpretation Comme nts PHOSPHOROUS (test code = PHOS) 3.0 mg/dL 2.4-5.1 N [id number] 22:05:00* Test Item Value Reference Range Interpretation Comme nts MAGNESIUM (test code = MAG) 1.9 mg/dL 1.6-2.6 N CBC W/AUTO [id number] 21:54:00* Test Item Value Reference Range Interpretation Comme nts WHITE BLOOD CELL (test code = WBC) 7.5 x10 3/uL 4.8-10.8 N RED BLOOD CELL (test code = RBC) 2.33 x10 6/uL 4.20-5.40 L HEMOGLOBIN (test code = HGB) 7.0 g/dL 12.0-16.0 L Critical Value reported toFirst Name:MAGDALENA Last Name:NICOLE READ BACK AND VERIFIEDby P.LABZAIRA, on 02/14/24, @ 8691. HEMATOCRIT (test code = HCT) 21.8 % 37.0-47.0 L MEAN CELL VOLUME (test code = MCV) 93.6 fL 81.0-99.0 N MEAN CELL HGB (test code = MCH) 30.0 pg 27-31 N MEAN CELL HGB CONCENTRATION (test code = MCHC) 32.1 G/DL 33-36.5 L RED CELL DISTRIBUTION WIDTH (test code = RDW) 15.0 % 12.9-16.9 N PLATELET COUNT (test code = PLT) 73 x10 3/uL 150-440 L MEAN PLATELET VOLUME (test code = MPV) 12.6 fL 8.9-12.4 H NEUTROPHIL % (test code = NT%) 74.6 % 42.2-75.2 N LYMPHOCYTE % (test code = LY%) 14.2 % 20.5-51.1 L MONOCYTE % (test code = MO%) 7.2 % 1.7-9.3 N EOSINOPHIL % (test code = EO%) 3.1 % 0.0-7.0 N BASOPHIL % (test code = BA%) 0.5 % 0-2.5 N NEUTROPHIL # (test code = NT#) 5.60 x10 3/uL 1.80-7.70 N LYMPHOCYTE # (test code = LY#) 1.07 x10 3/uL 1.00-4.80 N MONOCYTE # (test code = MO#) 0.54 x10 3/uL 0.00-0.80 N EOSINOPHIL # (test code = EO#) 0.23 x10 3/uL 0.00-0.45 N BASOPHIL # (test code = BA#) 0.04 x10 3/uL 0.0-0.20 N Novel Coronavirus 21:25:00* Test Item Value Reference Range Interpretation Comme nts Novel Coronavirus 2019 Inhouse (test code = [id number]) Negative Negative Positive resul ts are indicative of the presence qyDPRS-DcX-8 RNA, clinical correlation with patient historyand other diagnostic information is necessary to determinepatient infection status. Positive results do not rule outbacterial infection or co-infection with other viruses. Negative results do not preclude SARS-CoV-2 infection andshould not be used as the sole basis for patient managementdecisions. Negative results must be combined with otherclinical observations, patient history, and epidemiologicalinformation . Detection of SARS-CoV-2 RNA may be affected bysample collection methods, storage conditions, and/or stageof infection. Viral RNA mutations, vaccinations, antiviraltherapeutics, antibiotics, chemotherapeutic orimmunosuppressant drugs have not been evaluated for effectson detection. Results are for the identification of SARS-CoV-2 RNA usingreal-time (RT) polymerase chain reaction (PCR) technologyfor the qualitative detection of nucleic acids from dqpFFMT-SxP-5 virus and diagnosis of SARS-CoV-2 virusinfection. It is an Emergency Use Authorization (EUA) testauthorized by the U.S. FDA. BASIC METABOLIC [id number] 18:08:00* Test Item Value Reference Range Interpretation Comme nts SODIUM (test code = NA) 135 mmol/L 136-145 L POTASSIUM (test code = K) 4.2 mmol/L 3.5-5.1 N CHLORIDE (test code = CL) 102 mmol/l 98-107 N CARBON DIOXIDE (test code = CO2) 32 mmol/L 20-31 H GLUCOSE (test code = GLU) 125 mg/dL 74-106 H BLOOD UREA NITROGEN (test code = BUN) 15 mg/dL 9-23 N GLOMERULAR FILTRATION RATE (test code = GFR) 48 mL/min >60 L The Glomerular Filtration Rate is a calculated parameterbased on serum Creatinine, patient age and sex. GFR valuesless than 60 mL/min/1.73 square meters are indicative ofChronic Kidney Disease. Values less than 15 mL/min/1.73square meters indicate Kidney failure. The calculation forGFR is based on the CKD-EPI (202) calculation. This formulais race indifferent and is the recommended formula for GFRby the National Kidney Foundation for Adults.The GFR will not calculate if the sex is unknown or if thepatient's age is <18 years. CREATININE (test code = CREAT) 1.20 mg/dL 0.55-1.02 H CALCIUM (test code = CA) 8.2 mg/dL 8.7-10.4 L [id number] 18:08:00* Test Item Value Reference Range Interpretation Comme nts PHOSPHOROUS (test code = PHOS) 3.3 mg/dL 2.4-5.1 N [id number] 18:08:00* Test Item Value Reference Range Interpretation Comme nts MAGNESIUM (test code = MAG) 1.9 mg/dL 1.6-2.6 N [id number] 12:34:00* Test Item Value Reference Range Interpretation Comme nts GLUBED (test code = GLUBED) 157 MG/DL 70-105 H [id number] 05:51:00* Test Item Value Reference Range Interpretation Comme nts GLUBED (test code = GLUBED) 132 MG/DL 70-105 H BASIC METABOLIC [id number] 05:04:00* Test Item Value Reference Range Interpretation Comme nts SODIUM (test code = NA) 138 mmol/L 136-145 N POTASSIUM (test code = K) 4.0 mmol/L 3.5-5.1 N CHLORIDE (test code = CL) 105 mmol/l 98-107 N CARBON DIOXIDE (test code = CO2) 30 mmol/L 20-31 N GLUCOSE (test code = GLU) 138 mg/dL 74-106 H BLOOD UREA NITROGEN (test code = BUN) 14 mg/dL 9-23 N GLOMERULAR FILTRATION RATE (test code = GFR) 53 mL/min >60 L The Glomerular Filtration Rate is a calculated parameterbased on serum Creatinine, patient age and sex. GFR valuesless than 60 mL/min/1.73 square meters are indicative ofChronic Kidney Disease. Values less than 15 mL/min/1.73square meters indicate Kidney failure. The calculation forGFR is based on the CKD-EPI (2020) calculation. This formulais race indifferent and is the recommended formula for GFRby the National Kidney Foundation for Adults.The GFR will not calculate if the sex is unknown or if thepatient's age is <18 years. CREATININE (test code = CREAT) 1.10 mg/dL 0.55-1.02 H CALCIUM (test code = CA) 8.5 mg/dL 8.7-10.4 L [id number] 05:04:00* Test Item Value Reference Range Interpretation Comme nts PHOSPHOROUS (test code = PHOS) 4.0 mg/dL 2.4-5.1 N [id number] 05:04:00* Test Item Value Reference Range Interpretation Comme nts MAGNESIUM (test code = MAG) 2.0 mg/dL 1.6-2.6 N CBC W/AUTO [id number] 04:58:00* Test Item Value Reference Range Interpretation Comme nts WHITE BLOOD CELL (test code = WBC) 7.6 x10 3/uL 4.8-10.8 N RED BLOOD CELL (test code = RBC) 2.30 x10 6/uL 4.20-5.40 L HEMOGLOBIN (test code = HGB) 7.0 g/dL 12.0-16.0 L Critical Value reported toFirst Name:TIARRA Last Name:DEV READ BACK AND VERIFIEDby [id number], on 02/14/24, @ 2858. HEMATOCRIT (test code = HCT) 21.3 % 37.0-47.0 L MEAN CELL VOLUME (test code = MCV) 92.6 fL 81.0-99.0 N MEAN CELL HGB (test code = MCH) 30.4 pg 27-31 N MEAN CELL HGB CONCENTRATION (test code = MCHC) 32.9 G/DL 33-36.5 L RED CELL DISTRIBUTION WIDTH (test code = RDW) 15.3 % 12.9-16.9 N PLATELET COUNT (test code = PLT) 69 x10 3/uL 150-440 L MEAN PLATELET VOLUME (test code = MPV) 13.1 fL 8.9-12.4 H NEUTROPHIL % (test code = NT%) 76.9 % 42.2-75.2 H LYMPHOCYTE % (test code = LY%) 12.8 % 20.5-51.1 L MONOCYTE % (test code = MO%) 7.8 % 1.7-9.3 N EOSINOPHIL % (test code = EO%) 1.2 % 0.0-7.0 N BASOPHIL % (test code = BA%) 0.4 % 0-2.5 N NEUTROPHIL # (test code = NT#) 5.82 x10 3/uL 1.80-7.70 N LYMPHOCYTE # (test code = LY#) 0.97 x10 3/uL 1.00-4.80 L MONOCYTE # (test code = MO#) 0.59 x10 3/uL 0.00-0.80 N EOSINOPHIL # (test code = EO#) 0.09 x10 3/uL 0.00-0.45 N BASOPHIL # (test code = BA#) 0.03 x10 3/uL 0.0-0.20 N THROMBOPLASTIN TIME [id number] 04:53:00* Test Item Value Reference Range Interpretation Comme nts THROMBOPLASTIN TIME PARTIAL (test code = PTT) 36.8 secs 23.8-34.8 H INTERPRETATIVE D PABLITO: Therapeutic range: Unfractionated Heparin: 60-90 seconds Argatroban: 60-90 seconds [id number] 04:53:00* Test Item Value Reference Range Interpretation Comme nts FIBRINOGEN (test code = FIB) 257 mg/dL 200-400 N [id number] 00:08:00* Test Item Value Reference Range Interpretation Comme nts GLUBED (test code = GLUBED) 129 MG/DL 70-105 H BASIC METABOLIC [id number] 22:17:00* Test Item Value Reference Range Interpretation Comme nts SODIUM (test code = NA) 138 mmol/L 136-145 N POTASSIUM (test code = K) 4.2 mmol/L 3.5-5.1 N CHLORIDE (test code = CL) 107 mmol/l 98-107 N CARBON DIOXIDE (test code = CO2) 29 mmol/L 20-31 N GLUCOSE (test code = GLU) 142 mg/dL 74-106 H BLOOD UREA NITROGEN (test code = BUN) 14 mg/dL 9-23 N GLOMERULAR FILTRATION RATE (test code = GFR) 53 mL/min >60 L The Glomerular Filtration Rate is a calculated parameterbased on serum Creatinine, patient age and sex. GFR valuesless than 60 mL/min/1.73 square meters are indicative ofChronic Kidney Disease. Values less than 15 mL/min/1.73square meters indicate Kidney failure. The calculation forGFR is based on the CKD-EPI (2020) calculation. This formulais race indifferent and is the recommended formula for GFRby the National Kidney Foundation for Adults.The GFR will not calculate if the sex is unknown or if thepatient's age is <18 years. CREATININE (test code = CREAT) 1.10 mg/dL 0.55-1.02 H CALCIUM (test code = CA) 8.2 mg/dL 8.7-10.4 L [id number] 22:17:00* Test Item Value Reference Range Interpretation Comme nts PHOSPHOROUS (test code = PHOS) 4.4 mg/dL 2.4-5.1 N [id number] 22:17:00* Test Item Value Reference Range Interpretation Comme nts MAGNESIUM (test code = MAG) 2.2 mg/dL 1.6-2.6 N LACTIC [id number] 22:17:00* Test Item Value Reference Range Interpretation Comme nts LACTIC ACID (test code = LACT) 1.20 mmol/L 0.5-2.0 N CBC W/AUTO [id number] 22:02:00* Test Item Value Reference Range Interpretation Comme nts WHITE BLOOD CELL (test code = WBC) 9.7 x10 3/uL 4.8-10.8 N RED BLOOD CELL (test code = RBC) 2.54 x10 6/uL 4.20-5.40 L HEMOGLOBIN (test code = HGB) 7.5 g/dL 12.0-16.0 L HEMATOCRIT (test code = HCT) 23.7 % 37.0-47.0 L MEAN CELL VOLUME (test code = MCV) 93.3 fL 81.0-99.0 N MEAN CELL HGB (test code = MCH) 29.5 pg 27-31 N MEAN CELL HGB CONCENTRATION (test code = MCHC) 31.6 G/DL 33-36.5 L RED CELL DISTRIBUTION WIDTH (test code = RDW) 15.4 % 12.9-16.9 N PLATELET COUNT (test code = PLT) 71 x10 3/uL 150-440 L MEAN PLATELET VOLUME (test c ode = MPV) 13.0 fL 8.9-12.4 H NEUTROPHIL % (test code = NT%) 78.2 % 42.2-75.2 H LYMPHOCYTE % (test code = LY%) 11.8 % 20.5-51.1 L MONOCYTE % (test code = MO%) 8.3 % 1.7-9.3 N EOSINOPHIL % (test code = EO%) 0.8 % 0.0-7.0 N BASOPHIL % (test code = BA%) 0.3 % 0-2.5 N NEUTROPHIL # (test code = NT#) 7.59 x10 3/uL 1.80-7.70 N LYMPHOCYTE # (test code = LY#) 1.15 x10 3/uL 1.00-4.80 N MONOCYTE # (test code = MO#) 0.81 x10 3/uL 0.00-0.80 H EOSINOPHIL # (test code = EO#) 0.08 x10 3/uL 0.00-0.45 N BASOPHIL # (test code = BA#) 0.03 x10 3/uL 0.0-0.20 N LACTIC [id number] 18:20:00* Test Item Value Reference Range Interpretation Comme nts LACTIC ACID (test code = LACT) 3.80 mmol/L 0.5-2.0 HH Critical Value r eported toFirst Name:SATNAM Last Name:EVY READ BACK AND VERIFIEDby [id number], on 02/13/24, @ 1820. BASIC METABOLIC [id number] 18:19:00* Test Item Value Reference Range Interpretation Comme nts SODIUM (test code = NA) 139 mmol/L 136-145 N POTASSIUM (test code = K) 4.3 mmol/L 3.5-5.1 N CHLORIDE (test code = CL) 107 mmol/l 98-107 N CARBON DIOXIDE (test code = CO2) 26 mmol/L 20-31 N GLUCOSE (test code = GLU) 158 mg/dL 74-106 H BLOOD UREA NITROGEN (test code = BUN) 14 mg/dL 9-23 N GLOMERULAR FILTRATION RATE (test code = GFR) 48 mL/min >60 L The Glomerular Filtration Rate is a calculated parameterbased on serum Creatinine, patient age and sex. GFR valuesless than 60 mL/min/1.73 square meters are indicative ofChronic Kidney Disease. Values less than 15 mL/min/1.73square meters indicate Kidney failure. The calculation forGFR is based on the CKD-EPI (2020) calculation. This formulais race indifferent and is the recommended formula for GFRby the National Kidney Foundation for Adults.The GFR will not calculate if the sex is unknown or if thepatient's age is <18 years. CREATININE (test code = CREAT) 1.20 mg/dL 0.55-1.02 H CALCIUM (test code = CA) 8.3 mg/dL 8.7-10.4 L [id number] 18:19:00* Test Item Value Reference Range Interpretation Comme [facility] PHOSPHOROUS (test code = PHOS) 4.9 mg/dL 2.4-5.1 N [id number] 18:19:00* Test Item Value Reference Range Interpretation Comme nts MAGNESIUM (test code = MAG) 1.9 mg/dL 1.6-2.6 N PROTHROMBIN [id number] 18:09:00* Test Item Value Reference Range Interpretation Comme [facility] PROTHROMBIN TIME PATIENT (test code = PTP) 17.7 SECONDS 10.3-12.9 H INTERNATIONAL NORMAL RATIO (test code = INR) 1.59 0.9-1.11 H INR goals are individualized based on patient specificfactors. The following are only general guidelines: Indications: INR Goal:1. Treatment of venous thromboembolism and 2.0 - 3.0 systemic anticoagulation in a variety of conditions, including atrial fibrillation and mechanical heart valves 2. Mechanical mitral and tricuspid valves, 2.5 - 3.5 systemic anticoagulation for high-risk conditions THROMBOPLASTIN TIME [id number] 18:09:00* Test Item Value Reference Range Interpretation Comme [facility] THROMBOPLASTIN TIME PARTIAL (test code = PTT) 30.8 secs 23.8-34.8 N INTERPRETATIVE D PABLITO: Therapeutic range: Unfractionated Heparin: 60-90 seconds Argatroban: 60-90 seconds [id number] 18:09:00* Test Item Value Reference Range Interpretation Comme [facility] FIBRINOGEN (test code = FIB) 260 mg/dL 200-400 N CBC W/AUTO [id number] 18:00:00* Test Item Value Reference Range Interpretation Comme nts WHITE BLOOD CELL (test code = WBC) 13.2 x10 3/uL 4.8-10.8 H RED BLOOD CELL (test code = RBC) 2.70 x10 6/uL 4.20-5.40 L HEMOGLOBIN (test code = HGB) 8.0 g/dL 12.0-16.0 L HEMATOCRIT (test code = HCT) 25.3 % 37.0-47.0 L MEAN CELL VOLUME (test code = MCV) 93.7 fL 81.0-99.0 N MEAN CELL HGB (test code = MCH) 29.6 pg 27-31 N MEAN CELL HGB CONCENTRATION (test code = MCHC) 31.6 G/DL 33-36.5 L RED CELL DISTRIBUTION WIDTH (test code = RDW) 15.6 % 12.9-16.9 N PLATELET COUNT (test code = PLT) 81 x10 3/uL 150-440 L MEAN PLATELET VOLUME (test c ode = MPV) 13.1 fL 8.9-12.4 H NEUTROPHIL % (test code = NT%) 74.0 % 42.2-75.2 N LYMPHOCYTE % (test code = LY%) 15.6 % 20.5-51.1 L MONOCYTE % (test code = MO%) 8.8 % 1.7-9.3 N EOSINOPHIL % (test code = EO%) 0.5 % 0.0-7.0 N BASOPHIL % (test code = BA%) 0.5 % 0-2.5 N NEUTROPHIL # (test code = NT#) 9.79 x10 3/uL 1.80-7.70 H LYMPHOCYTE # (test code = LY#) 2.07 x10 3/uL 1.00-4.80 N MONOCYTE # (test code = MO#) 1.17 x10 3/uL 0.00-0.80 H EOSINOPHIL # (test code = EO#) 0.06 x10 3/uL 0.00-0.45 N BASOPHIL # (test code = BA#) 0.06 x10 3/uL 0.0-0.20 N [id number] 12:08:00* Test Item Value Reference Range Interpretation Comme nts GLUBED (test code = GLUBED) 219 MG/DL 70-105 H [id number] 06:09:00* Test Item Value Reference Range Interpretation Comme nts GLUBED (test code = GLUBED) 154 MG/DL 70-105 H BASIC METABOLIC [id number] 04:05:00* Test Item Value Reference Range Interpretation Comme nts SODIUM (test code = NA) 141 mmol/L 136-145 N POTASSIUM (test code = K) 5.0 mmol/L 3.5-5.1 N CHLORIDE (test code = CL) 111 mmol/l 98-107 H CARBON DIOXIDE (test code = CO2) 27 mmol/L 20-31 N GLUCOSE (test code = GLU) 143 mg/dL 74-106 H BLOOD UREA NITROGEN (test code = BUN) 12 mg/dL 9-23 N GLOMERULAR FILTRATION RATE (test code = GFR) >=60 max estimate mL/min >60 The Glomerular Filtration Rate is a calculated parameterbased on serum Creatinine, patient age and sex. GFR valuesless than 60 mL/min/1.73 square meters are indicative ofChronic Kidney Disease. Values less than 15 mL/min/1.73square meters indicate Kidney failure. The calculation forGFR is based on the CKD-EPI (2020) calculation. This formulais race indifferent and is the recommended formula for GFRby the National Kidney Foundation for Adults.The GFR will not calculate if the sex is unknown or if thepatient's age is <18 years. CREATININE (test code = CREAT) 0.90 mg/dL 0.55-1.02 N CALCIUM (test code = CA) 8.1 mg/dL 8.7-10.4 L COMPREHENSIVE METABOLIC [id number] 04:05:00* Test Item Value Reference Range Interpretation Comme nts TOTAL PROTEIN (test code = PROT) 5.0 g/dL 5.7-8.2 L ALBUMIN (test code = ALB) 3.5 g/dL 3.2-4.8 N BILIRUBIN TOTAL (test code = BILT) 1.3 mg/dL 0.3-1.2 H SGOT/AST (test code = AST) 39 U/L <34 H SGPT/ALT (test code = ALT) 20 U/L 10-49 N ALKALINE PHOSPHATASE (test c ode = ALKP) 53.0 U/L 46-116 N LIVER FUNCTION [id number] 04:05:00* Test Item Value Reference Range Interpretation Comme nts BILIRUBIN DIRECT (test code = BILD) 0.7 mg/dL <0.3 H [id number] 04:05:00* Test Item Value Reference Range Interpretation Comme nts PHOSPHOROUS (test code = PHOS) 5.1 mg/dL 2.4-5.1 N [id number] 04:05:00* Test Item Value Reference Range Interpretation Comme nts MAGNESIUM (test code = MAG) 2.0 mg/dL 1.6-2.6 N PROTHROMBIN [id number] 03:59:00* Test Item Value Reference Range Interpretation Comme nts PROTHROMBIN TIME PATIENT (test code = PTP) 14.6 SECONDS 10.3-12.9 H INTERNATIONAL NORMAL RATIO (test code = INR) 1.31 0.9-1.11 H INR goals are individualized based on patient specificfactors. The following are only general guidelines: Indications: INR Goal:1. Treatment of venous thromboembolism and 2.0 - 3.0 systemic anticoagulation in a variety of conditions, including atrial fibrillation and mechanical heart valves 2. Mechanical mitral and tricuspid valves, 2.5 - 3.5 systemic anticoagulation for high-risk conditions THROMBOPLASTIN TIME [id number] 03:59:00* Test Item Value Reference Range Interpretation Comme nts THROMBOPLASTIN TIME PARTIAL (test code = PTT) 27.8 secs 23.8-34.8 N INTERPRETATIVE D PABLITO: Therapeutic range: Unfractionated Heparin: 60-90 seconds Argatroban: 60-90 seconds CBC W/AUTO [id number] 03:49:00* Test Item Value Reference Range Interpretation Comme nts WHITE BLOOD CELL (test code = WBC) 10.8 x10 3/uL 4.8-10.8 N RED BLOOD CELL (test code = RBC) 2.71 x10 6/uL 4.20-5.40 L HEMOGLOBIN (test code = HGB) 8.2 g/dL 12.0-16.0 L HEMATOCRIT (test code = HCT) 25.1 % 37.0-47.0 L MEAN CELL VOLUME (test code = MCV) 92.6 fL 81.0-99.0 N MEAN CELL HGB (test code = MCH) 30.3 pg 27-31 N MEAN CELL HGB CONCENTRATION (test code = MCHC) 32.7 G/DL 33-36.5 L RED CELL DISTRIBUTION WIDTH (test code = RDW) 15.0 % 12.9-16.9 N PLATELET COUNT (test code = PLT) 73 x10 3/uL 150-440 L MEAN PLATELET VOLUME (test c ode = MPV) 12.5 fL 8.9-12.4 H NEUTROPHIL % (test code = NT%) 82.9 % 42.2-75.2 H LYMPHOCYTE % (test code = LY%) 8.6 % 20.5-51.1 L MONOCYTE % (test code = MO%) 7.5 % 1.7-9.3 N EOSINOPHIL % (test code = EO%) 0.0 % 0.0-7.0 N BASOPHIL % (test code = BA%) 0.4 % 0-2.5 N NEUTROPHIL # (test code = NT#) 9.00 x10 3/uL 1.80-7.70 H LYMPHOCYTE # (test code = LY#) 0.93 x10 3/uL 1.00-4.80 L MONOCYTE # (test code = MO#) 0.81 x10 3/uL 0.00-0.80 H EOSINOPHIL # (test code = EO#) 0.00 x10 3/uL 0.00-0.45 N BASOPHIL # (test code = BA#) 0.04 x10 3/uL 0.0-0.20 N VENOUS BLOOD [id number] 03:40:00* Test Item Value Reference Range Interpretation Comme [facility] VENOUS BLOOD GAS PH (test code = PHV) 7.32 7.35-7.45 L VENOUS BLOOD GAS PCO2 (test code = PCO2V) 50.9 mmHg See_Comment [Automated [employer]] The system which generated this result transmitted reference range: 46. The reference range was not used to interpret this result as normal/abnormal. VENOUS BLOOD GAS PO2 (test code = PO2V) 36.2 mmHg See_Comment [Automated messa ge] The system which generated this result transmitted reference range: 40. The reference range was not used to interpret this result as normal/abnormal. VBG HCO3 (test code = HCO3V) 26 meq/L VBG BASE EXCESS (test code = CODY) -0.6 MMOL/L VENOUS BLOOD GAS O2 SAT (test code = O2SATV) 68 % See_Comment [Automated [employer]] The system which generated this result transmitted reference range: 75. The reference range was not used to interpret this result as normal/abnormal. VENOUS BLOOD GAS TYPE (test code = TYPEV) Venous VENOUS BLOOD GAS FIO2 (test code = FIO2V) 40.0 % VBG VENT MODE (test code = MODEV) Non-Rebreather BLOOD GAS [id number]/[id number] 03:40:00* Test Item Value Reference Range Interpretation Comme nts ARTERIAL BLOOD GAS PH (test code = PHA) 7.35 7.35-7.45 N ARTERIAL BLOOD GAS PCO2 (test code = PCO2A) 49.2 mmHg 35.0-45.0 H ARTERIAL BLOOD GAS PO2 (test code = PO2A) 106.4 mmHg 80.0-95.0 H BICARBONATE TOTAL HCO3 (test code = HCO3) 26.3 mmol/L 22.0-24.0 H BASE EXCESS (test code = GABRIELLE) 0.4 mmol/L See_Comment N [Automated message] The system which generated this result transmitted reference range: (+/-)2.0. The reference range was not used to interpret this result as normal/abnormal. ABG O2 SATURATION (test code = SATA) 97.4 % 95.0-100.0 N ARTERIAL FIO2 (test code = FIO2A) 40.0 % ABG VENT MODE (test code = MODEA) NASAL CANNULA ALLENS TEST (test code = ALLENS) NOT APPLICABLE SODIUM (POC) (test code = NA/ABG) 139 mmol/L 135-147 N POTASSIUM (POC) (test code = K/ABG) 4.93 mmol/L 3.6-5.2 N CHLORIDE (ARTERIAL) (test code = CL/ABG) 104 mmol/L 98-108 N GLUCOSE (test code = GLU/ABG) 146 mg/dL 70-104 H IONIZED CALCIUM (test code = CAIABG) 1.18 mmol/L 1.12-1.32 N POC LACTIC ACID (test code = POCLAC) 1.39 mmol/L 0.5-2.2 N TOTAL HGB (test code = THB) 8.8 g/dL 12.0-16.0 L OXYHEMOGLOBIN (test code = OOHGBT) 96.7 % 92.0-98.0 N CARBOXYHEMOGLOBIN (test code = HOHGBT) 0.7 % 0-5.0 N METHEMOGLOBIN (test code = METHGB) <0.8 % 0-1.5 N HHb (test code = HHB) 2.6 % TCO2 ARTERIAL (test code = TCO2A) 27.8 MMOL/L 24-30 N BLOOD GAS [id number] 01:41:00* Test Item Value Reference Range Interpretation Comme nts ARTERIAL BLOOD GAS PH (test code = PHA) 7.33 7.35-7.45 L ARTERIAL BLOOD GAS PCO2 (test code = PCO2A) 52.9 mmHg 35.0-45.0 H ARTERIAL BLOOD GAS PO2 (test code = PO2A) 89.2 mmHg 80.0-95.0 N BICARBONATE TOTAL HCO3 (test code = HCO3) 27.0 mmol/L 22.0-24.0 H BASE EXCESS (test code = GABRIELLE) 0.5 mmol/L See_Comment N [Automated message] The system which generated this result transmitted reference range: (+/-)2.0. The reference range was not used to interpret this result as normal/abnormal. ABG O2 SATURATION (test code = SATA) 96.3 % 95.0-100.0 N ARTERIAL FIO2 (test code = FIO2A) 40.0 % ABG VENT MODE (test code = MODEA) NASAL CANNULA ALLENS TEST (test code = ALLENS) NOT APPLICABLE SODIUM (POC) (test code = NA/ABG) 139 mmol/L 135-147 N POTASSIUM (POC) (test code = K/ABG) 4.88 mmol/L 3.6-5.2 N CHLORIDE (ARTERIAL) (test code = CL/ABG) 105 mmol/L 98-108 N GLUCOSE (test code = GLU/ABG) 141 mg/dL 70-104 H IONIZED CALCIUM (test code = CAIABG) 1.19 mmol/L 1.12-1.32 N POC LACTIC ACID (test code = POCLAC) 1.57 mmol/L 0.5-2.2 N TOTAL HGB (test code = THB) 9.2 g/dL 12.0-16.0 L OXYHEMOGLOBIN (test code = OOHGBT) 95.4 % 92.0-98.0 N CARBOXYHEMOGLOBIN (test code = HOHGBT) 0.9 % 0-5.0 N METHEMOGLOBIN (test code = METHGB) <0.8 % 0-1.5 N HHb (test code = HHB) 3.7 % TCO2 ARTERIAL (test code = TCO2A) 28.6 MMOL/L 24-30 N BLOOD GAS [id number] 23:51:00* Test Item Value Reference Range Interpretation Comme nts ARTERIAL BLOOD GAS PH (test code = PHA) 7.34 7.35-7.45 L ARTERIAL BLOOD GAS PCO2 (test code = PCO2A) 51.4 mmHg 35.0-45.0 H ARTERIAL BLOOD GAS PO2 (test code = PO2A) 121.0 mmHg 80.0-95.0 H BICARBONATE TOTAL HCO3 (test code = HCO3) 26.9 mmol/L 22.0-24.0 H BASE EXCESS (test code = GABRIELLE) 0.6 mmol/L See_Comment N [Automated message] The system which generated this result transmitted reference range: (+/-)2.0. The reference range was not used to interpret this result as normal/abnormal. ABG O2 SATURATION (test code = SATA) 97.9 % 95.0-100.0 N ARTERIAL FIO2 (test code = FIO2A) 40.0 % ABG VENT MODE (test code = MODEA) NASAL CANNULA ALLENS TEST (test code = ALLENS) NOT APPLICABLE SODIUM (POC) (test code = NA/ABG) 141 mmol/L 135-147 N POTASSIUM (POC) (test code = K/ABG) 4.38 mmol/L 3.6-5.2 N CHLORIDE (ARTERIAL) (test code = CL/ABG) 105 mmol/L 98-108 N GLUCOSE (test code = GLU/ABG) 111 mg/dL 70-104 H IONIZED CALCIUM (test code = CAIABG) 1.21 mmol/L 1.12-1.32 N POC LACTIC ACID (test code = POCLAC) 1.80 mmol/L 0.5-2.2 N TOTAL HGB (test code = THB) 9.4 g/dL 12.0-16.0 L CARBOXYHEMOGLOBIN (test code = HOHGBT) 0.6 % 0-5.0 N METHEMOGLOBIN (test code = METHGB) <0.8 % 0-1.5 N HHb (test code = HHB) 2.1 % TCO2 ARTERIAL (test code = TCO2A) 28.4 MMOL/L 24-30 N BLOOD GAS [id number] 22:40:00* Test Item Value Reference Range Interpretation Comme nts ARTERIAL BLOOD GAS PH (test code = PHA) 7.32 7.35-7.45 L ARTERIAL BLOOD GAS PCO2 (test code = PCO2A) 51.5 mmHg 35.0-45.0 H ARTERIAL BLOOD GAS PO2 (test code = PO2A) 110.4 mmHg 80.0-95.0 H BICARBONATE TOTAL HCO3 (test code = HCO3) 25.9 mmol/L 22.0-24.0 H BASE EXCESS (test code = GABRIELLE) -0.6 mmol/L See_Comment N [Automated message] The system which generated this result transmitted reference range: (+/-)2.0. The reference range was not used to interpret this result as normal/abnormal. ABG O2 SATURATION (test code = SATA) 97.5 % 95.0-100.0 N ARTERIAL FIO2 (test code = FIO2A) 40.0 % ABG VENT MODE (test code = MODEA) NASAL CANNULA ALLENS TEST (test code = ALLENS) NOT APPLICABLE SODIUM (POC) (test code = NA/ABG) 140 mmol/L 135-147 N POTASSIUM (POC) (test code = K/ABG) 4.23 mmol/L 3.6-5.2 N CHLORIDE (ARTERIAL) (test code = CL/ABG) 104 mmol/L 98-108 N GLUCOSE (test code = GLU/ABG) 142 mg/dL 70-104 H IONIZED CALCIUM (test code = CAIABG) 1.23 mmol/L 1.12-1.32 N POC LACTIC ACID (test code = POCLAC) 2.90 mmol/L 0.5-2.2 H TOTAL HGB (test code = THB) 10.0 g/dL 12.0-16.0 L OXYHEMOGLOBIN (test code = OOHGBT) 96.9 % 92.0-98.0 N CARBOXYHEMOGLOBIN (test code = HOHGBT) 0.3 % 0-5.0 N METHEMOGLOBIN (test code = METHGB) <0.8 % 0-1.5 N HHb (test code = HHB) 2.5 % TCO2 ARTERIAL (test code = TCO2A) 27.5 MMOL/L 24-30 N [id number] 22:26:00* Test Item Value Reference Range Interpretation Comme nts PHOSPHOROUS (test code = PHOS) 4.1 mg/dL 2.4-5.1 N [id number] 22:26:00* Test Item Value Reference Range Interpretation Comme nts MAGNESIUM (test code = MAG) 2.0 mg/dL 1.6-2.6 N BASIC METABOLIC [id number] 22:26:00* Test Item Value Reference Range Interpretation Comme nts SODIUM (test code = NA) 143 mmol/L 136-145 N POTASSIUM (test code = K) 4.3 mmol/L 3.5-5.1 N CHLORIDE (test code = CL) 112 mmol/l 98-107 H CARBON DIOXIDE (test code = CO2) 26 mmol/L 20-31 N GLUCOSE (test code = GLU) 139 mg/dL 74-106 H BLOOD UREA NITROGEN (test code = BUN) 11 mg/dL 9-23 N GLOMERULAR FILTRATION RATE (test code = GFR) >=60 max estimate mL/min >60 The Glomerular Filtration Rate is a calculated parameterbased on serum Creatinine, patient age and sex. GFR valuesless than 60 mL/min/1.73 square meters are indicative ofChronic Kidney Disease. Values less than 15 mL/min/1.73square meters indicate Kidney failure. The calculation forGFR is based on the CKD-EPI (2020) calculation. This formulais race indifferent and is the recommended formula for GFRby the National Kidney Foundation for Adults.The GFR will not calculate if the sex is unknown or if thepatient's age is <18 years. CREATININE (test code = CREAT) 0.90 mg/dL 0.55-1.02 N CALCIUM (test code = CA) 8.4 mg/dL 8.7-10.4 L CBC W/AUTO [id number] 22:18:00* Test Item Value Reference Range Interpretation Comme nts WHITE BLOOD CELL (test code = WBC) 16.4 x10 3/uL 4.8-10.8 H RED BLOOD CELL (test code = RBC) 3.03 x10 6/uL 4.20-5.40 L HEMOGLOBIN (test code = HGB) 9.1 g/dL 12.0-16.0 L HEMATOCRIT (test code = HCT) 27.9 % 37.0-47.0 L MEAN CELL VOLUME (test code = MCV) 92.1 fL 81.0-99.0 N MEAN CELL HGB (test code = MCH) 30.0 pg 27-31 N MEAN CELL HGB CONCENTRATION (test code = MCHC) 32.6 G/DL 33-36.5 L RED CELL DISTRIBUTION WIDTH (test code = RDW) 14.9 % 12.9-16.9 N PLATELET COUNT (test code = PLT) 92 x10 3/uL 150-440 L MEAN PLATELET VOLUME (test code = MPV) 11.9 fL 8.9-12.4 N NEUTROPHIL % (test code = NT%) 88.9 % 42.2-75.2 H LYMPHOCYTE % (test code = LY%) 4.1 % 20.5-51.1 L MONOCYTE % (test code = MO%) 5.9 % 1.7-9.3 N EOSINOPHIL % (test code = EO%) 0.1 % 0.0-7.0 N BASOPHIL % (test code = BA%) 0.2 % 0-2.5 N NEUTROPHIL # (test code = NT#) 14.55 x10 3/uL 1.80-7.70 H LYMPHOCYTE # (test code = LY#) 0.67 x10 3/uL 1.00-4.80 L MONOCYTE # (test code = MO#) 0.97 x10 3/uL 0.00-0.80 H EOSINOPHIL # (test code = EO#) 0.01 x10 3/uL 0.00-0.45 N BASOPHIL # (test code = BA#) 0.03 x10 3/uL 0.0-0.20 N [id number] 20:41:00* Test Item Value Reference Range Interpretation Comme [facility] GLUBED (test code = GLUBED) 163 MG/DL 70-105 H [id number] 19:23:00* Test Item Value Reference Range Interpretation Comme [facility] GLUBED (test code = GLUBED) 194 MG/DL 70-105 H BLOOD GAS [id number] 17:56:00* Test Item Value Reference Range Interpretation Comme [facility] ARTERIAL BLOOD GAS PH (test code = PHA) 7.34 7.35-7.45 L ARTERIAL BLOOD GAS PCO2 (test code = PCO2A) 45.2 mmHg 35.0-45.0 H ARTERIAL BLOOD GAS PO2 (test code = PO2A) 67.9 mmHg 80.0-95.0 L BICARBONATE TOTAL HCO3 (test code = HCO3) 23.7 mmol/L 22.0-24.0 N BASE EXCESS (test code = GABRIELLE) -2.2 mmol/L See_Comment L [Automated message] The system which generated this result transmitted reference range: (+/-)2.0. The reference range was not used to interpret this result as normal/abnormal. ABG O2 SATURATION (test code = SATA) 92.1 % 95.0-100.0 L ARTERIAL FIO2 (test code = FIO2A) 32.0 % ABG VENT MODE (test code = MODEA) NASAL CANNULA ALLENS TEST (test code = ALLENS) NOT APPLICABLE SODIUM (POC) (test code = NA/ABG) 142 mmol/L 135-147 N POTASSIUM (POC) (test code = K/ABG) 4.22 mmol/L 3.6-5.2 N CHLORIDE (ARTERIAL) (test code = CL/ABG) 106 mmol/L 98-108 N GLUCOSE (test code = GLU/ABG) 222 mg/dL 70-104 H IONIZED CALCIUM (test code = CAIABG) 1.14 mmol/L 1.12-1.32 N POC LACTIC ACID (test code = POCLAC) 5.90 mmol/L 0.5-2.2 H TOTAL HGB (test code = THB) 10.2 g/dL 12.0-16.0 L OXYHEMOGLOBIN (test code = OOHGBT) 91.0 % 92.0-98.0 L CARBOXYHEMOGLOBIN (test code = HOHGBT) 0.9 % 0-5.0 N METHEMOGLOBIN (test code = METHGB) <0.8 % 0-1.5 N HHb (test code = HHB) 7.8 % TCO2 ARTERIAL (test code = TCO2A) 25.1 MMOL/L 24-30 N BLOOD GAS [id number] 17:38:00* Test Item Value Reference Range Interpretation Comme nts ARTERIAL BLOOD GAS PH (test code = PHA) 7.26 7.35-7.45 L ARTERIAL BLOOD GAS PCO2 (test code = PCO2A) 44.8 mmHg 35.0-45.0 N ARTERIAL BLOOD GAS PO2 (test code = PO2A) 90.6 mmHg 80.0-95.0 N BICARBONATE TOTAL HCO3 (test code = HCO3) 19.6 mmol/L 22.0-24.0 L BASE EXCESS (test code = GABRIELLE) -7.3 mmol/L See_Comment L [Automated message] The system which generated this result transmitted reference range: (+/-)2.0. The reference range was not used to interpret this result as normal/abnormal. ABG O2 SATURATION (test code = SATA) 95.5 % 95.0-100.0 N ARTERIAL FIO2 (test code = FIO2A) 40.0 % ABG VENT MODE (test code = MODEA) VENT ALLENS TEST (test code = ALLENS) NOT APPLICABLE SODIUM (POC) (test code = NA/ABG) 140 mmol/L 135-147 N POTASSIUM (POC) (test code = K/ABG) 4.18 mmol/L 3.6-5.2 N CHLORIDE (ARTERIAL) (test code = CL/ABG) 104 mmol/L 98-108 N GLUCOSE (test code = GLU/ABG) 245 mg/dL 70-104 H IONIZED CALCIUM (test code = CAIABG) 1.21 mmol/L 1.12-1.32 N POC LACTIC ACID (test code = POCLAC) 4.87 mmol/L 0.5-2.2 H TOTAL HGB (test code = THB) 11.1 g/dL 12.0-16.0 L OXYHEMOGLOBIN (test code = OOHGBT) 94.6 % 92.0-98.0 N CARBOXYHEMOGLOBIN (test code = HOHGBT) 0.8 % 0-5.0 N METHEMOGLOBIN (test code = METHGB) <0.8 % 0-1.5 N HHb (test code = HHB) 4.5 % TCO2 ARTERIAL (test code = TCO2A) 20.9 MMOL/L 24-30 L [id number] 17:29:00* Test Item Value Reference Range Interpretation Comme nts GLUBED (test code = GLUBED) 220 MG/DL 70-105 H COVID 19 Asymptomatic IH [id number] 15:04:00* Test Item Value Reference Range Interpretation Comme nts COVID 19 Asymptomatic IH AG (test code = COVNONPUIAG) NEGATIVE NEGATIVE Negative results , from patients with symptom onset beyondfive days, should be treated as presumptive and confirmationwith a molecular assay, if necessary for patientmanagement, may be performed. Negative results do not ruleout COVID-19 and should not be used as the sole basis fortreatment or patient management decisions, includinginfection control decisions. Negative results should beconsidered in the context of a patient's recent exposures,history and the presence of clinical signs and symptomsconsistent with COVID-19. LACTIC [id number] 14:53:00* Test Item Value Reference Range Interpretation Comme nts LACTIC ACID (test code = LACT) 2.20 mmol/L 0.5-2.0 HH Critical Value r eported toFirst Name:LEONILA Last Name:RESULTS READ BACK AND VERIFIEDby [id number], on 02/12/24, @ 1453. BASIC METABOLIC [id number] 14:53:00* Test Item Value Reference Range Interpretation Comme nts SODIUM (test code = NA) 140 mmol/L 136-145 N POTASSIUM (test code = K) 4.8 mmol/L 3.5-5.1 N CHLORIDE (test code = CL) 110 mmol/l 98-107 H CARBON DIOXIDE (test code = CO2) 22 mmol/L 20-31 N GLUCOSE (test code = GLU) 218 mg/dL 74-106 H BLOOD UREA NITROGEN (test code = BUN) 9 mg/dL 9-23 N GLOMERULAR FILTRATION RATE (test code = GFR) >=60 max estimate mL/min >60 The Glomerular Filtration Rate is a calculated parameterbased on serum Creatinine, patient age and sex. GFR valuesless than 60 mL/min/1.73 square meters are indicative ofChronic Kidney Disease. Values less than 15 mL/min/1.73square meters indicate Kidney failure. The calculation forGFR is based on the CKD-EPI (2020) calculation. This formulais race indifferent and is the recommended formula for GFRby the National Kidney Foundation for Adults.The GFR will not calculate if the sex is unknown or if thepatient's age is <18 years. CREATININE (test code = CREAT) 0.70 mg/dL 0.55-1.02 N CALCIUM (test code = CA) 7.8 mg/dL 8.7-10.4 L [id number] 14:53:00* Test Item Value Reference Range Interpretation Comme nts PHOSPHOROUS (test code = PHOS) 3.3 mg/dL 2.4-5.1 N [id number] 14:53:00* Test Item Value Reference Range Interpretation Comme nts MAGNESIUM (test code = MAG) 2.4 mg/dL 1.6-2.6 N PROTHROMBIN [id number] 14:42:00* Test Item Value Reference Range Interpretation [facility] PROTHROMBIN TIME PATIENT (test code = PTP) 15.1 SECONDS 10.3-12.9 H INTERNATIONAL NORMAL RATIO (test code = INR) 1.36 0.9-1.11 H INR goals are individualized based on patient specificfactors. The following are only general guidelines: Indications: INR Goal:1. Treatment of venous thromboembolism and 2.0 - 3.0 systemic anticoagulation in a variety of conditions, including atrial fibrillation and mechanical heart valves 2. Mechanical mitral and tricuspid valves, 2.5 - 3.5 systemic anticoagulation for high-risk conditions THROMBOPLASTIN TIME [id number] 14:42:00* Test Item Value Reference Range Interpretation [facility] THROMBOPLASTIN TIME PARTIAL (test code = PTT) 28.8 secs 23.8-34.8 INTERPRETATIVE D PABLITO: Therapeutic range: Unfractionated Heparin: 60-90 seconds Argatroban: 60-90 seconds BLOOD GAS [id number] 14:37:00* Test Item Value Reference Range Interpretation [facility] ARTERIAL BLOOD GAS PH (test code = PHA) 7.33 7.35-7.45 L ARTERIAL BLOOD GAS PCO2 (test code = PCO2A) 35.8 mmHg 35.0-45.0 N ARTERIAL BLOOD GAS PO2 (test code = PO2A) 108.6 mmHg 80.0-95.0 H BICARBONATE TOTAL HCO3 (test code = HCO3) 18.5 mmol/L 22.0-24.0 L BASE EXCESS (test code = GABRIELLE) -6.6 mmol/L See_Comment L [Automated message] The system which generated this result transmitted reference range: (+/-)2.0. The reference range was not used to interpret this result as normal/abnormal. ABG O2 SATURATION (test code = SATA) 97.7 % 95.0-100.0 N ARTERIAL FIO2 (test code = FIO2A) 40.0 % ABG VENT MODE (test code = MODEA) Ventilator ALLENS TEST (test code = ALLENS) NOT APPLICABLE SODIUM (POC) (test code = NA/ABG) 138 mmol/L 135-147 N POTASSIUM (POC) (test code = K/ABG) 4.33 mmol/L 3.6-5.2 N CHLORIDE (ARTERIAL) (test code = CL/ABG) 104 mmol/L 98-108 N GLUCOSE (test code = GLU/ABG) 285 mg/dL 70-104 H IONIZED CALCIUM (test code = CAIABG) 1.10 mmol/L 1.12-1.32 L POC LACTIC ACID (test code = POCLAC) 4.11 mmol/L 0.5-2.2 H TOTAL HGB (test code = THB) 12.4 g/dL 12.0-16.0 N OXYHEMOGLOBIN (test code = OOHGBT) 96.7 % 92.0-98.0 N CARBOXYHEMOGLOBIN (test code = HOHGBT) 0.9 % 0-5.0 N METHEMOGLOBIN (test code = METHGB) <0.8 % 0-1.5 N HHb (test code = HHB) 2.3 % TCO2 ARTERIAL (test code = TCO2A) 19.6 MMOL/L 24-30 L CBC W/AUTO [id number] 14:34:00* Test Item Value Reference Range Interpretation Comme nts WHITE BLOOD CELL (test code = WBC) 26.9 x10 3/uL 4.8-10.8 H RED BLOOD CELL (test code = RBC) 4.29 x10 6/uL 4.20-5.40 N HEMOGLOBIN (test code = HGB) 12.8 g/dL 12.0-16.0 N HEMATOCRIT (test code = HCT) 38.1 % 37.0-47.0 N MEAN CELL VOLUME (test code = MCV) 88.8 fL 81.0-99.0 MEAN CELL HGB (test code = MCH) 29.8 pg 27-31 N MEAN CELL HGB CONCENTRATION (test code = MCHC) 33.6 G/DL 33-36.5 N RED CELL DISTRIBUTION WIDTH (test code = RDW) 14.3 % 12.9-16.9 N PLATELET COUNT (test code = PLT) 124 x10 3/uL 150-440 L MEAN PLATELET VOLUME (test code = MPV) 13.4 fL 8.9-12.4 H NEUTROPHIL % (test code = NT%) 85.5 % 42.2-75.2 H LYMPHOCYTE % (test code = LY%) 8.4 % 20.5-51.1 L MONOCYTE % (test code = MO%) 3.1 % 1.7-9.3 N EOSINOPHIL % (test code = EO%) 0.8 % 0.0-7.0 N BASOPHIL % (test code = BA%) 0.6 % 0-2.5 N NEUTROPHIL # (test code = NT#) 23.06 x10 3/uL 1.80-7.70 H LYMPHOCYTE # (test code = LY#) 2.26 x10 3/uL 1.00-4.80 N MONOCYTE # (test code = MO#) 0.84 x10 3/uL 0.00-0.80 H EOSINOPHIL # (test code = EO#) 0.21 x10 3/uL 0.00-0.45 N BASOPHIL # (test code = BA#) 0.15 x10 3/uL 0.0-0.20 N COAGULATION TIME [id number] 12:56:00* Test Item Value Reference Range Interpretation Comme nts COAGULATION TIME ACTIVATED ( test code = ACT) 134 SECONDS 74-137 N COAGULATION TIME [id number] 11:40:00* Test Item Value Reference Range Interpretation Comme nts COAGULATION TIME ACTIVATED ( test code = ACT) 635 SECONDS 74-137 H COAGULATION TIME [id number] 10:42:00* Test Item Value Reference Range Interpretation Comme nts COAGULATION TIME ACTIVATED ( test code = ACT) 776 SECONDS 74-137 H COAGULATION TIME [id number] 10:04:00* Test Item Value Reference Range Interpretation Comme nts COAGULATION TIME ACTIVATED ( test code = ACT) 690 SECONDS 74-137 H [id number] 07:08:00* Test Item Value Reference Range Interpretation Comme nts GLUBED (test code = GLUBED) 110 MG/DL 70-105 H BASIC METABOLIC [id number] 04:19:00* Test Item Value Reference Range Interpretation Comme nts SODIUM (test code = NA) 138 mmol/L 136-145 N POTASSIUM (test code = K) 4.1 mmol/L 3.5-5.1 N CHLORIDE (test code = CL) 107 mmol/l 98-107 N CARBON DIOXIDE (test code = CO2) 27 mmol/L 20-31 N GLUCOSE (test code = GLU) 104 mg/dL 74-106 N BLOOD UREA NITROGEN (test code = BUN) 12 mg/dL 9-23 N GLOMERULAR FILTRATION RATE (test code = GFR) >=60 max estimate mL/min >60 The Glomerular Filtration Rate is a calculated parameterbased on serum Creatinine, patient age and sex. GFR valuesless than 60 mL/min/1.73 square meters are indicative ofChronic Kidney Disease. Values less than 15 mL/min/1.73square meters indicate Kidney failure. The calculation forGFR is based on the CKD-EPI (2020) calculation. This formulais race indifferent and is the recommended formula for GFRby the National Kidney Foundation for Adults.The GFR will not calculate if the sex is unknown or if thepatient's age is <18 years. CREATININE (test code = CREAT) 0.80 mg/dL 0.55-1.02 N CALCIUM (test code = CA) 9.0 mg/dL 8.7-10.4 N COMPREHENSIVE METABOLIC [id number] 04:19:00* Test Item Value Reference Range Interpretation Comme nts TOTAL PROTEIN (test code = PROT) 5.9 g/dL 5.7-8.2 N ALBUMIN (test code = ALB) 3.5 g/dL 3.2-4.8 N BILIRUBIN TOTAL (test code = BILT) 0.6 mg/dL 0.3-1.2 N SGOT/AST (test code = AST) 32 U/L <34 N SGPT/ALT (test code = ALT) 42 U/L 10-49 N ALKALINE PHOSPHATASE (test c ode = ALKP) 100.0 U/L 46-116 N [id number] 04:19:00* Test Item Value Reference Range Interpretation Comme nts PHOSPHOROUS (test code = PHOS) 4.2 mg/dL 2.4-5.1 N [id number] 04:19:00* Test Item Value Reference Range Interpretation Comme nts MAGNESIUM (test code = MAG) 1.8 mg/dL 1.6-2.6 N PROTHROMBIN [id number] 04:17:00* Test Item Value Reference Range Interpretation Comme nts PROTHROMBIN TIME PATIENT (test code = PTP) 12.8 SECONDS 10.3-12.9 N INTERNATIONAL NORMAL RATIO (test code = INR) 1.15 0.9-1.11 H INR goals are individualized based on patient specificfactors. The following are only general guidelines: Indications: INR Goal:1. Treatment of venous thromboembolism and 2.0 - 3.0 systemic anticoagulation in a variety of conditions, including atrial fibrillation and mechanical heart valves 2. Mechanical mitral and tricuspid valves, 2.5 - 3.5 systemic anticoagulation for high-risk conditions THROMBOPLASTIN TIME [id number] 04:17:00* Test Item Value Reference Range Interpretation Comme nts THROMBOPLASTIN TIME PARTIAL (test code = PTT) 68.5 secs 23.8-34.8 H INTERPRETATIVE D PABLITO: Therapeutic range: Unfractionated Heparin: 60-90 seconds Argatroban: 60-90 seconds CBC W/AUTO [id number] 04:04:00* Test Item Value Reference Range Interpretation Comme nts WHITE BLOOD CELL (test code = WBC) 6.2 x10 3/uL 4.8-10.8 N RED BLOOD CELL (test code = RBC) 3.91 x10 6/uL 4.20-5.40 L HEMOGLOBIN (test code = HGB) 11.8 g/dL 12.0-16.0 L HEMATOCRIT (test code = HCT) 36.3 % 37.0-47.0 L MEAN CELL VOLUME (test code = MCV) 92.8 fL 81.0-99.0 N MEAN CELL HGB (test code = MCH) 30.2 pg 27-31 N MEAN CELL HGB CONCENTRATION (test code = MCHC) 32.5 G/DL 33-36.5 L RED CELL DISTRIBUTION WIDTH (test code = RDW) 14.6 % 12.9-16.9 N PLATELET COUNT (test code = PLT) 125 x10 3/uL 150-440 L MEAN PLATELET VOLUME (test c ode = MPV) 13.1 fL 8.9-12.4 H NEUTROPHIL % (test code = NT%) 57.0 % 42.2-75.2 N LYMPHOCYTE % (test code = LY%) 29.2 % 20.5-51.1 N MONOCYTE % (test code = MO%) 7.4 % 1.7-9.3 N EOSINOPHIL % (test code = EO%) 5.8 % 0.0-7.0 N BASOPHIL % (test code = BA%) 0.3 % 0-2.5 N NEUTROPHIL # (test code = NT#) 3.53 x10 3/uL 1.80-7.70 N LYMPHOCYTE # (test code = LY#) 1.81 x10 3/uL 1.00-4.80 N MONOCYTE # (test code = MO#) 0.46 x10 3/uL 0.00-0.80 N EOSINOPHIL # (test code = EO#) 0.36 x10 3/uL 0.00-0.45 N BASOPHIL # (test code = BA#) 0.02 x10 3/uL 0.0-0.20 N THROMBOPLASTIN TIME [id number] 09:58:00* Test Item Value Reference Range Interpretation Comme nts THROMBOPLASTIN TIME PARTIAL (test code = PTT) 68.5 secs 23.8-34.8 H INTERPRETATIVE D PABLITO: Therapeutic range: Unfractionated Heparin: 60-90 seconds Argatroban: 60-90 seconds THROMBOPLASTIN TIME [id number] 03:01:00* Test Item Value Reference Range Interpretation Comme nts THROMBOPLASTIN TIME PARTIAL (test code = PTT) 96.8 secs 23.8-34.8 H INTERPRETATIVE D PABLITO: Therapeutic range: Unfractionated Heparin: 60-90 seconds Argatroban: 60-90 seconds CBC W/AUTO [id number] 02:48:00* Test Item Value Reference Range Interpretation Comme nts WHITE BLOOD CELL (test code = WBC) 6.0 x10 3/uL 4.8-10.8 N RED BLOOD CELL (test code = RBC) 3.92 x10 6/uL 4.20-5.40 L HEMOGLOBIN (test code = HGB) 11.6 g/dL 12.0-16.0 L HEMATOCRIT (test code = HCT) 36.0 % 37.0-47.0 L MEAN CELL VOLUME (test code = MCV) 91.8 fL 81.0-99.0 N MEAN CELL HGB (test code = MCH) 29.6 pg 27-31 N MEAN CELL HGB CONCENTRATION (test code = MCHC) 32.2 G/DL 33-36.5 L RED CELL DISTRIBUTION WIDTH (test code = RDW) 14.6 % 12.9-16.9 N PLATELET COUNT (test code = PLT) 131 x10 3/uL 150-440 L MEAN PLATELET VOLUME (test c ode = MPV) 12.7 fL 8.9-12.4 H NEUTROPHIL % (test code = NT%) 58.8 % 42.2-75.2 N LYMPHOCYTE % (test code = LY%) 28.3 % 20.5-51.1 N MONOCYTE % (test code = MO%) 6.5 % 1.7-9.3 N EOSINOPHIL % (test code = EO%) 5.7 % 0.0-7.0 N BASOPHIL % (test code = BA%) 0.5 % 0-2.5 N NEUTROPHIL # (test code = NT#) 3.52 x10 3/uL 1.80-7.70 N LYMPHOCYTE # (test code = LY#) 1.69 x10 3/uL 1.00-4.80 N MONOCYTE # (test code = MO#) 0.39 x10 3/uL 0.00-0.80 N EOSINOPHIL # (test code = EO#) 0.34 x10 3/uL 0.00-0.45 N BASOPHIL # (test code = BA#) 0.03 x10 3/uL 0.0-0.20 N THROMBOPLASTIN TIME [id number] 20:20:00* Test Item Value Reference Range Interpretation Comme nts THROMBOPLASTIN TIME PARTIAL (test code = PTT) 59.0 secs 23.8-34.8 H INTERPRETATIVE D PABLITO: Therapeutic range: Unfractionated Heparin: 60-90 seconds Argatroban: 60-90 seconds THROMBOPLASTIN TIME [id number] 11:55:00* Test Item Value Reference Range Interpretation Comme nts THROMBOPLASTIN TIME PARTIAL (test code = PTT) 73.0 secs 23.8-34.8 H INTERPRETATIVE D PABLITO: Therapeutic range: Unfractionated Heparin: 60-90 seconds Argatroban: 60-90 seconds THROMBOPLASTIN TIME [id number] 04:53:00* Test Item Value Reference Range Interpretation Comme nts THROMBOPLASTIN TIME PARTIAL (test code = PTT) 92.6 secs 23.8-34.8 H INTERPRETATIVE D PABLITO: Therapeutic range: Unfractionated Heparin: 60-90 seconds Argatroban: 60-90 seconds CBC W/AUTO [id number] 04:38:00* Test Item Value Reference Range Interpretation Comme nts WHITE BLOOD CELL (test code = WBC) 6.2 x10 3/uL 4.8-10.8 N RED BLOOD CELL (test code = RBC) 3.92 x10 6/uL 4.20-5.40 L HEMOGLOBIN (test code = HGB) 11.7 g/dL 12.0-16.0 L HEMATOCRIT (test code = HCT) 36.1 % 37.0-47.0 L MEAN CELL VOLUME (test code = MCV) 92.1 fL 81.0-99.0 N MEAN CELL HGB (test code = MCH) 29.8 pg 27-31 N MEAN CELL HGB CONCENTRATION (test code = MCHC) 32.4 G/DL 33-36.5 L RED CELL DISTRIBUTION WIDTH (test code = RDW) 14.6 % 12.9-16.9 N PLATELET COUNT (test code = PLT) 122 x10 3/uL 150-440 L MEAN PLATELET VOLUME (test c ode = MPV) 13.2 fL 8.9-12.4 H NEUTROPHIL % (test code = NT%) 55.8 % 42.2-75.2 N LYMPHOCYTE % (test code = LY%) 29.4 % 20.5-51.1 N MONOCYTE % (test code = MO%) 7.7 % 1.7-9.3 N EOSINOPHIL % (test code = EO%) 5.9 % 0.0-7.0 N BASOPHIL % (test code = BA%) 0.6 % 0-2.5 N NEUTROPHIL # (test code = NT#) 3.46 x10 3/uL 1.80-7.70 N LYMPHOCYTE # (test code = LY#) 1.83 x10 3/uL 1.00-4.80 N MONOCYTE # (test code = MO#) 0.48 x10 3/uL 0.00-0.80 N EOSINOPHIL # (test code = EO#) 0.37 x10 3/uL 0.00-0.45 N BASOPHIL # (test code = BA#) 0.04 x10 3/uL 0.0-0.20 N THROMBOPLASTIN TIME [id number] 05:05:00* Test Item Value Reference Range Interpretation Comme nts THROMBOPLASTIN TIME PARTIAL (test code = PTT) 88.8 secs 23.8-34.8 H INTERPRETATIVE D PABLITO: Therapeutic range: Unfractionated Heparin: 60-90 seconds Argatroban: 60-90 seconds CBC W/AUTO [id number] 04:58:00* Test Item Value Reference Range Interpretation Comme nts WHITE BLOOD CELL (test code = WBC) 6.2 x10 3/uL 4.8-10.8 N RED BLOOD CELL (test code = RBC) 3.98 x10 6/uL 4.20-5.40 L HEMOGLOBIN (test code = HGB) 11.8 g/dL 12.0-16.0 L HEMATOCRIT (test code = HCT) 36.9 % 37.0-47.0 L MEAN CELL VOLUME (test code = MCV) 92.7 fL 81.0-99.0 N MEAN CELL HGB (test code = MCH) 29.6 pg 27-31 N MEAN CELL HGB CONCENTRATION (test code = MCHC) 32.0 G/DL 33-36.5 L RED CELL DISTRIBUTION WIDTH (test code = RDW) 14.4 % 12.9-16.9 N PLATELET COUNT (test code = PLT) 122 x10 3/uL 150-440 L MEAN PLATELET VOLUME (test c ode = MPV) 13.4 fL 8.9-12.4 H NEUTROPHIL % (test code = NT%) 59.0 % 42.2-75.2 N LYMPHOCYTE % (test code = LY%) 25.9 % 20.5-51.1 N MONOCYTE % (test code = MO%) 7.6 % 1.7-9.3 N EOSINOPHIL % (test code = EO%) 6.5 % 0.0-7.0 N BASOPHIL % (test code = BA%) 0.5 % 0-2.5 N NEUTROPHIL # (test code = NT#) 3.64 x10 3/uL 1.80-7.70 N LYMPHOCYTE # (test code = LY#) 1.60 x10 3/uL 1.00-4.80 N MONOCYTE # (test code = MO#) 0.47 x10 3/uL 0.00-0.80 N EOSINOPHIL # (test code = EO#) 0.40 x10 3/uL 0.00-0.45 N BASOPHIL # (test code = BA#) 0.03 x10 3/uL 0.0-0.20 N THROMBOPLASTIN TIME [id number] 05:16:00* Test Item Value Reference Range Interpretation Comme nts THROMBOPLASTIN TIME PARTIAL (test code = PTT) 86.4 secs 23.8-34.8 H INTERPRETATIVE D PABLITO: Therapeutic range: Unfractionated Heparin: 60-90 seconds Argatroban: 60-90 seconds THROMBOPLASTIN TIME [id number] 05:16:00* Test Item Value Reference Range Interpretation Comme nts THROMBOPLASTIN TIME PARTIAL (test code = PTT) 77.6 secs 23.8-34.8 H INTERPRETATIVE D PABLITO: Therapeutic range: Unfractionated Heparin: 60-90 seconds Argatroban: 60-90 seconds CBC W/AUTO [id number] 05:09:00* Test Item Value Reference Range Interpretation Comme nts WHITE BLOOD CELL (test code = WBC) 6.1 x10 3/uL 4.8-10.8 N RED BLOOD CELL (test code = RBC) 3.79 x10 6/uL 4.20-5.40 L HEMOGLOBIN (test code = HGB) 11.2 g/dL 12.0-16.0 L HEMATOCRIT (test code = HCT) 34.8 % 37.0-47.0 L MEAN CELL VOLUME (test code = MCV) 91.8 fL 81.0-99.0 N MEAN CELL HGB (test code = MCH) 29.6 pg 27-31 N MEAN CELL HGB CONCENTRATION (test code = MCHC) 32.2 G/DL 33-36.5 L RED CELL DISTRIBUTION WIDTH (test code = RDW) 14.6 % 12.9-16.9 N PLATELET COUNT (test code = PLT) 116 x10 3/uL 150-440 L MEAN PLATELET VOLUME (test c ode = MPV) 12.9 fL 8.9-12.4 H NEUTROPHIL % (test code = NT%) 58.0 % 42.2-75.2 N LYMPHOCYTE % (test code = LY%) 26.6 % 20.5-51.1 N MONOCYTE % (test code = MO%) 8.4 % 1.7-9.3 N EOSINOPHIL % (test code = EO%) 5.8 % 0.0-7.0 N BASOPHIL % (test code = BA%) 0.7 % 0-2.5 N NEUTROPHIL # (test code = NT#) 3.53 x10 3/uL 1.80-7.70 N LYMPHOCYTE # (test code = LY#) 1.62 x10 3/uL 1.00-4.80 N MONOCYTE # (test code = MO#) 0.51 x10 3/uL 0.00-0.80 N EOSINOPHIL # (test code = EO#) 0.35 x10 3/uL 0.00-0.45 N BASOPHIL # (test code = BA#) 0.04 x10 3/uL 0.0-0.20 N THROMBOPLASTIN TIME [id number] 05:35:00* Test Item Value Reference Range Interpretation Comme nts THROMBOPLASTIN TIME PARTIAL (test code = PTT) 67.4 secs 23.8-34.8 H INTERPRETATIVE D PABLITO: Therapeutic range: Unfractionated Heparin: 60-90 seconds Argatroban: 60-90 seconds COMPREHENSIVE METABOLIC [id number] 05:32:00* Test Item Value Reference Range Interpretation Comme nts SODIUM (test code = NA) 138 mmol/L 136-145 N POTASSIUM (test code = K) 4.1 mmol/L 3.5-5.1 N CHLORIDE (test code = CL) 106 mmol/l 98-107 N CARBON DIOXIDE (test code = CO2) 28 mmol/L 20-31 N GLUCOSE (test code = GLU) 109 mg/dL 74-106 H BLOOD UREA NITROGEN (test code = BUN) 16 mg/dL 9-23 N GLOMERULAR FILTRATION RATE (test code = GFR) 59 mL/min >60 L The Glomerular Filtration Rate is a calculated parameterbased on serum Creatinine, patient age and sex. GFR valuesless than 60 mL/min/1.73 square meters are indicative ofChronic Kidney Disease. Values less than 15 mL/min/1.73square meters indicate Kidney failure. The calculation forGFR is based on the CKD-EPI (2020) calculation. This formulais race indifferent and is the recommended formula for GFRby the National Kidney Foundation for Adults.The GFR will not calculate if the sex is unknown or if thepatient's age is <18 years. CREATININE (test code = CREAT) 1.00 mg/dL 0.55-1.02 N TOTAL PROTEIN (test code = PROT) 5.3 g/dL 5.7-8.2 L ALBUMIN (test code = ALB) 3.3 g/dL 3.2-4.8 N CALCIUM (test code = CA) 8.3 mg/dL 8.7-10.4 L BILIRUBIN TOTAL (test code = BILT) 0.4 mg/dL 0.3-1.2 N SGOT/AST (test code = AST) 27 U/L <34 N SGPT/ALT (test code = ALT) 24 U/L 10-49 N ALKALINE PHOSPHATASE (test code = ALKP) 89.0 U/L 46-116 N COMPREHENSIVE METABOLIC [id number] 05:14:00* Test Item Value Reference Range Interpretation Comme nts SODIUM (test code = NA) 137 mmol/L 136-145 N POTASSIUM (test code = K) 4.7 mmol/L 3.5-5.1 N CHLORIDE (test code = CL) 107 mmol/l 98-107 N CARBON DIOXIDE (test code = CO2) 23 mmol/L 20-31 N GLUCOSE (test code = GLU) 102 mg/dL 74-106 N BLOOD UREA NITROGEN (test code = BUN) 9 mg/dL 9-23 N GLOMERULAR FILTRATION RATE (test code = GFR) >=60 max estimate mL/min >60 The Glomerular Filtration Rate is a calculated parameterbased on serum Creatinine, patient age and sex. GFR valuesless than 60 mL/min/1.73 square meters are indicative ofChronic Kidney Disease. Values less than 15 mL/min/1.73square meters indicate Kidney failure. The calculation forGFR is based on the CKD-EPI (2021) calculation. This formulais race indifferent and is the recommended formula for GFRby the National Kidney Foundation for Adults.The GFR will not calculate if the sex is unknown or if thepatient's age is <18 years. CREATININE (test code = CREAT) 0.90 mg/dL 0.55-1.02 N TOTAL PROTEIN (test code = PROT) 5.5 g/dL 5.7-8.2 L ALBUMIN (test code = ALB) 3.2 g/dL 3.2-4.8 N CALCIUM (test code = CA) 8.2 mg/dL 8.7-10.4 L BILIRUBIN TOTAL (test code = BILT) 0.3 mg/dL 0.3-1.2 N SGOT/AST (test code = AST) 29 U/L <34 N SGPT/ALT (test code = ALT) 19 U/L 10-49 N ALKALINE PHOSPHATASE (test code = ALKP) 90.0 U/L 46-116 N CBC W/AUTO [id number] 05:11:00* Test Item Value Reference Range Interpretation Comme nts WHITE BLOOD CELL (test code = WBC) 7.0 x10 3/uL 4.8-10.8 N RED BLOOD CELL (test code = RBC) 4.06 x10 6/uL 4.20-5.40 L HEMOGLOBIN (test code = HGB) 11.9 g/dL 12.0-16.0 L HEMATOCRIT (test code = HCT) 37.4 % 37.0-47.0 N MEAN CELL VOLUME (test code = MCV) 92.1 fL 81.0-99.0 N MEAN CELL HGB (test code = MCH) 29.3 pg 27-31 N MEAN CELL HGB CONCENTRATION (test code = MCHC) 31.8 G/DL 33-36.5 L RED CELL DISTRIBUTION WIDTH (test code = RDW) 14.4 % 12.9-16.9 N PLATELET COUNT (test code = PLT) 132 x10 3/uL 150-440 L MEAN PLATELET VOLUME (test c ode = MPV) 13.2 fL 8.9-12.4 H NEUTROPHIL % (test code = NT%) 61.3 % 42.2-75.2 N LYMPHOCYTE % (test code = LY%) 24.9 % 20.5-51.1 N MONOCYTE % (test code = MO%) 6.8 % 1.7-9.3 N EOSINOPHIL % (test code = EO%) 6.0 % 0.0-7.0 N BASOPHIL % (test code = BA%) 0.6 % 0-2.5 N NEUTROPHIL # (test code = NT#) 4.26 x10 3/uL 1.80-7.70 N LYMPHOCYTE # (test code = LY#) 1.73 x10 3/uL 1.00-4.80 N MONOCYTE # (test code = MO#) 0.47 x10 3/uL 0.00-0.80 N EOSINOPHIL # (test code = EO#) 0.42 x10 3/uL 0.00-0.45 N BASOPHIL # (test code = BA#) 0.04 x10 3/uL 0.0-0.20 N THROMBOPLASTIN TIME [id number] 05:01:00* Test Item Value Reference Range Interpretation Comme nts THROMBOPLASTIN TIME PARTIAL (test code = PTT) 78.8 secs 23.8-34.8 H INTERPRETATIVE D PABLITO: Therapeutic range: Unfractionated Heparin: 60-90 seconds Argatroban: 60-90 seconds COMPREHENSIVE METABOLIC [id number] 04:51:00* Test Item Value Reference Range Interpretation Comme nts SODIUM (test code = NA) 140 mmol/L 136-145 N POTASSIUM (test code = K) 4.1 mmol/L 3.5-5.1 N CHLORIDE (test code = CL) 107 mmol/l 98-107 N CARBON DIOXIDE (test code = CO2) 29 mmol/L 20-31 N GLUCOSE (test code = GLU) 103 mg/dL 74-106 N BLOOD UREA NITROGEN (test code = BUN) 12 mg/dL 9-23 N GLOMERULAR FILTRATION RATE (test code = GFR) >=60 max estimate mL/min >60 The Glomerular Filtration Rate is a calculated parameterbased on serum Creatinine, patient age and sex. GFR valuesless than 60 mL/min/1.73 square meters are indicative ofChronic Kidney Disease. Values less than 15 mL/min/1.73square meters indicate Kidney failure. The calculation forGFR is based on the CKD-EPI (2020) calculation. This formulais race indifferent and is the recommended formula for GFRby the National Kidney Foundation for Adults.The GFR will not calculate if the sex is unknown or if thepatient's age is <18 years. CREATININE (test code = CREAT) 0.80 mg/dL 0.55-1.02 N TOTAL PROTEIN (test code = PROT) 5.3 g/dL 5.7-8.2 L ALBUMIN (test code = ALB) 3.3 g/dL 3.2-4.8 N CALCIUM (test code = CA) 8.2 mg/dL 8.7-10.4 L BILIRUBIN TOTAL (test code = BILT) 0.4 mg/dL 0.3-1.2 N SGOT/AST (test code = AST) 17 U/L <34 N SGPT/ALT (test code = ALT) 16 U/L 10-49 N ALKALINE PHOSPHATASE (test code = ALKP) 87.0 U/L 46-116 N THROMBOPLASTIN TIME [id number] 04:41:00* Test Item Value Reference Range Interpretation Comme nts THROMBOPLASTIN TIME PARTIAL (test code = PTT) 89.6 secs 23.8-34.8 H INTERPRETATIVE D PABLITO: Therapeutic range: Unfractionated Heparin: 60-90 seconds Argatroban: 60-90 seconds CBC W/AUTO [id number] 04:30:00* Test Item Value Reference Range Interpretation Comme nts WHITE BLOOD CELL (test code = WBC) 6.3 x10 3/uL 4.8-10.8 N RED BLOOD CELL (test code = RBC) 3.76 x10 6/uL 4.20-5.40 L HEMOGLOBIN (test code = HGB) 11.2 g/dL 12.0-16.0 L HEMATOCRIT (test code = HCT) 34.8 % 37.0-47.0 L MEAN CELL VOLUME (test code = MCV) 92.6 fL 81.0-99.0 N MEAN CELL HGB (test code = MCH) 29.8 pg 27-31 N MEAN CELL HGB CONCENTRATION (test code = MCHC) 32.2 G/DL 33-36.5 L RED CELL DISTRIBUTION WIDTH (test code = RDW) 14.6 % 12.9-16.9 N PLATELET COUNT (test code = PLT) 115 x10 3/uL 150-440 L MEAN PLATELET VOLUME (test c ode = MPV) 12.9 fL 8.9-12.4 H NEUTROPHIL % (test code = NT%) 60.4 % 42.2-75.2 N LYMPHOCYTE % (test code = LY%) 25.3 % 20.5-51.1 N MONOCYTE % (test code = MO%) 7.6 % 1.7-9.3 N EOSINOPHIL % (test code = EO%) 5.6 % 0.0-7.0 N BASOPHIL % (test code = BA%) 0.5 % 0-2.5 N NEUTROPHIL # (test code = NT#) 3.80 x10 3/uL 1.80-7.70 N LYMPHOCYTE # (test code = LY#) 1.59 x10 3/uL 1.00-4.80 N MONOCYTE # (test code = MO#) 0.48 x10 3/uL 0.00-0.80 N EOSINOPHIL # (test code = EO#) 0.35 x10 3/uL 0.00-0.45 N BASOPHIL # (test code = BA#) 0.03 x10 3/uL 0.0-0.20 N CBC W/AUTO [id number] 05:00:00* Test Item Value Reference Range Interpretation Comme nts WHITE BLOOD CELL (test code = WBC) 5.9 x10 3/uL 4.8-10.8 N RED BLOOD CELL (test code = RBC) 3.69 x10 6/uL 4.20-5.40 L HEMOGLOBIN (test code = HGB) 10.8 g/dL 12.0-16.0 L HEMATOCRIT (test code = HCT) 33.9 % 37.0-47.0 L MEAN CELL VOLUME (test code = MCV) 91.9 fL 81.0-99.0 N MEAN CELL HGB (test code = MCH) 29.3 pg 27-31 N MEAN CELL HGB CONCENTRATION (test code = MCHC) 31.9 G/DL 33-36.5 L RED CELL DISTRIBUTION WIDTH (test code = RDW) 14.5 % 12.9-16.9 N PLATELET COUNT (test code = PLT) 113 x10 3/uL 150-440 L MEAN PLATELET VOLUME (test c ode = MPV) 12.7 fL 8.9-12.4 H NEUTROPHIL % (test code = NT%) 62.0 % 42.2-75.2 N LYMPHOCYTE % (test code = LY%) 25.7 % 20.5-51.1 N MONOCYTE % (test code = MO%) 6.9 % 1.7-9.3 N EOSINOPHIL % (test code = EO%) 4.2 % 0.0-7.0 N BASOPHIL % (test code = BA%) 0.5 % 0-2.5 N NEUTROPHIL # (test code = NT#) 3.66 x10 3/uL 1.80-7.70 N LYMPHOCYTE # (test code = LY#) 1.52 x10 3/uL 1.00-4.80 N MONOCYTE # (test code = MO#) 0.41 x10 3/uL 0.00-0.80 N EOSINOPHIL # (test code = EO#) 0.25 x10 3/uL 0.00-0.45 N BASOPHIL # (test code = BA#) 0.03 x10 3/uL 0.0-0.20 N THROMBOPLASTIN TIME [id number] 04:56:00* Test Item Value Reference Range Interpretation Comme nts THROMBOPLASTIN TIME PARTIAL (test code = PTT) 85.0 secs 23.8-34.8 H INTERPRETATIVE D PABLITO: Therapeutic range: Unfractionated Heparin: 60-90 seconds Argatroban: 60-90 seconds THROMBOPLASTIN TIME [id number] 05:15:00* Test Item Value Reference Range Interpretation Comme nts THROMBOPLASTIN TIME PARTIAL (test code = PTT) 90.6 secs 23.8-34.8 H INTERPRETATIVE D PABLITO: Therapeutic range: Unfractionated Heparin: 60-90 seconds Argatroban: 60-90 seconds CBC W/AUTO [id number] 05:05:00* Test Item Value Reference Range Interpretation Comme nts WHITE BLOOD CELL (test code = WBC) 6.0 x10 3/uL 4.8-10.8 N RED BLOOD CELL (test code = RBC) 3.77 x10 6/uL 4.20-5.40 L HEMOGLOBIN (test code = HGB) 11.1 g/dL 12.0-16.0 L HEMATOCRIT (test code = HCT) 33.9 % 37.0-47.0 L MEAN CELL VOLUME (test code = MCV) 89.9 fL 81.0-99.0 N MEAN CELL HGB (test code = MCH) 29.4 pg 27-31 N MEAN CELL HGB CONCENTRATION (test code = MCHC) 32.7 G/DL 33-36.5 L RED CELL DISTRIBUTION WIDTH (test code = RDW) 14.4 % 12.9-16.9 N PLATELET COUNT (test code = PLT) 124 x10 3/uL 150-440 L MEAN PLATELET VOLUME (test c ode = MPV) 12.8 fL 8.9-12.4 H NEUTROPHIL % (test code = NT%) 60.2 % 42.2-75.2 N LYMPHOCYTE % (test code = LY%) 26.8 % 20.5-51.1 N MONOCYTE % (test code = MO%) 7.5 % 1.7-9.3 N EOSINOPHIL % (test code = EO%) 4.3 % 0.0-7.0 N BASOPHIL % (test code = BA%) 0.5 % 0-2.5 N NEUTROPHIL # (test code = NT#) 3.61 x10 3/uL 1.80-7.70 N LYMPHOCYTE # (test code = LY#) 1.61 x10 3/uL 1.00-4.80 N MONOCYTE # (test code = MO#) 0.45 x10 3/uL 0.00-0.80 N EOSINOPHIL # (test code = EO#) 0.26 x10 3/uL 0.00-0.45 N BASOPHIL # (test code = BA#) 0.03 x10 3/uL 0.0-0.20 N THROMBOPLASTIN TIME [id number] 09:56:00* Test Item Value Reference Range Interpretation Comme nts THROMBOPLASTIN TIME PARTIAL (test code = PTT) 67.4 secs 23.8-34.8 H INTERPRETATIVE D PABLITO: Therapeutic range: Unfractionated Heparin: 60-90 seconds Argatroban: 60-90 seconds THROMBOPLASTIN TIME [id number] 04:44:00* Test Item Value Reference Range Interpretation Comme nts THROMBOPLASTIN TIME PARTIAL (test code = PTT) 90.2 secs 23.8-34.8 H INTERPRETATIVE D PABLITO: Therapeutic range: Unfractionated Heparin: 60-90 seconds Argatroban: 60-90 seconds [id number] 04:12:00* Test Item Value Reference Range Interpretation Comme nts TROPONIN-I (test code = TROPI) 5.0 pg/mL 27.36-66.23 L [id number] 21:43:00* Test Item Value Reference Range Interpretation Comme nts TROPONIN-I (test code = TROPI) 4.4 pg/mL 27.36-66.23 L PROTHROMBIN [id number] 21:37:00* Test Item Value Reference Range Interpretation Comme nts PROTHROMBIN TIME PATIENT (test code = PTP) 13.0 SECONDS 10.3-12.9 H INTERNATIONAL NORMAL RATIO (test code = INR) 1.16 0.9-1.11 H INR goals are individualized based on patient specificfactors. The following are only general guidelines: Indications: INR Goal:1. Treatment of venous thromboembolism and 2.0 - 3.0 systemic anticoagulation in a variety of conditions, including atrial fibrillation and mechanical heart valves 2. Mechanical mitral and tricuspid valves, 2.5 - 3.5 systemic anticoagulation for high-risk conditions THROMBOPLASTIN TIME [id number] 21:37:00* Test Item Value Reference Range Interpretation Comme nts THROMBOPLASTIN TIME PARTIAL (test code = PTT) 87.2 secs 23.8-34.8 H INTERPRETATIVE D PABLITO: Therapeutic range: Unfractionated Heparin: 60-90 seconds Argatroban: 60-90 seconds CBC W/AUTO [id number] 21:28:00* Test Item Value Reference Range Interpretation Comme nts WHITE BLOOD CELL (test code = WBC) 6.0 x10 3/uL 4.8-10.8 N RED BLOOD CELL (test code = RBC) 3.52 x10 6/uL 4.20-5.40 L HEMOGLOBIN (test code = HGB) 10.4 g/dL 12.0-16.0 L HEMATOCRIT (test code = HCT) 32.3 % 37.0-47.0 L MEAN CELL VOLUME (test code = MCV) 91.8 fL 81.0-99.0 N MEAN CELL HGB (test code = MCH) 29.5 pg 27-31 N MEAN CELL HGB CONCENTRATION (test code = MCHC) 32.2 G/DL 33-36.5 L RED CELL DISTRIBUTION WIDTH (test code = RDW) 14.5 % 12.9-16.9 N PLATELET COUNT (test code = PLT) 116 x10 3/uL 150-440 L MEAN PLATELET VOLUME (test c ode = MPV) 12.4 fL 8.9-12.4 N NEUTROPHIL % (test code = NT%) 64.4 % 42.2-75.2 N LYMPHOCYTE % (test code = LY%) 22.6 % 20.5-51.1 N MONOCYTE % (test code = MO%) 7.5 % 1.7-9.3 N EOSINOPHIL % (test code = EO%) 4.5 % 0.0-7.0 N BASOPHIL % (test code = BA%) 0.7 % 0-2.5 N NEUTROPHIL # (test code = NT#) 3.88 x10 3/uL 1.80-7.70 N LYMPHOCYTE # (test code = LY#) 1.36 x10 3/uL 1.00-4.80 N MONOCYTE # (test code = MO#) 0.45 x10 3/uL 0.00-0.80 N EOSINOPHIL # (test code = EO#) 0.27 x10 3/uL 0.00-0.45 N BASOPHIL # (test code = BA#) 0.04 x10 3/uL 0.0-0.20 N UA RFLX MICR CULT IF [id number] 13:18:00* Test Item Value Reference Range Interpretation Comme nts UA COLOR (test code = COLU) YELLOW DISCRIPT YELLOW UA APPEARANCE (test code = APPU) HAZY DISCRIPT CLEAR A UA GLUCOSE DIPSTICK (test code = DGLUU) NEGATIVE mg/dL NEGATIVE UA BILIRUBIN DIPSTICK (test code = BILU) NEGATIVE NEGATIVE UA KETONE DIPSTICK (test cod e = KETU) NEGATIVE mg/dL NEGATIVE UA SPECIFIC GRAVITY (test code = SGU) 1.020 1.005-1.030 UA BLOOD DIPSTICK (test code = LAMONT) SMALL NEGATIVE A UA PH DIPSTICK (test code = DONAVON) 6.5 5.0-9.0 UA PROTEIN DIPSTICK (test code = PROU) 10 mg/dL NEGATIVE UA UROBILINOGEN DIPSTICK (test code = URO) NORMAL mg/dL 0.2-1.0 UA NITRITE DIPSTICK (test code = CHIRAG) 2+ NEGATIVE A UA LEUKOCYTE ESTERASE DIPSTICK (test code = LEUU) LARGE NEGATIVE A UA WBC (test code = WBCU) 11-20 #WBC/HPF 0-2 A UA RBC (test code = RBCU) 0-2 #RBC/HPF 0-2 UA BACTERIA (test code = BACU) 1+ /HPF NONE-TRACE A UA SQUAMOUS CELLS (test code = SQU) NONE SEEN /LPF NONE-TRACE Indication for culture: Suprapubic [id number] 13:12:00* Test Item Value Reference Range Interpretation Comme nts TROPONIN-I (test code = TROPI) 4.8 pg/mL 27.36-66.23 L B-TYPE NATRIURETIC [id number] 13:02:00* Test Item Value Reference Range Interpretation Comme nts B-TYPE NATRIURETIC PEPTIDE ( test code = BNP) 85 pg/mL <100 N LIVER FUNCTION [id number] 12:57:00* Test Item Value Reference Range Interpretation Comme nts TOTAL PROTEIN (test code = PROT) 6.4 g/dL 5.7-8.2 N ALBUMIN (test code = ALB) 3.9 g/dL 3.2-4.8 N BILIRUBIN TOTAL (test code = BILT) 1.0 mg/dL 0.3-1.2 N BILIRUBIN DIRECT (test code = BILD) 0.3 mg/dL <0.3 N SGOT/AST (test code = AST) 31 U/L <34 N SGPT/ALT (test code = ALT) 14 U/L 10-49 N ALKALINE PHOSPHATASE (test c ode = ALKP) 104.0 U/L 46-116 N [id number] 12:57:00* Test Item Value Reference Range Interpretation Comme nts MAGNESIUM (test code = MAG) 2.0 mg/dL 1.6-2.6 N BASIC METABOLIC [id number] 12:57:00* Test Item Value Reference Range Interpretation Comme nts SODIUM (test code = NA) 139 mmol/L 136-145 N POTASSIUM (test code = K) 4.9 mmol/L 3.5-5.1 N CHLORIDE (test code = CL) 107 mmol/l 98-107 N CARBON DIOXIDE (test code = CO2) 29 mmol/L 20-31 N GLUCOSE (test code = GLU) 96 mg/dL 74-106 N BLOOD UREA NITROGEN (test code = BUN) 10 mg/dL 9-23 N GLOMERULAR FILTRATION RATE (test code = GFR) >=60 max estimate mL/min >60 The Glomerular Filtration Rate is a calculated parameterbased on serum Creatinine, patient age and sex. GFR valuesless than 60 mL/min/1.73 square meters are indicative ofChronic Kidney Disease. Values less than 15 mL/min/1.73square meters indicate Kidney failure. The calculation forGFR is based on the CKD-EPI (2020) calculation. This formulais race indifferent and is the recommended formula for GFRby the National Kidney Foundation for Adults.The GFR will not calculate if the sex is unknown or if thepatient's age is <18 years. CREATININE (test code = CREAT) 0.90 mg/dL 0.55-1.02 N CALCIUM (test code = CA) 8.7 mg/dL 8.7-10.4 N LIPID PROFILE (CORONARY RISK)[id number] 12:57:00* Test Item Value Reference Range Interpretation Comme nts TRIGLYCERIDES (test code = TRIG) 83 mg/dL <150 N CHOLESTEROL (test code = CHOL) 212 mg/dL <200 H HDL CHOLESTEROL (test code = HDL) 80 mg/dL >60 N Please note New Reference Interval Feb 2023 REFERENCE INTERVALLow (undesirable, high risk): < 40 mg/dLHigh (desirable, low risk): >/= 60 mg/dL LIPOPROTEIN LDL (test code = LDLC) 101 mg/dL <100 H INTERPRETATIVE DATA:LDL Cholesterol: Reference RangesOptimal: <100 mg/dLNear Optimal: 100 -129 mg/dLBorderline High: 130 - 159 mg/dLHigh: 160 - 189 mg/dLVery High: = or > 190 mg/dL CORONARY RISK FACTOR (test code = RISK) 2.65 CHOL/HDL RISK MALE: 1/2 AVG 3.43 FEMALE: 1/2 AVG 3.27 AVG 4.97 AVG 4.44 2X AVG 9.55 2X AVG 7.05 3X AVG 23.39 3X AVG 11.04~~~~~~~~~~~~~~~~~ ~~~~~~~~~~~~~~~~~~~~~~ ~~~~~~~~~~~~~~~~~~~~~N [facility] Cholesterol Education (NCEP) Guidelines:~~~~~~~~~~~ ~~~~~~~~~~~~~~~~~~~~~~ ~~~~~~~~~~~~~~~~~~~~~~ ~~~~~ HDL Cholesterol<40mg/dL: HDL Cholesterol (Major risk factor for CHD)>60mg/dL: HDL Cholesterol (Negative risk factor for CHD)40-59mg/dL: Borderline Risk LDL Cholesterol<100mg/dL : Desirable LDL-C [id number] /dL: Borderline High Risk LDL-C nmmsgveaxpcrz255-214va /dL: High risk LDL-C concentration HDL-LDL Cholesterol is affected by a number of factors suchas smoking, age and sex.~~~~~~~~~~~~~~~~~~ ~~~~~~~~~~~~~~~~~~~~~~ ~~~~~~~~~~~~~~~~~~~~ PROTHROMBIN [id number] 12:53:00* Test Item Value Reference Range Interpretation Comme nts PROTHROMBIN TIME PATIENT (test code = PTP) 12.1 SECONDS 10.3-12.9 N INTERNATIONAL NORMAL RATIO (test code = INR) 1.08 0.9-1.11 N INR goals are individualized based on patient specificfactors. The following are only general guidelines: Indications: INR Goal:1. Treatment of venous thromboembolism and 2.0 - 3.0 systemic anticoagulation in a variety of conditions, including atrial fibrillation and mechanical heart valves 2. Mechanical mitral and tricuspid valves, 2.5 - 3.5 systemic anticoagulation for high-risk conditions THROMBOPLASTIN TIME [id number] 12:53:00* Test Item Value Reference Range Interpretation Comme nts THROMBOPLASTIN TIME PARTIAL (test code = PTT) 22.5 secs 23.8-34.8 L INTERPRETATIVE D PABLITO: Therapeutic range: Unfractionated Heparin: 60-90 seconds Argatroban: 60-90 seconds CBC W/O [id number] 12:44:00* Test Item Value Reference Range Interpretation Comme nts WHITE BLOOD CELL (test code = WBC) 6.3 x10 3/uL 4.8-10.8 N RED BLOOD CELL (test code = RBC) 4.13 x10 6/uL 4.20-5.40 L HEMOGLOBIN (test code = HGB) 12.2 g/dL 12.0-16.0 N HEMATOCRIT (test code = HCT) 38.1 % 37.0-47.0 N MEAN CELL VOLUME (test code = MCV) 92.3 fL 81.0-99.0 N MEAN CELL HGB (test code = MCH) 29.5 pg 27-31 N MEAN CELL HGB CONCENTRATION (test code = MCHC) 32.0 G/DL 33-36.5 L RED CELL DISTRIBUTION WIDTH (test code = RDW) 14.4 % 12.9-16.9 N PLATELET COUNT (test code = PLT) 67 x10 3/uL 150-440 L CBC W/AUTO [id number] 07:46:00* Test Item Value Reference Range Interpretation Comme nts WHITE BLOOD CELL (test code = WBC) 5.0 K/mm3 3.5-11.0 N RED BLOOD CELL (test code = RBC) 3.82 M/mm3 4.70-6.10 L HEMOGLOBIN (test code = HGB) 11.3 G/DL 10.4-14.9 N HEMATOCRIT (test code = HCT) 34.9 % 31.5-44.1 N MEAN CELL VOLUME (test code = MCV) 91.4 Fl 84.5-98.6 N MEAN CELL HGB (test code = MCH) 29.6 pg 27.0-34.2 N MEAN CELL HGB CONCETRATION (test code = MCHC) 32.4 G/DL 31.5-34.0 N RED CELL DISTRIBUTION WIDTH (test code = RDW) 14.4 SD 11.5-14.5 N PLATELET COUNT (test code = PLT) 126 K/mm3 150-450 L MEAN PLATELET VOLUME (test c ode = MPV) 12.50 fL 7.0-10.5 H NEUTROPHIL % (test code = NT%) 66.3 % 40-76 N IMMATURE GRANULOCYTE % (test code = IG%) 0.6 % 0.0-5.0 N LYMPHOCYTE % (test code = LY%) 22.0 % 20.5-51.1 N MONOCYTE % (test code = MO%) 6.5 % 1.7-9.3 N EOSINOPHIL % (test code = EO%) 4.2 % 0.0-6.0 N BASOPHIL % (test code = BA%) 0.4 % 0.0-2.0 N NUCLEATED RBC % (test code = NRBC%) 0.0 /100WBC% 0.0-1.0 N NEUTROPHIL # (test code = NT#) 3.3 K/mm3 1.8-7.6 N IMMATURE GRANULOCYTE # (test code = IG#) 0.03 x10 3/uL 0.00-0.03 N LYMPHOCYTE # (test code = LY#) 1.1 K/mm3 0.6-3.2 N MONOCYTE # (test code = MO#) 0.3 K/mm3 0.3-1.1 N EOSINOPHIL # (test code = EO#) 0.2 K/mm3 0.0-0.4 N BASOPHIL # (test code = BA#) 0.0 K/mm3 0.0-0.1 N NUCLEATED RBC # (test code = NRBC#) 0.0 K/mm3 0.0-0.1 N [id number] 07:06:00* Test Item Value Reference Range Interpretation Comme nts MAGNESIUM (test code = MAG) 1.9 MG/DL 1.8-2.4 N COMPREHENSIVE METABOLIC [id number] 07:06:00* Test Item Value Reference Range Interpretation Comme nts SODIUM (test code = NA) 140 mmol/L 136-145 N POTASSIUM (test code = K) 4.5 mmol/L 3.4-5.0 N CHLORIDE (test code = CL) 107 mmol/L 98-107 N CARBON DIOXIDE (test code = CO2) 26 mmol/L 21-32 N ANION GAP (test code = GAP) 7 GAP calc 4-15 N GLUCOSE (test code = GLU) 116 MG/DL 70-110 H BLOOD UREA NITROGEN (test code = BUN) 13 MG/DL 7-18 N GLOMERULAR FILTRATION RATE (test code = GFR) >=60 max estimate estGFR >60 The Glomerular Filtration Rate is a calculated parameterbased on serum Creatinine, patient age and sex. GFR valuesless than 60 mL/min/1.73 square meters are indicative ofChronic Kidney Disease. Values less than 15 mL/min/1.73square meters indicate Kidney failure. The calculation forGFR is based on the CKD-EPI (2020) calculation. This formulais race indifferent and is the recommended formula for GFRby the National Kidney Foundation for Adults.The GFR will not calculate if the sex is unknown or if thepatient's age is <18 years. CREATININE (test code = CREAT) 0.9 MG/DL 0.6-1.0 N TOTAL PROTEIN (test code = PROT) 6.1 G/DL 6.4-8.2 L ALBUMIN (test code = ALB) 2.9 G/DL 3.4-5.0 L GLOBULIN (test code = GLOB) 3.2 GM/dL ALBUMIN/GLOBULIN RATIO (test code = A/G) 0.9 RATIO 1.2-2.2 L CALCIUM (test code = CA) 8.7 MG/DL 8.5-10.1 N BILIRUBIN TOTAL (test code = BILT) 0.7 MG/DL 0.0-1.0 N SGOT/AST (test code = AST) 25 Unit/L 15-37 N SGPT/ALT (test code = ALT) 14 Unit/L 30-65 L ALKALINE PHOSPHATASE TOTAL (test code = ALKP) 104 Unit/L 50-136 N LIPID PROFILE (CORONARY RISK)[id number] 07:06:00* Test Item Value Reference Range Interpretation Comme nts TRIGLYCERIDES (test code = TRIG) 67 MG/DL 0-150 N CHOLESTEROL (test code = CHOL) 218 MG/DL 133-200 H CHOLESTEROL/HDL RATIO (test code = CHOLHDL) 2.08 RATIO See_Comment RISK ASSOC IATED WITH CHOL/HDL RATIOS: RISK MALE FEMALE1/2 AVERAGE 3.43 3.27AVERAGE 4.97 4.442X AVERAGE 9.55 7.053X AVERAGE 23.39 11.04 NOTE THAT THE REFERENCE VALUE IS RELATED TO RISK LEVELS ASRECOMMENDED BY THE [facility]. [Automated message] The system which generated this result transmitted reference range: 0-. The reference range was not used to interpret this result as normal/abnormal. HDL CHOLESTEROL (test code = HDL) 105 MG/DL See_Comment [Automated grabHalo] The system which generated this result transmitted reference range: 60-. The reference range was not used to interpret this result as normal/abnormal. NON-HDL CHOLESTEROL (test code = NHDL) 113 mg/dL <130 LIPOPROTEIN LDL (test code = LDL) 88 MG/DL 0-129 N LDL/HDL (test code = LDL/HDL) 0.83 Ratio See_Comment L [Automated grabHalo] The system which generated this result transmitted reference range: 1.48-3.22 Avg. The reference range was not used to interpret this result as normal/abnormal. CBC W/AUTO [id number] 07:05:00* Test Item Value Reference Range Interpretation Comme nts WHITE BLOOD CELL (test code = WBC) TEST NOT PERFORMED K/mm3 3.5-11.0 N Previously reported result: 5.0 K/tk1Gdiobo by: [id number] on 01/26/24:0703~~~~ ~~~~~~~~~~~~~~~~~ ~~~~~~~~~~~~~~~~~ ~~ This is a CORRECTED REPORT RED BLOOD CELL (test code = RBC) TEST NOT PERFORMED M/mm3 4.70-6.10 L Previously reported result: 4.10 M/cd7Qretok by: [id number] on 01/26/24:04~~~~ ~~~~~~~~~~~~~~~~~ ~~~~~~~~~~~~~~~~~ ~~ This is a CORRECTED REPORT HEMOGLOBIN (test code = HGB) TEST NOT PERFORMED G/DL 10.4-14.9 N Previously reported result: 12.2 G/DLEdited by: [id number] on 01/26/24:703~~~~ ~~~~~~~~~~~~~~~~~ ~~~~~~~~~~~~~~~~~ ~~ This is a CORRECTED REPORT HEMATOCRIT (test code = HCT) TEST NOT PERFORMED % 31.5-44.1 N Previously reported result: 37.9 %Edited by: [id number] on 01/26/24:703~~~~ ~~~~~~~~~~~~~~~~~ ~~~~~~~~~~~~~~~~~ ~~ This is a CORRECTED REPORT MEAN CELL VOLUME (test code = MCV) TEST NOT PERFORMED Fl 84.5-98.6 N Previously reported result: 92.4 FlEdited by: [id number] on 01/26/24:703~~~~ ~~~~~~~~~~~~~~~~~ ~~~~~~~~~~~~~~~~~ ~~ This is a CORRECTED REPORT MEAN CELL HGB (test code = MCH) TEST NOT PERFORMED pg 27.0-34.2 N Previously reported result: 29.8 pgEdited by: [id number] on 01/26/24:703~~~~ ~~~~~~~~~~~~~~~~~ ~~~~~~~~~~~~~~~~~ ~~ This is a CORRECTED REPORT MEAN CELL HGB CONCETRATION (test code = MCHC) TEST NOT PERFORMED G/DL 31.5-34.0 N Previously reported result: 32.2 G/DLEdited by: [id number] on 01/26/24:703~~~~ ~~~~~~~~~~~~~~~~~ ~~~~~~~~~~~~~~~~~ ~~ This is a CORRECTED REPORT RED CELL DISTRIBUTION WIDTH (test code = RDW) TEST NOT PERFORMED SD 11.5-14.5 N PLATELET COUNT (test code = PLT) TEST NOT PERFORMED K/mm3 150-450 L Previously reported result: 102 K/bc9Cnsioq by: [id number] on 01/26/24:704~~~~ ~~~~~~~~~~~~~~~~~ ~~~~~~~~~~~~~~~~~ ~~ This is a CORRECTED REPORT MEAN PLATELET VOLUME (test code = MPV) TEST NOT PERFORMED fL 7.0-10.5 H NEUTROPHIL % (test code = NT%) TEST NOT PERFORMED % 40-76 N IMMATURE GRANULOCYTE % (test code = IG%) TEST NOT PERFORMED % 0.0-5.0 N LYMPHOCYTE % (test code = LY%) TEST NOT PERFORMED % 20.5-51.1 N MONOCYTE % (test code = MO%) TEST NOT PERFORMED % 1.7-9.3 N EOSINOPHIL % (test code = EO%) TEST NOT PERFORMED % 0.0-6.0 N BASOPHIL % (test code = BA%) TEST NOT PERFORMED % 0.0-2.0 N NUCLEATED RBC % (test code = NRBC%) TEST NOT PERFORMED /100WBC% 0.0-1.0 N NEUTROPHIL # (test code = NT#) TEST NOT PERFORMED K/mm3 1.8-7.6 N IMMATURE GRANULOCYTE # (test code = IG#) TEST NOT PERFORMED x10 3/uL 0.00-0.03 N LYMPHOCYTE # (test code = LY#) TEST NOT PERFORMED K/mm3 0.6-3.2 N MONOCYTE # (test code = MO#) TEST NOT PERFORMED K/mm3 0.3-1.1 N EOSINOPHIL # (test code = EO#) TEST NOT PERFORMED K/mm3 0.0-0.4 N BASOPHIL # (test code = BA#) TEST NOT PERFORMED K/mm3 0.0-0.1 N NUCLEATED RBC # (test code = NRBC#) TEST NOT PERFORMED K/mm3 0.0-0.1 N MANUAL DIFF REQUIRED (test code = MDIFF) TEST NOT PERFORMED DIFF/SCN CRITERIA PATHOLOGIST INTERPRETATION (test code = CBCI) TEST NOT PERFORMED COMMENT FLG PROTHROMBIN [id number] 06:41:00* Test Item Value Reference Range Interpretation Comme nts PT PATIENT (test code = PTP) 12.0 SECONDS 9.3-12.9 N INTERNATIONAL NORMAL RATIO (test code = INR) 1.07 INR Unit 0.8-1.2 N TARGET INR BY INDICATION Indication INR1. Prophylaxis of venous thrombosis 2.0 - 3.0 (orthopedic surgery), Prophylaxis of venous thrombosis (other than high-risk surgery), Treatment of Deep Vein Thrombosis/Pulmonary Embolism, Prevention of systemic embolism - Tissue heart valves, Acute Myocardial Infarction (to prevent systemic embolism), Valvular heart disease, Acute Myocardial Infarction (to prevent systemic embolism), Valvular heart disease, Atrial Fibrillation, Bileaflet mechanical valve in aortic position.2. Mechanical prosthetic valves (high risk), 2.5 - 3.5 Presence of Lupus Anticoagulant or Antiphospholipid Antibodies, Prevention of systemic embolism - Acute Myocardial Infarction (to prevent recurrent infarct). - CTA HEART W CN ART/[id number] 00:00:00 [facility] : 1950 Sex: F Name: ODALYS RODRIGUEZ [facility] : 1950 Age/S: 73 / F [address] [place] [address] Blvd Unit #: [id number] Loc: [place] [address] Phys: Aliza Chavez MD Cardiology Acct: [id number] Dis Date: Status: DEP CLI PHONE #: [phone] Exam Date: 12/14/2023 1045 FAX #: [phone] Reason: EXAMS: CPT CODE: [id number] CTA HEART W CN ART/GRAFTS [id number] Radiation Dose CTDIVOL = 159.02 (mGy): DLP = 2088.06(mGy-cm) PROCEDURE INFORMATION: Exam: CTA Heart And Coronary Arteries With Contrast Exam date and time: 12/14/2023 10:01 AM Age: 73 years old Clinical indication: Pain; Angina pectoris TECHNIQUE: Imaging protocol: CT angiography of the heart, coronary arteries, and bypass grafts (when present) with contrast including 3D image postprocessing. Standard prospective cardiac- gated CAC scoring protocol was used for image acquisition. Following intravenous contrast administration, ECG gated CTA was performed. 3D rendering (Not supervised by radiologist): MIP and/or 3D reconstructed images were createdby the technologist. Radiation optimization: All CT scans at this facility use at least one of these dose optimization techniques: automated exposure control; mA and/or kV adjustment per patient size(includes targeted exams where dose is matched to clinical indication); or iterative reconstruction. Contrast material: ISOVUE 370; Contrast volume: 100 ml; Contrast route: INTRAVENOUS (IV); Pharmacol ogical intervention: None. COMPARISON: No relevant prior studies available. RADIATION DOSE METRICS:CTDI volume (mGy): 159.02 Total DLP (mGy-cm): 2088.06 FINDINGS: CALCIUM SCORE: Total calcium score (Agatston method): 1885 units. This is consistent with severe calcified coronary plaque burden. CORONARY: Left main coronary artery (LMCA): The left main coronary artery is a medium caliber vessel that bifurcates to form a left anterior descending artery and a left circumflex artery. The left main demonstrates extensive ostial as was has mid and distal left main calcified plaque. The amount of calcified plaque limited evaluation of the lumen through multiple cardiac phases. Left anterior descending artery (LAD): The proximal LAD demonstrates extensive calcified plaque which limits luminal evaluation. The mid and distal LAD appears patent. Left circumflex artery (LCx): There is extensive calcified plaque seen within the ostium of the LAD limiting luminal PAGE 1 Signed Report (CONTINUED) Name: ODALYS RODRIGUEZ [facility] : 1950 Age/S: 73 / F [address] [place] [address] Blvd Unit #: [id number] Loc: [place] [address] Phys: Aliza Chavez MD Cardiology Acct: [id number] Dis Date: Status: DEP CLI PHONE #: [phone] Exam Date: 12/14/2023 104 FAX #: [phone] Reason: EXAMS: CPT CODE: [id number] CTA HEART W CN ART/GRAFTS 05786 (Continued) evaluation Right coronary artery (RCA): The right coronary artery demonstrates extensive calcified plaque within the proximal right coronary artery as well as the mid and distal right coronary artery. Right coronary artery appears to function as a dominant vessel however evaluation of the distal right coronary artery is limited. Coronary artery dominance: Right There are significant atherosclerotic calcifications of the ascending aorta. Ascending aorta not appear aneurysmal. There is significant atherosclerotic calcifications of the descending thoracic aorta. CARDIAC: Aortic valve: No thickening or calcification. Mitral valve: No thickening or calcification. Myocardium: Normal wall thickeness. Atrial septum: No septal defect is identified. Pericardium: No pericardial effusion or thickening. FUNCTIONAL ANALYSIS: LV ejection fraction: % LV end-diastolic volume: mL LV end- systolic volume: mL LV stroke volume: mL LV mass: gm Lungs: Visualized lungs are unremarkable. There are moderate degenerative changes of the thoracic spine with a rotatory scoliosis. This is a small hiatal hernia. Thoracic aorta: No dilation or acute aorticsyndrome. Mediastinal space: Limited views of the mediastinal space is unremarkable. IMPRESSION: Significant calcified plaque burden involving the proximal coronary tree limiting luminal evaluation of the coronary vessels. Patient's calcium score was severely elevated at 1885 units.. CAD-RADS: N - Non- diagnostic study-severe proximal calcified plaque Management recommendations: Additional or alternative evaluation may be needed. PAGE 2 Signed Report (CONTINUED) Name: ODALYS RODRIGUEZ [facility] : 1950 Age/S: 73 / F [address] [place], [place] [address]vd Unit #: [id number] Loc: [place] [address] Phys: Aliza Chaevz MD Cardiology Acct: [id number] Dis Date: Status: DEP CLI PHONE #: [phone] Exam Date: 12/14/2023 1045 FAX #: [phone] Reason: EXAMS: CPT CODE: [id number] CTA HEART W CN ART/GRAFTS 19324 (Continued) at 2138 Reported and signed by: Rodrigue Duarte M.D CC: Aliza Mauro Cardiology Kathy WATERMAN Technologist:Jaron De Oliveira Jr, RT(R)(CT) CTDI: DLP: Trnscb Date/Time: 12/17/2023 (2138) t.[email or web address] OrigPrint D/T: S: 12/17/2023 (2139) PAGE 3 Signed ReportCREATININE W ESTIMATED [id number] 09:25:00* Test Item Value Reference Range Interpretation Comme nts BEDSIDE CREATININE (test code = CREATBED) 1.1 MG/DL 0.6-1.3 N Performed by cer tified denit[facility] by certified denitrator operator at [facility] GLOMERULAR FILTRATION RATE POC (test code = GFRBED) 53 ML/MIN Performed b y certified [facility] Gl[facility] Filtration Rate is a calculated parameterbased on serum Creatinine, patient age and sex. GFR valuesless than 60 mL/min/1.73 square meters are indicative ofChronic Kidney Disease. Values less than 15 mL/min/1.73square meters indicate Kidney failure. The calculation forGFR is based on the CKD-EPI (2020) calculation. This formulais race indifferent and is the recommended formula for GFRby the National Kidney Foundation for Adults.The GFR will not calculate if the sex is unknown or if thepatient's age is <18 years. CBC W/AUTO [id number] 00:00:00* Test Item Value Reference Range Interpretation Comme nts NUCLEATED RBCS (test code = 89677-0) 0.0 /100 WBC'S See_Comment [Automated messa ge] The system which generated this result transmitted reference range: 0.0 /100 WBC'S. The reference range was not used to interpret this result as normal/abnormal. ABSOLUTE EOSINOPHILS (test code = 97741-4) 0.31 K/UL See_Comment [Automated messa ge] The system which generated this result transmitted reference range: 0.00-0.50 K/UL. The reference range was not used to interpret this result as normal/abnormal. ABSOLUTE LYMPHOCYTES (test code = 46299-6) 1.29 K/UL See_Comment [Automated messa ge] The system which generated this result transmitted reference range: 1.00-4.00 K/UL. The reference range was not used to interpret this result as normal/abnormal. ABSOLUTE MONOCYTES (test code = 83224-6) 0.47 K/UL See_Comment [Automated messa ge] The system which generated this result transmitted reference range: 0.20-1.00 K/UL. The reference range was not used to interpret this result as normal/abnormal. ABSOLUTE NEUTROPHILS (test code = 40687-3) 4.15 K/UL See_Comment [Automated messa ge] The system which generated this result transmitted reference range: 1.50-7.50 K/UL. The reference range was not used to interpret this result as normal/abnormal. BASOPHILS (test code = 56450-5) 0.6 % EOSINOPHILS (test code = 23055-3) 4.9 % HEMATOCRIT (test code = 39450-9) 36.3 % See_Comment [Automated messa ge] The system which generated this result transmitted reference range: 34.0-45.0 %. The reference range was not used to interpret this result as normal/abnormal. HEMOGLOBIN (test code = 718-7) 12.5 G/DL See_Comment [Automated messa ge] The system which generated this result transmitted reference range: 11.5-15.5 G/DL. The reference range was not used to interpret this result as normal/abnormal. LYMPHOCYTES (test code = 72720-0) 20.5 % MCH (test code = 60087-6) 29.8 PG See_Comment [Automated messa ge] The system which generated this result transmitted reference range: 25.0-33.0 PG. The reference range was not used to interpret this result as normal/abnormal. MCHC (test code = 51234-1) 34.4 G/DL See_Comment [Automated messa ge] The system which generated this result transmitted reference range: 31.0-36.0 G/DL. The reference range was not used to interpret this result as normal/abnormal. MCV (test code = 64177-5) 86.6 fL See_Comment [Automated messa ge] The system which generated this result transmitted reference range: 80.0-99.0 fL. The reference range was not used to interpret this result as normal/abnormal. MONOCYTES (test code = 02282-4) 7.5 % NEUTROPHILS (test code = 68280-2) 65.9 % PLATELET COUNT (test code = 01599-2) 164 K/UL See_Comment [Automated messa ge] The system which generated this result transmitted reference range: 130-400 K/UL. The reference range was not used to interpret this result as normal/abnormal. RBC (test code = 13140-5) 4.19 M/UL See_Comment [Automated messa ge] The system which generated this result transmitted reference range: 3.80-5.40 M/UL. The reference range was not used to interpret this result as normal/abnormal. RDW (test code = 16382-4) 13.6 % See_Comment [Automated messa ge] The system which generated this result transmitted reference range: 11.5-15.0 %. The reference range was not used to interpret this result as normal/abnormal. WBC (test code = 18951-1) 6.3 K/UL See_Comment [Automated messa ge] The system which generated this result transmitted reference range: 3.5-11.0 K/UL. The reference range was not used to interpret this result as normal/abnormal. CBC W/AUTO [id number] 00:00:00* Test Item Value Reference Range Interpretation Comme nts NUCLEATED RBCS (test code = 62119-0) 0.0 /100 WBC'S See_Comment [Automated messa ge] The system which generated this result transmitted reference range: 0.0 /100 WBC'S. The reference range was not used to interpret this result as normal/abnormal. ABSOLUTE EOSINOPHILS (test code = 97241-7) 0.33 K/UL See_Comment [Automated messa ge] The system which generated this result transmitted reference range: 0.00-0.50 K/UL. The reference range was not used to interpret this result as normal/abnormal. ABSOLUTE LYMPHOCYTES (test code = 79104-0) 1.52 K/UL See_Comment [Automated messa ge] The system which generated this result transmitted reference range: 1.00-4.00 K/UL. The reference range was not used to interpret this result as normal/abnormal. ABSOLUTE MONOCYTES (test code = 68421-3) 0.42 K/UL See_Comment [Automated messa ge] The system which generated this result transmitted reference range: 0.20-1.00 K/UL. The reference range was not used to interpret this result as normal/abnormal. ABSOLUTE NEUTROPHILS (test code = 54869-9) 4.16 K/UL See_Comment [Automated messa ge] The system which generated this result transmitted reference range: 1.50-7.50 K/UL. The reference range was not used to interpret this result as normal/abnormal. BASOPHILS (test code = 42503-9) 0.6 % EOSINOPHILS (test code = 06298-3) 5.1 % HEMATOCRIT (test code = 62688-4) 36.6 % See_Comment [Automated messa ge] The system which generated this result transmitted reference range: 34.0-45.0 %. The reference range was not used to interpret this result as normal/abnormal. HEMOGLOBIN (test code = 718-7) 12.9 G/DL See_Comment [Automated messa ge] The system which generated this result transmitted reference range: 11.5-15.5 G/DL. The reference range was not used to interpret this result as normal/abnormal. LYMPHOCYTES (test code = 84101-0) 23.4 % MCH (test code = 76221-4) 30.0 PG See_Comment [Automated messa ge] The system which generated this result transmitted reference range: 25.0-33.0 PG. The reference range was not used to interpret this result as normal/abnormal. MCHC (test code = 75816-4) 35.2 G/DL See_Comment [Automated messa ge] The system which generated this result transmitted reference range: 31.0-36.0 G/DL. The reference range was not used to interpret this result as normal/abnormal. MCV (test code = 72651-2) 85.1 fL See_Comment [Automated messa ge] The system which generated this result transmitted reference range: 80.0-99.0 fL. The reference range was not used to interpret this result as normal/abnormal. MONOCYTES (test code = 76676-1) 6.5 % NEUTROPHILS (test code = 84276-5) 63.9 % PLATELET COUNT (test code = 58969-3) 171 K/UL See_Comment [Automated messa ge] The system which generated this result transmitted reference range: 130-400 K/UL. The reference range was not used to interpret this result as normal/abnormal. RBC (test code = 11221-4) 4.30 M/UL See_Comment [Automated messa ge] The system which generated this result transmitted reference range: 3.80-5.40 M/UL. The reference range was not used to interpret this result as normal/abnormal. RDW (test code = 12692-2) 12.4 % See_Comment [Automated messa ge] The system which generated this result transmitted reference range: 11.5-15.0 %. The reference range was not used to interpret this result as normal/abnormal. WBC (test code = 11979-0) 6.5 K/UL See_Comment [Automated messa ge] The system which generated this result transmitted reference range: 3.5-11.0 K/UL. The reference range was not used to interpret this result as normal/abnormal. CBC W/AUTO [id number] 00:00:00* Test Item Value Reference Range Interpretation Comme nts NUCLEATED RBCS (test code = 36947-8) 0.0 /100 WBC'S See_Comment [Automated messa ge] The system which generated this result transmitted reference range: 0.0 /100 WBC'S. The reference range was not used to interpret this result as normal/abnormal. ABSOLUTE EOSINOPHILS (test code = 09522-1) 0.35 K/UL See_Comment [Automated messa ge] The system which generated this result transmitted reference range: 0.00-0.50 K/UL. The reference range was not used to interpret this result as normal/abnormal. ABSOLUTE LYMPHOCYTES (test code = 41430-2) 1.60 K/UL See_Comment [Automated messa ge] The system which generated this result transmitted reference range: 1.00-4.00 K/UL. The reference range was not used to interpret this result as normal/abnormal. ABSOLUTE MONOCYTES (test code = 82935-8) 0.50 K/UL See_Comment [Automated messa ge] The system which generated this result transmitted reference range: 0.20-1.00 K/UL. The reference range was not used to interpret this result as normal/abnormal. ABSOLUTE NEUTROPHILS (test code = 30810-1) 4.85 K/UL See_Comment [Automated messa ge] The system which generated this result transmitted reference range: 1.50-7.50 K/UL. The reference range was not used to interpret this result as normal/abnormal. BASOPHILS (test code = 92465-9) 0.7 % EOSINOPHILS (test code = 16289-8) 4.7 % HEMATOCRIT (test code = 27658-1) 38.9 % See_Comment [Automated messa ge] The [...] result as normal/abnormal. LYMPHOCYTES (test code = 60310-4) 21.7 % MCH (test code = 00155-5) 29.4 PG See_Comment [Automated messa ge] The system which generated this result transmitted reference range: 25.0-33.0 PG. The reference range was not used to interpret this result as normal/abnormal. MCHC (test code = 91439-6) 32.9 G/DL See_Comment [Automated messa ge] The system which generated this result transmitted reference range: 31.0-36.0 G/DL. The reference range was not used to interpret this result as normal/abnormal. MCV (test code = 73316-0) 89.4 fL See_Comment [Automated messa ge] The system which generated this result transmitted reference range: 80.0-99.0 fL. The reference range was not used to interpret this result as normal/abnormal. MONOCYTES (test code = 46641-2) 6.8 % NEUTROPHILS (test code = 71038-5) 65.8 % PLATELET COUNT (test code = 57116-5) 171 K/UL See_Comment [Automated messa ge] The system which generated this result transmitted reference range: 130-400 K/UL. The reference range was not used to interpret this result as normal/abnormal. RBC (test code = 47988-9) 4.35 M/UL See_Comment [Automated messa ge] The system which generated this result transmitted reference range: 3.80-5.40 M/UL. The reference range was not used to interpret this result as normal/abnormal. RDW (test code = 04465-9) 13.1 % See_Comment [Automated messa ge] The system which generated this result transmitted reference range: 11.5-15.0 %. The reference range was not used to interpret this result as normal/abnormal. WBC (test code = 58679-1) 7.4 K/UL See_Comment [Automated messa ge] The system which generated this result transmitted reference range: 3.5-11.0 K/UL. The reference range was not used to interpret this result as normal/abnormal. HEMOGLOBIN [id number] 00:00:00* Test Item Value Reference Range Interpretation Comme nts A1C (test code = 4548-4) 5.4 Notes Date/Time Note Provider Source 2024-02-21 10:55:00 [facility] ([facility]) Intensive Care Progress Note REPORT #: [id number] REPORT STATUS: Signed DATE: 02/21/24 TIME: 105 PATIENT: MITA CARBONE UNIT #: [id number] ROOM #: [id number] BED: 1 : 49 AGE: 73 SEX: F ATTEND: Flavio Ballesteros MD ADM AUTHOR: Lea Fontanez MD ATTENTION *EDITS and/or ADDENDA must be made in Patient Keeper for this note. * * Edits and ammendments created in [facility] are not visible * * in Patient Keeper or the legal medical record (HPF). * -- ASSESSMENT AND PLAN -- HOSPITAL COURSE TO DATE: Patient is a 73-year old female with PMH notable for CAD, HTN, heart failure with preserved ejection fraction, non-insulin dependent diabetes, nicotine abuse, and morbid obesity initially admitted on 01/30 for preoperative optimization in preparation for coronary bypass. Patient admitted to CVICU postoperatively following single vessel coronary bypass (STEPHEN to LAD). 02/11: s/p single vessel coronary bypass (STEPHEN to LAD), transferred to CVICU for postoperative management; extubated to NC 02/14: chest tubes removed - Uneventful Night - Mentating Well. - Sating well on RA - Complains of Back pain Incision pain - Tolerating PO intake. Last BM 02/20 GENERAL ASSESSMENT: Plan: Neuro/Psych # Acute Postoperative Pain - Minimize sedatives opioids. PRN Robaxin. Ultram PRN. - Multi-modal pain regimen. Add [place] q 6hrs PRN - Delirium precautions Pulm # Acute Respiratory Insufficiency # Atelectasis (post-operative) # Acute Pulmonary Edema # Suspected MARIO/OHS # Suspected COPD - Tobacco abuse - Reviewed CXR, low lung volumes - Supplemental O2 to keep SPO2 > 94%, sating well on NC - Diuresis as below - Pulm Hygiene CVS # CAD - s/p 1V CAB (STEPHEN to LAD) # NSTEMI # HTN # PVC - Unable to bypass RCA and circumflex, will eventually need repeat evaluation with cardiology for possible PCI - TTE w NL LVSF - Goal MAP >65, SBP <130 - Cont DAPT/statin, Coreg - Holding diuresis. - d/w CTS Cards GI * Ileus/Constipation (resolved) * Diarrhea 2/2 bowel regimen - Tolerating cardiac diet. - Hold bowel regimen Renal # ASTER - BL Cr 0.7 - Monitor UOP Cr trend - Diuretics as above - Electrolyte protocol, maintain K >4.0, Phos >3.0, Mg >2.0 ID # Perioperative SIRS - s/p perioperative abx per protocol - No concerns for infection at present, monitor fever curve Endo # NIDDM - Strict glycemic control postoperatively, maintain goal BS 140-180 - Hypoglycemia protocol Heme # Acute Blood Loss Anemia - Transfuse for goal Hgb >7.0, platelets >10k or 20k with bleeding, and fibrinogen >150 MSK * Deconditioning - PT/OT following PPX - DVT: LSQ - GI: None GOC - Code: FULL per patient - Advance Care Planning: None per patient Dispo - - Accepted at [facility], will d/c today Disposition - Stable to transfer out of ICU. Hospitalist following. Will s/o, please call w questions or if needed. Medications reviewed with ICU pharmacist -- OBJECTIVE -- VITALS (02/19 10:55 - 02/20 10:55): Temperature F: 97.8 (97.8 - 99.0) Temperature source: Oral Pulse Rate 82 (75 - 92) Respiratory rate: 19 (15 - 28) Blood pressure: 135/62 (74/44 - 147/70) Blood pressure source: Monitor I/Os (02/19 07:00 - 02/20 07:00): Net -195 Intake 30 Output 225 -- DATA -- MEDICATIONS hydrALAZINE HCL 5 MG IV Q6HR PRN ONDANSETRON HCL/PF 4 MG IV Q6H PRN bisacodyL 10 MG RECTAL ASDIR PRN ACETAMINOPHEN 650 MG PO Q4H PRN DEXTROSE 50%-WATER 25 ML IV ASDIR (PRN) clopidogreL 75 MG PO DAILY ENOXAPARIN SODIUM 40 MG SUBQ DAILY FERROUS SULFATE 325 MG PO DAILY POTASSIUM CHLORIDE 20 MEQ IV ASDIR (PRN) METOPROLOL TARTRATE 5 MG IV Q6H PRN LACTULOSE 30 ML PO ASDIR PRN LACTULOSE 30 ML PO ASDIR PRN LACTULOSE 30 ML PO BID PRN CYANOCOBALAMIN 500 MCG PO DAILY MAG HYDROX/AL HYDROX/SIMETH 30 ML PO Q4H PRN ATORVASTATIN CALCIUM 40 MG PO BEDTIME INSULIN LISPRO MEDIUM DOSE SS SUBQ Q6HR ASPIRIN 81 MG PO DAILY traMADol HCL 50 MG PO Q6H PRN methocarbamoL 500 MG PO Q8H PRN LIDOCAINE 1 PATCH TRANSDERM DAILY HYDROcodone BITARTRATE/APAP 1 TAB PO Q6H PRN GLUCAGON 1 MG IM ASDIR (PRN) POTASSIUM CHLORIDE 20 MEQ PO ASDIR (PRN) ONDANSETRON 4 MG PO Q6H PRN CALCIUM GLUC IN NACL, ISO-OSM 2 GM IV ASDIR PRN NITROGLYCERIN 0.4 MG SL Q5M PRN SODIUM CHLORIDE 10 mL 10 ML IV ASDIR MAGNESIUM 1 GM IV ASDIR PRN IPRATROPIUM/ALBUTEROL SULFATE 3 ML NEB RTQ6H polyethylene glycoL 3350 1 PKT PO BID POTASSIUM CHLORIDE IN WATER 10 MEQ IV ASDIR (PRN) POTASSIUM CHLORIDE 20 MEQ PO ASDIR (PRN) DOCUSATE SODIUM 200 MG PO DAILY carvediloL 12.5 MG PO Q12HR SODIUM BICARBONATE 8.4% 50 MEQ IV ASDIR PRN cloNIDine HCL 0.1 MG PO Q8H PRN LABS CBC W/AUTO DIFF (02/21/24 04:14) WHITE BLOOD CELL 6.6 RED BLOOD CELL 3.52 L HEMOGLOBIN 10.5L L HEMATOCRIT 32.2L L MEAN CELL VOLUME 91.5 MEAN CELL HGB 29.8 MEAN CELL HGB CONCENTRATION 32.6 L RED CELL DISTRIBUTION WIDTH 16.8 PLATELET COUNT 153 MEAN PLATELET VOLUME 12.5 H NEUTROPHIL % 59.0 LYMPHOCYTE % 25.5 MONOCYTE % 8.5 EOSINOPHIL % 5.8 BASOPHIL % 0.6 NEUTROPHIL # 3.90 LYMPHOCYTE # 1.68 MONOCYTE # 0.56 EOSINOPHIL # 0.38 BASOPHIL # 0.04 BASIC METABOLIC PANEL (02/21/24 04:14) SODIUM 136 POTASSIUM 3.8 CHLORIDE 97L L CARBON DIOXIDE 32H H GLUCOSE 109H H BLOOD UREA NITROGEN 29H H GLOMERULAR FILTRATION RATE 53 L CREATININE 1.10H H CALCIUM 8.4 L PHOS (02/21/24 04:14) PHOSPHOROUS 4.2 MAG (02/21/24 04:14) MAGNESIUM 2.2 GLU BED (02/21/24 00:52) GLUBED 123 H GLU BED (02/20/24 17:47) GLUBED 206 H GLU BED (02/20/24 11:57) GLUBED 157 H -- ATTESTATION -- CARE ACTIVITIES / CARE COORDINATION: - I have reviewed the history and repeated the escobar elements - I have seen and examined this patient - I have reviewed the progress in the clinical course since the last examination - I have discussed the patient's condition with other members of the care team Signed in PatientKeeper by Lea Fontanez MD on 02/21/24 at 12:52 at 1252 ATTENTION *EDITS and/or ADDENDA must be made in Patient Keeper for this note. * * Edits and ammendments created in [facility] are not visible * * in Patient Keeper or the legal medical record (HPF). * [facility] #: [id number] END OF REPORT [facility] 2024-02-21 10:53:00 [facility] ([facility]) Med Order Sheet REPORT #: [id number] REPORT STATUS: Signed DATE: 02/21/24 TIME: 1053 PATIENT: MITA CARBONE UNIT #: [id number] ROOM #: [id number] BED: 1 : 49 AGE: 73 SEX: F ATTEND: Flavio Ballesteros MD ADM AUTHOR: Lea Fontanez MD ATTENTION *EDITS and/or ADDENDA must be made in Patient Keeper for this note. * * Edits and ammendments created in [facility] are not visible * * in Patient Keeper or the legal medical record (HPF). * Discharge Medication Reconciliation DISCHARGE MEDICATION LIST CARVEdilol Tab (Coreg Tab) Dose: 12.5MG PO Q12HR Clopidogrel Tab (Plavix Tab) Dose: 75 MG PO DAILY Atorvastatin Tab (Lipitor Tab) Dose: 40MG PO BEDTIME Acetaminophen Tab (Tylenol Tab) Dose: 650MG PO Q4H PRN temp > 38.5 c New: Albuterol Continuous Neb Soln (Albuterol Continuous Neb Soln) Dose: 2.5 MG INH RTQ4H PRN wheezing Aspirin EC Tab (Ecotrin Tab) Dose: 81MG PO DAILY Bisacodyl Supp (Dulcolax Supp) Dose: 10MG Rectal ASDIR PRN no bm pod3 2100 Cyanocobalamin Tab (Vitamin B-12 Tab) Dose: 500MCG PO DAILY Docusate Sodium Cap (Colace Cap) Dose: 200MG PO DAILY Enoxaparin 40 mg/0.4 ml Inj (Lovenox 40 mg/0.4 ml Inj) Dose: 40MG SubQ DAILY Ferrous Sulfate Tab (Feosol Tab) Dose: 325MG PO DAILY HYDROcodone/APAP 5/325 Tab (Abingdon 5/325 Tab) Dose: 1TAB PO Q6H PRN pain scale 7-10 Insulin (Lispro) Inj (HumaLOG Inj) Dose: MEDIUM DOSE SS SubQ Q6HR Lidocaine Patch 4% (Lidoderm Patch 4%) Dose: 1PATCH Transderm DAILY Methocarbamol Tab (Robaxin Tab) Dose: 500MG PO Q8H PRN muscle spasms Polyethylene Glycol Powder (Miralax Powder) Dose: 1PKT PO BID traMADol Tab (Ultram Tab) Dose: 50MG PO Q6H PRN pain scale 4-6 STOPPED HOME MEDICATIONS Dc'd: Losartan Tab (Cozaar Tab) 25 MG PO DAILYDc'd: metFORMIN Tab (Glucophage Tab) 500 MG PO DAILYDc'd: Pantoprazole DR Tab (Protonix Tab) 40 MG PO DAILY STOPPED HOSPITAL MEDICATIONS Dc'd: Calcium gluconate 2 GM/NS 100 mL IVPB 2GM 600 MLS/HR IV ASDIR PRN ionized calcium less than 1.2Dc'd: cloNIDine Tab (Catapres Tab) 0.1MG PO Q8H PRN sbp > 150 or dbp > 100Dc'd: Dextrose 50% 50 ml Syringe (D50W 50 ml Syringe) 25ML IV ASDIR PRN hypoglycemiaDc'd: Glucagon Inj (Glucagon Inj) 1MG IM ASDIR PRN hypoglycemia if no iv/enteralDc'd: hydrALAZINE Inj (Apresoline Inj) 5MG IV Q6HR PRN sbp greater than 160Dc'd: KCl 10mEq/50mL IVPB (Potassium Chloride 10mEq/50mL IVPB) 10MEQ 50 MLS/HR IV ASDIR PRN electrolyte sliding scaleDc'd: KCl 20mEq/100mL IVPB (Potassium Chloride 20mEq/100mL IVPB) 20MEQ IV ASDIR PRN electrolyte sliding scaleDc'd: Lactulose Oral Liquid (Enulose Oral Liquid) 30ML PO ASDIR X 1 doses PRN no bm pod2 2100Dc'd: Lactulose Oral Liquid (Enulose Oral Liquid) 30ML PO ASDIR X 1 doses PRN no bm pod3 0900Dc'd: Lactulose Oral Liquid (Enulose Oral Liquid) 30ML PO BID PRN constipationDc'd: Mag/Al/Simeth Oral Liquid (Maalox Max Oral Liquid) 30ML PO Q4H PRN indigestion/heartburnDc'd: Magnesium Sulfate 1GM IVPB (Magnesium Sulfate 1GM IVPB) 1GM 100 MLS/HR IV ASDIR PRN see admin criteriaDc'd: Metoprolol Tartrate Inj (Lopressor Inj) 5MG IV Q6H PRN see special instructionsDc'd: Nitroglycerin SL Tab (Nitrostat SL Tab) 0.4MG SL Q5M PRN chest painDc'd: Ondansetron Inj (Zofran Inj) 4MG IV Q6H PRN nausea and vomitingDc'd: Ondansetron ODT Tab (Zofran ODT Tab) 4MG PO Q6H PRN nausea and vomitingDc'd: Potassium Chlor Tab.ER (K Dur Tab) 20MEQ PO ASDIR PRN electrolyte sliding scaleDc'd: Potassium Chloride packet (K-Monica packet) 20MEQ PO ASDIR PRN electrolyte sliding scaleDc'd: Sodium Bicarb 8.4% 50 mL Inj (Sodium Bicarb 8.4% 50 mL Inj) 50MEQ IV ASDIR PRN base deficit of -3Dc'd: Sodium Chloride 0.9% Inj (NS Flush Inj) 10ML IV ASDIR at 1053 ATTENTION *EDITS and/or ADDENDA must be made in Patient Keeper for this note. * * Edits and ammendments created in [facility] are not visible * * in Patient Keeper or the legal medical record (HPF). * RPT #: [id number] END OF REPORT [facility] 2024-02-21 06:57:00 [facility] ([facility]) Cardiology Progress Notes REPORT #: [id number] REPORT STATUS: Signed DATE: 02/21/24 TIME: 656 PATIENT: MITA CARBONE UNIT #: [id number] ROOM #: [id number] BED: 1 : 49 AGE: 73 SEX: F ATTEND: Flavio Ballesteros MD ADM AUTHOR: Cristiano Torres DO CF1 ATTENTION *EDITS and/or ADDENDA must be made in Patient Keeper for this note. * * Edits and ammendments created in [facility] are not visible * * in Patient Keeper or the legal medical record (HPF). * -- CO-SIGNATURE -- COMMENTS: I have personally seen and examined the patient independently, and reviewed the patient's history, exam, and all cardiac and laboratory data. I agree with the history, physical, and the assessment and plan as outlined by cardiovascular fellow Dr. Tiburcio Falcon DO. I was present and supervised. Critical care time spent 33 minutes Signed in PatientKeeper by JAZZY JENKINS MD on 02/22/24 at 12:54 -- ASSESSMENT AND PLAN -- GENERAL ASSESSMENT: A/P: Mrs. Paco Olson is a 73-year-old female (Tanzanian speaking, patient of Dr. Chavez) has a PMHx of cardiomyopathy, hypertension, hyperlipidemia, diabetes, family history of coronary artery disease, h/o smoking who was having left-sided chest pain, shortness of breath and tiredness for the past couple of months. She was evaluated by her management internship and had a CTA of the coronaries on 12/2023 and showed a calcium score of 1885, with severe ostial/proximal 3 vessel coronary artery disease. She was taken to [facility] for selective coronary angiogram and showed calcified arteries left main and severe three-vessel coronary artery disease. She was referred for CABG evaluation to CV surgery, Dr. Rebollar. She presented at [facility] with worsening previously mentioned symptoms. Chest x-ray showed apparent widening of the mediastinum and may be positional, cardiac silhouette appears enlarged, there appears to be mild central pulmonary vascular congestion as well. Labs showed negative troponin, LDL 101, BNP 85. She is being admitted for further evaluation and management. Dx: Multivessel CAD s/p CABG x1 STEPHEN to LAD on 02/12/2024 Acute hypoxic respiratory failure Anemia Thrombocytopenia HTN HLD T2DM Tobacco use Prediabetes Obesity Non-sustained VT 02/10 TTE: 55-59%, no RWMA, G1DD 02/11: S/p CABG x1, STEPHEN to LAD 02/14: 2 [address] tubes removed by CT surgery Plan: -Continue ASA/plavix and Atorvastatin 40 mg -Continue carvedilol 12.5 twice daily -Continue diuresis as tolerated -Monitor I/Os -Encourage patient out of bed, PT/OT/IS -Continue to monitor cardiac telemetry -Cleared from cardio and CT surgery standpoint for discharge Discussed with Dr. Jenkins. -- SUBJECTIVE -- HPI: No acute events overnight. Pt doing well, on RA. Working well with PT. Accepted to placement, clear for discharge from cardiac standpoint. -REVIEW OF SYSTEMS- COMMENT: As per in HPI. -- OBJECTIVE -- VITALS (02/19 06:57 - 02/20 06:57): Temperature F: 97.9 (97.9 - 99.0) Temperature source: Oral Pulse Rate 82 (75 - 97) Respiratory rate: 19 (14 - 31) Blood pressure: 135/62 (74/44 - 147/70) Blood pressure source: Monitor I/Os (02/18 07:00 - 02/19 07:00): Net -1,045.00 Intake 160.00 Output 1,205 -EXAM- GENERAL: Well developed, well nourished, in no apparent distress. HEAD: Normocephalic, atraumatic. EYES: PERRL, EOM intact, conjunctiva and sclera clear, without nystagmus, lids normal. MOUTH: Oropharynx without deformities or lesions, normal mucosa.. CHEST: Sternotomy with overlying bandage LUNGS: Clear bilaterally with normal respiratory effort. HEART: Regular rate and rhythm, normal S1, S2, no murmurs, no rubs, no gallops, no clicks. ABDOMEN: Soft, non-tender, no organomegaly, no masses noted. EXTREMITIES: No clubbing, no cyanosis, no edema. NEUROLOGICAL: Alert and oriented, no focal neuro deficits. PULSES: Pulses normal in all extremities. SKIN: Intact without significant lesions, or rashes. -- DATA -- MEDICATIONS hydrALAZINE HCL 5 MG IV Q6HR PRN ONDANSETRON HCL/PF 4 MG IV Q6H PRN bisacodyL 10 MG RECTAL ASDIR PRN ACETAMINOPHEN 650 MG PO Q4H PRN DEXTROSE 50%-WATER 25 ML IV ASDIR (PRN) clopidogreL 75 MG PO DAILY ENOXAPARIN SODIUM 40 MG SUBQ DAILY FERROUS SULFATE 325 MG PO DAILY POTASSIUM CHLORIDE 20 MEQ IV ASDIR (PRN) METOPROLOL TARTRATE 5 MG IV Q6H PRN LACTULOSE 30 ML PO ASDIR PRN LACTULOSE 30 ML PO ASDIR PRN LACTULOSE 30 ML PO BID PRN CYANOCOBALAMIN 500 MCG PO DAILY MAG HYDROX/AL HYDROX/SIMETH 30 ML PO Q4H PRN ATORVASTATIN CALCIUM 40 MG PO BEDTIME INSULIN LISPRO MEDIUM DOSE SS SUBQ Q6HR ASPIRIN 81 MG PO DAILY traMADol HCL 50 MG PO Q6H PRN methocarbamoL 500 MG PO Q8H PRN LIDOCAINE 1 PATCH TRANSDERM DAILY HYDROcodone BITARTRATE/APAP 1 TAB PO Q6H PRN GLUCAGON 1 MG IM ASDIR (PRN) POTASSIUM CHLORIDE 20 MEQ PO ASDIR (PRN) ONDANSETRON 4 MG PO Q6H PRN CALCIUM GLUC IN NACL, ISO-OSM 2 GM IV ASDIR PRN NITROGLYCERIN 0.4 MG SL Q5M PRN SODIUM CHLORIDE 10 mL 10 ML IV ASDIR MAGNESIUM 1 GM IV ASDIR PRN IPRATROPIUM/ALBUTEROL SULFATE 3 ML NEB RTQ6H polyethylene glycoL 3350 1 PKT PO BID POTASSIUM CHLORIDE IN WATER 10 MEQ IV ASDIR (PRN) POTASSIUM CHLORIDE 20 MEQ PO ASDIR (PRN) DOCUSATE SODIUM 200 MG PO DAILY carvediloL 12.5 MG PO Q12HR SODIUM BICARBONATE 8.4% 50 MEQ IV ASDIR PRN cloNIDine HCL 0.1 MG PO Q8H PRN LABS CBC W/AUTO DIFF (02/21/24 04:14) WHITE BLOOD CELL 6.6 RED BLOOD CELL 3.52 L HEMOGLOBIN 10.5L L HEMATOCRIT 32.2L L MEAN CELL VOLUME 91.5 MEAN CELL HGB 29.8 MEAN CELL HGB CONCENTRATION 32.6 L RED CELL DISTRIBUTION WIDTH 16.8 PLATELET COUNT 153 MEAN PLATELET VOLUME 12.5 H NEUTROPHIL % 59.0 LYMPHOCYTE % 25.5 MONOCYTE % 8.5 EOSINOPHIL % 5.8 BASOPHIL % 0.6 NEUTROPHIL # 3.90 LYMPHOCYTE # 1.68 MONOCYTE # 0.56 EOSINOPHIL # 0.38 BASOPHIL # 0.04 BASIC METABOLIC PANEL (02/21/24 04:14) SODIUM 136 POTASSIUM 3.8 CHLORIDE 97L L CARBON DIOXIDE 32H H GLUCOSE 109H H BLOOD UREA NITROGEN 29H H GLOMERULAR FILTRATION RATE 53 L CREATININE 1.10H H CALCIUM 8.4 L PHOS (02/21/24 04:14) PHOSPHOROUS 4.2 MAG (02/21/24 04:14) MAGNESIUM 2.2 GLU BED (02/21/24 00:52) GLUBED 123 H GLU BED (02/20/24 17:47) GLUBED 206 H GLU BED (02/20/24 11:57) GLUBED 157 H Signed in PatientKeeper by Cristiano Torres DO CF1 on 02/21/24 at 13:04 Cosigned by JAZZY JENKINS MD on 02/22/24 at 12:54 at 1254 at 1254 ATTENTION *EDITS and/or ADDENDA must be made in Patient Keeper for this note. * * Edits and ammendments created in [facility] are not visible * * in Patient Keeper or the legal medical record (HPF). * [facility] #: [id number] END OF REPORT [facility] 2024-02-20 12:02:00 [facility] ([facility]) Intensive Care Progress Note REPORT #: [id number] REPORT STATUS: Signed DATE: 02/20/24 TIME: 1202 PATIENT: MITA CARBONE UNIT #: [id number] ROOM #: [facility] BED: 1 : 49 AGE: 73 SEX: F ATTEND: Flavio Ballesteros MD ADM AUTHOR: Lea Fontanez MD ATTENTION *EDITS and/or ADDENDA must be made in Patient Keeper for this note. * * Edits and ammendments created in [facility] are not visible * * in Patient Keeper or the legal medical record (HPF). * -- ASSESSMENT AND PLAN -- HOSPITAL COURSE TO DATE: Patient is a 73-year old female with PMH notable for CAD, HTN, heart failure with preserved ejection fraction, non-insulin dependent diabetes, nicotine abuse, and morbid obesity initially admitted on 01/30 for preoperative optimization in preparation for coronary bypass. Patient admitted to CVICU postoperatively following single vessel coronary bypass (STEPHEN to LAD). 02/11: s/p single vessel coronary bypass (STEPHEN to LAD), transferred to CVICU for postoperative management; extubated to [place] 02/14: chest tubes removed - Uneventful Night - Mentating Well. - Sating well on RA - Complains of Back pain Incision pain - Tolerating PO intake. Last BM 02/19 (several) - I/O 0.1/1.0L GENERAL ASSESSMENT: Plan: Neuro/Psych # Acute Postoperative Pain - Minimize sedatives opioids. PRN Robaxin. Ultram PRN. - Multi-modal pain regimen. Add Abingdon q 6hrs PRN - Delirium precautions Pulm # Acute Respiratory Insufficiency # Atelectasis (post-operative) # Acute Pulmonary Edema # Suspected MARIO/OHS # Suspected COPD - Tobacco abuse - Reviewed CXR, low lung volumes - Supplemental O2 to keep SPO2 > 94%, sating well on NC - Diuresis as below - Pulm Hygiene CVS # CAD - s/p 1V CAB (STEPHEN to LAD) # NSTEMI # HTN # PVC - Unable to bypass RCA and circumflex, will eventually need repeat evaluation with cardiology for possible PCI - TTE w NL LVSF - Goal MAP >65, SBP <130 - Cont DAPT/statin, Coreg - Hold Lasix for 1-2 days consider resuming PO daily - d/w CTS Cards GI * Ileus/Constipation (resolved) * Diarrhea - Tolerating cardiac diet. - Hold bowel regimen Renal # ASTER - BL Cr 0.7 - Monitor UOP Cr trend - Diuretics as above - Electrolyte protocol, maintain K >4.0, Phos >3.0, Mg >2.0 ID # Perioperative SIRS - s/p perioperative abx per protocol - No concerns for infection at present, monitor fever curve Endo # NIDDM - Strict glycemic control postoperatively, maintain goal BS 140-180 - Hypoglycemia protocol Heme # Acute Blood Loss Anemia - Transfuse for goal Hgb >7.0, platelets >10k or 20k with bleeding, and fibrinogen >150 MSK * Deconditioning - PT/OT following PPX - DVT: LSQ - GI: None GOC - Code: FULL per patient - Advance Care Planning: None per patient Dispo - - Accepted at [facility], awaiting for a bed Disposition - Stable to transfer out of ICU. Hospitalist following. Will s/o, please call w questions or if needed. Medications reviewed with ICU pharmacist -- OBJECTIVE -- VITALS (02/18 12:02 - 02/19 12:02): Temperature F: 98.3 (97.7 - 98.3) Temperature source: Axillary Pulse Rate 80 (72 - 97) Respiratory rate: 17 (11 - 39) Blood pressure: 99/56 (82/46 - 159/71) Blood pressure source: Monitor I/Os (02/18 07:00 - 02/19 07:00): Net -1,045.00 Intake 160.00 Output 1,205 -EXAM- OTHER: Objective - General - Alert, oriented x3. No distress Heart - RRR, Soft S1 S2, no murmur Chest - Decrease air entry on the lower zones w bibasilar crackles. No wheezes Abd - Soft, lax, NT, ND, +ve BS LE - No LE edema Skin - No rash Neck - Supple, non-tender -- DATA -- MEDICATIONS hydrALAZINE HCL 5 MG IV Q6HR PRN ONDANSETRON HCL/PF 4 MG IV Q6H PRN bisacodyL 10 MG RECTAL ASDIR PRN ACETAMINOPHEN 650 MG PO Q4H PRN DEXTROSE 50%-WATER 25 ML IV ASDIR (PRN) clopidogreL 75 MG PO DAILY ENOXAPARIN SODIUM 40 MG SUBQ DAILY FERROUS SULFATE 325 MG PO DAILY POTASSIUM CHLORIDE 20 MEQ IV ASDIR (PRN) METOPROLOL TARTRATE 5 MG IV Q6H PRN LACTULOSE 30 ML PO ASDIR PRN LACTULOSE 30 ML PO ASDIR PRN LACTULOSE 30 ML PO BID PRN CYANOCOBALAMIN 500 MCG PO DAILY MAG HYDROX/AL HYDROX/SIMETH 30 ML PO Q4H PRN ATORVASTATIN CALCIUM 40 MG PO BEDTIME INSULIN LISPRO MEDIUM DOSE SS SUBQ Q6HR ASPIRIN 81 MG PO DAILY traMADol HCL 50 MG PO Q6H PRN methocarbamoL 500 MG PO Q8H PRN LIDOCAINE 1 PATCH TRANSDERM DAILY HYDROcodone BITARTRATE/APAP 1 TAB PO Q6H PRN GLUCAGON 1 MG IM ASDIR (PRN) POTASSIUM CHLORIDE 20 MEQ PO ASDIR (PRN) ONDANSETRON 4 MG PO Q6H PRN CALCIUM GLUC IN NACL, ISO-OSM 2 GM IV ASDIR PRN NITROGLYCERIN 0.4 MG SL Q5M PRN SODIUM CHLORIDE 10 mL 10 ML IV ASDIR MAGNESIUM 1 GM IV ASDIR PRN IPRATROPIUM/ALBUTEROL SULFATE 3 ML NEB RTQ6H polyethylene glycoL 3350 1 PKT PO BID POTASSIUM CHLORIDE IN WATER 10 MEQ IV ASDIR (PRN) POTASSIUM CHLORIDE 20 MEQ PO ASDIR (PRN) DOCUSATE SODIUM 200 MG PO DAILY carvediloL 12.5 MG PO Q12HR SODIUM BICARBONATE 8.4% 50 MEQ IV ASDIR PRN cloNIDine HCL 0.1 MG PO Q8H PRN LABS GLU BED (02/20/24 06:28) GLUBED 143 H PTT (02/20/24 02:43) THROMBOPLASTIN TIME PARTIAL 26.5 PROTHROMBIN TIME (02/20/24 02:43) PROTHROMBIN TIME PATIENT 13.3 H INTERNATIONAL NORMAL RATIO 1.19 H COMPREHENSIVE METABOLIC PANEL (02/20/24 02:43) SODIUM 135 L POTASSIUM 3.7 CHLORIDE 97 L CARBON DIOXIDE 32 H GLUCOSE 128 H BLOOD UREA NITROGEN 26 H GLOMERULAR FILTRATION RATE 48 L CREATININE 1.20 H TOTAL PROTEIN 5.5 L ALBUMIN 3.6 CALCIUM 8.7 BILIRUBIN TOTAL 1.5 H SGOT/AST 32 SGPT/ALT 31 ALKALINE PHOSPHATASE 87.0 PHOS (02/20/24 02:43) PHOSPHOROUS 3.4 CBC W/AUTO DIFF (02/20/24 02:43) WHITE BLOOD CELL 6.2 RED BLOOD CELL 3.42 L HEMOGLOBIN 10.1L L HEMATOCRIT 31.0L L MEAN CELL VOLUME 90.6 MEAN CELL HGB 29.5 MEAN CELL HGB CONCENTRATION 32.6 L RED CELL DISTRIBUTION WIDTH 16.1 PLATELET COUNT 127L L MEAN PLATELET VOLUME 12.3 NEUTROPHIL % 64.0 LYMPHOCYTE % 20.4 L MONOCYTE % 8.7 EOSINOPHIL % 5.8 BASOPHIL % 0.5 NEUTROPHIL # 4.00 LYMPHOCYTE # 1.27 MONOCYTE # 0.54 EOSINOPHIL # 0.36 BASOPHIL # 0.03 MAG (02/20/24 02:43) MAGNESIUM 2.2 GLU BED (02/19/24 22:58) GLUBED 119 H GLU BED (02/19/24 18:13) GLUBED 214 H GLU BED (02/19/24 12:13) GLUBED 249 H -- ATTESTATION -- TIME SPENT ON PATIENT CARE: - Critical Care: time spent apart from any procedure 35 minutes CARE ACTIVITIES / CARE COORDINATION: - I have reviewed the history and repeated the escobar elements - I have seen and examined this patient - I have reviewed the progress in the clinical course since the last examination - I have discussed the patient's condition with other members of the care team Signed in PatientKeeper by Lea Fontanez MD on 02/20/24 at 14:46 at 1446 ATTENTION *EDITS and/or ADDENDA must be made in Patient Keeper for this note. * * Edits and ammendments created in [facility] are not visible * * in Patient Keeper or the legal medical record (HPF). * [facility] #: [id number] END OF REPORT [facility] 2024-02-20 09:37:00 [facility] ([facility]) Cardiology Progress Notes REPORT #: [id number] REPORT STATUS: Signed DATE: 02/20/24 TIME: 936 PATIENT: MITA CARBONE UNIT #: [id number] ROOM #: P.[id number] BED: 1 : 49 AGE: 73 SEX: F ATTEND: Flavio Ballesteros MD ADM AUTHOR: Cristiano Torres DO CF1 ATTENTION *EDITS and/or ADDENDA must be made in Patient Keeper for this note. * * Edits and ammendments created in [facility] are not visible * * in Patient Keeper or the legal medical record (HPF). * -- CO-SIGNATURE -- COMMENTS: I have seen and examined the patient with the power plant inspector, Cristiano Torres DO on 02/20/2024. I have reviewed all the clinical information, lab investigations, and imaging data. I agree with the following examination, findings, assessment and plan. I was present and supervised. Signed in PatientKeeper by DEJAH PARKER MD on 02/21/24 at 06:38 -- ASSESSMENT AND PLAN -- GENERAL ASSESSMENT: A/P: Mrs. Paco Olson is a 73-year-old female (Tanzanian speaking, patient of Dr. Chavez) has a PMHx of cardiomyopathy, hypertension, hyperlipidemia, diabetes, family history of coronary artery disease, h/o smoking who was having left-sided chest pain, shortness of breath and tiredness for the past couple of months. She was evaluated by her management internship and had a CTA of the coronaries on 12/2023 and showed a calcium score of 1885, with severe ostial/proximal 3 vessel coronary artery disease. She was taken to [facility] for selective coronary angiogram and showed calcified arteries left main and severe three-vessel coronary artery disease. She was referred for CABG evaluation to CV surgery, Dr. Rebollar. She presented at [facility] ER with worsening previously mentioned symptoms. Chest x-ray showed apparent widening of the mediastinum and may be positional, cardiac silhouette appears enlarged, there appears to be mild central pulmonary vascular congestion as well. Labs showed negative troponin, LDL 101, BNP 85. She is being admitted for further evaluation and management. Dx: Multivessel CAD s/p CABG x1 STEPHEN to LAD on 02/12/2024 Acute hypoxic respiratory failure Anemia Thrombocytopenia HTN HLD T2DM Tobacco use Prediabetes Obesity Non-sustained VT 02/10 TTE: 55-59%, no RWMA, G1DD 02/11: S/p CABG x1, STEPHEN to LAD 02/14: [address] surgery Plan: -Continue ASA/plavix and Atorvastatin 40 mg -Continue carvedilol 12.5 twice daily -Continue diuresis as tolerated -Monitor I/Os -Encourage patient out of bed, PT/OT/IS -Continue to monitor cardiac telemetry -Cleared from cardio and CT surgery standpoint for discharge once accepted for placement Discussed with Dr. Parker. -- SUBJECTIVE -- HPI: No acute events overnight. Pt fluid status improving, neg negative overnight. Satting well on RA. Pending placement. -REVIEW OF SYSTEMS- COMMENT: As per in HPI. -- OBJECTIVE -- VITALS (02/18 09:37 - 02/19 09:37): Temperature F: 97.7 (97.5 - 98.3) Temperature source: Axillary Pulse Rate 85 (72 - 105) Respiratory rate: 31 (11 - 39) Blood pressure: 142/58 (82/44 - 159/71) Blood pressure source: Monitor I/Os (02/18 07:00 - 02/19 07:00): Net -1,045.00 Intake 160.00 Output 1,205 -EXAM- GENERAL: Well developed, well nourished, in no apparent distress. HEAD: Normocephalic, atraumatic. EYES: PERRL, EOM intact, conjunctiva and sclera clear, without nystagmus, lids normal. MOUTH: Oropharynx without deformities or lesions, normal mucosa.. CHEST: Sternotomy with overlying bandage LUNGS: Clear bilaterally with normal respiratory effort. HEART: Regular rate and rhythm, normal S1, S2, no murmurs, no rubs, no gallops, no clicks. ABDOMEN: Soft, non-tender, no organomegaly, no masses noted. EXTREMITIES: No clubbing, no cyanosis, no edema. NEUROLOGICAL: Alert and oriented, no focal neuro deficits. PULSES: Pulses normal in all extremities. SKIN: Intact without significant lesions, or rashes. -- DATA -- MEDICATIONS hydrALAZINE HCL 5 MG IV Q6HR PRN ONDANSETRON HCL/PF 4 MG IV Q6H PRN bisacodyL 10 MG RECTAL ASDIR PRN ACETAMINOPHEN 650 MG PO Q4H PRN DEXTROSE 50%-WATER 25 ML IV ASDIR (PRN) clopidogreL 75 MG PO DAILY ENOXAPARIN SODIUM 40 MG SUBQ DAILY FERROUS SULFATE 325 MG PO DAILY POTASSIUM CHLORIDE 20 MEQ IV ASDIR (PRN) METOPROLOL TARTRATE 5 MG IV Q6H PRN LACTULOSE 30 ML PO ASDIR PRN LACTULOSE 30 ML PO ASDIR PRN LACTULOSE 30 ML PO BID PRN CYANOCOBALAMIN 500 MCG PO DAILY MAG HYDROX/AL HYDROX/SIMETH 30 ML PO Q4H PRN ATORVASTATIN CALCIUM 40 MG PO BEDTIME INSULIN LISPRO MEDIUM DOSE SS SUBQ Q6HR ASPIRIN 81 MG PO DAILY traMADol HCL 50 MG PO Q6H PRN methocarbamoL 500 MG PO Q8H PRN LIDOCAINE 1 PATCH TRANSDERM DAILY HYDROcodone BITARTRATE/APAP 1 TAB PO Q6H PRN GLUCAGON 1 MG IM ASDIR (PRN) POTASSIUM CHLORIDE 20 MEQ PO ASDIR (PRN) ONDANSETRON 4 MG PO Q6H PRN CALCIUM GLUC IN NACL, ISO-OSM 2 GM IV ASDIR PRN NITROGLYCERIN 0.4 MG SL Q5M PRN SODIUM CHLORIDE 10 mL 10 ML IV ASDIR MAGNESIUM 1 GM IV ASDIR PRN IPRATROPIUM/ALBUTEROL SULFATE 3 ML NEB RTQ6H polyethylene glycoL 3350 1 PKT PO BID POTASSIUM CHLORIDE IN WATER 10 MEQ IV ASDIR (PRN) POTASSIUM CHLORIDE 20 MEQ PO ASDIR (PRN) DOCUSATE SODIUM 200 MG PO DAILY carvediloL 12.5 MG PO Q12HR SODIUM BICARBONATE 8.4% 50 MEQ IV ASDIR PRN cloNIDine HCL 0.1 MG PO Q8H PRN LABS GLU BED (02/20/24 06:28) GLUBED 143 H PTT (02/20/24 02:43) THROMBOPLASTIN TIME PARTIAL 26.5 PROTHROMBIN TIME (02/20/24 02:43) PROTHROMBIN TIME PATIENT 13.3 H INTERNATIONAL NORMAL RATIO 1.19 H COMPREHENSIVE METABOLIC PANEL (02/20/24 02:43) SODIUM 135 L POTASSIUM 3.7 CHLORIDE 97 L CARBON DIOXIDE 32 H GLUCOSE 128 H BLOOD UREA NITROGEN 26 H GLOMERULAR FILTRATION RATE 48 L CREATININE 1.20 H TOTAL PROTEIN 5.5 L ALBUMIN 3.6 CALCIUM 8.7 BILIRUBIN TOTAL 1.5 H SGOT/AST 32 SGPT/ALT 31 ALKALINE PHOSPHATASE 87.0 PHOS (02/20/24 02:43) PHOSPHOROUS 3.4 CBC W/AUTO DIFF (02/20/24 02:43) WHITE BLOOD CELL 6.2 RED BLOOD CELL 3.42 L HEMOGLOBIN 10.1L L HEMATOCRIT 31.0L L MEAN CELL VOLUME 90.6 MEAN CELL HGB 29.5 MEAN CELL HGB CONCENTRATION 32.6 L RED CELL DISTRIBUTION WIDTH 16.1 PLATELET COUNT 127L L MEAN PLATELET VOLUME 12.3 NEUTROPHIL % 64.0 LYMPHOCYTE % 20.4 L MONOCYTE % 8.7 EOSINOPHIL % 5.8 BASOPHIL % 0.5 NEUTROPHIL # 4.00 LYMPHOCYTE # 1.27 MONOCYTE # 0.54 EOSINOPHIL # 0.36 BASOPHIL # 0.03 MAG (02/20/24 02:43) MAGNESIUM 2.2 GLU BED (02/19/24 22:58) GLUBED 119 H GLU BED (02/19/24 18:13) GLUBED 214 H GLU BED (02/19/24 12:13) GLUBED 249 H Signed in PatientKeeper by Cristiano Torres on 02/20/24 at 18:40 Cosigned by DEJAH PARKER MD on 02/21/24 at 06:38 at 0638 at 0638 ATTENTION *EDITS and/or ADDENDA must be made in Patient Keeper for this note. * * Edits and ammendments created in [facility] are not visible * * in Patient Keeper or the legal medical record (HPF). * [facility] #: [id number] END OF REPORT [facility] 2024-02-19 17:02:00 [facility] ([facility]) Intensive Care Progress Note REPORT #: [id number] REPORT STATUS: Signed DATE: 02/19/24 TIME: 1702 PATIENT: MITA CARBONE UNIT #: [id number] ROOM #: P.[id number] BED: 1 : 49 AGE: 73 SEX: F ATTEND: Flavio Ballesteros MD ADM AUTHOR: Lea Fontanez MD ATTENTION *EDITS and/or ADDENDA must be made in Patient Keeper for this note. * * Edits and ammendments created in [facility] are not visible * * in Patient Keeper or the legal medical record (HPF). * -- ASSESSMENT AND PLAN -- HOSPITAL COURSE TO DATE: Patient is a 73-year old female with PMH notable for CAD, HTN, heart failure with preserved ejection fraction, non-insulin dependent diabetes, nicotine abuse, and morbid obesity initially admitted on 01/30 for preoperative optimization in preparation for coronary bypass. Patient admitted to CVICU postoperatively following single vessel coronary bypass (STEPHEN to LAD). 02/11: s/p single vessel coronary bypass (STEPHEN to LAD), transferred to CVICU for postoperative management; extubated to NC 02/14: chest tubes removed - Uneventful Night - Mentating Well. - Sating well on 2L NC - Complains of Back pain - Tolerating PO intake. Last BM 02/18 - I/O 0.4/1.3L GENERAL ASSESSMENT: Plan: Neuro/Psych # Acute Postoperative Pain - Minimize sedatives opioids. PRN Robaxin. Ultram PRN. - Multi-modal pain regimen. Add [place] q 6hrs PRN - Delirium precautions Pulm # Acute Respiratory Insufficiency # Atelectasis (post-operative) # Acute Pulmonary Edema # Suspected MARIO/OHS # Suspected COPD - Tobacco abuse - Reviewed CXR, low lung volumes - Supplemental O2 to keep SPO2 > 94%, sating well on NC - Diuresis as below - Pulm Hygiene CVS # CAD - s/p 1V CAB (STEPHEN to LAD) # NSTEMI # HTN # PVC - Unable to bypass RCA and circumflex, will eventually need repeat evaluation with cardiology for possible PCI - TTE w NL LVSF - Goal MAP >65, SBP <130 - Pacer wires to clipped - Cont DAPT/statin, Coreg - Change Lasix 40mg IV q12hrs to PO - d/w CTS Cards GI * Ileus/Constipation (resolved) - Tolerating cardiac diet. - Cont bowel regimen Renal # ASTER - BL Cr 0.7 - Monitor UOP Cr trend - Diuretics as above - Electrolyte protocol, maintain K >4.0, Phos >3.0, Mg >2.0 ID # Perioperative SIRS - s/p perioperative abx per protocol - No concerns for infection at present, monitor fever curve Endo # NIDDM - Strict glycemic control postoperatively, maintain goal BS 140-180 - Hypoglycemia protocol Heme # Acute Blood Loss Anemia - Transfuse for goal Hgb >7.0, platelets >10k or 20k with bleeding, and fibrinogen >150 MSK * Deconditioning - PT/OT following PPX - DVT: LSQ - GI: None GOC - Code: FULL per patient - Advance Care Planning: None per patient Dispo - - Awaiting SNIF acceptance Medications reviewed with ICU pharmacist Patient is critically ill and at risk of imminent life threatening injury or -- OBJECTIVE -- VITALS (02/17 08:34 - 02/18 08:34): Temperature F: 98.3 (98.0 - 98.5) Temperature source: Oral Pulse Rate 82 (69 - 86) Respiratory rate: 21 (13 - 33) Blood pressure: 110/54 (86/47 - 146/74) Blood pressure source: Monitor I/Os (02/17 07:00 - 02/18 07:00): Net -955.00 Intake 400.00 Output 1,355 -EXAM- OTHER: Objective - General - Alert, oriented x3. No distress Heart - RRR, Soft S1 S2, no murmur Chest - Decrease air entry on the lower zones w bibasilar crackles. No wheezes Abd - Soft, lax, NT, ND, +ve BS LE - No LE edema Skin - No rash Neck - Supple, non tender -- DATA -- MEDICATIONS hydrALAZINE HCL 5 MG IV Q6HR PRN ONDANSETRON HCL/PF 4 MG IV Q6H PRN bisacodyL 10 MG RECTAL ASDIR PRN ACETAMINOPHEN 650 MG PO Q4H PRN DEXTROSE 50%-WATER 25 ML IV ASDIR (PRN) clopidogreL 75 MG PO DAILY ENOXAPARIN SODIUM 40 MG SUBQ DAILY FERROUS SULFATE 325 MG PO DAILY POTASSIUM CHLORIDE 20 MEQ IV ASDIR (PRN) METOPROLOL TARTRATE 5 MG IV Q6H PRN LACTULOSE 30 ML PO ASDIR PRN LACTULOSE 30 ML PO ASDIR PRN LACTULOSE 30 ML PO BID PRN CYANOCOBALAMIN 500 MCG PO DAILY MAG HYDROX/AL HYDROX/SIMETH 30 ML PO Q4H PRN ATORVASTATIN CALCIUM 40 MG PO BEDTIME INSULIN LISPRO MEDIUM DOSE SS SUBQ Q6HR traMADol HCL 25 MG PO Q6H PRN ASPIRIN 81 MG PO DAILY traMADol HCL 50 MG PO Q6H PRN methocarbamoL 500 MG PO Q8H PRN LIDOCAINE 1 PATCH TRANSDERM DAILY GLUCAGON 1 MG IM ASDIR (PRN) POTASSIUM CHLORIDE 20 MEQ PO ASDIR (PRN) ONDANSETRON 4 MG PO Q6H PRN CALCIUM GLUC IN NACL, ISO-OSM 2 GM IV ASDIR PRN FUROSEMIDE 40 MG IV BID@0500,1700 NITROGLYCERIN 0.4 MG SL Q5M PRN SODIUM CHLORIDE 10 mL 10 ML IV ASDIR MAGNESIUM 1 GM IV ASDIR PRN IPRATROPIUM/ALBUTEROL SULFATE 3 ML NEB RTQ6H polyethylene glycoL 3350 1 PKT PO BID POTASSIUM CHLORIDE IN WATER 10 MEQ IV ASDIR (PRN) POTASSIUM CHLORIDE 20 MEQ PO ASDIR (PRN) DOCUSATE SODIUM 200 MG PO DAILY carvediloL 12.5 MG PO Q12HR SODIUM BICARBONATE 8.4% 50 MEQ IV ASDIR PRN cloNIDine HCL 0.1 MG PO Q8H PRN LABS GLU BED (02/19/24 05:32) GLUBED 132 H PHOS (02/19/24 03:17) PHOSPHOROUS 3.2 PROTHROMBIN TIME (02/19/24 03:17) PROTHROMBIN TIME PATIENT 12.9 INTERNATIONAL NORMAL RATIO 1.16 H MAG (02/19/24 03:17) MAGNESIUM 2.1 COMPREHENSIVE METABOLIC PANEL (02/19/24 03:17) SODIUM 135 L POTASSIUM 4.4 CHLORIDE 96 L CARBON DIOXIDE 32 H GLUCOSE 134 H BLOOD UREA NITROGEN 21 GLOMERULAR FILTRATION RATE 59 L CREATININE 1.00 TOTAL PROTEIN 5.4 L ALBUMIN 3.5 CALCIUM 8.1 L BILIRUBIN TOTAL 1.3 H SGOT/AST 49 H SGPT/ALT 40 ALKALINE PHOSPHATASE 95.0 CBC W/AUTO DIFF (02/19/24 03:17) WHITE BLOOD CELL 7.5 RED BLOOD CELL 3.62 L HEMOGLOBIN 10.7L L HEMATOCRIT 31.7L L MEAN CELL VOLUME 87.6 MEAN CELL HGB 29.6 MEAN CELL HGB CONCENTRATION 33.8 RED CELL DISTRIBUTION WIDTH 15.8 PLATELET COUNT 130L L MEAN PLATELET VOLUME 12.4 NEUTROPHIL % 69.0 LYMPHOCYTE % 16.9 L MONOCYTE % 8.2 EOSINOPHIL % 4.9 BASOPHIL % 0.5 NEUTROPHIL # 5.18 LYMPHOCYTE # 1.27 MONOCYTE # 0.62 EOSINOPHIL # 0.37 BASOPHIL # 0.04 PTT (02/19/24 03:17) THROMBOPLASTIN TIME PARTIAL 25.5 GLU BED (02/18/24 23:33) GLUBED 117 H MAG (02/18/24 20:47) MAGNESIUM 1.8 BASIC METABOLIC PANEL (02/18/24 20:47) SODIUM 136 POTASSIUM 3.9 CHLORIDE 94L L CARBON DIOXIDE 35H H GLUCOSE 148H H BLOOD UREA NITROGEN 21 GLOMERULAR FILTRATION RATE 53 L CREATININE 1.10H H CALCIUM 8.0 L PHOS (02/18/24 20:47) PHOSPHOROUS 3.2 GLU BED (02/18/24 17:06) GLUBED 196 H BASIC METABOLIC PANEL (02/18/24 13:40) SODIUM 134L L POTASSIUM 3.3L L CHLORIDE 96L L CARBON DIOXIDE 33H H GLUCOSE 307H H BLOOD UREA NITROGEN 22 GLOMERULAR FILTRATION RATE 48 L CREATININE 1.20H H CALCIUM 8.2 L MAG (02/18/24 13:40) MAGNESIUM 2.1 GLU BED (02/18/24 11:28) GLUBED 288 H -- ATTESTATION -- CARE ACTIVITIES / CARE COORDINATION: - I have reviewed the history and repeated the escobar elements - I have seen and examined this patient - I have reviewed the progress in the clinical course since the last examination - I have discussed the patient's condition with other members of the care team Signed in PatientKeeper by Lea Fontanez MD on 02/19/24 at 17:03 at 1703 ATTENTION *EDITS and/or ADDENDA must be made in Patient Keeper for this note. * * Edits and ammendments created in [facility] are not visible * * in Patient Keeper or the legal medical record (HPF). * RPT #: [id number] END OF REPORT [facility] 2024-02-19 07:00:00 [facility] ([facility]) Cardiology Progress Notes REPORT #: [id number] REPORT STATUS: Signed DATE: 02/19/24 TIME: 0700 PATIENT: MITA CARBONE UNIT #: [id number] ROOM #: P.0308 BED: 1 : 49 AGE: 73 SEX: F ATTEND: Flavio Ballesteros MD [facility] AUTHOR: Cristiano Torres DO CF1 ATTENTION *EDITS and/or ADDENDA must be made in Patient Keeper for this note. * * Edits and ammendments created in [facility] are not visible * * in Patient Keeper or the legal medical record (HPF). * -- CO-SIGNATURE -- COMMENTS: I have seen and examined the patient with the power plant inspector, Cristiano Torres DO on 02/19/2024. I have reviewed all the clinical information, lab investigations, and imaging data. I agree with the following examination, findings, assessment and plan. I was present and supervised. Signed in PatientKeeper by DEJAH PARKER MD on 02/21/24 at 06:36 -- ASSESSMENT AND PLAN -- GENERAL ASSESSMENT: A/P: Mrs. Paco Olson is a 73-year-old female (Tanzanian speaking, patient of Dr. Chavez) has a PMHx of cardiomyopathy, hypertension, hyperlipidemia, diabetes, family history of coronary artery disease, h/o smoking who was having left-sided chest pain, shortness of breath and tiredness for the past couple of months. She was evaluated by her management internship and had a CTA of the coronaries on 12/2023 and showed a calcium score of 1885, with severe ostial/proximal 3 vessel coronary artery disease. She was taken to [facility] for selective coronary angiogram and showed calcified arteries left main and severe three-vessel coronary artery disease. She was referred for CABG evaluation to CV surgery, Dr. Rebollar. She presented at [facility] ER with worsening previously mentioned symptoms. Chest x-ray showed apparent widening of the mediastinum and may be positional, cardiac silhouette appears enlarged, there appears to be mild central pulmonary vascular congestion as well. Labs showed negative troponin, LDL 101, BNP 85. She is being admitted for further evaluation and management. Dx: Multivessel CAD s/p CABG x1 STEPHEN to LAD on 02/12/2024 Anemia Thrombocytopenia HTN HLD T2DM Tobacco use Prediabetes Obesity Non-sustained VT 02/10 TTE: 55-59%, no RWMA, G1DD 02/11: S/p CABG x1, STEPHEN to LAD 02/14: [address] removed by [address] surgery Plan: -Continue ASA/plavix and Atorvastatin 40 mg -Continue carvedilol 12.5 twice daily -Continue diuresis as tolerated -Monitor I/Os -Encourage patient out of bed, PT/OT/IS -Continue to monitor cardiac telemetry -Cleared from cardio and CT surgery standpoint for discharge once accepted for placement Discussed with Dr. Parker. -- SUBJECTIVE -- -REVIEW OF SYSTEMS- COMMENT: As per in HPI. -- OBJECTIVE -- VITALS (02/17 07:00 - 02/18 07:00): Temperature F: 98.3 (98.0 - 98.8) Temperature source: Oral Pulse Rate 80 (69 - 94) Respiratory rate: 24 (13 - 33) Blood pressure: 138/62 (86/47 - 146/74) Blood pressure source: Monitor I/Os (02/17 07:00 - 02/18 07:00): Net -905.00 Intake 400.00 Output 1,305 -EXAM- GENERAL: Well developed, well nourished, in no apparent distress. HEAD: Normocephalic, atraumatic. EYES: PERRL, EOM intact, conjunctiva and sclera clear, without nystagmus, lids normal. MOUTH: Oropharynx without deformities or lesions, normal mucosa.. CHEST: Sternotomy with overlying bandage LUNGS: Clear bilaterally with normal respiratory effort. HEART: Regular rate and rhythm, normal S1, S2, no murmurs, no rubs, no gallops, no clicks. ABDOMEN: Soft, non-tender, no organomegaly, no masses noted. EXTREMITIES: No clubbing, no cyanosis, no edema. NEUROLOGICAL: Alert and oriented, no focal neuro deficits. PULSES: Pulses normal in all extremities. SKIN: Intact without significant lesions, or rashes. -- DATA -- MEDICATIONS hydrALAZINE HCL 5 MG IV Q6HR PRN ONDANSETRON HCL/PF 4 MG IV Q6H PRN bisacodyL 10 MG RECTAL ASDIR PRN ACETAMINOPHEN 650 MG PO Q4H PRN DEXTROSE 50%-WATER 25 ML IV ASDIR (PRN) clopidogreL 75 MG PO DAILY ENOXAPARIN SODIUM 40 MG SUBQ DAILY FERROUS SULFATE 325 MG PO DAILY POTASSIUM CHLORIDE 20 MEQ IV ASDIR (PRN) METOPROLOL TARTRATE 5 MG IV Q6H PRN LACTULOSE 30 ML PO ASDIR PRN LACTULOSE 30 ML PO ASDIR PRN LACTULOSE 30 ML PO BID PRN CYANOCOBALAMIN 500 MCG PO DAILY MAG HYDROX/AL HYDROX/SIMETH 30 ML PO Q4H PRN ATORVASTATIN CALCIUM 40 MG PO BEDTIME INSULIN LISPRO MEDIUM DOSE SS SUBQ Q6HR traMADol HCL 25 MG PO Q6H PRN ASPIRIN 81 MG PO DAILY traMADol HCL 50 MG PO Q6H PRN methocarbamoL 500 MG PO Q8H PRN LIDOCAINE 1 PATCH TRANSDERM DAILY GLUCAGON 1 MG IM ASDIR (PRN) POTASSIUM CHLORIDE 20 MEQ PO ASDIR (PRN) ONDANSETRON 4 MG PO Q6H PRN CALCIUM GLUC IN NACL, ISO-OSM 2 GM IV ASDIR PRN FUROSEMIDE 40 MG IV BID@0500,1700 NITROGLYCERIN 0.4 MG SL Q5M PRN SODIUM CHLORIDE 10 mL 10 ML IV ASDIR MAGNESIUM 1 GM IV ASDIR PRN IPRATROPIUM/ALBUTEROL SULFATE 3 ML NEB RTQ6H polyethylene glycoL 3350 1 PKT PO BID POTASSIUM CHLORIDE IN WATER 10 MEQ IV ASDIR (PRN) POTASSIUM CHLORIDE 20 MEQ PO ASDIR (PRN) DOCUSATE SODIUM 200 MG PO DAILY carvediloL 12.5 MG PO Q12HR SODIUM BICARBONATE 8.4% 50 MEQ IV ASDIR PRN cloNIDine HCL 0.1 MG PO Q8H PRN LABS GLU BED (02/19/24 05:32) GLUBED 132 H PHOS (02/19/24 03:17) PHOSPHOROUS 3.2 PROTHROMBIN TIME (02/19/24 03:17) PROTHROMBIN TIME PATIENT 12.9 INTERNATIONAL NORMAL RATIO 1.16 H MAG (02/19/24 03:17) MAGNESIUM 2.1 COMPREHENSIVE METABOLIC PANEL (02/19/24 03:17) SODIUM 135 L POTASSIUM 4.4 CHLORIDE 96 L CARBON DIOXIDE 32 H GLUCOSE 134 H BLOOD UREA NITROGEN 21 GLOMERULAR FILTRATION RATE 59 L CREATININE 1.00 TOTAL PROTEIN 5.4 L ALBUMIN 3.5 CALCIUM 8.1 L BILIRUBIN TOTAL 1.3 H SGOT/AST 49 H SGPT/ALT 40 ALKALINE PHOSPHATASE 95.0 CBC W/AUTO DIFF (02/19/24 03:17) WHITE BLOOD CELL 7.5 RED BLOOD CELL 3.62 L HEMOGLOBIN 10.7L L HEMATOCRIT 31.7L L MEAN CELL VOLUME 87.6 MEAN CELL HGB 29.6 MEAN CELL HGB CONCENTRATION 33.8 RED CELL DISTRIBUTION WIDTH 15.8 PLATELET COUNT 130L L MEAN PLATELET VOLUME 12.4 NEUTROPHIL % 69.0 LYMPHOCYTE % 16.9 L MONOCYTE % 8.2 EOSINOPHIL % 4.9 BASOPHIL % 0.5 NEUTROPHIL # 5.18 LYMPHOCYTE # 1.27 MONOCYTE # 0.62 EOSINOPHIL # 0.37 BASOPHIL # 0.04 PTT (02/19/24 03:17) THROMBOPLASTIN TIME PARTIAL 25.5 GLU BED (02/18/24 23:33) GLUBED 117 H MAG (02/18/24 20:47) MAGNESIUM 1.8 BASIC METABOLIC PANEL (02/18/24 20:47) SODIUM 136 POTASSIUM 3.9 CHLORIDE 94L L CARBON DIOXIDE 35H H GLUCOSE 148H H BLOOD UREA NITROGEN 21 GLOMERULAR FILTRATION RATE 53 L CREATININE 1.10H H CALCIUM 8.0 L PHOS (02/18/24 20:47) PHOSPHOROUS 3.2 GLU BED (02/18/24 17:06) GLUBED 196 H BASIC METABOLIC PANEL (02/18/24 13:40) SODIUM 134L L POTASSIUM 3.3L L CHLORIDE 96L L CARBON DIOXIDE 33H H GLUCOSE 307H H BLOOD UREA NITROGEN 22 GLOMERULAR FILTRATION RATE 48 L CREATININE 1.20H H CALCIUM 8.2 L MAG (02/18/24 13:40) MAGNESIUM 2.1 GLU BED (02/18/24 11:28) GLUBED 288 H Signed in PatientKeeper by Cristiano Torres DO [facility] on 02/19/24 at 14:45 Cosigned by DEJAH PARKER MD on 02/21/24 at 06:36 at 0636 at 06 ATTENTION *EDITS and/or ADDENDA must be made in Patient Keeper for this note. * * Edits and ammendments created in [facility] are not visible * * in Patient Keeper or the legal medical record (HPF). * [facility] #: [id number] END OF REPORT [facility] 2024-02-18 08:28:00 [facility] ([facility]) Intensive Care Progress Note REPORT #: [id number] REPORT STATUS: Signed DATE: 02/18/24 TIME: 827 PATIENT: MITA CARBONE UNIT #: [id number] ROOM #: P.0308 BED: 1 : 49 AGE: 73 SEX: F ATTEND: Flavio Ballesteros MD ADM AUTHOR: Lea Fontanez MD ATTENTION *EDITS and/or ADDENDA must be made in Patient Keeper for this note. * * Edits and ammendments created in [facility] are not visible * * in Patient Keeper or the legal medical record (HPF). * -- ASSESSMENT AND PLAN -- HOSPITAL COURSE TO DATE: Patient is a 73-year old female with PMH notable for CAD, HTN, heart failure with preserved ejection fraction, non-insulin dependent diabetes, nicotine abuse, and morbid obesity initially admitted on 01/30 for preoperative optimization in preparation for coronary bypass. Patient admitted to CVICU postoperatively following single vessel coronary bypass (STEPHEN to LAD). 02/11: s/p single vessel coronary bypass (STEPHEN to LAD), transferred to CVICU for postoperative management; extubated to NC 02/14: chest tubes removed - Uneventful Night - Mentating Well. - Sating well on 1L NC - Complains of Back pain - Tolerating PO intake, improving appetite. Last BM 02/16 - I/O 1.3/2.2L GENERAL ASSESSMENT: Plan: Neuro/Psych # Acute Postoperative Pain - Minimize sedatives opioids. PRN Robaxin. Ultram PRN. - Multi-modal pain regimen - Delirium precautions Pulm # Acute Respiratory Insufficiency # Atelectasis (post-operative) # Acute Pulmonary Edema # Suspected MARIO/OHS # Suspected COPD - Tobacco abuse - Reviewed CXR - Supplemental O2 to keep SPO2 > 94%, sating well on NC - Diuresis as below - Pulm Hygiene CVS # CAD - s/p 1V CAB (STEPHEN to LAD) # NSTEMI # HTN # PVC - Unable to bypass RCA and circumflex, will eventually need repeat evaluation with cardiology for possible PCI - TTE w NL LVSF - Goal MAP >65, SBP <130 - Pacer wires in place, not requiring pacing - Cont DAPT/statin, Coreg - Cont Lasix 40mg IV q12hrs - d/w CTS Cards GI * Ileus/Constipation (resolved) - Tolerating cardiac diet. - Cont bowel regimen Renal # ASTER - BL Cr 0.7 - Monitor UOP Cr trend - Diuretics as above - Electrolyte protocol, maintain K >4.0, Phos >3.0, Mg >2.0 ID # Perioperative SIRS - s/p perioperative abx per protocol - No concerns for infection at present, monitor fever curve Endo # NIDDM - Strict glycemic control postoperatively, maintain goal BS 140-180 - Hypoglycemia protocol Heme # Acute Blood Loss Anemia - Transfuse for goal Hgb >7.0, platelets >10k or 20k with bleeding, and fibrinogen >150 MSK * Deconditioning - PT/OT following PPX - DVT: LSQ - GI: None GOC - Code: FULL per patient - Advance Care Planning: None per patient Medications reviewed with ICU pharmacist Patient is critically ill and at risk of imminent life threatening injury or -- OBJECTIVE -- VITALS (02/16 08:28 - 02/17 08:28): Temperature F: 98.6 (98.4 - 99.2) Temperature source: Oral Pulse Rate 78 (72 - 98) Respiratory rate: 15 (9 - 29) Blood pressure: 120/56 (94/46 - 149/71) Blood pressure source: Monitor I/Os (02/16 07:00 - 02/17 07:00): Net -940.00 Intake 1,380.00 Output 2,320 -EXAM- OTHER: Objective - General - Drowsy, oriented x3. No distress Heart - RRR, Soft S1 S2, no murmur Chest - Decrease air entry on the lower zones w bibasilar crackles. No wheezes Abd - Soft, lax, NT, but mild discomfort, ND, -ve BS LE - No LE edema Skin - No rash Neck - Supple, non tender -- DATA -- MEDICATIONS hydrALAZINE HCL 5 MG IV Q6HR PRN ONDANSETRON HCL/PF 4 MG IV Q6H PRN bisacodyL 10 MG RECTAL ASDIR PRN ACETAMINOPHEN 650 MG PO Q4H PRN DEXTROSE 50%-WATER 25 ML IV ASDIR (PRN) clopidogreL 75 MG PO DAILY ENOXAPARIN SODIUM 40 MG SUBQ DAILY FERROUS SULFATE 325 MG PO DAILY POTASSIUM CHLORIDE 20 MEQ IV ASDIR (PRN) METOPROLOL TARTRATE 5 MG IV Q6H PRN LACTULOSE 30 ML PO ASDIR PRN LACTULOSE 30 ML PO ASDIR PRN LACTULOSE 30 ML PO BID PRN CYANOCOBALAMIN 500 MCG PO DAILY MAG HYDROX/AL HYDROX/SIMETH 30 ML PO Q4H PRN ATORVASTATIN CALCIUM 40 MG PO BEDTIME INSULIN LISPRO MEDIUM DOSE SS SUBQ Q6HR traMADol HCL 25 MG PO Q6H PRN ASPIRIN 81 MG PO DAILY traMADol HCL 50 MG PO Q6H PRN LIDOCAINE 1 PATCH TRANSDERM DAILY GLUCAGON 1 MG IM ASDIR (PRN) POTASSIUM CHLORIDE 20 MEQ PO ASDIR (PRN) ONDANSETRON 4 MG PO Q6H PRN CALCIUM GLUC IN NACL, ISO-OSM 2 GM IV ASDIR PRN FUROSEMIDE 40 MG IV BID@0500,1700 NITROGLYCERIN 0.4 MG SL Q5M PRN SODIUM CHLORIDE 10 mL 10 ML IV ASDIR MAGNESIUM 1 GM IV ASDIR PRN IPRATROPIUM/ALBUTEROL SULFATE 3 ML NEB RTQ6H polyethylene glycoL 3350 1 PKT PO BID POTASSIUM CHLORIDE IN WATER 10 MEQ IV ASDIR (PRN) POTASSIUM CHLORIDE 20 MEQ PO ASDIR (PRN) DOCUSATE SODIUM 200 MG PO DAILY carvediloL 12.5 MG PO Q12HR SODIUM BICARBONATE 8.4% 50 MEQ IV ASDIR PRN cloNIDine HCL 0.1 MG PO Q8H PRN LABS PROTHROMBIN TIME (02/18/24 03:25) PROTHROMBIN TIME PATIENT 13.3 H INTERNATIONAL NORMAL RATIO 1.19 H MAG (02/18/24 03:25) MAGNESIUM 1.8 PTT (02/18/24 03:25) THROMBOPLASTIN TIME PARTIAL 24.5 PHOS (02/18/24 03:25) PHOSPHOROUS 3.7 COMPREHENSIVE METABOLIC PANEL (02/18/24 03:25) SODIUM 136 POTASSIUM 3.3 L CHLORIDE 99 CARBON DIOXIDE 32 H GLUCOSE 121 H BLOOD UREA NITROGEN 17 GLOMERULAR FILTRATION RATE 59 L CREATININE 1.00 TOTAL PROTEIN 5.3 L ALBUMIN 3.3 CALCIUM 8.4 L BILIRUBIN TOTAL 1.3 H SGOT/AST 33 SGPT/ALT 25 ALKALINE PHOSPHATASE 86.0 CBC W/AUTO DIFF (02/18/24 03:25) WHITE BLOOD CELL 6.6 RED BLOOD CELL 3.57 L HEMOGLOBIN 10.6L L HEMATOCRIT 31.6L L MEAN CELL VOLUME 88.5 MEAN CELL HGB 29.7 MEAN CELL HGB CONCENTRATION 33.5 RED CELL DISTRIBUTION WIDTH 16.1 PLATELET COUNT 108L L MEAN PLATELET VOLUME 12.2 NEUTROPHIL % 63.6 LYMPHOCYTE % 20.8 MONOCYTE % 9.3 EOSINOPHIL % 5.2 BASOPHIL % 0.5 NEUTROPHIL # 4.17 LYMPHOCYTE # 1.36 MONOCYTE # 0.61 EOSINOPHIL # 0.34 BASOPHIL # 0.03 -- ATTESTATION -- CARE ACTIVITIES / CARE COORDINATION: - I have reviewed the history and repeated the escobar elements - I have seen and examined this patient - I have reviewed the progress in the clinical course since the last examination - I have discussed the patient's condition with other members of the care team Signed in PatientKeeper by Lea Fontanez MD on 02/18/24 at 13:17 at 1317 ATTENTION *EDITS and/or ADDENDA must be made in Patient Keeper for this note. * * Edits and ammendments created in [facility] are not visible * * in Patient Keeper or the legal medical record (HPF). * RPT #: [id number] END OF REPORT [facility] 2024-02-18 07:29:00 [facility] ([facility]) Cardiology Progress Notes REPORT #: [id number] REPORT STATUS: Signed DATE: 02/18/24 TIME: 728 PATIENT: MITA CARBONE UNIT #: [id number] ROOM #: P.0308 BED: 1 : 49 AGE: 73 SEX: F ATTEND: Flavio Ballesteros MD ADM AUTHOR: Cristiano Torres DO CF1 ATTENTION *EDITS and/or ADDENDA must be made in Patient Keeper for this note. * * Edits and ammendments created in [facility] are not visible * * in Patient Keeper or the legal medical record (HPF). * -- CO-SIGNATURE -- COMMENTS: I have seen and examined the patient with the power plant inspector, Cristiano Torres DO on 02/18/2024. I have reviewed all the clinical information, lab investigations, and imaging data. I agree with the following examination, findings, assessment and plan. I was present and supervised. Signed in PatientKeeper by DEJAH PARKER MD on 02/21/24 at 06:34 -- ASSESSMENT AND PLAN -- GENERAL ASSESSMENT: A/P: Mrs. Paco Olson is a 73-year-old female (Tanzanian speaking, patient of Dr. Chavez) has a PMHx of cardiomyopathy, hypertension, hyperlipidemia, diabetes, family history of coronary artery disease, h/o smoking who was having left-sided chest pain, shortness of breath and tiredness for the past couple of months. She was evaluated by her management internship and had a CTA of the coronaries on 12/2023 and showed a calcium score of 1885, with severe ostial/proximal 3 vessel coronary artery disease. She was taken to [facility] for selective coronary angiogram and showed calcified arteries left main and severe three-vessel coronary artery disease. She was referred for CABG evaluation to CV surgery, Dr. Rebollar. She presented at [facility] with worsening previously mentioned symptoms. Chest x-ray showed apparent widening of the mediastinum and may be positional, cardiac silhouette appears enlarged, there appears to be mild central pulmonary vascular congestion as well. Labs showed negative troponin, LDL 101, BNP 85. She is being admitted for further evaluation and management. Dx: Multivessel CAD s/p CABG x1 STEPHEN to LAD on 02/12/2024 Anemia Thrombocytopenia HTN HLD T2DM Tobacco use Prediabetes Obesity Non-sustained VT 02/10 TTE: 55-59%, no RWMA, G1DD 02/11: S/p CABG x1, STEPHEN to LAD 02/14: 2 Chest tubes removed by CT surgery Plan: -Continue ASA/plavix and Atorvastatin 40 mg -Continue carvedilol 12.5 twice daily -Continue lasix IV 40 BID -Monitor I/Os -Encourage patient out of bed, PT/OT/IS -Continue ICU level of care and hemodynamic monitoring -Continue to monitor cardiac telemetry Discussed with Dr. Pakrer. -- SUBJECTIVE -- HPI: No acute events overnight. Pt satting well on 3L NC, fluid status improving. Continue diuresis. Continue to encourage OOB, PT/OT/IS. -REVIEW OF SYSTEMS- COMMENT: As per in HPI. -- OBJECTIVE -- VITALS (02/16 07:29 - 02/17 07:29): Temperature F: 98.6 (98.4 - 99.2) Temperature source: Oral Pulse Rate 78 (72 - 98) Respiratory rate: 15 (9 - 29) Blood pressure: 120/56 (94/46 - 149/71) Blood pressure source: Monitor I/Os (02/16 07:00 - 02/17 07:00): Net -940.00 Intake 1,380.00 Output 2,320 -EXAM- GENERAL: Well developed, well nourished, in no apparent distress. HEAD: Normocephalic, atraumatic. EYES: PERRL, EOM intact, conjunctiva and sclera clear, without nystagmus, lids normal. MOUTH: Oropharynx without deformities or lesions, normal mucosa.. CHEST: Sternotomy with overlying bandage LUNGS: Clear bilaterally with normal respiratory effort. HEART: Regular rate and rhythm, normal S1, S2, no murmurs, no rubs, no gallops, no clicks. ABDOMEN: Soft, non-tender, no organomegaly, no masses noted. EXTREMITIES: No clubbing, no cyanosis, no edema. NEUROLOGICAL: Alert and oriented, no focal neuro deficits. PULSES: Pulses normal in all extremities. SKIN: Intact without significant lesions, or rashes. -- DATA -- MEDICATIONS hydrALAZINE HCL 5 MG IV Q6HR PRN ONDANSETRON HCL/PF 4 MG IV Q6H PRN bisacodyL 10 MG RECTAL ASDIR PRN ACETAMINOPHEN 650 MG PO Q4H PRN DEXTROSE 50%-WATER 25 ML IV ASDIR (PRN) clopidogreL 75 MG PO DAILY ENOXAPARIN SODIUM 40 MG SUBQ DAILY FERROUS SULFATE 325 MG PO DAILY METOPROLOL TARTRATE 5 MG IV Q6H PRN LACTULOSE 30 ML PO ASDIR PRN LACTULOSE 30 ML PO ASDIR PRN LACTULOSE 30 ML PO BID PRN CYANOCOBALAMIN 500 MCG PO DAILY MAG HYDROX/AL HYDROX/SIMETH 30 ML PO Q4H PRN ATORVASTATIN CALCIUM 40 MG PO BEDTIME POTASSIUM CHLORIDE 20 MEQ IV ASDIR (PRN) INSULIN LISPRO MEDIUM DOSE SS SUBQ Q6HR traMADol HCL 25 MG PO Q6H PRN ASPIRIN 81 MG PO DAILY traMADol HCL 50 MG PO Q6H PRN LIDOCAINE 1 PATCH TRANSDERM DAILY GLUCAGON 1 MG IM ASDIR (PRN) ONDANSETRON 4 MG PO Q6H PRN CALCIUM GLUC IN NACL, ISO-OSM 2 GM IV ASDIR PRN FUROSEMIDE 40 MG IV BID@0500,1700 NITROGLYCERIN 0.4 MG SL Q5M PRN SODIUM CHLORIDE 10 mL 10 ML IV ASDIR MAGNESIUM 1 GM IV ASDIR PRN IPRATROPIUM/ALBUTEROL SULFATE 3 ML NEB RTQ6H polyethylene glycoL 3350 1 PKT PO BID DOCUSATE SODIUM 200 MG PO DAILY carvediloL 12.5 MG PO Q12HR SODIUM BICARBONATE 8.4% 50 MEQ IV ASDIR PRN cloNIDine HCL 0.1 MG PO Q8H PRN LABS PROTHROMBIN TIME (02/18/24 03:25) PROTHROMBIN TIME PATIENT 13.3 H INTERNATIONAL NORMAL RATIO 1.19 H MAG (02/18/24 03:25) MAGNESIUM 1.8 PTT (02/18/24 03:25) THROMBOPLASTIN TIME PARTIAL 24.5 PHOS (02/18/24 03:25) PHOSPHOROUS 3.7 COMPREHENSIVE METABOLIC PANEL (02/18/24 03:25) SODIUM 136 POTASSIUM 3.3 L CHLORIDE 99 CARBON DIOXIDE 32 H GLUCOSE 121 H BLOOD UREA NITROGEN 17 GLOMERULAR FILTRATION RATE 59 L CREATININE 1.00 TOTAL PROTEIN 5.3 L ALBUMIN 3.3 CALCIUM 8.4 L BILIRUBIN TOTAL 1.3 H SGOT/AST 33 SGPT/ALT 25 ALKALINE PHOSPHATASE 86.0 CBC W/AUTO DIFF (02/18/24 03:25) WHITE BLOOD CELL 6.6 RED BLOOD CELL 3.57 L HEMOGLOBIN 10.6L L HEMATOCRIT 31.6L L MEAN CELL VOLUME 88.5 MEAN CELL HGB 29.7 MEAN CELL HGB CONCENTRATION 33.5 RED CELL DISTRIBUTION WIDTH 16.1 PLATELET COUNT 108L L MEAN PLATELET VOLUME 12.2 NEUTROPHIL % 63.6 LYMPHOCYTE % 20.8 MONOCYTE % 9.3 EOSINOPHIL % 5.2 BASOPHIL % 0.5 NEUTROPHIL # 4.17 LYMPHOCYTE # 1.36 MONOCYTE # 0.61 EOSINOPHIL # 0.34 BASOPHIL # 0.03 Signed in PatientKeeper by Cristiano Torres on 02/18/24 at 11:14 Cosigned by DEJAH PARKER MD on 02/21/24 at 06:34 at 0634 at 0634 ATTENTION *EDITS and/or ADDENDA must be made in Patient Keeper for this note. * * Edits and ammendments created in [facility] are not visible * * in Patient Keeper or the legal medical record (HPF). * [facility] #: [id number] END OF REPORT [facility] 2024-02-17 09:17:00 [facility] ([facility]) Cardiology Progress Notes REPORT #: [id number] REPORT STATUS: Signed DATE: 02/17/24 TIME: 916 PATIENT: MITA CARBONE UNIT #: [id number] ROOM #: [facility] BED: 1 : 49 AGE: 73 SEX: F ATTEND: Flavio Ballesteros MD ADM AUTHOR: Destin Yost MD CF1 ATTENTION *EDITS and/or ADDENDA must be made in Patient Keeper for this note. * * Edits and ammendments created in [facility] are not visible * * in Patient Keeper or the legal medical record (HPF). * -- CO-SIGNATURE -- COMMENTS: I have personally seen and examined the patient independently, and reviewed the patient's history, exam, and all cardiac and laboratory data. I agree with the history, physical, and the assessment and plan as outlined by power plant inspector Dr. Destin Yost MD. I was present and supervised. Signed in PatientKeeper by JAZZY JENKINS MD on 02/18/24 at 15:29 -- ASSESSMENT AND PLAN -- GENERAL ASSESSMENT: A/P: Mrs. Paco Olson is a 73-year-old female (Tanzanian speaking, patient of Dr. Chavez) has a PMHx of cardiomyopathy, hypertension, hyperlipidemia, diabetes, family history of coronary artery disease, h/o smoking who was having left-sided chest pain, shortness of breath and tiredness for the past couple of months. She was evaluated by her management internship and had a CTA of the coronaries on 12/2023 and showed a calcium score of 1885, with severe ostial/proximal 3 vessel coronary artery disease. She was taken to [facility] for selective coronary angiogram and showed calcified arteries left main and severe three-vessel coronary artery disease. She was referred for CABG evaluation to CV surgery, Dr. Rebollar. She presented at [facility] ER with worsening previously mentioned symptoms. Chest x-ray showed apparent widening of the mediastinum and may be positional, cardiac silhouette appears enlarged, there appears to be mild central pulmonary vascular congestion as well. Labs showed negative troponin, LDL 101, BNP 85. She is being admitted for further evaluation and management. Dx: Multivessel CAD s/p CABG x1 STEPHEN to LAD on 02/12/2024 Anemia Thrombocytopenia HTN HLD T2DM Tobacco use Prediabetes Obesity Non-sustained VT 02/10 TTE: 55-59%, no RWMA, G1DD Cardiac telemetry was reviewed, No non-sustained VT episodes since last night Plan: -S/p CABG x1, STEPHEN to LAD on 02/11 -[address] chest tubes removed by CT surgery on 02/15/2024 -Continue ASA/plavix and Atorvastatin 40 mg -Continue carvedilol 12.5 twice daily -Continue lasix IV 40 BID -Monitor I/Os -Encouraged out of bed, PT/OT/IS -Continue ICU level of care and hemodynamic monitoring -Continue to monitor cardiac telemetry Discussed with Dr. Jenkins. -- SUBJECTIVE -- -REVIEW OF SYSTEMS- COMMENT: As per in HPI. -- OBJECTIVE -- VITALS (02/15 09:17 - 02/16 09:17): Temperature F: 98.2 (97.5 - 98.6) Temperature source: Oral Pulse Rate 78 (78 - 101) Respiratory rate: 15 (12 - 39) Blood pressure: 99/50 (87/48 - 130/70) Blood pressure source: Monitor I/Os (02/15 07:00 - 02/16 07:00): Net -1,745.00 Intake 330.00 Output 2,075 -EXAM- GENERAL: Well developed, well nourished, in no apparent distress, On 2 L nasal cannula oxygen HEAD: Normocephalic, atraumatic. EYES: PERRL, EOM intact, conjunctiva and sclera clear, without nystagmus, lids normal. MOUTH: Oropharynx without deformities or lesions, normal mucosa.. CHEST: Sternotomy with overlying bandage LUNGS: Clear bilaterally with normal respiratory effort. HEART: Regular rate and rhythm, normal S1, S2, no murmurs, ABDOMEN: Soft, non-tender, no organomegaly, no masses noted. EXTREMITIES: No clubbing, no cyanosis, no edema. NEUROLOGICAL: Alert and oriented, no focal neuro deficits. PULSES: Pulses normal in all extremities. SKIN: Intact without significant lesions, or rashes. -- DATA -- MEDICATIONS hydrALAZINE HCL 5 MG IV Q6HR PRN ONDANSETRON HCL/PF 4 MG IV Q6H PRN bisacodyL 10 MG RECTAL ASDIR PRN ACETAMINOPHEN 650 MG PO Q4H PRN DEXTROSE 50%-WATER 25 ML IV ASDIR (PRN) clopidogreL 75 MG PO DAILY FERROUS SULFATE 325 MG PO DAILY METOPROLOL TARTRATE 5 MG IV Q6H PRN ENOXAPARIN SODIUM 40 MG SUBQ BID LACTULOSE 30 ML PO ASDIR PRN LACTULOSE 30 ML PO ASDIR PRN LACTULOSE 30 ML PO BID PRN CYANOCOBALAMIN 500 MCG PO DAILY MAG HYDROX/AL HYDROX/SIMETH 30 ML PO Q4H PRN ATORVASTATIN CALCIUM 40 MG PO BEDTIME POTASSIUM CHLORIDE 20 MEQ IV ASDIR (PRN) INSULIN LISPRO MEDIUM DOSE SS SUBQ Q6HR traMADol HCL 25 MG PO Q6H PRN ASPIRIN 81 MG PO DAILY traMADol HCL 50 MG PO Q6H PRN LIDOCAINE 1 PATCH TRANSDERM DAILY GLUCAGON 1 MG IM ASDIR (PRN) ONDANSETRON 4 MG PO Q6H PRN CALCIUM GLUC IN NACL, ISO-OSM 2 GM IV ASDIR PRN FUROSEMIDE 40 MG IV BID@0500,1700 NITROGLYCERIN 0.4 MG SL Q5M PRN SENNOSIDES 2 TAB PO BID SODIUM CHLORIDE 10 mL 10 ML IV ASDIR MAGNESIUM 1 GM IV ASDIR PRN IPRATROPIUM/ALBUTEROL SULFATE 3 ML NEB RTQ6H polyethylene glycoL 3350 1 PKT PO BID DOCUSATE SODIUM 200 MG PO DAILY carvediloL 12.5 MG PO Q12HR SODIUM BICARBONATE 8.4% 50 MEQ IV ASDIR PRN cloNIDine HCL 0.1 MG PO Q8H PRN LABS GLU BED (02/17/24 06:53) GLUBED 137 H PROTHROMBIN TIME (02/17/24 03:32) PROTHROMBIN TIME PATIENT 15.2 H INTERNATIONAL NORMAL RATIO 1.37 D H MAG (02/17/24 03:32) MAGNESIUM 1.7 PHOS (02/17/24 03:32) PHOSPHOROUS 3.6 PTT (02/17/24 03:32) THROMBOPLASTIN TIME PARTIAL 29.9 COMPREHENSIVE METABOLIC PANEL (02/17/24 03:32) SODIUM 138 POTASSIUM 3.5 CHLORIDE 99 CARBON DIOXIDE 37 H GLUCOSE 116 H BLOOD UREA NITROGEN 22 GLOMERULAR FILTRATION RATE 53 L CREATININE 1.10 H TOTAL PROTEIN 5.2 L ALBUMIN 3.4 CALCIUM 8.8 BILIRUBIN TOTAL 1.3 H SGOT/AST 48 H SGPT/ALT 31 ALKALINE PHOSPHATASE 89.0 CBC W/AUTO DIFF (02/17/24 03:32) WHITE BLOOD CELL 6.1 RED BLOOD CELL 3.43 L HEMOGLOBIN 10.1L L HEMATOCRIT 31.1L L MEAN CELL VOLUME 90.7 MEAN CELL HGB 29.4 MEAN CELL HGB CONCENTRATION 32.5 L RED CELL DISTRIBUTION WIDTH 16.0 PLATELET COUNT 99L L MEAN PLATELET VOLUME 12.0 NEUTROPHIL % 65.4 LYMPHOCYTE % 21.1 MONOCYTE % 8.9 EOSINOPHIL % 3.6 BASOPHIL % 0.3 NEUTROPHIL # 3.98 LYMPHOCYTE # 1.28 MONOCYTE # 0.54 EOSINOPHIL # 0.22 BASOPHIL # 0.02 GLU BED (02/17/24 00:56) GLUBED 129 H PHOS (02/16/24 18:00) PHOSPHOROUS 3.0 MAG (02/16/24 18:00) MAGNESIUM 2.0 BASIC METABOLIC PANEL (02/16/24 18:00) SODIUM 139 POTASSIUM 3.5 CHLORIDE 98 CARBON DIOXIDE 36H H GLUCOSE 148H H BLOOD UREA NITROGEN 20 GLOMERULAR FILTRATION RATE 43 L CREATININE 1.30H H CALCIUM 8.0 L CBC W/AUTO DIFF (02/16/24 18:00) WHITE BLOOD CELL 6.0 RED BLOOD CELL 3.56 L HEMOGLOBIN 10.6L L HEMATOCRIT 32.4L L MEAN CELL VOLUME 91.0 MEAN CELL HGB 29.8 MEAN CELL HGB CONCENTRATION 32.7 L RED CELL DISTRIBUTION WIDTH 16.0 PLATELET COUNT 106L L MEAN PLATELET VOLUME 12.0 NEUTROPHIL % 74.5 LYMPHOCYTE % 13.9 L MONOCYTE % 8.4 EOSINOPHIL % 2.2 BASOPHIL % 0.3 NEUTROPHIL # 4.50 LYMPHOCYTE # 0.84 L MONOCYTE # 0.51 EOSINOPHIL # 0.13 BASOPHIL # 0.02 GLU BED (02/16/24 11:58) GLUBED 232 H Signed in PatientKeeper by DESTIN YOST MD CF1 on 02/17/24 at 09:23 Cosigned by JAZZY JENKINS MD on 02/18/24 at 15:29 at 1529 at 1529 ATTENTION *EDITS and/or ADDENDA must be made in Patient Keeper for this note. * * Edits and ammendments created in [facility] are not visible * * in Patient Keeper or the legal medical record (HPF). * RPT #: [id number] END OF REPORT [facility] 2024-02-17 08:49:00 [facility] ([facility]) Intensive Care Progress Note REPORT #: [id number] REPORT STATUS: Signed DATE: 02/17/24 TIME: 848 PATIENT: MITA CARBONE UNIT #: [id number] ROOM #: P.0308 BED: 1 : 49 AGE: 73 SEX: F ATTEND: Flavio Ballesteros MD ADM AUTHOR: Lea Fontanez MD ATTENTION *EDITS and/or ADDENDA must be made in Patient Keeper for this note. * * Edits and ammendments created in [facility] are not visible * * in Patient Keeper or the legal medical record (HPF). * -- ASSESSMENT AND PLAN -- HOSPITAL COURSE TO DATE: Patient is a 73-year old female with PMH notable for CAD, HTN, heart failure with preserved ejection fraction, non-insulin dependent diabetes, nicotine abuse, and morbid obesity initially admitted on 01/30 for preoperative optimization in preparation for coronary bypass. Patient admitted to CVICU postoperatively following single vessel coronary bypass (STEPHEN to LAD). 02/11: s/p single vessel coronary bypass (STEPHEN to LAD), transferred to CVICU for postoperative management; extubated to NC 02/14: chest tubes removed - Uneventful Night - Mentating Well. - Sating well on 3L NC - Tolerating PO intake, improving appetite. Last BM 02/15 - I/O 0.3/1.9L GENERAL ASSESSMENT: Plan: Neuro/Psych # Acute Postoperative Pain - Minimize sedatives opioids. d/c Robaxin. Switch [place] to Ultram - Multi-modal pain regimen - Delirium precautions Pulm # Acute Respiratory Insufficiency # Atelectasis (post-operative) # Acute Pulmonary Edema # Suspected MARIO/OHS # Suspected COPD - Tobacco abuse - Reviewed ABG CXR - Supplemental O2 to keep SPO2 > 94%, sating well on NC - Diuresis as below - Pulm Hygiene CVS # CAD - s/p 1V CAB (STEPHEN to LAD) # NSTEMI # HTN # PVC - Unable to bypass RCA and circumflex, will eventually need repeat evaluation with cardiology for possible PCI - TTE w NL LVSF - Reviewed EKG - Goal MAP >65, SBP <130 - Pacer wires in place, not requiring pacing - Cont DAPT/statin, Coreg - Cont Lasix 40mg IV q12hrs - d/w CTS Cards GI * Ileus/Constipation - Tolerating CLD w fluid restriction - Cont bowel regimen Renal # ASTER - BL Cr 0.7 - Monitor UOP Cr trend - Diuretics as above - Electrolyte protocol, maintain K >4.0, Phos >3.0, Mg >2.0 ID # Perioperative SIRS - s/p perioperative abx per protocol - No concerns for infection at present, monitor fever curve Endo # NIDDM - Strict glycemic control postoperatively, maintain goal BS 140-180 - Hypoglycemia protocol Heme # Acute Blood Loss Anemia - Transfuse for goal Hgb >7.0, platelets >10k or 20k with bleeding, and fibrinogen >150 MSK * Deconditioning - PT/OT following PPX - DVT: LSQ - GI: None GOC - Code: FULL per patient - Advance Care Planning: None per patient Medications reviewed with ICU pharmacist Patient is critically ill and at risk of imminent life threatening injury or -- OBJECTIVE -- VITALS (02/15 08:49 - 02/16 08:49): Temperature F: 98.2 (97.5 - 98.6) Temperature source: Oral Pulse Rate 78 (78 - 101) Respiratory rate: 15 (12 - 39) Blood pressure: 99/50 (87/48 - 130/70) Blood pressure source: Monitor I/Os (02/15 07:00 - 02/16 07:00): Net -1,745.00 Intake 330.00 Output 2,075 -EXAM- OTHER: Objective - General - Drowsy, oriented x3. No distress Heart - RRR, Soft S1 S2, no murmur Chest - Decrease air entry on the lower zones w bibasilar crackles. No wheezes Abd - Soft, lax, NT, but mild discomfort, ND, -ve BS LE - No LE edema Skin - No rash Neck - Supple, non tender -- DATA -- MEDICATIONS hydrALAZINE HCL 5 MG IV Q6HR PRN ONDANSETRON HCL/PF 4 MG IV Q6H PRN bisacodyL 10 MG RECTAL ASDIR PRN ACETAMINOPHEN 650 MG PO Q4H PRN DEXTROSE 50%-WATER 25 ML IV ASDIR (PRN) clopidogreL 75 MG PO DAILY FERROUS SULFATE 325 MG PO DAILY METOPROLOL TARTRATE 5 MG IV Q6H PRN ENOXAPARIN SODIUM 40 MG SUBQ BID LACTULOSE 30 ML PO ASDIR PRN LACTULOSE 30 ML PO ASDIR PRN LACTULOSE 30 ML PO BID PRN CYANOCOBALAMIN 500 MCG PO DAILY MAG HYDROX/AL HYDROX/SIMETH 30 ML PO Q4H PRN ATORVASTATIN CALCIUM 40 MG PO BEDTIME POTASSIUM CHLORIDE 20 MEQ IV ASDIR (PRN) INSULIN LISPRO MEDIUM DOSE SS SUBQ Q6HR traMADol HCL 25 MG PO Q6H PRN ASPIRIN 81 MG PO DAILY traMADol HCL 50 MG PO Q6H PRN LIDOCAINE 1 PATCH TRANSDERM DAILY GLUCAGON 1 MG IM ASDIR (PRN) ONDANSETRON 4 MG PO Q6H PRN CALCIUM GLUC IN NACL, ISO-OSM 2 GM IV ASDIR PRN FUROSEMIDE 40 MG IV BID@0500,1700 NITROGLYCERIN 0.4 MG SL Q5M PRN SENNOSIDES 2 TAB PO BID SODIUM CHLORIDE 10 mL 10 ML IV ASDIR MAGNESIUM 1 GM IV ASDIR PRN IPRATROPIUM/ALBUTEROL SULFATE 3 ML NEB RTQ6H polyethylene glycoL 3350 1 PKT PO BID MUPIROCIN 1 APPLIC NASAL BID DOCUSATE SODIUM 200 MG PO DAILY carvediloL 12.5 MG PO Q12HR SODIUM BICARBONATE 8.4% 50 MEQ IV ASDIR PRN cloNIDine HCL 0.1 MG PO Q8H PRN LABS GLU BED (02/17/24 06:53) GLUBED 137 H PROTHROMBIN TIME (02/17/24 03:32) PROTHROMBIN TIME PATIENT 15.2 H INTERNATIONAL NORMAL RATIO 1.37 D H MAG (02/17/24 03:32) MAGNESIUM 1.7 PHOS (02/17/24 03:32) PHOSPHOROUS 3.6 PTT (02/17/24 03:32) THROMBOPLASTIN TIME PARTIAL 29.9 COMPREHENSIVE METABOLIC PANEL (02/17/24 03:32) SODIUM 138 POTASSIUM 3.5 CHLORIDE 99 CARBON DIOXIDE 37 H GLUCOSE 116 H BLOOD UREA NITROGEN 22 GLOMERULAR FILTRATION RATE 53 L CREATININE 1.10 H TOTAL PROTEIN 5.2 L ALBUMIN 3.4 CALCIUM 8.8 BILIRUBIN TOTAL 1.3 H SGOT/AST 48 H SGPT/ALT 31 ALKALINE PHOSPHATASE 89.0 CBC W/AUTO DIFF (02/17/24 03:32) WHITE BLOOD CELL 6.1 RED BLOOD CELL 3.43 L HEMOGLOBIN 10.1L L HEMATOCRIT 31.1L L MEAN CELL VOLUME 90.7 MEAN CELL HGB 29.4 MEAN CELL HGB CONCENTRATION 32.5 L RED CELL DISTRIBUTION WIDTH 16.0 PLATELET COUNT 99L L MEAN PLATELET VOLUME 12.0 NEUTROPHIL % 65.4 LYMPHOCYTE % 21.1 MONOCYTE % 8.9 EOSINOPHIL % 3.6 BASOPHIL % 0.3 NEUTROPHIL # 3.98 LYMPHOCYTE # 1.28 MONOCYTE # 0.54 EOSINOPHIL # 0.22 BASOPHIL # 0.02 GLU BED (02/17/24 00:56) GLUBED 129 H PHOS (02/16/24 18:00) PHOSPHOROUS 3.0 MAG (02/16/24 18:00) MAGNESIUM 2.0 BASIC METABOLIC PANEL (02/16/24 18:00) SODIUM 139 POTASSIUM 3.5 CHLORIDE 98 CARBON DIOXIDE 36H H GLUCOSE 148H H BLOOD UREA NITROGEN 20 GLOMERULAR FILTRATION RATE 43 L CREATININE 1.30H H CALCIUM 8.0 L CBC W/AUTO DIFF (02/16/24 18:00) WHITE BLOOD CELL 6.0 RED BLOOD CELL 3.56 L HEMOGLOBIN 10.6L L HEMATOCRIT 32.4L L MEAN CELL VOLUME 91.0 MEAN CELL HGB 29.8 MEAN CELL HGB CONCENTRATION 32.7 L RED CELL DISTRIBUTION WIDTH 16.0 PLATELET COUNT 106L L MEAN PLATELET VOLUME 12.0 NEUTROPHIL % 74.5 LYMPHOCYTE % 13.9 L MONOCYTE % 8.4 EOSINOPHIL % 2.2 BASOPHIL % 0.3 NEUTROPHIL # 4.50 LYMPHOCYTE # 0.84 L MONOCYTE # 0.51 EOSINOPHIL # 0.13 BASOPHIL # 0.02 GLU BED (02/16/24 11:58) GLUBED 232 H -- ATTESTATION -- CARE ACTIVITIES / CARE COORDINATION: - I have reviewed the history and repeated the escobar elements - I have seen and examined this patient - I have reviewed the progress in the clinical course since the last examination - I have discussed the patient's condition with other members of the care team Signed in PatientKeeper by Lea Fontanez MD on 02/17/24 at 14:09 at 1409 ATTENTION *EDITS and/or ADDENDA must be made in Patient Keeper for this note. * * Edits and ammendments created in [facility] are not visible * * in Patient Keeper or the legal medical record ([facility]). * [facility] #: [id number] END OF REPORT [facility] 2024-02-17 05:34:00 [id number] [place] [address] PATIENT NAME: MITA CARBONE ADMIT DATE: 01/30/24 ACCOUNT NO: [id number] ROOM NO: P.0308 AGE: 73 REPORT TYPE: eELECTROCARDIOGRAM SEX: F ADMITTING PHYSICIAN: Flavio Ballesteros MD ATTENDING PHYSICIAN: Flavio Ballesteros MD Order: [id number] Test Reason : CHEST PAIN Test Date/Time Stamp: SunFeb 17 2024 05:34:37 Blood Pressure : / mmHG Vent. Rate : 086 BPM Atrial Rate : 086 BPM P-R Int : 152 ms QRS Dur : 094 ms QT Int : 396 ms P-R-T Axes : 029 048 097 degrees QTc Int : 473 ms Normal sinus rhythm Nonspecific ST and T wave abnormality Confirmed by fellow Marisel Cueto ([id number]) on 02/19/2024 7:16:05 AM Confirmed by SATISH MORENO ([id number]) on 02/19/2024 10:17:58 AM Referred By: Flavio Ballesteros Confirmed by:SATISH MORENO at [id number] PATIENT NAME: MITA CARBONE [facility] 2024-02-16 09:39:00 [facility] ([facility]) Cardiology Progress Notes REPORT #: [id number] REPORT STATUS: Signed DATE: 02/16/24 TIME: 938 PATIENT: MITA CARBONE UNIT #: [id number] ROOM #: P.0308 BED: 1 : 49 AGE: 73 SEX: F ATTEND: Flavio Ballesteros MD ADM AUTHOR: Destin Yost MD CF1 ATTENTION *EDITS and/or ADDENDA must be made in Patient Keeper for this note. * * Edits and ammendments created in [facility] are not visible * * in Patient Keeper or the legal medical record ([facility]). * -- CO-SIGNATURE -- COMMENTS: I have personally seen and examined the patient independently, and reviewed the patient's history, exam, and all cardiac and laboratory data. I agree with the history, physical, and the assessment and plan as outlined by power plant inspector Dr. Destin Yost MD. I was present and supervised. Signed in PatientKeeper by JAZZY JENKINS MD on 02/18/24 at 15:44 -- ASSESSMENT AND PLAN -- GENERAL ASSESSMENT: A/P: Mrs. Paco Olson is a 73-year-old female (Tanzanian speaking, patient of Dr. Chavez) has a PMHx of cardiomyopathy, hypertension, hyperlipidemia, diabetes, family history of coronary artery disease, h/o smoking who was having left-sided chest pain, shortness of breath and tiredness for the past couple of months. She was evaluated by her management internship and had a CTA of the coronaries on 12/2023 and showed a calcium score of 1885, with severe ostial/proximal 3 vessel coronary artery disease. She was taken to [facility] for selective coronary angiogram and showed calcified arteries left main and severe three-vessel coronary artery disease. She was referred for CABG evaluation to CV surgery, Dr. Rebollar. She presented at [facility] with worsening previously mentioned symptoms. Chest x-ray showed apparent widening of the mediastinum and may be positional, cardiac silhouette appears enlarged, there appears to be mild central pulmonary vascular congestion as well. Labs showed negative troponin, LDL 101, BNP 85. She is being admitted for further evaluation and management. Dx: Multivessel CAD s/p CABG x1 [facility]PH[facility] to LAD on 02/12/2024 Anemia Thrombocytopenia HTN HLD T2DM Tobacco use Prediabetes Obesity Non-sustained VT 02/10 TTE: 55-59%, no RWMA, G1DD Cardiac telemetry was reviewed which showed multiple non-sustained VT episodes Plan: -S/p CABG x1 02/[address] Rebollar; STEPH[facility] to LAD -S/p 1U PRBC, 1L IVFs, 1 cell saver -Required Epi briefly during and post procedure; now off -[address], removed by CT surgery on 02/15/2024 -Doing well post-CABG; continue excellent care -ASA/plavix and High dose statin -Increased carvedilol from 6.25 to 12.5 twice daily -Continue lasix IV 40 BID -Monitor I/Os -Encourage out of bed, PT/OT/IS -Continue ICU level of care and hemodynamic monitoring -Continue to monitor cardiac telemetry Discussed with Dr. Jenkins. -- SUBJECTIVE -- -REVIEW OF SYSTEMS- COMMENT: As per in HPI. -- OBJECTIVE -- VITALS (02/14 09:39 - 02/15 09:39): Temperature F: 98.2 (98.2 - 99.0) Temperature source: Oral Pulse Rate 92 (82 - 108) Respiratory rate: 21 (4 - 23) Blood pressure: 125/66 (99/53 - 139/69) Blood pressure source: Monitor I/Os (02/14 07:00 - 02/15 07:00): Net -2,005.00 Intake 2,175.00 Output 4,180 ADDITIONAL V/S: Patient was seen at bedside, Cardiac telemetry showed multiple non sustained VT episodes -EXAM- GENERAL: Well developed, well nourished, in no apparent distress. HEAD: Normocephalic, atraumatic. EYES: PERRL, EOM intact, conjunctiva and sclera clear, without nystagmus, lids normal. MOUTH: Oropharynx without deformities or lesions, normal mucosa.. CHEST: Sternotomy with overlying bandage LUNGS: Clear bilaterally with normal respiratory effort. HEART: Regular rate and rhythm, normal S1, S2, no murmurs, no rubs, no gallops, no clicks. ABDOMEN: Soft, non-tender, no organomegaly, no masses noted. EXTREMITIES: No clubbing, no cyanosis, no edema. NEUROLOGICAL: Alert and oriented, no focal neuro deficits. PULSES: Pulses normal in all extremities. SKIN: Intact without significant lesions, or rashes. -- DATA -- MEDICATIONS hydrALAZINE HCL 5 MG IV Q6HR PRN ONDANSETRON HCL/PF 4 MG IV Q6H PRN bisacodyL 10 MG RECTAL ASDIR PRN ACETAMINOPHEN 650 MG PO Q4H PRN DEXTROSE 50%-WATER 25 ML IV ASDIR (PRN) clopidogreL 75 MG PO DAILY FERROUS SULFATE 325 MG PO DAILY METOPROLOL TARTRATE 5 MG IV Q6H PRN ENOXAPARIN SODIUM 40 MG SUBQ BID LACTULOSE 30 ML PO ASDIR PRN LACTULOSE 30 ML PO ASDIR PRN LACTULOSE 30 ML PO BID PRN CYANOCOBALAMIN 500 MCG PO DAILY MAG HYDROX/AL HYDROX/SIMETH 30 ML PO Q4H PRN ATORVASTATIN CALCIUM 40 MG PO BEDTIME POTASSIUM CHLORIDE 20 MEQ IV ASDIR (PRN) INSULIN LISPRO MEDIUM DOSE SS SUBQ Q6HR HYDROcodone BITARTRATE/APAP 1 TAB PO Q6H PRN ASPIRIN 81 MG PO DAILY LIDOCAINE 1 PATCH TRANSDERM DAILY GLUCAGON 1 MG IM ASDIR (PRN) methocarbamoL 500 MG PO TID ONDANSETRON 4 MG PO Q6H PRN CALCIUM GLUC IN NACL, ISO-OSM 2 GM IV ASDIR PRN FUROSEMIDE 40 MG IV BID@0500,1700 NITROGLYCERIN 0.4 MG SL Q5M PRN SODIUM CHLORIDE 10 mL 10 ML IV ASDIR MAGNESIUM 1 GM IV ASDIR PRN polyethylene glycoL 3350 1 PKT PO DAILY IPRATROPIUM/ALBUTEROL SULFATE 3 ML NEB RTQ6H HYDROcodone BITARTRATE/APAP 1 TAB PO Q6H PRN MUPIROCIN 1 APPLIC NASAL BID DOCUSATE SODIUM 200 MG PO DAILY carvediloL 12.5 MG PO Q12HR SODIUM BICARBONATE 8.4% 50 MEQ IV ASDIR PRN cloNIDine HCL 0.1 MG PO Q8H PRN LABS GLU BED (02/16/24 08:42) GLUBED 107 H CBC W/AUTO DIFF (02/16/24 01:34) WHITE BLOOD CELL 6.5 RED BLOOD CELL 3.35 L HEMOGLOBIN 9.9D L D L HEMATOCRIT 30.0L L MEAN CELL VOLUME 89.6 D MEAN CELL HGB 29.6 MEAN CELL HGB CONCENTRATION 33.0 RED CELL DISTRIBUTION WIDTH 15.8 PLATELET COUNT 87L L MEAN PLATELET VOLUME 12.0 NEUTROPHIL % 70.7 LYMPHOCYTE % 17.3 L MONOCYTE % 7.8 EOSINOPHIL % 3.4 BASOPHIL % 0.3 NEUTROPHIL # 4.62 LYMPHOCYTE # 1.13 MONOCYTE # 0.51 EOSINOPHIL # 0.22 BASOPHIL # 0.02 PTT (02/16/24 01:34) THROMBOPLASTIN TIME PARTIAL 36.3 H PROTHROMBIN TIME (02/16/24 01:34) PROTHROMBIN TIME PATIENT 20.0 H INTERNATIONAL NORMAL RATIO 1.81 H MAG (02/16/24 01:34) MAGNESIUM 1.8 COMPREHENSIVE METABOLIC PANEL (02/16/24 01:34) SODIUM 138 POTASSIUM 3.6 CHLORIDE 98 CARBON DIOXIDE 34 H GLUCOSE 96 BLOOD UREA NITROGEN 16 GLOMERULAR FILTRATION RATE 53 L CREATININE 1.10 H TOTAL PROTEIN 5.3 L ALBUMIN 3.5 CALCIUM 8.4 L BILIRUBIN TOTAL 1.6 H SGOT/AST 28 SGPT/ALT 14 ALKALINE PHOSPHATASE 80.0 PHOS (02/16/24 01:34) PHOSPHOROUS 3.0 GLU BED (02/15/24 23:31) GLUBED 109 H MAG (02/15/24 18:56) MAGNESIUM 1.9 BASIC METABOLIC PANEL (02/15/24 18:56) SODIUM 136 POTASSIUM 4.1 CHLORIDE 99 CARBON DIOXIDE 31 GLUCOSE 131H H BLOOD UREA NITROGEN 13 GLOMERULAR FILTRATION RATE 53 L CREATININE 1.10H H CALCIUM 8.1 L PHOS (02/15/24 18:56) PHOSPHOROUS 2.8 GLU BED (02/15/24 16:05) GLUBED 113 H Signed in PatientKeeper by DESTIN YOST MD CF1 on 02/16/24 at 09:50 Cosigned by JAZZY JENKINS MD on 02/18/24 at 15:44 at 1544 at 1544 ATTENTION *EDITS and/or ADDENDA must be made in Patient Keeper for this note. * * Edits and ammendments created in [facility] are not visible * * in Patient Keeper or the legal medical record ([facility]). * RPT #: [id number] END OF REPORT [facility] 2024-02-16 08:25:00 [facility] ([facility]) Intensive Care Progress Note REPORT #: [id number] REPORT STATUS: Signed DATE: 02/16/24 TIME: 824 PATIENT: MITA CARBONE UNIT #: [id number] ROOM #: P.0308 BED: 1 : 49 AGE: 73 SEX: F ATTEND: Flavio Ballesteros MD ADM AUTHOR: Lea Fontanez MD ATTENTION *EDITS and/or ADDENDA must be made in Patient Keeper for this note. * * Edits and ammendments created in [facility] are not visible * * in Patient Keeper or the legal medical record ([facility]). * -- ASSESSMENT AND PLAN -- HOSPITAL COURSE TO DATE: Patient is a 73-year old female with PMH notable for CAD, HTN, heart failure with preserved ejection fraction, non-insulin dependent diabetes, nicotine abuse, and morbid obesity initially admitted on 01/30 for preoperative optimization in preparation for coronary bypass. Patient admitted to CVICU postoperatively following single vessel coronary bypass (STEPHEN to LAD). 02/11: s/p single vessel coronary bypass (STEPHEN to LAD), transferred to CVICU for postoperative management; extubated to NC 02/14: chest tubes removed - Uneventful Night - Mentating Well. - Sating well on 3L NC - Tolerating PO intake, w a poor appetite. Last BM, none (prior to procedure) - I/O 2.0/4.0L GENERAL ASSESSMENT: Plan: Neuro/Psych # Acute Postoperative Pain - Minimize sedatives opioids. d/c Robaxin. Switch [place] to Ultram - Multi-modal pain regimen - Delirium precautions Pulm # Acute Respiratory Insufficiency # Atelectasis (post-operative) # Acute Pulmonary Edema # Suspected MARIO/OHS # Suspected COPD - Tobacco abuse - Reviewed ABG CXR - Supplemental O2 to keep SPO2 > 94%, sating well on NC - Diuresis as below - Pulm Hygiene CVS # CAD - s/p 1V CAB (STEPHEN to LAD) # NSTEMI # HTN # PVC - Unable to bypass RCA and circumflex, will eventually need repeat evaluation with cardiology for possible PCI - TTE w NL LVSF - Reviewed EKG - Goal MAP >65, SBP <130 - Pacer wires in place, not requiring pacing - Cont DAPT/statin, Coreg - Cont Lasix 40mg IV q12hrs - WIllc consider amio if becoming more frequent - d/w CTS Cards GI * Ileus/Constipation - Check KUB - Tolerating CLD w fluid restriction - Intensify bowel regimen. Add Senna suppositories Renal # ASTER - BL Cr 0.7 - Monitor UOP Cr trend - Diuretics as above - Electrolyte protocol, maintain K >4.0, Phos >3.0, Mg >2.0 ID # Perioperative SIRS - s/p perioperative abx per protocol - No concerns for infection at present, monitor fever curve Endo # NIDDM - Strict glycemic control postoperatively, maintain goal BS 140-180 - Hypoglycemia protocol Heme #Acute Blood Loss Anemia -Transfuse for goal Hgb >7.0, platelets >10k or 20k with bleeding, and fibrinogen >150 MSK * Deconditioning - PT/OT following PPX - DVT: LSQ - GI: None GOC - Code: FULL per patient - Advance Care Planning: None per patient Medications reviewed with ICU pharmacist Patient is critically ill and at risk of imminent life threatening injury or -- OBJECTIVE -- VITALS (02/14 08:25 - 02/15 08:25): Temperature F: 98.2 (98.2 - 99.0) Temperature source: Oral Pulse Rate 90 (84 - 108) Respiratory rate: 17 (4 - 22) Blood pressure: 131/63 (99/55 - 139/69) Blood pressure source: Monitor I/Os (02/14 07:00 - 02/15 07:00): Net -2,025.00 Intake 1,975.00 Output 4,000 -EXAM- OTHER: Objective - General - Drowsy, oriented x3. No distress Heart - RRR, Soft S1 S2, no murmur Chest - Decrease air entry on the lower zones w bibasilar crackles. No wheezes Abd - Soft, lax, NT, but mild discomfort, ND, -ve BS LE - No LE edema Skin - No rash Neck - Supple, non tender -- DATA -- MEDICATIONS hydrALAZINE HCL 5 MG IV Q6HR PRN ONDANSETRON HCL/PF 4 MG IV Q6H PRN bisacodyL 10 MG RECTAL ASDIR PRN ACETAMINOPHEN 650 MG PO Q4H PRN DEXTROSE 50%-WATER 25 ML IV ASDIR (PRN) clopidogreL 75 MG PO DAILY FERROUS SULFATE 325 MG PO DAILY METOPROLOL TARTRATE 5 MG IV Q6H PRN ENOXAPARIN SODIUM 40 MG SUBQ BID LACTULOSE 30 ML PO ASDIR PRN LACTULOSE 30 ML PO ASDIR PRN LACTULOSE 30 ML PO BID PRN CYANOCOBALAMIN 500 MCG PO DAILY MAG HYDROX/AL HYDROX/SIMETH 30 ML PO Q4H PRN ATORVASTATIN CALCIUM 40 MG PO BEDTIME POTASSIUM CHLORIDE 20 MEQ IV ASDIR (PRN) INSULIN LISPRO MEDIUM DOSE SS SUBQ Q6HR HYDROcodone BITARTRATE/APAP 1 TAB PO Q6H PRN ASPIRIN 81 MG PO DAILY LIDOCAINE 1 PATCH TRANSDERM DAILY GLUCAGON 1 MG IM ASDIR (PRN) methocarbamoL 500 MG PO TID ONDANSETRON 4 MG PO Q6H PRN CALCIUM GLUC IN NACL, ISO-OSM 2 GM IV ASDIR PRN FUROSEMIDE 40 MG IV BID@0500,1700 NITROGLYCERIN 0.4 MG SL Q5M PRN SODIUM CHLORIDE 10 mL 10 ML IV ASDIR MAGNESIUM 1 GM IV ASDIR PRN polyethylene glycoL 3350 1 PKT PO DAILY IPRATROPIUM/ALBUTEROL SULFATE 3 ML NEB RTQ6H HYDROcodone BITARTRATE/APAP 1 TAB PO Q6H PRN MUPIROCIN 1 APPLIC NASAL BID DOCUSATE SODIUM 200 MG PO DAILY carvediloL 12.5 MG PO Q12HR SODIUM BICARBONATE 8.4% 50 MEQ IV ASDIR PRN cloNIDine HCL 0.1 MG PO Q8H PRN LABS CBC W/AUTO DIFF (02/16/24 01:34) WHITE BLOOD CELL 6.5 RED BLOOD CELL 3.35 L HEMOGLOBIN 9.9D L D L HEMATOCRIT 30.0L L MEAN CELL VOLUME 89.6 D MEAN CELL HGB 29.6 MEAN CELL HGB CONCENTRATION 33.0 RED CELL DISTRIBUTION WIDTH 15.8 PLATELET COUNT 87L L MEAN PLATELET VOLUME 12.0 NEUTROPHIL % 70.7 LYMPHOCYTE % 17.3 L MONOCYTE % 7.8 EOSINOPHIL % 3.4 BASOPHIL % 0.3 NEUTROPHIL # 4.62 LYMPHOCYTE # 1.13 MONOCYTE # 0.51 EOSINOPHIL # 0.22 BASOPHIL # 0.02 PTT (02/16/24 01:34) THROMBOPLASTIN TIME PARTIAL 36.3 H PROTHROMBIN TIME (02/16/24 01:34) PROTHROMBIN TIME PATIENT 20.0 H INTERNATIONAL NORMAL RATIO 1.81 H MAG (02/16/24 01:34) MAGNESIUM 1.8 COMPREHENSIVE METABOLIC PANEL (02/16/24 01:34) SODIUM 138 POTASSIUM 3.6 CHLORIDE 98 CARBON DIOXIDE 34 H GLUCOSE 96 BLOOD UREA NITROGEN 16 GLOMERULAR FILTRATION RATE 53 L CREATININE 1.10 H TOTAL PROTEIN 5.3 L ALBUMIN 3.5 CALCIUM 8.4 L BILIRUBIN TOTAL 1.6 H SGOT/AST 28 SGPT/ALT 14 ALKALINE PHOSPHATASE 80.0 PHOS (02/16/24 01:34) PHOSPHOROUS 3.0 GLU BED (02/15/24 23:31) GLUBED 109 H MAG (02/15/24 18:56) MAGNESIUM 1.9 BASIC METABOLIC PANEL (02/15/24 18:56) SODIUM 136 POTASSIUM 4.1 CHLORIDE 99 CARBON DIOXIDE 31 GLUCOSE 131H H BLOOD UREA NITROGEN 13 GLOMERULAR FILTRATION RATE 53 L CREATININE 1.10H H CALCIUM 8.1 L PHOS (02/15/24 18:56) PHOSPHOROUS 2.8 GLU BED (02/15/24 16:05) GLUBED 113 H -- ATTESTATION -- CARE ACTIVITIES / CARE COORDINATION: - I have reviewed the history and repeated the escobar elements - I have seen and examined this patient - I have reviewed the progress in the clinical course since the last examination - I have discussed the patient's condition with other members of the care team Signed in PatientKeeper by Lea Fontanez MD on 02/16/24 at 13:02 at 1302 ATTENTION *EDITS and/or ADDENDA must be made in Patient Keeper for this note. * * Edits and ammendments created in [facility] are not visible * * in Patient Keeper or the legal medical record ([facility]). * [facility] #: [id number] END OF REPORT [facility] 2024-02-16 06:51:00 [id number] [facility] [address] [place] [address] PATIENT NAME: MITA CARBONE ADMIT DATE: 01/30/24 ACCOUNT NO: [id number] ROOM NO: P.0308 AGE: 73 REPORT TYPE: eELECTROCARDIOGRAM SEX: F ADMITTING PHYSICIAN: Flavio Ballesteros MD ATTENDING PHYSICIAN: Flavio Ballesteros MD Order: [id number] Test Reason : ABNORMAL TELE MONITOR Test Date/Time Stamp: SunFeb 16 2024 06:51:37 Blood Pressure : / mmHG Vent. Rate : 091 BPM Atrial Rate : 091 BPM P-R Int : 156 ms QRS Dur : 092 ms QT Int : 380 ms P-R-T Axes : 018 048 107 degrees QTc Int : 467 ms Sinus rhythm with premature atrial complexes Nonspecific ST and T wave abnormality Confirmed by fellow Marisel Cueto ([id number]) on 02/19/2024 7:12:34 AM Confirmed by SATISH MORENO ([id number]) on 02/19/2024 10:19:51 AM Referred By: Flavio Ballesteros Confirmed by:SATISH MORENO at [id number] PATIENT NAME: MITA CARBONE [facility] 2024-02-15 08:25:00 [facility] ([facility]) Intensive Care Progress Note REPORT #: [id number] REPORT STATUS: Signed DATE: 02/15/24 TIME: 824 PATIENT: MITA CARBONE UNIT #: [id number] ROOM #: P.0308 BED: 1 : 49 AGE: 73 SEX: F ATTEND: Flavio Ballesteros MD ADM AUTHOR: Suhas Self MD ATTENTION *EDITS and/or ADDENDA must be made in Patient Keeper for this note. * * Edits and ammendments created in [facility] are not visible * * in Patient Keeper or the legal medical record ([facility]). * -- ASSESSMENT AND PLAN -- HOSPITAL COURSE TO DATE: Patient is a 73-year old female with PMH notable for CAD, HTN, heart failure with preserved ejection fraction, non-insulin dependent diabetes, nicotine abuse, and morbid obesity initially admitted on 01/30 for preoperative optimization in preparation for coronary bypass. Patient admitted to CVICU postoperatively following single vessel coronary bypass (STEPHEN to LAD). 02/11: s/p single vessel coronary bypass (STEPHEN to LAD), transferred to CVICU for postoperative management; extubated to NC 02/14: chest tubes removed GENERAL ASSESSMENT: Plan: Pain/Sedation #Acute Postoperative Pain -Continue multi-modal pain regimen Neuro/Psych -Exam non-focal, appropriate mood/affect -Neurochecks per protocol -Delirium precautions Respiratory #Acute Respiratory Insufficiency #Atelectasis #Pulmonary Edema -Saturating well on NC, wean as tolerated, goal SpO2 >92% -Chest tubes removed -Poor inspiratory effort, extensive counseling on IS/flutter and ambulation -Diuresis to maintain net negative -Serial CXRs, CPT, pulmonary hygiene, encourage IS/flutter Cardiovascular #CAD s/p 1V CAB (STEPHEN to LAD) #NSTEMI #HTN -Unable to bypass RCA and circumflex, will eventually need repeat evaluation with cardiology for possible PCI -Pre- and Post-op TTE: normal LV function -Hemodynamically stable, off vasoactive agents -Goal MAP >65, SBP <120-30 -Pacer wires in place, not requiring pacing -Continue DAPT/statin, Coreg 6.25mg BID, increase as tolerated -Increase to Lasix 40mg IV BID to maintain net negative -Cardiothoracic surgery and cardiology following Gastrointestinal/Nutrition -Continue CLD with fluid restriction, advance pending bowel movement -Post-op bowel regimen Renal #ASTER -Baseline ASTER Cr 0.7, increased to 1.1, now appears stable -No acute indications for BUSINESS SERVICES CLERK, remains non-oliguric -Continue diuresis with close monitoring for now -Maintain Jones for strict I/O postoperatively -Electrolyte protocol, maintain K >4.0, Phos >3.0, Mg >2.0 Infectious Disease #Perioperative SIRS -Completed perioperative abx per protocol -No concerns for infection at present, monitor fever curve Endocrine #NIDDM -Strict glycemic control postoperatively, maintain goal BS 140-180 -Hypoglycemia protocol HEME #Acute Blood Loss Anemia -H/H downtrending, remains without evidence of bleeding -Plan to transfuse 2 PRBCs and follow up repeat H/H -Transfuse for goal Hgb >7.0, platelets >10k or 20k with bleeding, and fibrinogen >150 MSK -PT/OT following PPX -DVT: LSQ -GI: None GOC -Code: FULL per patient -Advance Care Planning: None per patient Dispo: Continue ICU level care Medications reviewed with ICU pharmacist Patient is critically ill and at risk of imminent life threatening injury or -- SUBJECTIVE -- PATIENT NARRATIVE: Hgb decreased to 6.6, ordered for 2 PRBCs but patient declined. Counseling provided. On evaluation today, patient now amenable. Otherwise remains hemodynamically stable. Still with ongoing operative site pain. -- OBJECTIVE -- VITALS (02/13 06:10 - 02/14 06:10): Temperature F: 98.4 (97.6 - 98.6) Temperature source: Oral Pulse Rate 104 (96 - 126) Respiratory rate: 11 (8 - 32) Blood pressure: 130/59 (79/35 - 150/96) Blood pressure source: Monitor I/Os (02/12 07:00 - 02/13 07:00): Net 899.60 Intake 3,292.60 Output 2,393 -EXAM- OTHER: General: Obese, Tanzanian-speaking female, AAOx4, responds appropriately, follows commands, in NAD HEENT: NCAT, EOMI, clear conjunctiva, PERRLA, moist oral mucosa Neck: No JVD CV: RRR, no murmurs Lung: Bilateral rales, poor air entry bilaterally, unlabored breathing on RA, no wheezing/rhonchi GI: Soft, NT/ND, no rebound, positive bowel sounds Neuro: No focal deficits appreciated MSK: Strength equal and symmetric bilaterally Extremities: Trace pedal edema and warm bilaterally Skin: Sternotomy incision C/D/I, no rashes or lesions Psych: Appropriate mood and affect -- DATA -- MEDICATIONS hydrALAZINE HCL 5 MG IV Q6HR PRN ONDANSETRON HCL/PF 4 MG IV Q6H PRN bisacodyL 10 MG RECTAL ASDIR PRN ACETAMINOPHEN 650 MG PO Q4H PRN DEXTROSE 50%-WATER 25 ML IV ASDIR (PRN) clopidogreL 75 MG PO DAILY HYDROmorphone HCL 0.5 MG IV Q3H PRN carvediloL 3.125 MG PO Q12HR FERROUS SULFATE 325 MG PO DAILY METOPROLOL TARTRATE 5 MG IV Q6H PRN ENOXAPARIN SODIUM 40 MG SUBQ BID LACTULOSE 30 ML PO ASDIR PRN LACTULOSE 30 ML PO ASDIR PRN LACTULOSE 30 ML PO BID PRN CYANOCOBALAMIN 500 MCG PO DAILY (DC'd) methocarbamoL 500 MG PO TID MAG HYDROX/AL HYDROX/SIMETH 30 ML PO Q4H PRN ATORVASTATIN CALCIUM 40 MG PO BEDTIME POTASSIUM CHLORIDE 20 MEQ IV ASDIR (PRN) INSULIN LISPRO MEDIUM DOSE SS SUBQ Q6HR HYDROcodone BITARTRATE/APAP 1 TAB PO Q6H PRN ASPIRIN 81 MG PO DAILY LIDOCAINE 1 PATCH TRANSDERM DAILY GLUCAGON 1 MG IM ASDIR (PRN) methocarbamoL 500 MG PO TID ONDANSETRON 4 MG PO Q6H PRN CALCIUM GLUC IN NACL, ISO-OSM 2 GM IV ASDIR PRN NITROGLYCERIN 0.4 MG SL Q5M PRN SODIUM CHLORIDE 10 mL 10 ML IV ASDIR MAGNESIUM 1 GM IV ASDIR PRN polyethylene glycoL 3350 1 PKT PO DAILY IPRATROPIUM/ALBUTEROL SULFATE 3 ML NEB RTQ6H HYDROcodone BITARTRATE/APAP 1 TAB PO Q6H PRN MUPIROCIN 1 APPLIC NASAL BID BUMETANIDE 0.5 MG IV ONCE ACETAMINOPHEN 650 MG RECTAL Q4H PRN FUROSEMIDE 40 MG IV DAILY DOCUSATE SODIUM 200 MG PO DAILY SODIUM BICARBONATE 8.4% 50 MEQ IV ASDIR PRN cloNIDine HCL 0.1 MG PO Q8H PRN LABS VENOUS BLOOD GAS (02/15/24 04:11) VENOUS BLOOD GAS PH 7.34 L VENOUS BLOOD GAS PCO2 52.8 VENOUS BLOOD GAS PO2 28.9 VBG HCO3 28 VBG BASE EXCESS 1.6 VENOUS BLOOD GAS O2 SAT 54 VENOUS BLOOD GAS TYPE Venous VENOUS BLOOD GAS FIO2 36.0 VBG VENT MODE Ventilator CBC W/AUTO DIFF (02/15/24 04:01) WHITE BLOOD CELL 6.1 RED BLOOD CELL 2.22 L HEMOGLOBIN 6.6*L *L HEMATOCRIT 20.9L L MEAN CELL VOLUME 94.1 MEAN CELL HGB 29.7 MEAN CELL HGB CONCENTRATION 31.6 L RED CELL DISTRIBUTION WIDTH 14.9 PLATELET COUNT 66L L MEAN PLATELET VOLUME 12.5 H NEUTROPHIL % 72.8 LYMPHOCYTE % 14.5 L MONOCYTE % 7.1 EOSINOPHIL % 4.6 BASOPHIL % 0.5 NEUTROPHIL # 4.40 LYMPHOCYTE # 0.88 L MONOCYTE # 0.43 EOSINOPHIL # 0.28 BASOPHIL # 0.03 BASIC METABOLIC PANEL (02/15/24 04:01) SODIUM 136 POTASSIUM 3.9 CHLORIDE 101 CARBON DIOXIDE 33H H GLUCOSE 101 BLOOD UREA NITROGEN 15 GLOMERULAR FILTRATION RATE 53 L CREATININE 1.10H H CALCIUM 8.1 L MAG (02/15/24 04:01) MAGNESIUM 2.1 PHOS (02/15/24 04:01) PHOSPHOROUS 2.9 GLU BED (02/14/24 23:30) GLUBED 101 CBC W/AUTO DIFF (02/14/24 21:20) WHITE BLOOD CELL 7.5 RED BLOOD CELL 2.33 L HEMOGLOBIN 7.0L L HEMATOCRIT 21.8L L MEAN CELL VOLUME 93.6 MEAN CELL HGB 30.0 MEAN CELL HGB CONCENTRATION 32.1 L RED CELL DISTRIBUTION WIDTH 15.0 PLATELET COUNT 73L L MEAN PLATELET VOLUME 12.6 H NEUTROPHIL % 74.6 LYMPHOCYTE % 14.2 L MONOCYTE % 7.2 EOSINOPHIL % 3.1 BASOPHIL % 0.5 NEUTROPHIL # 5.60 LYMPHOCYTE # 1.07 MONOCYTE # 0.54 EOSINOPHIL # 0.23 BASOPHIL # 0.04 PHOS (02/14/24 21:20) PHOSPHOROUS 3.0 MAG (02/14/24 21:20) MAGNESIUM 1.9 BASIC METABOLIC PANEL (02/14/24 21:20) SODIUM 138 POTASSIUM 4.3 CHLORIDE 102 CARBON DIOXIDE 32H H GLUCOSE 108H H BLOOD UREA NITROGEN 15 GLOMERULAR FILTRATION RATE 48 L CREATININE 1.20H H CALCIUM 7.8 L BASIC METABOLIC PANEL (02/14/24 17:30) SODIUM 135L L POTASSIUM 4.2 CHLORIDE 102 CARBON DIOXIDE 32H H GLUCOSE 125H H BLOOD UREA NITROGEN 15 GLOMERULAR FILTRATION RATE 48 L CREATININE 1.20H H CALCIUM 8.2 L PHOS (02/14/24 17:30) PHOSPHOROUS 3.3 MAG (02/14/24 17:30) MAGNESIUM 1.9 GLU BED (02/14/24 12:24) GLUBED 157 H -- QUALITY -- -MEDICATIONS- - I attest that the foregoing medication list in the medical record is true, accurate, and complete to the best of my knowledge. -- ATTESTATION -- TIME SPENT ON PATIENT CARE: - Direct 59 minutes CARE ACTIVITIES / CARE COORDINATION: - I have reviewed the history and repeated the escobar elements - I have seen and examined this patient - I have reviewed the progress in the clinical course since the last examination - I have discussed the patient's condition with other members of the care team Signed in PatientKeeper by Suhas Self MD on 02/15/24 at 08:32 at 0832 ATTENTION *EDITS and/or ADDENDA must be made in Patient Keeper for this note. * * Edits and ammendments created in [facility] are not visible * * in Patient Keeper or the legal medical record ([facility]). * RPT #: [id number] END OF REPORT [facility] 2024-02-15 07:25:00 [facility] ([facility]) Cardiology Progress Notes REPORT #: [id number] REPORT STATUS: Signed DATE: 02/15/24 TIME: 724 PATIENT: MITA CARBONE UNIT #: [id number] ROOM #: P.0308 BED: 1 : 49 AGE: 73 SEX: F ATTEND: Flavio Ballesteros MD ADM AUTHOR: Cristiano Torres DO CF1 ATTENTION *EDITS and/or ADDENDA must be made in Patient Keeper for this note. * * Edits and ammendments created in [facility] are not visible * * in Patient Keeper or the legal medical record ([facility]). * -- CO-SIGNATURE -- COMMENTS: I have seen and examined the patient with the power plant inspector, Cristiano Torres DO on 02/15/2024. I have reviewed all the clinical information, lab investigations, and imaging data. I agree with the following examination, findings, assessment and plan. I was present and supervised. Signed in PatientKeeper by DEJAH PARKER MD on 02/21/24 at 06:33 -- ASSESSMENT AND PLAN -- GENERAL ASSESSMENT: A/P: Mrs. Paco Olson is a 73-year-old female (Tanzanian speaking, patient of Dr. Chavez) has a PMHx of cardiomyopathy, hypertension, hyperlipidemia, diabetes, family history of coronary artery disease, h/o smoking who was having left-sided chest pain, shortness of breath and tiredness for the past couple of months. She was evaluated by her management internship and had a CTA of the coronaries on 12/2023 and showed a calcium score of 1885, with severe ostial/proximal 3 vessel coronary artery disease. She was taken to [facility] for selective coronary angiogram and showed calcified arteries left main and severe three-vessel coronary artery disease. She was referred for CABG evaluation to CV surgery, Dr. Rebollar. She presented at [facility] with worsening previously mentioned symptoms. Chest x-ray showed apparent widening of the mediastinum and may be positional, cardiac silhouette appears enlarged, there appears to be mild central pulmonary vascular congestion as well. Labs showed negative troponin, LDL 101, BNP 85. She is being admitted for further evaluation and management. Dx: Multivessel CAD s/p CABG x1 STEPHEN to LAD on 02/11 Anemia Thrombocytopenia HTN HLD T2DM Tobacco use Prediabetes Obesity 02/10 TTE: 55-59%, no RWMA, G1DD Plan: -s/p CABG x1 02/[address] Rebollar; STEPHEN to LAD -s/p 1U PRBC, 1L IVFs, 1 cell saver -required Epi briefly during and post procedure; now off -[address], removal per CT surgery likely today -doing well post-CABG; continue excellent care -ASA/plavix and HI statin -Increased diuretics to lasix IV 40 BID today -monitor I/Os and tele -encourage out of bed, PT/OT/IS -continue ICU level of care and hemodynamic monitoring Discussed with Dr. Parker. -- SUBJECTIVE -- HPI: No acute events overnight. Tele reviewed. Pt refused PRBC overnight despite Hgb 6.6, was amenable to receiving after discussion today. Will increase diuretics to BID. CT surgery to remove chest tubes today. Encourge PT/OT/IS. -REVIEW OF SYSTEMS- COMMENT: As per in HPI. -- OBJECTIVE -- VITALS (02/13 07:25 - 02/14 07:25): Temperature F: 98.4 (97.6 - 98.6) Temperature source: Oral Pulse Rate 101 (96 - 126) Respiratory rate: 11 (8 - 32) Blood pressure: 114/57 (79/35 - 150/96) Blood pressure source: Monitor I/Os (02/13 07:00 - 02/14 07:00): Net -809.00 Intake 980.00 Output 1,789 -EXAM- GENERAL: Well developed, well nourished, in no apparent distress. HEAD: Normocephalic, atraumatic. EYES: PERRL, EOM intact, conjunctiva and sclera clear, without nystagmus, lids normal. MOUTH: Oropharynx without deformities or lesions, normal mucosa.. CHEST: Sternotomy with overlying bandage and chest tubes noted LUNGS: Clear bilaterally with normal respiratory effort. HEART: Regular rate and rhythm, normal S1, S2, no murmurs, no rubs, no gallops, no clicks. ABDOMEN: Soft, non-tender, no organomegaly, no masses noted. EXTREMITIES: No clubbing, no cyanosis, no edema. NEUROLOGICAL: Alert and oriented, no focal neuro deficits. PULSES: Pulses normal in all extremities. SKIN: Intact without significant lesions, or rashes. -- DATA -- MEDICATIONS hydrALAZINE HCL 5 MG IV Q6HR PRN ONDANSETRON HCL/PF 4 MG IV Q6H PRN bisacodyL 10 MG RECTAL ASDIR PRN ACETAMINOPHEN 650 MG PO Q4H PRN DEXTROSE 50%-WATER 25 ML IV ASDIR (PRN) clopidogreL 75 MG PO DAILY HYDROmorphone HCL 0.5 MG IV Q3H PRN carvediloL 3.125 MG PO Q12HR FERROUS SULFATE 325 MG PO DAILY METOPROLOL TARTRATE 5 MG IV Q6H PRN ENOXAPARIN SODIUM 40 MG SUBQ BID LACTULOSE 30 ML PO ASDIR PRN LACTULOSE 30 ML PO ASDIR PRN LACTULOSE 30 ML PO BID PRN CYANOCOBALAMIN 500 MCG PO DAILY (DC'd) methocarbamoL 500 MG PO TID MAG HYDROX/AL HYDROX/SIMETH 30 ML PO Q4H PRN ATORVASTATIN CALCIUM 40 MG PO BEDTIME POTASSIUM CHLORIDE 20 MEQ IV ASDIR (PRN) INSULIN LISPRO MEDIUM DOSE SS SUBQ Q6HR HYDROcodone BITARTRATE/APAP 1 TAB PO Q6H PRN ASPIRIN 81 MG PO DAILY LIDOCAINE 1 PATCH TRANSDERM DAILY GLUCAGON 1 MG IM ASDIR (PRN) methocarbamoL 500 MG PO TID ONDANSETRON 4 MG PO Q6H PRN CALCIUM GLUC IN NACL, ISO-OSM 2 GM IV ASDIR PRN NITROGLYCERIN 0.4 MG SL Q5M PRN SODIUM CHLORIDE 10 mL 10 ML IV ASDIR MAGNESIUM 1 GM IV ASDIR PRN polyethylene glycoL 3350 1 PKT PO DAILY IPRATROPIUM/ALBUTEROL SULFATE 3 ML NEB RTQ6H HYDROcodone BITARTRATE/APAP 1 TAB PO Q6H PRN MUPIROCIN 1 APPLIC NASAL BID ACETAMINOPHEN 650 MG RECTAL Q4H PRN FUROSEMIDE 40 MG IV DAILY DOCUSATE SODIUM 200 MG PO DAILY SODIUM BICARBONATE 8.4% 50 MEQ IV ASDIR PRN cloNIDine HCL 0.1 MG PO Q8H PRN LABS GLU BED (02/15/24 06:05) GLUBED 105 VENOUS BLOOD GAS (02/15/24 04:11) VENOUS BLOOD GAS PH 7.34 L VENOUS BLOOD GAS PCO2 52.8 VENOUS BLOOD GAS PO2 28.9 VBG HCO3 28 VBG BASE EXCESS 1.6 VENOUS BLOOD GAS O2 SAT 54 VENOUS BLOOD GAS TYPE Venous VENOUS BLOOD GAS FIO2 36.0 VBG VENT MODE Ventilator CBC W/AUTO DIFF (02/15/24 04:01) WHITE BLOOD CELL 6.1 RED BLOOD CELL 2.22 L HEMOGLOBIN 6.6*L *L HEMATOCRIT 20.9L L MEAN CELL VOLUME 94.1 MEAN CELL HGB 29.7 MEAN CELL HGB CONCENTRATION 31.6 L RED CELL DISTRIBUTION WIDTH 14.9 PLATELET COUNT 66L L MEAN PLATELET VOLUME 12.5 H NEUTROPHIL % 72.8 LYMPHOCYTE % 14.5 L MONOCYTE % 7.1 EOSINOPHIL % 4.6 BASOPHIL % 0.5 NEUTROPHIL # 4.40 LYMPHOCYTE # 0.88 L MONOCYTE # 0.43 EOSINOPHIL # 0.28 BASOPHIL # 0.03 BASIC METABOLIC PANEL (02/15/24 04:01) SODIUM 136 POTASSIUM 3.9 CHLORIDE 101 CARBON DIOXIDE 33H H GLUCOSE 101 BLOOD UREA NITROGEN 15 GLOMERULAR FILTRATION RATE 53 L CREATININE 1.10H H CALCIUM 8.1 L MAG (02/15/24 04:01) MAGNESIUM 2.1 PHOS (02/15/24 04:01) PHOSPHOROUS 2.9 GLU BED (02/14/24 23:30) GLUBED 101 CBC W/AUTO DIFF (02/14/24 21:20) WHITE BLOOD CELL 7.5 RED BLOOD CELL 2.33 L HEMOGLOBIN 7.0L L HEMATOCRIT 21.8L L MEAN CELL VOLUME 93.6 MEAN CELL HGB 30.0 MEAN CELL HGB CONCENTRATION 32.1 L RED CELL DISTRIBUTION WIDTH 15.0 PLATELET COUNT 73L L MEAN PLATELET VOLUME 12.6 H NEUTROPHIL % 74.6 LYMPHOCYTE % 14.2 L MONOCYTE % 7.2 EOSINOPHIL % 3.1 BASOPHIL % 0.5 NEUTROPHIL # 5.60 LYMPHOCYTE # 1.07 MONOCYTE # 0.54 EOSINOPHIL # 0.23 BASOPHIL # 0.04 PHOS (02/14/24 21:20) PHOSPHOROUS 3.0 MAG (02/14/24 21:20) MAGNESIUM 1.9 BASIC METABOLIC PANEL (02/14/24 21:20) SODIUM 138 POTASSIUM 4.3 CHLORIDE 102 CARBON DIOXIDE 32H H GLUCOSE 108H H BLOOD UREA NITROGEN 15 GLOMERULAR FILTRATION RATE 48 L CREATININE 1.20H H CALCIUM 7.8 L BASIC METABOLIC PANEL (02/14/24 17:30) SODIUM 135L L POTASSIUM 4.2 CHLORIDE 102 CARBON DIOXIDE 32H H GLUCOSE 125H H BLOOD UREA NITROGEN 15 GLOMERULAR FILTRATION RATE 48 L CREATININE 1.20H H CALCIUM 8.2 L PHOS (02/14/24 17:30) PHOSPHOROUS 3.3 MAG (02/14/24 17:30) MAGNESIUM 1.9 GLU BED (02/14/24 12:24) GLUBED 157 H Signed in PatientKeeper by Cristiano Torres DO [facility] on 02/15/24 at 14:37 Cosigned by DEJAH PARKER MD on 02/21/24 at 06:33 at 0633 at 0633 ATTENTION *EDITS and/or ADDENDA must be made in Patient Keeper for this note. * * Edits and ammendments created in [facility] are not visible * * in Patient Keeper or the legal medical record (HPF). * [facility] #: [id number] END OF REPORT [facility] 2024-02-14 11:05:00 [facility] ([facility]) Intensive Care Progress Note REPORT #: [id number] REPORT STATUS: Signed DATE: 02/14/24 TIME: 110 PATIENT: MITA CARBONE UNIT #: [id number] ROOM #: [id number] BED: 1 : 49 AGE: 73 SEX: F ATTEND: Flavio Ballesteros MD ADM AUTHOR: Suhas Self MD ATTENTION *EDITS and/or ADDENDA must be made in Patient Keeper for this note. * * Edits and ammendments created in [facility] are not visible * * in Patient Keeper or the legal medical record (HPF). * -- ASSESSMENT AND PLAN -- HOSPITAL COURSE TO DATE: Patient is a 73-year old female with PMH notable for CAD, HTN, heart failure with preserved ejection fraction, non-insulin dependent diabetes, nicotine abuse, and morbid obesity initially admitted on 01/30 for preoperative optimization in preparation for coronary bypass. Patient admitted to CVICU postoperatively following single vessel coronary bypass (STEPHEN to LAD). 02/11: s/p single vessel coronary bypass (STEPHEN to LAD), transferred to CVICU for postoperative management; extubated to [place] GENERAL ASSESSMENT: Plan: Pain/Sedation #Acute Postoperative Pain -Continue multi-modal pain regimen Neuro/Psych -Exam non-focal, appropriate mood/affect -Neurochecks per protocol -Delirium precautions Respiratory #Acute Respiratory Insufficiency -Saturating well on NC, wean as tolerated, goal SpO2 >92% -Plan for chest tube removal if able to ambulate, maintain to LIWS, monitor output -Diuresis to maintain net negative -Serial CXRs, CPT, pulmonary hygiene, encourage IS/flutter Cardiovascular #CAD s/p 1V CAB (STEPHEN to LAD) #NSTEMI #HTN -Unable to bypass RCA and circumflex, will eventually need repeat evaluation with cardiology for possible PCI -Pre- and Post-op TTE: normal LV function -Hemodynamically stable, off vasoactive agents -Goal MAP >65, SBP <120-30 -Pacer wires in place, not requiring pacing -Continue DAPT/statin, and Lasix 40mg IV QD to maintain net negative -Start low-dose Coreg 3.125mg Q12H, increase as tolerated -Cardiothoracic surgery and cardiology following Gastrointestinal/Nutrition -Continue CLD with fluid restriction, advance as tolerated -Post-op bowel regimen Renal #ASTER -Baseline ASTER Cr 0.7, increased to 1.1 -No acute indications for [employer] -Continue diuresis with close monitoring for now -Maintain Jones for strict I/O postoperatively -Electrolyte protocol, maintain K >4.0, Phos >3.0, Mg >2.0 Infectious Disease #Perioperative SIRS -Completed perioperative abx per protocol -No concerns for infection at present, monitor fever curve Endocrine #NIDDM -Strict glycemic control postoperatively, maintain goal BS 140-180 -Hypoglycemia protocol HEME #Acute Blood Loss Anemia -EBL 700cc, received 1 PRBC intraop -H/H downtrending, currently without evidence of bleeding -Transfuse for goal Hgb >7.0, platelets >10k or 20k with bleeding, and fibrinogen >150 MSK -PT/OT following PPX -DVT: LSQ -GI: None GOC -Code: FULL per patient -Advance Care Planning: None per patient Dispo: Continue ICU level care Medications reviewed with ICU pharmacist Patient is critically ill and at risk of imminent life threatening injury or -- SUBJECTIVE -- PATIENT NARRATIVE: Patient seen and examined. DANIELLEON. Patient reports ongoing pain in hip/knee and sternotomy. Not using incentive spirometer much and not able to get out of bed. Passing gas but no BM. Tolerating CLD. -- OBJECTIVE -- VITALS (02/12 06:24 - 02/13 06:24): Temperature F: 98.6 (97.8 - 98.6) Temperature source: Oral Pulse Rate 118 (100 - 122) Respiratory rate: 13 (11 - 41) Blood pressure: 125/56 (75/47 - 347/347) Blood pressure source: Arterial I/Os (02/11 07:00 - 02/12 07:00): Net 2,023.60 Intake 3,269.60 Output 1,246 -- DATA -- MEDICATIONS diphenhydrAMINE HCL 25 MG PO Q6H PRN hydrALAZINE HCL 5 MG IV Q6HR PRN ONDANSETRON HCL/PF 4 MG IV Q6H PRN bisacodyL 10 MG RECTAL ASDIR PRN traMADol HCL 50 MG PO Q6HR DEXTROSE 50%-WATER 25 ML IV ASDIR (PRN) clopidogreL 75 MG PO DAILY HYDROmorphone HCL 0.5 MG IV Q3H PRN METOPROLOL TARTRATE 5 MG IV Q6H PRN ENOXAPARIN SODIUM 40 MG SUBQ BID LACTULOSE 30 ML PO BID PRN CYANOCOBALAMIN 500 MCG PO DAILY MAG HYDROX/AL HYDROX/SIMETH 30 ML PO Q4H PRN ATORVASTATIN CALCIUM 40 MG PO BEDTIME POTASSIUM CHLORIDE 20 MEQ IV ASDIR (PRN) HYDROcodone BITARTRATE/APAP 1 TAB PO Q6H PRN ASPIRIN 81 MG PO DAILY (Held) METOPROLOL SUCCINATE 25 MG PO Q12HR LIDOCAINE 1 PATCH TRANSDERM DAILY ONDANSETRON 4 MG PO Q6H PRN NITROGLYCERIN 0.4 MG SL Q5M PRN MAGNESIUM 1 GM IV ASDIR PRN polyethylene glycoL 3350 1 PKT PO DAILY HYDROcodone BITARTRATE/APAP 1 TAB PO Q6H PRN MAGNESIUM HYDROXIDE 30 ML PO ASDIR PRN FUROSEMIDE 40 MG IV DAILY cloNIDine HCL 0.1 MG PO Q8H PRN EPINEPHrine HCL/D5W 4 MG IV ASDIR ACETAMINOPHEN 650 MG PO Q4H PRN ACETAMINOPHEN 650 MG PO Q6HR FERROUS SULFATE 325 MG PO DAILY LACTULOSE 30 ML PO ASDIR PRN LACTULOSE 30 ML PO ASDIR PRN INSULIN LISPRO MEDIUM DOSE SS SUBQ Q6HR niCARdipine HCL with/in SODIUM CHLORIDE 100 mL BAG 25 MG IV TITRATE GLUCAGON 1 MG IM ASDIR (PRN) CALCIUM GLUC IN NACL, ISO-OSM 2 GM IV ASDIR PRN SODIUM CHLORIDE 10 mL 10 ML IV ASDIR IPRATROPIUM/ALBUTEROL SULFATE 3 ML NEB RTQ6H MUPIROCIN 1 APPLIC NASAL BID ACETAMINOPHEN 650 MG RECTAL Q4H PRN DOCUSATE SODIUM 200 MG PO DAILY SODIUM BICARBONATE 8.4% 50 MEQ IV ASDIR PRN LABS GLU BED (02/14/24 05:40) GLUBED 132 H PHOS (02/14/24 04:16) PHOSPHOROUS 4.0 MAG (02/14/24 04:16) MAGNESIUM 2.0 PTT (02/14/24 04:16) THROMBOPLASTIN TIME PARTIAL 36.8 H BASIC METABOLIC PANEL (02/14/24 04:16) SODIUM 138 POTASSIUM 4.0 CHLORIDE 105 CARBON DIOXIDE 30 GLUCOSE 138H H BLOOD UREA NITROGEN 14 GLOMERULAR FILTRATION RATE 53 L CREATININE 1.10H H CALCIUM 8.5 L CBC W/AUTO DIFF (02/14/24 04:16) WHITE BLOOD CELL 7.6 RED BLOOD CELL 2.30 L HEMOGLOBIN 7.0L L HEMATOCRIT 21.3L L MEAN CELL VOLUME 92.6 MEAN CELL HGB 30.4 MEAN CELL HGB CONCENTRATION 32.9 L RED CELL DISTRIBUTION WIDTH 15.3 PLATELET COUNT 69L L MEAN PLATELET VOLUME 13.1 H NEUTROPHIL % 76.9 H LYMPHOCYTE % 12.8 L MONOCYTE % 7.8 EOSINOPHIL % 1.2 BASOPHIL % 0.4 NEUTROPHIL # 5.82 LYMPHOCYTE # 0.97 L MONOCYTE # 0.59 EOSINOPHIL # 0.09 BASOPHIL # 0.03 FIB (02/14/24 04:16) FIBRINOGEN 257 GLU BED (02/13/24 23:58) GLUBED 129 H MAG (02/13/24 21:46) MAGNESIUM 2.2 PHOS (02/13/24 21:46) PHOSPHOROUS 4.4 BASIC METABOLIC PANEL (02/13/24 21:46) SODIUM 138 POTASSIUM 4.2 CHLORIDE 107 CARBON DIOXIDE 29 GLUCOSE 142H H BLOOD UREA NITROGEN 14 GLOMERULAR FILTRATION RATE 53 L CREATININE 1.10H H CALCIUM 8.2 L LACTIC ACID (02/13/24 21:46) LACTIC ACID 1.20 CBC W/AUTO DIFF (02/13/24 21:46) WHITE BLOOD CELL 9.7 RED BLOOD CELL 2.54 L HEMOGLOBIN 7.5L L HEMATOCRIT 23.7L L MEAN CELL VOLUME 93.3 MEAN CELL HGB 29.5 MEAN CELL HGB CONCENTRATION 31.6 L RED CELL DISTRIBUTION WIDTH 15.4 PLATELET COUNT 71L L MEAN PLATELET VOLUME 13.0 H NEUTROPHIL % 78.2 H LYMPHOCYTE % 11.8 L MONOCYTE % 8.3 EOSINOPHIL % 0.8 BASOPHIL % 0.3 NEUTROPHIL # 7.59 LYMPHOCYTE # 1.15 MONOCYTE # 0.81 H EOSINOPHIL # 0.08 BASOPHIL # 0.03 BASIC METABOLIC PANEL (02/13/24 17:45) SODIUM 139 POTASSIUM 4.3 CHLORIDE 107 CARBON DIOXIDE 26 GLUCOSE 158H H BLOOD UREA NITROGEN 14 GLOMERULAR FILTRATION RATE 48 L CREATININE 1.20H H CALCIUM 8.3 L MAG (02/13/24 17:45) MAGNESIUM 1.9 PTT (02/13/24 17:45) THROMBOPLASTIN TIME PARTIAL 30.8 LACTIC ACID (02/13/24 17:45) LACTIC ACID 3.80 *H FIB (02/13/24 17:45) FIBRINOGEN 260 PHOS (02/13/24 17:45) PHOSPHOROUS 4.9 PROTHROMBIN TIME (02/13/24 17:45) PROTHROMBIN TIME PATIENT 17.7 H INTERNATIONAL NORMAL RATIO 1.59 D H CBC W/AUTO DIFF (02/13/24 17:45) WHITE BLOOD CELL 13.2H H RED BLOOD CELL 2.70 L HEMOGLOBIN 8.0L L HEMATOCRIT 25.3L L MEAN CELL VOLUME 93.7 MEAN CELL HGB 29.6 MEAN CELL HGB CONCENTRATION 31.6 L RED CELL DISTRIBUTION WIDTH 15.6 PLATELET COUNT 81L L MEAN PLATELET VOLUME 13.1 H NEUTROPHIL % 74.0 LYMPHOCYTE % 15.6 L MONOCYTE % 8.8 EOSINOPHIL % 0.5 BASOPHIL % 0.5 NEUTROPHIL # 9.79 H LYMPHOCYTE # 2.07 MONOCYTE # 1.17 H EOSINOPHIL # 0.06 BASOPHIL # 0.06 GLU BED (02/13/24 11:57) GLUBED 219 H -- QUALITY -- -MEDICATIONS- - I attest that the foregoing medication list in the medical record is true, accurate, and complete to the best of my knowledge. -- ATTESTATION -- TIME SPENT ON PATIENT CARE: - Critical Care: time spent apart from any procedure 49 minutes Patient was critically ill due to: Coronary artery disease/NSTEMI s/p single vessel coronary bypass, acute respiratory insufficiency. My treatment and management were: discussed on ICU multi-disciplinary rounds with nursing, pharmacy, respiratory therapy, case management and consultants including cardiothoracic surgery, cardiology. CARE ACTIVITIES / CARE COORDINATION: - I have reviewed the history and repeated the escobar elements - I have seen and examined this patient - I have reviewed the progress in the clinical course since the last examination - I have discussed the patient's condition with other members of the care team Signed in PatientKeeper by Suhas Self MD on 02/14/24 at 11:22 at 1122 ATTENTION *EDITS and/or ADDENDA must be made in Patient Keeper for this note. * * Edits and ammendments created in [facility] are not visible * * in Patient Keeper or the legal medical record ([facility]). * RPT #: [id number] END OF REPORT [facility] 2024-02-14 10:19:00 [facility] ([facility]) Cardiology Progress Notes REPORT #: [id number] REPORT STATUS: Signed DATE: 02/14/24 TIME: 1019 PATIENT: MITA CARBONE UNIT #: [id number] ROOM #: P.0308 BED: 1 : 49 AGE: 73 SEX: F ATTEND: Flavio Ballesteros MD ADM AUTHOR: Cristiano Torres DO [facility] ATTENTION *EDITS and/or ADDENDA must be made in Patient Keeper for this note. * * Edits and ammendments created in [facility] are not visible * * in Patient Keeper or the legal medical record ([facility]). * -- CO-SIGNATURE -- COMMENTS: I have personally seen and examined the patient independently, and reviewed the patient's history, exam, and all cardiac and laboratory data. I agree with the history, physical, and the assessment and plan as outlined by cardiovascular fellow Dr. Cristiano Torres DO. I was present and supervised. Critical care time spent 35 minutes. Signed in PatientKeeper by JAZZY JENKINS MD on 02/18/24 at 15:11 -- ASSESSMENT AND PLAN -- GENERAL ASSESSMENT: A/P: Mrs. Paco Olson is a 73-year-old female (Tanzanian speaking, patient of Dr. Chavez) has a PMHx of cardiomyopathy, hypertension, hyperlipidemia, diabetes, family history of coronary artery disease, h/o smoking who was having left-sided chest pain, shortness of breath and tiredness for the past couple of months. She was evaluated by her management internship and had a CTA of the coronaries on 12/2023 and showed a calcium score of 1885, with severe ostial/proximal 3 vessel coronary artery disease. She was taken to [facility] for selective coronary angiogram and showed calcified arteries left main and severe three-vessel coronary artery disease. She was referred for CABG evaluation to CV surgery, Dr. Rebollar. She presented at [facility] ER with worsening previously mentioned symptoms. Chest x-ray showed apparent widening of the mediastinum and may be positional, cardiac silhouette appears enlarged, there appears to be mild central pulmonary vascular congestion as well. Labs showed negative troponin, LDL 101, BNP 85. She is being admitted for further evaluation and management. Dx: Multivessel CAD s/p CABG x1 STEPHEN to LAD on 02/11 Anemia Thrombocytopenia HTN HLD T2DM Tobacco use Prediabetes Obesity 02/10 TTE: 55-59%, no RWMA, G1DD Plan: -s/p CABG x1 02/[address] Rebollar; STEPHEN to LAD -s/p 1U PRBC, 1L IVFs, 1 cell saver -required Epi briefly during and post procedure; now off -[address], removal per CT surgery -doing well post-CABG; continue excellent care -ASA/plavix and HI statin -Diuresis as tolerated -monitor I/Os and tele -continue ICU level of care and hemodynamic monitoring Discussed with Dr. Jenkins. -- SUBJECTIVE -- HPI: No acute events overnight. Positive nearly 1L overnight. Work on diuresis and fluid restriction. Chest tubes as per CT surgery. -REVIEW OF SYSTEMS- COMMENT: As per in HPI. -- OBJECTIVE -- VITALS (02/12 10:19 - 02/13 10:19): Temperature F: 97.6 (97.6 - 98.6) Temperature source: Oral Pulse Rate 113 (100 - 122) Respiratory rate: 15 (11 - 41) Blood pressure: 116/48 (75/47 - 347/347) Blood pressure source: Arterial I/Os (02/12 07:00 - 02/13 07:00): Net 899.60 Intake 3,292.60 Output 2,393 -EXAM- GENERAL: Well developed, well nourished, in no apparent distress. HEAD: Normocephalic, atraumatic. EYES: PERRL, EOM intact, conjunctiva and sclera clear, without nystagmus, lids normal. MOUTH: Oropharynx without deformities or lesions, normal mucosa.. CHEST: Sternotomy with overlying bandage and chest tubes noted LUNGS: Clear bilaterally with normal respiratory effort. HEART: Regular rate and rhythm, normal S1, S2, no murmurs, no rubs, no gallops, no clicks. ABDOMEN: Soft, non-tender, no organomegaly, no masses noted. EXTREMITIES: No clubbing, no cyanosis, no edema. NEUROLOGICAL: Alert and oriented, no focal neuro deficits. PULSES: Pulses normal in all extremities. SKIN: Intact without significant lesions, or rashes. -- DATA -- MEDICATIONS diphenhydrAMINE HCL 25 MG PO Q6H PRN hydrALAZINE HCL 5 MG IV Q6HR PRN ONDANSETRON HCL/PF 4 MG IV Q6H PRN bisacodyL 10 MG RECTAL ASDIR PRN traMADol HCL 50 MG PO Q6HR DEXTROSE 50%-WATER 25 ML IV ASDIR (PRN) clopidogreL 75 MG PO DAILY HYDROmorphone HCL 0.5 MG IV Q3H PRN METOPROLOL TARTRATE 5 MG IV Q6H PRN ENOXAPARIN SODIUM 40 MG SUBQ BID LACTULOSE 30 ML PO BID PRN CYANOCOBALAMIN 500 MCG PO DAILY MAG HYDROX/AL HYDROX/SIMETH 30 ML PO Q4H PRN ATORVASTATIN CALCIUM 40 MG PO BEDTIME POTASSIUM CHLORIDE 20 MEQ IV ASDIR (PRN) HYDROcodone BITARTRATE/APAP 1 TAB PO Q6H PRN ASPIRIN 81 MG PO DAILY (Held) METOPROLOL SUCCINATE 25 MG PO Q12HR LIDOCAINE 1 PATCH TRANSDERM DAILY ONDANSETRON 4 MG PO Q6H PRN NITROGLYCERIN 0.4 MG SL Q5M PRN MAGNESIUM 1 GM IV ASDIR PRN polyethylene glycoL 3350 1 PKT PO DAILY HYDROcodone BITARTRATE/APAP 1 TAB PO Q6H PRN MAGNESIUM HYDROXIDE 30 ML PO ASDIR PRN FUROSEMIDE 40 MG IV DAILY cloNIDine HCL 0.1 MG PO Q8H PRN EPINEPHrine HCL/D5W 4 MG IV ASDIR ACETAMINOPHEN 650 MG PO Q4H PRN ACETAMINOPHEN 650 MG PO Q6HR FERROUS SULFATE 325 MG PO DAILY LACTULOSE 30 ML PO ASDIR PRN LACTULOSE 30 ML PO ASDIR PRN INSULIN LISPRO MEDIUM DOSE SS SUBQ Q6HR niCARdipine HCL with/in SODIUM CHLORIDE 100 mL BAG 25 MG IV TITRATE GLUCAGON 1 MG IM ASDIR (PRN) CALCIUM GLUC IN NACL, ISO-OSM 2 GM IV ASDIR PRN SODIUM CHLORIDE 10 mL 10 ML IV ASDIR IPRATROPIUM/ALBUTEROL SULFATE 3 ML NEB RTQ6H MUPIROCIN 1 APPLIC NASAL BID ACETAMINOPHEN 650 MG RECTAL Q4H PRN DOCUSATE SODIUM 200 MG PO DAILY SODIUM BICARBONATE 8.4% 50 MEQ IV ASDIR PRN LABS GLU BED (02/14/24 05:40) GLUBED 132 H PHOS (02/14/24 04:16) PHOSPHOROUS 4.0 MAG (02/14/24 04:16) MAGNESIUM 2.0 PTT (02/14/24 04:16) THROMBOPLASTIN TIME PARTIAL 36.8 H BASIC METABOLIC PANEL (02/14/24 04:16) SODIUM 138 POTASSIUM 4.0 CHLORIDE 105 CARBON DIOXIDE 30 GLUCOSE 138H H BLOOD UREA NITROGEN 14 GLOMERULAR FILTRATION RATE 53 L CREATININE 1.10H H CALCIUM 8.5 L CBC W/AUTO DIFF (02/14/24 04:16) WHITE BLOOD CELL 7.6 RED BLOOD CELL 2.30 L HEMOGLOBIN 7.0L L HEMATOCRIT 21.3L L MEAN CELL VOLUME 92.6 MEAN CELL HGB 30.4 MEAN CELL HGB CONCENTRATION 32.9 L RED CELL DISTRIBUTION WIDTH 15.3 PLATELET COUNT 69L L MEAN PLATELET VOLUME 13.1 H NEUTROPHIL % 76.9 H LYMPHOCYTE % 12.8 L MONOCYTE % 7.8 EOSINOPHIL % 1.2 BASOPHIL % 0.4 NEUTROPHIL # 5.82 LYMPHOCYTE # 0.97 L MONOCYTE # 0.59 EOSINOPHIL # 0.09 BASOPHIL # 0.03 FIB (02/14/24 04:16) FIBRINOGEN 257 GLU BED (02/13/24 23:58) GLUBED 129 H MAG (02/13/24 21:46) MAGNESIUM 2.2 PHOS (02/13/24 21:46) PHOSPHOROUS 4.4 BASIC METABOLIC PANEL (02/13/24 21:46) SODIUM 138 POTASSIUM 4.2 CHLORIDE 107 CARBON DIOXIDE 29 GLUCOSE 142H H BLOOD UREA NITROGEN 14 GLOMERULAR FILTRATION RATE 53 L CREATININE 1.10H H CALCIUM 8.2 L LACTIC ACID (02/13/24 21:46) LACTIC ACID 1.20 CBC W/AUTO DIFF (02/13/24 21:46) WHITE BLOOD CELL 9.7 RED BLOOD CELL 2.54 L HEMOGLOBIN 7.5L L HEMATOCRIT 23.7L L MEAN CELL VOLUME 93.3 MEAN CELL HGB 29.5 MEAN CELL HGB CONCENTRATION 31.6 L RED CELL DISTRIBUTION WIDTH 15.4 PLATELET COUNT 71L L MEAN PLATELET VOLUME 13.0 H NEUTROPHIL % 78.2 H LYMPHOCYTE % 11.8 L MONOCYTE % 8.3 EOSINOPHIL % 0.8 BASOPHIL % 0.3 NEUTROPHIL # 7.59 LYMPHOCYTE # 1.15 MONOCYTE # 0.81 H EOSINOPHIL # 0.08 BASOPHIL # 0.03 BASIC METABOLIC PANEL (02/13/24 17:45) SODIUM 139 POTASSIUM 4.3 CHLORIDE 107 CARBON DIOXIDE 26 GLUCOSE 158H H BLOOD UREA NITROGEN 14 GLOMERULAR FILTRATION RATE 48 L CREATININE 1.20H H CALCIUM 8.3 L MAG (02/13/24 17:45) MAGNESIUM 1.9 PTT (02/13/24 17:45) THROMBOPLASTIN TIME PARTIAL 30.8 LACTIC ACID (02/13/24 17:45) LACTIC ACID 3.80 *H FIB (02/13/24 17:45) FIBRINOGEN 260 PHOS (02/13/24 17:45) PHOSPHOROUS 4.9 PROTHROMBIN TIME (02/13/24 17:45) PROTHROMBIN TIME PATIENT 17.7 H INTERNATIONAL NORMAL RATIO 1.59 D H CBC W/AUTO DIFF (02/13/24 17:45) WHITE BLOOD CELL 13.2H H RED BLOOD CELL 2.70 L HEMOGLOBIN 8.0L L HEMATOCRIT 25.3L L MEAN CELL VOLUME 93.7 MEAN CELL HGB 29.6 MEAN CELL HGB CONCENTRATION 31.6 L RED CELL DISTRIBUTION WIDTH 15.6 PLATELET COUNT 81L L MEAN PLATELET VOLUME 13.1 H NEUTROPHIL % 74.0 LYMPHOCYTE % 15.6 L MONOCYTE % 8.8 EOSINOPHIL % 0.5 BASOPHIL % 0.5 NEUTROPHIL # 9.79 H LYMPHOCYTE # 2.07 MONOCYTE # 1.17 H EOSINOPHIL # 0.06 BASOPHIL # 0.06 GLU BED (02/13/24 11:57) GLUBED 219 H Signed in PatientKeeper by Cristiano Torres1 on 02/14/24 at 13:17 Cosigned by JAZZY JENKINS MD on 02/18/24 at 15:11 at 1511 at 1511 ATTENTION *EDITS and/or ADDENDA must be made in Patient Keeper for this note. * * Edits and ammendments created in [facility] are not visible * * in Patient Keeper or the legal medical record (HPF). * [facility] #: [id number] END OF REPORT [facility] 2024-02-13 11:34:00 [facility] ([facility]) Cardiology Progress Notes REPORT #: [id number] REPORT STATUS: Signed DATE: 02/13/24 TIME: 1134 PATIENT: MITA CARBONE UNIT #: [id number] ROOM #: [id number] BED: 1 : 49 AGE: 73 SEX: F ATTEND: Flavio Ballesteros MD ADM AUTHOR: Cristiano Torres DO [facility] ATTENTION *EDITS and/or ADDENDA must be made in Patient Keeper for this note. * * Edits and ammendments created in [facility] are not visible * * in Patient Keeper or the legal medical record (HPF). * -- CO-SIGNATURE -- COMMENTS: I have seen and examined the patient with the power plant inspector, Cristiano Torres DO on 02/13/2024. I have reviewed all the clinical information, lab investigations, and imaging data. I agree with the following examination, findings, assessment and plan. I was present and supervised. Signed in PatientKeeper by DEJAH PARKER MD on 02/21/24 at 06:32 -- ASSESSMENT AND PLAN -- GENERAL ASSESSMENT: A/P: Mrs. Paco Olson is a 73-year-old female (Tanzanian speaking, patient of Dr. Chavez) has a PMHx of cardiomyopathy, hypertension, hyperlipidemia, diabetes, family history of coronary artery disease, h/o smoking who was having left-sided chest pain, shortness of breath and tiredness for the past couple of months. She was evaluated by her management internship and had a CTA of the coronaries on 12/2023 and showed a calcium score of 1885, with severe ostial/proximal 3 vessel coronary artery disease. She was taken to [facility] for selective coronary angiogram and showed calcified arteries left main and severe three-vessel coronary artery disease. She was referred for CABG evaluation to CV surgery, Dr. Rebollar. She presented at [facility] with worsening previously mentioned symptoms. Chest x-ray showed apparent widening of the mediastinum and may be positional, cardiac silhouette appears enlarged, there appears to be mild central pulmonary vascular congestion as well. Labs showed negative troponin, LDL 101, BNP 85. She is being admitted for further evaluation and management. Dx: Multivessel CAD s/p CABG x1 STEPHEN to LAD on 02/11 Anemia Thrombocytopenia HTN HLD T2DM Tobacco use Prediabetes Obesity 02/10 TTE: 55-59%, no RWMA, G1DD Plan: -s/p CABG x1 02/[address] Rebollar; STEPHEN to LAD -s/p 1U PRBC, 1L IVFs, 1 cell saver -required Epi briefly during and post procedure -[address] -Epicardial pacing wires in place -f/u post-CABG LAs, ABGs, VBGs -ASA/plavix and HI statin -Diuresis as tolerated -Continue post-CABG care -monitor I/Os and tele -continue ICU level of care and hemodynamic monitoring Discussed with Dr. Parker. -- SUBJECTIVE -- HPI: No acute events overnight. Tele reviewed. Pt extubated yesterday. Will plan to wean off 0.5 epi today and further diuresis. -REVIEW OF SYSTEMS- COMMENT: As per in HPI. -- OBJECTIVE -- VITALS (02/11 11:34 - 02/12 11:34): Temperature F: 98.1 (97.5 - 98.1) Temperature C: 36.9 (36.3 - 36.9) Temperature source: Core Pulse Rate 106 (88 - 124) Respiratory rate: 29 (1 - 37) Blood pressure: 112/56 (-10/-1 - 153/118) Blood pressure source: Arterial I/Os (02/11 07:00 - 02/12 07:00): Net 2,023.60 Intake 3,269.60 Output 1,246 -EXAM- GENERAL: Well developed, well nourished, in no apparent distress. HEAD: Normocephalic, atraumatic. EYES: PERRL, EOM intact, conjunctiva and sclera clear, without nystagmus, lids normal. MOUTH: Oropharynx without deformities or lesions, normal mucosa.. CHEST: Sternotomy with overlying bandage and chest tubes noted LUNGS: Clear bilaterally with normal respiratory effort. HEART: Regular rate and rhythm, normal S1, S2, no murmurs, no rubs, no gallops, no clicks. ABDOMEN: Soft, non-tender, no organomegaly, no masses noted. EXTREMITIES: No clubbing, no cyanosis, no edema. NEUROLOGICAL: Alert and oriented, no focal neuro deficits. PULSES: Pulses normal in all extremities. SKIN: Intact without significant lesions, or rashes. -- DATA -- MEDICATIONS diphenhydrAMINE HCL 25 MG PO Q6H PRN hydrALAZINE HCL 5 MG IV Q6HR PRN ONDANSETRON HCL/PF 4 MG IV Q6H PRN bisacodyL 10 MG RECTAL ASDIR PRN traMADol HCL 50 MG PO Q6HR DEXTROSE 50%-WATER 25 ML IV ASDIR (PRN) clopidogreL 75 MG PO DAILY HYDROmorphone HCL 0.5 MG IV Q3H PRN METOPROLOL TARTRATE 5 MG IV Q6H PRN ENOXAPARIN SODIUM 40 MG SUBQ BID LACTULOSE 30 ML PO BID PRN CYANOCOBALAMIN 500 MCG PO DAILY MAG HYDROX/AL HYDROX/SIMETH 30 ML PO Q4H PRN ATORVASTATIN CALCIUM 40 MG PO BEDTIME POTASSIUM CHLORIDE 20 MEQ IV ASDIR (PRN) HYDROcodone BITARTRATE/APAP 1 TAB PO Q6H PRN ASPIRIN 81 MG PO DAILY (Held) METOPROLOL SUCCINATE 25 MG PO Q12HR LIDOCAINE 1 PATCH TRANSDERM DAILY ONDANSETRON 4 MG PO Q6H PRN NITROGLYCERIN 0.4 MG SL Q5M PRN MAGNESIUM 1 GM IV ASDIR PRN polyethylene glycoL 3350 1 PKT PO DAILY HYDROcodone BITARTRATE/APAP 1 TAB PO Q6H PRN MAGNESIUM HYDROXIDE 30 ML PO ASDIR PRN FUROSEMIDE 40 MG IV DAILY cloNIDine HCL 0.1 MG PO Q8H PRN EPINEPHrine HCL/D5W 4 MG IV ASDIR ACETAMINOPHEN 650 MG PO Q4H PRN ACETAMINOPHEN 650 MG PO Q6HR HEPARIN PHARMACY TO MONITOR 1 EACH IV ASDIR FERROUS SULFATE 325 MG PO DAILY LACTULOSE 30 ML PO ASDIR PRN LACTULOSE 30 ML PO ASDIR PRN INSULIN LISPRO MEDIUM DOSE SS SUBQ Q6HR ALBUMIN HUMAN 12.5 GM IV ONCE (PRN) niCARdipine HCL with/in SODIUM CHLORIDE 100 mL BAG 25 MG IV TITRATE GLUCAGON 1 MG IM ASDIR (PRN) NOREPINEPHRINE BITARTRATE 4 MG IV TITRATE CALCIUM GLUC IN NACL, ISO-OSM 2 GM IV ASDIR PRN INSULIN REG HUMAN REC with/in SODIUM CHLORIDE 100 mL BAG 100 UNIT IV ASDIR SODIUM CHLORIDE 10 mL 10 ML IV ASDIR IPRATROPIUM/ALBUTEROL SULFATE 3 ML NEB RTQ6H MUPIROCIN 1 APPLIC NASAL BID ACETAMINOPHEN 650 MG RECTAL Q4H PRN DOCUSATE SODIUM 200 MG PO DAILY SODIUM BICARBONATE 8.4% 50 MEQ IV ASDIR PRN LABS GLU BED (02/13/24 05:59) GLUBED 154 H VENOUS BLOOD GAS (02/13/24 03:38) VENOUS BLOOD GAS PH 7.32 L VENOUS BLOOD GAS PCO2 50.9 VENOUS BLOOD GAS PO2 36.2 VBG HCO3 26 VBG BASE EXCESS -0.6 VENOUS BLOOD GAS O2 SAT 68 VENOUS BLOOD GAS TYPE Venous VENOUS BLOOD GAS FIO2 40.0 VBG VENT MODE Non-Rebreather BLOOD GAS W/ELECTROLYTES (02/13/24 03:31) ARTERIAL BLOOD GAS PH 7.35 ARTERIAL BLOOD GAS PCO2 49.2 H ARTERIAL BLOOD GAS PO2 106.4 H BICARBONATE TOTAL HCO3 26.3 H BASE EXCESS 0.4 ABG O2 SATURATION 97.4 ARTERIAL FIO2 40.0 ABG VENT MODE NASAL CANNULA ALLENS TEST NOT APPLICABLE SODIUM (POC) 139 POTASSIUM (POC) 4.93 CHLORIDE (ARTERIAL) 104 GLUCOSE 146 H IONIZED CALCIUM 1.18 POC LACTIC ACID 1.39 TOTAL HGB 8.8 L OXYHEMOGLOBIN 96.7 CARBOXYHEMOGLOBIN 0.7 METHEMOGLOBIN <0.8 HHb 2.6 TCO2 ARTERIAL 27.8 PHOS (02/13/24 03:17) PHOSPHOROUS 5.1 MAG (02/13/24 03:17) MAGNESIUM 2.0 LIVER FUNCTION PANEL (02/13/24 03:17) TOTAL PROTEIN 5.0 L ALBUMIN 3.5 BILIRUBIN TOTAL 1.3 H BILIRUBIN DIRECT 0.7 H SGOT/AST 39 H SGPT/ALT 20 ALKALINE PHOSPHATASE 53.0 PTT (02/13/24 03:17) THROMBOPLASTIN TIME PARTIAL 27.8 CBC W/AUTO DIFF (02/13/24 03:17) WHITE BLOOD CELL 10.8 RED BLOOD CELL 2.71 L HEMOGLOBIN 8.2L L HEMATOCRIT 25.1L L MEAN CELL VOLUME 92.6 MEAN CELL HGB 30.3 MEAN CELL HGB CONCENTRATION 32.7 L RED CELL DISTRIBUTION WIDTH 15.0 PLATELET COUNT 73L L MEAN PLATELET VOLUME 12.5 H NEUTROPHIL % 82.9 H LYMPHOCYTE % 8.6 L MONOCYTE % 7.5 EOSINOPHIL % 0.0 BASOPHIL % 0.4 NEUTROPHIL # 9.00 H LYMPHOCYTE # 0.93 L MONOCYTE # 0.81 H EOSINOPHIL # 0.00 BASOPHIL # 0.04 COMPREHENSIVE METABOLIC PANEL (02/13/24 03:17) SODIUM 141 POTASSIUM 5.0 CHLORIDE 111 H CARBON DIOXIDE 27 GLUCOSE 143 H BLOOD UREA NITROGEN 12 GLOMERULAR FILTRATION RATE >=60 max estimate CREATININE 0.90 TOTAL PROTEIN 5.0 L ALBUMIN 3.5 CALCIUM 8.1 L BILIRUBIN TOTAL 1.3 H SGOT/AST 39 H SGPT/ALT 20 ALKALINE PHOSPHATASE 53.0 PROTHROMBIN TIME (02/13/24 03:17) PROTHROMBIN TIME PATIENT 14.6 H INTERNATIONAL NORMAL RATIO 1.31 H BLOOD GAS W/ELECTROLYTES (02/13/24 01:36) ARTERIAL BLOOD GAS PH 7.33 L ARTERIAL BLOOD GAS PCO2 52.9 H ARTERIAL BLOOD GAS PO2 89.2 BICARBONATE TOTAL HCO3 27.0 H BASE EXCESS 0.5 ABG O2 SATURATION 96.3 ARTERIAL FIO2 40.0 ABG VENT MODE NASAL CANNULA ALLENS TEST NOT APPLICABLE SODIUM (POC) 139 POTASSIUM (POC) 4.88 CHLORIDE (ARTERIAL) 105 GLUCOSE 141 H IONIZED CALCIUM 1.19 POC LACTIC ACID 1.57 TOTAL HGB 9.2 L OXYHEMOGLOBIN 95.4 CARBOXYHEMOGLOBIN 0.9 METHEMOGLOBIN <0.8 HHb 3.7 TCO2 ARTERIAL 28.6 BLOOD GAS W/ELECTROLYTES (02/12/24 23:26) ARTERIAL BLOOD GAS PH 7.34 L ARTERIAL BLOOD GAS PCO2 51.4 H ARTERIAL BLOOD GAS PO2 121.0 H BICARBONATE TOTAL HCO3 26.9 H BASE EXCESS 0.6 ABG O2 SATURATION 97.9 ARTERIAL FIO2 40.0 ABG VENT MODE NASAL CANNULA ALLENS TEST NOT APPLICABLE SODIUM (POC) 141 POTASSIUM (POC) 4.38 CHLORIDE (ARTERIAL) 105 GLUCOSE 111 H IONIZED CALCIUM 1.21 POC LACTIC ACID 1.80 TOTAL HGB 9.4 D L CARBOXYHEMOGLOBIN 0.6 METHEMOGLOBIN <0.8 HHb 2.1 TCO2 ARTERIAL 28.4 BLOOD GAS W/ELECTROLYTES (02/12/24 21:59) ARTERIAL BLOOD GAS PH 7.32 L ARTERIAL BLOOD GAS PCO2 51.5 H ARTERIAL BLOOD GAS PO2 110.4 H BICARBONATE TOTAL HCO3 25.9 H BASE EXCESS -0.6 ABG O2 SATURATION 97.5 ARTERIAL FIO2 40.0 ABG VENT MODE NASAL CANNULA ALLENS TEST NOT APPLICABLE SODIUM (POC) 140 POTASSIUM (POC) 4.23 CHLORIDE (ARTERIAL) 104 GLUCOSE 142 H IONIZED CALCIUM 1.23 POC LACTIC ACID 2.90 H TOTAL HGB 10.0 L OXYHEMOGLOBIN 96.9 CARBOXYHEMOGLOBIN 0.3 METHEMOGLOBIN <0.8 HHb 2.5 TCO2 ARTERIAL 27.5 PHOS (02/12/24 21:30) PHOSPHOROUS 4.1 MAG (02/12/24 21:30) MAGNESIUM 2.0 BASIC METABOLIC PANEL (02/12/24 21:30) SODIUM 143 POTASSIUM 4.3 CHLORIDE 112H H CARBON DIOXIDE 26 GLUCOSE 139H H BLOOD UREA NITROGEN 11 GLOMERULAR FILTRATION RATE >=60 max estimate CREATININE 0.90 CALCIUM 8.4 L CBC W/AUTO DIFF (02/12/24 21:30) WHITE BLOOD CELL 16.4H H RED BLOOD CELL 3.03 L HEMOGLOBIN 9.1D L D L HEMATOCRIT 27.9L L MEAN CELL VOLUME 92.1 MEAN CELL HGB 30.0 MEAN CELL HGB CONCENTRATION 32.6 L RED CELL DISTRIBUTION WIDTH 14.9 PLATELET COUNT 92L L MEAN PLATELET VOLUME 11.9 NEUTROPHIL % 88.9 H LYMPHOCYTE % 4.1 L MONOCYTE % 5.9 EOSINOPHIL % 0.1 BASOPHIL % 0.2 NEUTROPHIL # 14.55 H LYMPHOCYTE # 0.67 L MONOCYTE # 0.97 H EOSINOPHIL # 0.01 BASOPHIL # 0.03 GLU BED (02/12/24 20:30) GLUBED 163 H GLU BED (02/12/24 19:03) GLUBED 194 H BLOOD GAS W/ELECTROLYTES (02/12/24 17:43) ARTERIAL BLOOD GAS PH 7.34 L ARTERIAL BLOOD GAS PCO2 45.2 H ARTERIAL BLOOD GAS PO2 67.9 L BICARBONATE TOTAL HCO3 23.7 BASE EXCESS -2.2 L ABG O2 SATURATION 92.1 L ARTERIAL FIO2 32.0 ABG VENT MODE NASAL CANNULA ALLENS TEST NOT APPLICABLE SODIUM (POC) 142 POTASSIUM (POC) 4.22 CHLORIDE (ARTERIAL) 106 GLUCOSE 222 H IONIZED CALCIUM 1.14 POC LACTIC ACID 5.90 H TOTAL HGB 10.2 D L OXYHEMOGLOBIN 91.0 L CARBOXYHEMOGLOBIN 0.9 METHEMOGLOBIN <0.8 HHb 7.8 TCO2 ARTERIAL 25.1 GLU BED (02/12/24 17:18) GLUBED 220 H BLOOD GAS W/ELECTROLYTES (02/12/24 16:07) ARTERIAL BLOOD GAS PH 7.26 L ARTERIAL BLOOD GAS PCO2 44.8 ARTERIAL BLOOD GAS PO2 90.6 BICARBONATE TOTAL HCO3 19.6 L BASE EXCESS -7.3 L ABG O2 SATURATION 95.5 ARTERIAL FIO2 40.0 ABG VENT MODE VENT ALLENS TEST NOT APPLICABLE SODIUM (POC) 140 POTASSIUM (POC) 4.18 CHLORIDE (ARTERIAL) 104 GLUCOSE 245 H IONIZED CALCIUM 1.21 POC LACTIC ACID 4.87 H TOTAL HGB 11.1 D L OXYHEMOGLOBIN 94.6 CARBOXYHEMOGLOBIN 0.8 METHEMOGLOBIN <0.8 HHb 4.5 TCO2 ARTERIAL 20.9 L BLOOD GAS W/ELECTROLYTES (02/12/24 14:35) ARTERIAL BLOOD GAS PH 7.33 L ARTERIAL BLOOD GAS PCO2 35.8 ARTERIAL BLOOD GAS PO2 108.6 H BICARBONATE TOTAL HCO3 18.5 L BASE EXCESS -6.6 L ABG O2 SATURATION 97.7 ARTERIAL FIO2 40.0 ABG VENT MODE Ventilator ALLENS TEST NOT APPLICABLE SODIUM (POC) 138 POTASSIUM (POC) 4.33 CHLORIDE (ARTERIAL) 104 GLUCOSE 285 H IONIZED CALCIUM 1.10 L POC LACTIC ACID 4.11 H TOTAL HGB 12.4 OXYHEMOGLOBIN 96.7 CARBOXYHEMOGLOBIN 0.9 METHEMOGLOBIN <0.8 HHb 2.3 TCO2 ARTERIAL 19.6 L COVID Asymp Ag (02/12/24 13:24) COVID 19 Asymptomatic IH AG NEGATIVE PHOS (02/12/24 13:23) PHOSPHOROUS 3.3 LACTIC ACID (02/12/24 13:23) LACTIC ACID 2.20 *H MAG (02/12/24 13:23) MAGNESIUM 2.4 BASIC METABOLIC PANEL (02/12/24 13:23) SODIUM 140 POTASSIUM 4.8 CHLORIDE 110H H CARBON DIOXIDE 22 GLUCOSE 218H H BLOOD UREA NITROGEN 9 GLOMERULAR FILTRATION RATE >=60 max estimate CREATININE 0.70 CALCIUM 7.8 D L PTT (02/12/24 13:23) THROMBOPLASTIN TIME PARTIAL 28.8 D CBC W/AUTO DIFF (02/12/24 13:23) WHITE BLOOD CELL 26.9D H D H RED BLOOD CELL 4.29 HEMOGLOBIN 12.8 HEMATOCRIT 38.1 MEAN CELL VOLUME 88.8 D MEAN CELL HGB 29.8 MEAN CELL HGB CONCENTRATION 33.6 RED CELL DISTRIBUTION WIDTH 14.3 PLATELET COUNT 124L L MEAN PLATELET VOLUME 13.4 H NEUTROPHIL % 85.5 H LYMPHOCYTE % 8.4 L MONOCYTE % 3.1 EOSINOPHIL % 0.8 BASOPHIL % 0.6 NEUTROPHIL # 23.06 H LYMPHOCYTE # 2.26 MONOCYTE # 0.84 H EOSINOPHIL # 0.21 BASOPHIL # 0.15 PROTHROMBIN TIME (02/12/24 13:23) PROTHROMBIN TIME PATIENT 15.1 H INTERNATIONAL NORMAL RATIO 1.36 H ACT (02/12/24 12:52) COAGULATION TIME ACTIVATED 134 Signed in PatientKeeper by Cristiano Torres on 02/13/24 at 11:36 Cosigned by DEJAH PARKER MD on 02/21/24 at 06:32 at 0632 at 0632 ATTENTION *EDITS and/or ADDENDA must be made in Patient Keeper for this note. * * Edits and ammendments created in [facility] are not visible * * in Patient Keeper or the legal medical record (HPF). * RPT #: [id number] END OF REPORT [facility] 2024-02-13 10:55:00 [facility] ([facility]) Intensive Care Progress Note REPORT #: [id number] REPORT STATUS: Signed DATE: 02/13/24 TIME: 1055 PATIENT: MITA CARBONE UNIT #: [id number] ROOM #: [id number] BED: 1 : 49 AGE: 73 SEX: F ATTEND: Flavio Ballesteros MD ADM AUTHOR: Suhas Self MD ATTENTION *EDITS and/or ADDENDA must be made in Patient Keeper for this note. * * Edits and ammendments created in [facility] are not visible * * in Patient Keeper or the legal medical record (HPF). * -- ASSESSMENT AND PLAN -- HOSPITAL COURSE TO DATE: Patient is a 73-year old female with PMH notable for CAD, HTN, heart failure with preserved ejection fraction, non-insulin dependent diabetes, nicotine abuse, and morbid obesity initially admitted on 01/30 for preoperative optimization in preparation for coronary bypass. Patient admitted to CVICU postoperatively following single vessel coronary bypass (STEPHEN to LAD). 02/11: s/p single vessel coronary bypass (STEPHEN to LAD), transferred to CVICU for postoperative management; extubated to [place] GENERAL ASSESSMENT: Plan: Pain/Sedation #Acute Postoperative Pain -Pain well controlled, continue multi-modal pain regimen Neuro/Psych -Exam non-focal, appropriate mood/affect -Neurochecks per protocol -Delirium precautions Respiratory #Acute Respiratory Insufficiency -Extubated to LA, saturating well -Wean supplemental O2 as tolerated, goal SpO2 >92% -Monitor chest tube output x2 (left pleural, mediastinal) -PRN diuresis -Serial CXRs/ABGs, CPT, pulmonary hygiene, encourage IS Cardiovascular #CAD s/p 1V CAB (STEPHEN to LAD) #NSTEMI #HTN -Unable to bypass RCA and circumflex, will eventually need repeat evaluation with cardiology for possible PCI -Pre- and Post-op TTE: normal LV function -Currently hemodynamically stable, briefly required low-dose epi, now not requiring vasoactive agents -Goal MAP >65, SBP <120-30 -Pacer wires in place, not requiring pacing -Continue DAPT/statin -Start Lasix 40mg IV QD to maintain net negative -Hold antihypertensives for now -Cardiothoracic surgery and cardiology following Gastrointestinal/Nutrition -Start CLD, advance as tolerated -Post-op bowel regimen Renal -Renal function WNL -Maintain Jones for strict I/O postoperatively -Electrolyte protocol, maintain K >4.0, Phos >3.0, Mg >2.0 Infectious Disease #Perioperative SIRS -Completed perioperative abx per protocol -No concerns for infection at present, monitor fever curve Endocrine #NIDDM -Strict glycemic control postoperatively, maintain goal BS 140-180 -Hypoglycemia protocol HEME #Acute Blood Loss Anemia -EBL 700cc, received 1 PRBC intraop -H/H adequate, currently without evidence of bleeding -Transfuse for goal Hgb >8.0, platelets >10k or 20k with bleeding, and fibrinogen >150 MSK -PT/OT following PPX -DVT: LSQ -GI: None GOC -Code: FULL per patient -Advance Care Planning: None per patient Dispo: Continue ICU level care Medications reviewed with ICU pharmacist Patient is critically ill and at risk of imminent life threatening injury or -- SUBJECTIVE -- PATIENT NARRATIVE: Patient seen and examined. Started on low-dose epi for relative hypotension, otherwise NAEON. Patient denies complaints. Is out of bed to chair. Pain well controlled. -- OBJECTIVE -- VITALS (02/11 06:13 - 02/12 06:13): Temperature F: 98.1 (97.5 - 98.1) Temperature C: 36.8 (36.3 - 36.9) Temperature source: Core Pulse Rate 108 (72 - 124) Respiratory rate: 6 (1 - 24) Blood pressure: 152/101 (-10/-1 - 153/118) Blood pressure source: Arterial I/Os (02/10 07:00 - 02/11 07:00): Net 869.00 Intake 869.00 -- DATA -- MEDICATIONS diphenhydrAMINE HCL 25 MG PO Q6H PRN hydrALAZINE HCL 5 MG IV Q6HR PRN ONDANSETRON HCL/PF 4 MG IV Q6H PRN bisacodyL 10 MG RECTAL ASDIR PRN traMADol HCL 50 MG PO Q6HR DEXTROSE 50%-WATER 25 ML IV ASDIR (PRN) clopidogreL 75 MG PO DAILY HYDROmorphone HCL 0.5 MG IV Q3H PRN METOPROLOL TARTRATE 5 MG IV Q6H PRN LACTULOSE 30 ML PO BID PRN CYANOCOBALAMIN 500 MCG PO DAILY MAG HYDROX/AL HYDROX/SIMETH 30 ML PO Q4H PRN ATORVASTATIN CALCIUM 40 MG PO BEDTIME POTASSIUM CHLORIDE 20 MEQ IV ASDIR (PRN) DEXTROSE 50%-WATER 25 ML IV ASDIR PRN HYDROcodone BITARTRATE/APAP 1 TAB PO Q6H PRN GLUCAGON 1 MG IM ASDIR PRN ASPIRIN 81 MG PO DAILY (Held) METOPROLOL SUCCINATE 25 MG PO Q12HR LIDOCAINE 1 PATCH TRANSDERM DAILY ONDANSETRON 4 MG PO Q6H PRN NITROGLYCERIN 0.4 MG SL Q5M PRN MAGNESIUM 1 GM IV ASDIR PRN polyethylene glycoL 3350 1 PKT PO DAILY HYDROcodone BITARTRATE/APAP 1 TAB PO Q6H PRN MAGNESIUM HYDROXIDE 30 ML PO ASDIR PRN cloNIDine HCL 0.1 MG PO Q8H PRN EPINEPHrine HCL/D5W 4 MG IV ASDIR ACETAMINOPHEN 650 MG PO Q4H PRN ACETAMINOPHEN 650 MG PO Q6HR HEPARIN PHARMACY TO MONITOR 1 EACH IV ASDIR FERROUS SULFATE 325 MG PO DAILY LACTULOSE 30 ML PO ASDIR PRN LACTULOSE 30 ML PO ASDIR PRN INSULIN LISPRO MEDIUM DOSE SS SUBQ Q6HR ALBUMIN HUMAN 12.5 GM IV ONCE (PRN) niCARdipine HCL with/in SODIUM CHLORIDE 100 mL BAG 25 MG IV TITRATE GLUCAGON 1 MG IM ASDIR (PRN) NOREPINEPHRINE BITARTRATE 4 MG IV TITRATE CALCIUM GLUC IN NACL, ISO-OSM 2 GM IV ASDIR PRN INSULIN REG HUMAN REC with/in SODIUM CHLORIDE 100 mL BAG 100 UNIT IV ASDIR SENNOSIDES 2 TAB PO ASDIR PRN SODIUM CHLORIDE 10 mL 10 ML IV ASDIR IPRATROPIUM/ALBUTEROL SULFATE 3 ML NEB RTQ6H MUPIROCIN 1 APPLIC NASAL BID ACETAMINOPHEN 650 MG RECTAL Q4H PRN DOCUSATE SODIUM 200 MG PO DAILY SODIUM BICARBONATE 8.4% 50 MEQ IV ASDIR PRN LABS GLU BED (02/13/24 05:59) GLUBED 154 H VENOUS BLOOD GAS (02/13/24 03:38) VENOUS BLOOD GAS PH 7.32 L VENOUS BLOOD GAS PCO2 50.9 VENOUS BLOOD GAS PO2 36.2 VBG HCO3 26 VBG BASE EXCESS -0.6 VENOUS BLOOD GAS O2 SAT 68 VENOUS BLOOD GAS TYPE Venous VENOUS BLOOD GAS FIO2 40.0 VBG VENT MODE Non-Rebreather BLOOD GAS W/ELECTROLYTES (02/13/24 03:31) ARTERIAL BLOOD GAS PH 7.35 ARTERIAL BLOOD GAS PCO2 49.2 H ARTERIAL BLOOD GAS PO2 106.4 H BICARBONATE TOTAL HCO3 26.3 H BASE EXCESS 0.4 ABG O2 SATURATION 97.4 ARTERIAL FIO2 40.0 ABG VENT MODE NASAL CANNULA ALLENS TEST NOT APPLICABLE SODIUM (POC) 139 POTASSIUM (POC) 4.93 CHLORIDE (ARTERIAL) 104 GLUCOSE 146 H IONIZED CALCIUM 1.18 POC LACTIC ACID 1.39 TOTAL HGB 8.8 L OXYHEMOGLOBIN 96.7 CARBOXYHEMOGLOBIN 0.7 METHEMOGLOBIN <0.8 HHb 2.6 TCO2 ARTERIAL 27.8 PHOS (02/13/24 03:17) PHOSPHOROUS 5.1 MAG (02/13/24 03:17) MAGNESIUM 2.0 LIVER FUNCTION PANEL (02/13/24 03:17) TOTAL PROTEIN 5.0 L ALBUMIN 3.5 BILIRUBIN TOTAL 1.3 H BILIRUBIN DIRECT 0.7 H SGOT/AST 39 H SGPT/ALT 20 ALKALINE PHOSPHATASE 53.0 PTT (02/13/24 03:17) THROMBOPLASTIN TIME PARTIAL 27.8 CBC W/AUTO DIFF (02/13/24 03:17) WHITE BLOOD CELL 10.8 RED BLOOD CELL 2.71 L HEMOGLOBIN 8.2L L HEMATOCRIT 25.1L L MEAN CELL VOLUME 92.6 MEAN CELL HGB 30.3 MEAN CELL HGB CONCENTRATION 32.7 L RED CELL DISTRIBUTION WIDTH 15.0 PLATELET COUNT 73L L MEAN PLATELET VOLUME 12.5 H NEUTROPHIL % 82.9 H LYMPHOCYTE % 8.6 L MONOCYTE % 7.5 EOSINOPHIL % 0.0 BASOPHIL % 0.4 NEUTROPHIL # 9.00 H LYMPHOCYTE # 0.93 L MONOCYTE # 0.81 H EOSINOPHIL # 0.00 BASOPHIL # 0.04 COMPREHENSIVE METABOLIC PANEL (02/13/24 03:17) SODIUM 141 POTASSIUM 5.0 CHLORIDE 111 H CARBON DIOXIDE 27 GLUCOSE 143 H BLOOD UREA NITROGEN 12 GLOMERULAR FILTRATION RATE >=60 max estimate CREATININE 0.90 TOTAL PROTEIN 5.0 L ALBUMIN 3.5 CALCIUM 8.1 L BILIRUBIN TOTAL 1.3 H SGOT/AST 39 H SGPT/ALT 20 ALKALINE PHOSPHATASE 53.0 PROTHROMBIN TIME (02/13/24 03:17) PROTHROMBIN TIME PATIENT 14.6 H INTERNATIONAL NORMAL RATIO 1.31 H BLOOD GAS W/ELECTROLYTES (02/13/24 01:36) ARTERIAL BLOOD GAS PH 7.33 L ARTERIAL BLOOD GAS PCO2 52.9 H ARTERIAL BLOOD GAS PO2 89.2 BICARBONATE TOTAL HCO3 27.0 H BASE EXCESS 0.5 ABG O2 SATURATION 96.3 ARTERIAL FIO2 40.0 ABG VENT MODE NASAL CANNULA ALLENS TEST NOT APPLICABLE SODIUM (POC) 139 POTASSIUM (POC) 4.88 CHLORIDE (ARTERIAL) 105 GLUCOSE 141 H IONIZED CALCIUM 1.19 POC LACTIC ACID 1.57 TOTAL HGB 9.2 L OXYHEMOGLOBIN 95.4 CARBOXYHEMOGLOBIN 0.9 METHEMOGLOBIN <0.8 HHb 3.7 TCO2 ARTERIAL 28.6 BLOOD GAS W/ELECTROLYTES (02/12/24 23:26) ARTERIAL BLOOD GAS PH 7.34 L ARTERIAL BLOOD GAS PCO2 51.4 H ARTERIAL BLOOD GAS PO2 121.0 H BICARBONATE TOTAL HCO3 26.9 H BASE EXCESS 0.6 ABG O2 SATURATION 97.9 ARTERIAL FIO2 40.0 ABG VENT MODE NASAL CANNULA ALLENS TEST NOT APPLICABLE SODIUM (POC) 141 POTASSIUM (POC) 4.38 CHLORIDE (ARTERIAL) 105 GLUCOSE 111 H IONIZED CALCIUM 1.21 POC LACTIC ACID 1.80 TOTAL HGB 9.4 D L CARBOXYHEMOGLOBIN 0.6 METHEMOGLOBIN <0.8 HHb 2.1 TCO2 ARTERIAL 28.4 BLOOD GAS W/ELECTROLYTES (02/12/24 21:59) ARTERIAL BLOOD GAS PH 7.32 L ARTERIAL BLOOD GAS PCO2 51.5 H ARTERIAL BLOOD GAS PO2 110.4 H BICARBONATE TOTAL HCO3 25.9 H BASE EXCESS -0.6 ABG O2 SATURATION 97.5 ARTERIAL FIO2 40.0 ABG VENT MODE NASAL CANNULA ALLENS TEST NOT APPLICABLE SODIUM (POC) 140 POTASSIUM (POC) 4.23 CHLORIDE (ARTERIAL) 104 GLUCOSE 142 H IONIZED CALCIUM 1.23 POC LACTIC ACID 2.90 H TOTAL HGB 10.0 L OXYHEMOGLOBIN 96.9 CARBOXYHEMOGLOBIN 0.3 METHEMOGLOBIN <0.8 HHb 2.5 TCO2 ARTERIAL 27.5 PHOS (02/12/24 21:30) PHOSPHOROUS 4.1 MAG (02/12/24 21:30) MAGNESIUM 2.0 BASIC METABOLIC PANEL (02/12/24 21:30) SODIUM 143 POTASSIUM 4.3 CHLORIDE 112H H CARBON DIOXIDE 26 GLUCOSE 139H H BLOOD UREA NITROGEN 11 GLOMERULAR FILTRATION RATE >=60 max estimate CREATININE 0.90 CALCIUM 8.4 L CBC W/AUTO DIFF (02/12/24 21:30) WHITE BLOOD CELL 16.4H H RED BLOOD CELL 3.03 L HEMOGLOBIN 9.1D L D L HEMATOCRIT 27.9L L MEAN CELL VOLUME 92.1 MEAN CELL HGB 30.0 MEAN CELL HGB CONCENTRATION 32.6 L RED CELL DISTRIBUTION WIDTH 14.9 PLATELET COUNT 92L L MEAN PLATELET VOLUME 11.9 NEUTROPHIL % 88.9 H LYMPHOCYTE % 4.1 L MONOCYTE % 5.9 EOSINOPHIL % 0.1 BASOPHIL % 0.2 NEUTROPHIL # 14.55 H LYMPHOCYTE # 0.67 L MONOCYTE # 0.97 H EOSINOPHIL # 0.01 BASOPHIL # 0.03 GLU BED (02/12/24 20:30) GLUBED 163 H GLU BED (02/12/24 19:03) GLUBED 194 H BLOOD GAS W/ELECTROLYTES (02/12/24 17:43) ARTERIAL BLOOD GAS PH 7.34 L ARTERIAL BLOOD GAS PCO2 45.2 H ARTERIAL BLOOD GAS PO2 67.9 L BICARBONATE TOTAL HCO3 23.7 BASE EXCESS -2.2 L ABG O2 SATURATION 92.1 L ARTERIAL FIO2 32.0 ABG VENT MODE NASAL CANNULA ALLENS TEST NOT APPLICABLE SODIUM (POC) 142 POTASSIUM (POC) 4.22 CHLORIDE (ARTERIAL) 106 GLUCOSE 222 H IONIZED CALCIUM 1.14 POC LACTIC ACID 5.90 H TOTAL HGB 10.2 D L OXYHEMOGLOBIN 91.0 L CARBOXYHEMOGLOBIN 0.9 METHEMOGLOBIN <0.8 HHb 7.8 TCO2 ARTERIAL 25.1 GLU BED (02/12/24 17:18) GLUBED 220 H BLOOD GAS W/ELECTROLYTES (02/12/24 16:07) ARTERIAL BLOOD GAS PH 7.26 L ARTERIAL BLOOD GAS PCO2 44.8 ARTERIAL BLOOD GAS PO2 90.6 BICARBONATE TOTAL HCO3 19.6 L BASE EXCESS -7.3 L ABG O2 SATURATION 95.5 ARTERIAL FIO2 40.0 ABG VENT MODE VENT ALLENS TEST NOT APPLICABLE SODIUM (POC) 140 POTASSIUM (POC) 4.18 CHLORIDE (ARTERIAL) 104 GLUCOSE 245 H IONIZED CALCIUM 1.21 POC LACTIC ACID 4.87 H TOTAL HGB 11.1 D L OXYHEMOGLOBIN 94.6 CARBOXYHEMOGLOBIN 0.8 METHEMOGLOBIN <0.8 HHb 4.5 TCO2 ARTERIAL 20.9 L BLOOD GAS W/ELECTROLYTES (02/12/24 14:35) ARTERIAL BLOOD GAS PH 7.33 L ARTERIAL BLOOD GAS PCO2 35.8 ARTERIAL BLOOD GAS PO2 108.6 H BICARBONATE TOTAL HCO3 18.5 L BASE EXCESS -6.6 L ABG O2 SATURATION 97.7 ARTERIAL FIO2 40.0 ABG VENT MODE Ventilator ALLENS TEST NOT APPLICABLE SODIUM (POC) 138 POTASSIUM (POC) 4.33 CHLORIDE (ARTERIAL) 104 GLUCOSE 285 H IONIZED CALCIUM 1.10 L POC LACTIC ACID 4.11 H TOTAL HGB 12.4 OXYHEMOGLOBIN 96.7 CARBOXYHEMOGLOBIN 0.9 METHEMOGLOBIN <0.8 HHb 2.3 TCO2 ARTERIAL 19.6 L COVID Asymp Ag (02/12/24 13:24) COVID 19 Asymptomatic IH AG NEGATIVE PHOS (02/12/24 13:23) PHOSPHOROUS 3.3 LACTIC ACID (02/12/24 13:23) LACTIC ACID 2.20 *H MAG (02/12/24 13:23) MAGNESIUM 2.4 BASIC METABOLIC PANEL (02/12/24 13:23) SODIUM 140 POTASSIUM 4.8 CHLORIDE 110H H CARBON DIOXIDE 22 GLUCOSE 218H H BLOOD UREA NITROGEN 9 GLOMERULAR FILTRATION RATE >=60 max estimate CREATININE 0.70 CALCIUM 7.8 D L PTT (02/12/24 13:23) THROMBOPLASTIN TIME PARTIAL 28.8 D CBC W/AUTO DIFF (02/12/24 13:23) WHITE BLOOD CELL 26.9D H D H RED BLOOD CELL 4.29 HEMOGLOBIN 12.8 HEMATOCRIT 38.1 MEAN CELL VOLUME 88.8 D MEAN CELL HGB 29.8 MEAN CELL HGB CONCENTRATION 33.6 RED CELL DISTRIBUTION WIDTH 14.3 PLATELET COUNT 124L L MEAN PLATELET VOLUME 13.4 H NEUTROPHIL % 85.5 H LYMPHOCYTE % 8.4 L MONOCYTE % 3.1 EOSINOPHIL % 0.8 BASOPHIL % 0.6 NEUTROPHIL # 23.06 H LYMPHOCYTE # 2.26 MONOCYTE # 0.84 H EOSINOPHIL # 0.21 BASOPHIL # 0.15 PROTHROMBIN TIME (02/12/24 13:23) PROTHROMBIN TIME PATIENT 15.1 H INTERNATIONAL NORMAL RATIO 1.36 H ACT (02/12/24 12:52) COAGULATION TIME ACTIVATED 134 ACT (02/12/24 11:31) COAGULATION TIME ACTIVATED 574 H ACT (02/12/24 11:03) COAGULATION TIME ACTIVATED 635 H ACT (02/12/24 10:32) COAGULATION TIME ACTIVATED 776 H ACT (02/12/24 09:52) COAGULATION TIME ACTIVATED 690 H GLU BED (02/12/24 06:57) GLUBED 110 H -- QUALITY -- -MEDICATIONS- - I attest that the foregoing medication list in the medical record is true, accurate, and complete to the best of my knowledge. -- ATTESTATION -- TIME SPENT ON PATIENT CARE: - Critical Care: time spent apart from any procedure 46 minutes Patient was critically ill due to: Coronary artery disease/NSTEMI s/p single vessel coronary bypass, acute respiratory insufficiency. My treatment and management were: discussed on ICU multi-disciplinary rounds with nursing, pharmacy, respiratory therapy, case management and consultants including cardiothoracic surgery, cardiology. CARE ACTIVITIES / CARE COORDINATION: - I have reviewed the history and repeated the escobar elements - I have seen and examined this patient - I have reviewed the progress in the clinical course since the last examination - I have discussed the patient's condition with other members of the care team Signed in PatientKeeper by Suhas Self MD on 02/13/24 at 16:13 at 1613 ATTENTION *EDITS and/or ADDENDA must be made in Patient Keeper for this note. * * Edits and ammendments created in [facility] are not visible * * in Patient Keeper or the legal medical record (HPF). * [facility] #: [id number] END OF REPORT [facility] 2024-02-13 07:04:00 [id number] [address] PATIENT NAME: MITA CARBONE ADMIT DATE: 01/30/24 ACCOUNT NO: [id number] ROOM NO: P.0308 AGE: 73 REPORT TYPE: eECHOCARDIOGRAM REPORT SEX: F ADMITTING PHYSICIAN: Flavio Ballesteros MD ATTENDING PHYSICIAN: Flavio Ballseteros MD *[facility]* [address] [place] [address] Transthoracic Echocardiogram Patient: Mita Carbone Study Date: 02/03/2024 BP: URN: [id number] Location: : 1950 Age: 73 Gender: F Height: 62 in / 157.5 cm Weight: 214 lb / 97.1 kg BMI/BSA: 39.1 kg/m 2 / 2.11 m 2 *Ordering Physician: * Elidia RobertsonFellow: * Jo Fofana *Interpreting Physician: * Dejah Parker M.D. *Spool Sorter: * Briseyda Gallegos Indications: PRE OP. Study data: Transthoracic echocardiogram. Complete 2D, complete spectral Doppler, and color Doppler. Location: Bedside. Patient room number: 428. Findings Left ventricle: The cavity size is normal. Wall thickness is mildly increased. Systolic function is normal. The estimated ejection fraction is 55-60%. Wall motion is normal; there are no regional wall motion abnormalities. Grade I diastolic dysfunction. Right ventricle: The cavity size is normal. Systolic function is normal. Left atrium: The atrium is normal in size. Right atrium: The atrium is normal in size. Aorta: PATIENT NAME: MITA CARBONE Aortic root: The root is normal-sized. Aortic valve: The valve is trileaflet. The leaflets are mildly thickened and mildly calcified. There is no evidence of stenosis. There is no regurgitation. Mitral valve: The leaflets are mildly thickened and mildly calcified. There is no evidence of stenosis. There is mild regurgitation. Tricuspid valve: The valve is structurally normal. There is trace regurgitation. Pulmonic valve: The valve is structurally normal. There is no regurgitation. Pericardium: There is no pericardial effusion. Pulmonary arteries: The main pulmonary artery is normal-sized. Systemic veins: Inferior vena cava: The IVC is normal-sized. Measurements Left ventricle Value Ref 01/31/2024 LYDIA, LAX 4.2 cm 3.8 - 5.2 4.7 ESD, LAX 3.2 cm 2.2 - 3.5 3.7 FS, LAX 22 % LYDIA major ax, A2C 8.0 cm --------- 7.5 ESD major ax, A2C 6.0 cm --------- IVS, ED 1.3 cm 0.6 - 0.9 1.1 ESD 3.2 cm 2.2 - 3.5 3.7 FS 22 % 21 PW, ED 1.2 cm 0.6 - 0.9 1.0 IVS/PW, ED 1.08 --------- 1.04 EF 46 % 54 - 74 44 EF, MM on 2D Teich. 46 % >=55 44 E', lat inna, TDI 6.1 cm/sec >=10.0 6.4 E/e', lat inna, TDI 14 <=13 11 E', med inna, TDI 6.5 cm/sec >=7.0 7.2 E/e', med inna, TDI 14 --------- 10 E', avg, TDI 6.3 cm/sec --------- 6.8 E/e', avg, TDI 14 <=14 10 LVOT Value Ref 01/31/2024 Diam, S 1.92 cm --------- 1.64 Area 2.9 cm 2 --------- 2.1 Peak panfilo, S 1.16 m/sec --------- 1.25 Mean panfilo, S 0.71 m/sec --------- 0.86 VTI, S 22.6 cm --------- 25.8 Peak grad, S 5 mm Hg --------- 6 Mean grad, S 2 mm Hg --------- 7 SV 65 ml --------- 55 SV/bsa 31 ml/m 2 --------- 26 Right ventricle Value Ref 01/31/2024 Pressure, S 33 mm Hg --------- Left atrium Value Ref 01/31/2024 LA ID 4.3 cm --------- 4.4 PATIENT NAME: PACO RAKAN MICHAELMITA BECCA AP dim, ES 4.3 cm 2.7 - 3.8 4.4 AP dim ES, LAX 4.3 cm 2.7 - 3.8 4.4 SI dim ES, LAX 4.3 cm --------- 4.4 LA/Ao root ratio 1.24 --------- 1.62 AP dim, ES MM 4.3 cm 2.7 - 3.8 4.4 LA/Ao root ratio, MM 1 --------- 1 Aortic valve Value Ref 01/31/2024 Peak v, S 1.3 m/sec --------- 1.6 Mean v, S 0.83 m/sec --------- 1.08 VTI, S 25.0 cm --------- 30.6 Mean grad, S 3 mm Hg --------- 5 Peak grad, S 6.5 mm Hg --------- 10.4 LVOT/AV, VTI ratio 0.9 --------- 0.84 NENO, VTI 2.61 cm 2 --------- 1.78 LVOT/AV, Vpeak ratio 0.91 --------- 0.78 NENO, Vmax 2.62 cm 2 --------- 1.64 Mitral valve Value [facility] 01/31/2024 Mean v, D 0.6 m/sec --------- 0.55 Peak E 0.06 m/sec --------- 0.07 Peak A 1.03 m/sec --------- 0.96 VTI leaflet coapt 27.0 cm --------- 16.7 MiV/LVOT VTI 1.2 --------- 0.6 Decel time 213 ms --------- 133 PHT 64 ms --------- 31 Mean grad, D 2 mm Hg --------- 1 Peak grad, D 4.6 mm Hg --------- 3.6 Peak E/A ratio 0.86 --------- 0.74 MVA, PHT 3.5 cm 2 --------- 7.2 Tricuspid valve Value [facility] 01/31/2024 TR peak v 2.5 m/sec <=2.8 2.3 Peak RV-RA grad, S 25 mm Hg --------- 21 Aortic root Value [facility] 01/31/2024 Root diam 3.4 cm 2.8 - 4.2 2.7 Root diam, ED MM 4.3 cm --------- 4.4 Ascending aorta Value Ref 01/31/2024 AAo AP diam, S 3.4 cm --------- 3.3 Pulmonary artery Value Ref 01/31/2024 Pressure, S 27.9 mm Hg --------- Systemic veins Value Ref 01/31/2024 Estimated CVP 8 mm Hg --------- Conclusions Summary: Left ventricle: The cavity size is normal. Wall thickness is mildly increased. Systolic function is normal. The estimated ejection fraction is 55-60%. Wall motion is normal; there are no regional wall motion PATIENT NAME: MITA CARBONE abnormalities. Grade I diastolic dysfunction. Electronically signed by Dejah Parker M.D. 02/13/2024 07:04 at 0704 PATIENT NAME: MITA ACRBONE [facility] 2024-02-12 16:37:00 [facility] ([facility]) Operative Report REPORT #: [id number] REPORT STATUS: Signed DATE: 02/12/24 TIME: 163 PATIENT: MITA CARBONE UNIT #: [id number] ROOM #: P.0308 BED: 1 : 49 AGE: 73 SEX: F ATTEND: Flavio Ballesteros MD ADM AUTHOR: Devante Rebollar MD ATTENTION *EDITS and/or ADDENDA must be made in Patient Keeper for this note. * * Edits and ammendments created in [facility] are not visible * * in Patient Keeper or the legal medical record (HPF). * -- OPERATION -- SURGERY START DATE/TIME: 2024-02-12 08:30 PRE-OPERATIVE DIAGNOSIS: See Full Summary POST-OPERATIVE DIAGNOSIS: See Full Summary INDICATION(S): See Full Summary NAME OF PROCEDURE: See Full Summary TIME OUT COMPLETED: Yes SURGEON: DEVANTE REBOLLAR MD DICTAPHONE TRANSCRIBER(S): See Full Summary ANESTHESIA: See Full Summary ESTIMATED BLOOD LOSS: 600 ml's FINDINGS: See Full Summary SPECIMEN(S) REMOVED AND/OR ALTERED: See Full Summary COMPLICATION(S): See Full Summary -- DESCRIPTION -- DESCRIPTION OF TECHNIQUE/PROCEDURE: SURGEON 1ST DICTAPHONE TRANSCRIBER 2ND DICTAPHONE TRANSCRIBER DATE OFOPERATION Patrick Collado P.A. Whitney Reimer PEmmettAEmmett 02/12/2024 PREOPERATIVE DIAGNOSIS: 1. Unstable angina 2. Coronary artery disease 3. Mild left ventricular dysfunction (LVEF 45%) 4. Diabetes mellitus 5. Hypertension 6. Hyperlipidemia 7. Morbid obesity (BMI 40) 8. Hypothyroidism 9. GERD 10. S/p hip surgery 2014 11. S/p knee surgery 2018 POSTOPERATIVE DIAGNOSIS: Same OPERATION: 1. Urgent CABG X 1 using cardiopulmonary bypass Left internal mammary artery bypass to the left anterior descending coronary artery 2. Cold Del-Nido cardioplegic arrest 3. Endoscopic vein harvesting 4. Insertion of temporary epicardial pacing wires AORTIC CLAMP TIME: 59 minutes TOTAL PUMP TIME: 87 minutes LOWEST NASOPHARYNGEAL TEMP: 34.35 C LOWEST BLADDER TEMP: 34.5 C BLOOD REQUIREMENTS: 1 unit of packed red blood cells, and 2 units of Cell Saver PROCEDURE: Ms. Antonio is a most pleasant 73-year-old female with multiple risk factors for coronary artery disease. Recently, she has been complaining of chest discomfort at rest. Cardiac CT with calcium scoring was positive, and the patient was referred for [facility]. She was found to have complex multivessel coronary artery disease with heavily calcified vessels. Due to the above findings, the patient was referred for coronary artery bypass grafting surgery. Of note the patient is morbidly obese and has very limited mobility. The indication for surgery as well as the risks and benefits of the procedure were explained in detail to the patient and her family, and informed consent was obtained. The patient was taken to the operating room, placed in the supine position and administered satisfactory general endotracheal anesthesia. A time-out procedure was performed, confirming the patient's name, MRN, and procedure to be performed. Transesophageal echocardiogram demonstrated mild left ventricular dysfunction with LVEF 45% with no significant valvular abnormalities. These findings were in correlation with preoperative transthoracic echocardiogram. Next, the chest, abdomen and legs were prepped and draped in the usual sterile manner. The chest was entered through a median sternotomy, and the left pleura was entered. The left internal mammary artery was dissected in a skeletonized fashion by using the cautery starting from the 6th intercostal space going proximally to the first rib. The branches were ligated with hemoclips and divided. The artery was found to be of normal diameter and demonstrated good flow. Then, the left internal mammary artery was placed and soaked with Papaverine solution. Simultaneously, the greater saphenous vein was endoscopically harvested from the left leg. The vein was of reasonable quality. At that point, the pericardium was opened longitudinally. The heart was covered with a very thick layer of epicardial fat and demonstrated good global function. The ascending aorta was very short and small. The patient was anti-coagulated with sodium heparin, and the heart was cannulated for cardiopulmonary bypass with placement of a 21Fr arterial cannula in the distal ascending aorta and a dual stage cannula in the right atrium. Cardiopulmonary bypass was established, and the patient was allowed to drift to the above stated temperature. An antegrade cardioplegia cannula was inserted into the ascending aorta and secured, following which the ascending aorta was cross-clamped. Cold Del-Nido cardioplegic solution was instilled into the ascending aorta establishing a diastolic arrest and keeping the heart isoelectric. Inspection of the right coronary artery demonstrated a small vessel that is not suitable for bypass. At that point, attention was given to the posterolateral wall. None of the obtuse marginal coronary arteries could be identified on the posterolateral wall. A small distal obtuse marginal was noted and was not suitable for bypass. It was therefore decided to proceed with STEPHEN to the LAD bypass. The left anterior descending coronary artery was not visualized, as the anterior wall was covered with epicardial fat as well. Extensive dissection was performed, and the vessel was found in its distal third embedded deep in the epicardial fat. The vessel was opened longitudinally and was noted to be suitable for bypass admitting a 1.0 mm dilator. The left internal mammary artery was then fashioned end-to side to the arteriotomy made in the left anterior descending coronary artery, and the anastomosis was completed using a running # 8/0 Prolene suture. The heart chambers were filled with blood. Any potential air was evacuated via the antegrade aortic cardioplegia cannula. The patient was placed in the head-down position and the aortic cross-clamp released. Temporary epicardial pacemaker wires were placed on the right ventricular outflow tract, and the patient was paced. Pacing was discontinued once the patient regained normal sinus rhythm. Rewarming continued to a nasopharyngeal and bladder temperature of 36.0 C. After demonstrating satisfactory hemodynamics, the patient was uneventfully weaned from cardiopulmonary bypass. Transesophageal echocardiogram demonstrated good left ventricular systolic function with no wall-motion abnormalities. Due to the poor quality of the saphenous vein and the concern from bleeding, a decision was made to ligate the saphenous vein at its proximal anastomosis. Flow was assessed in the STEPHEN to LAD graft and was found to be excellent with low PI. The aortic and vena caval cannulae were removed. Protamine sulfate was administered to reverse the anti-coagulated state. One # 36 straight chest tube was placed in the mediastinum, and one # 28 right angle chest tube was placed in the left pleural space. The chest was closed with interrupted # 5 stainless steel surgical wires on the sternum, running #l Vicryl Plus on the muscular fascia and running # 3/0 Monocryl suture for the skin. The patient tolerated the procedure well and was taken to the ICU in stable condition. Sponge, needle and instrument x4 were correct. I was present as surgeon for all elements of this operation that included opening the chest, harvesting the left internal mammary artery, establishing cardiopulmonary bypass and performing the left internal mammary artery to the left anterior descending coronary artery bypass graft. I weaned the patient from cardiopulmonary bypass and closed the incision. Due to the complexity of this surgery, a pediatric medical assistant was necessary. Bryan Means PA-C was present and scrubbed for the entirety of the case. Bryan was essential for the proper positioning, manipulation of instruments, maintenance/exposure of a clear surgical field. He endoscopically harvested the greater saphenous vein, helped initiating/weaning from cardiopulmonary bypass and assisted in the completion of the coronary anastomosis as described above. This operation could not have been safely performed (without compromising the technical results or length of the procedure) without the assistance of a skilled miller head assistant wet process. Devante Rebollar M.D. Signed in PatientKeeper by DEVANTE REBOLLAR MD on 02/12/24 at 16:42 at 1642 ATTENTION *EDITS and/or ADDENDA must be made in Patient Keeper for this note. * * Edits and ammendments created in [facility] are not visible * * in Patient Keeper or the legal medical record (HPF). * [facility] #: [id number] END OF REPORT [facility] 2024-02-12 15:43:00 [facility] ([facility]) Brief Operative Report REPORT #: [id number] REPORT STATUS: Signed DATE: 02/12/24 TIME: 1543 PATIENT: MITA CARBONE UNIT #: [id number] ROOM #: P.0308 BED: 1 : 49 AGE: 73 SEX: F ATTEND: Flavio Ballesteros MD ADM AUTHOR: Bryan Means ATTENTION *EDITS and/or ADDENDA must be made in Patient Keeper for this note. * * Edits and ammendments created in [facility] are not visible * * in Patient Keeper or the legal medical record ([facility]). * -- BRIEF OP NOTE -- PRE-OPERATIVE DIAGNOSIS: 1. Unstable angina 2. Coronary artery disease 3. Mild left ventricular dysfunction (LVEF 45%) 4. Diabetes mellitus 5. Hypertension 6. Hyperlipidemia 7. Morbid obesity (BMI 40) 8. Hypothyroidism 9. GERD POST-OPERATIVE DIAGNOSIS: same same NAME OF PROCEDURE: 1. Urgent CABG X 1 using cardiopulmonary bypass Left internal mammary artery bypass to the left anterior descending coronary artery EVH Left SURGEON: DEVANTE REBOLLAR MD DICTAPHONE TRANSCRIBER(S): Bryan Rain PA-C FINDINGS: CAD ESTIMATED BLOOD LOSS (ML'S): 600 SPECIMEN(S) REMOVED AND/OR ALTERED: none COMPLICATION(S): Planned bypass to RCA and OM was not preformed, as visualized arteries did not appear to be large enough in diameter to support Bypass. (leisions were known to to have PCI options) DRAIN(S): 1 left pleural 1 mediastinal ADDITIONAL COMMENTS: 1 unit of packed red blood cells, and 2 units of Cell Saver Signed in PatientKeeper by Bryan Means on 02/12/24 at 16:51 at 1651 ATTENTION *EDITS and/or ADDENDA must be made in Patient Keeper for this note. * * Edits and ammendments created in [facility] are not visible * * in Patient Keeper or the legal medical record (HPF). * [facility] #: [id number] END OF REPORT [facility] 2024-02-12 13:24:00 [facility] ([facility]) Intensive Care Consultation REPORT #: [id number] REPORT STATUS: Signed DATE: 02/12/24 TIME: 1324 PATIENT: MITA CARBONE UNIT #: [id number] ROOM #: P.0308 BED: 1 : 49 AGE: 73 SEX: F ATTEND: Flavio Ballesteros MD ADM AUTHOR: Suhas Self MD ATTENTION *EDITS and/or ADDENDA must be made in Patient Keeper for this note. * * Edits and ammendments created in [facility] are not visible * * in Patient Keeper or the legal medical record (HPF). * -- ASSESSMENT AND PLAN -- RESUSCITATION DISCUSSION: FULL per patient preoperatively HOSPITAL COURSE TO DATE: Patient is a 73-year old female with PMH notable for CAD, HTN, heart failure with preserved ejection fraction, non-insulin dependent diabetes, nicotine abuse, and morbid obesity initially admitted on 01/30 for preoperative optimization in preparation for coronary bypass. Patient admitted to CVICU postoperatively following single vessel coronary bypass (STEPHEN to LAD). 02/11: s/p single vessel coronary bypass (STEPHEN to LAD), transferred to CVICU for postoperative management GENERAL ASSESSMENT: Plan: Pain/Sedation #Acute Postoperative Pain -Hold sedation in anticipation for extubation, goal RASS 0 -Start multi-modal pain regimen once extubated Neuro/Psych -Exam non-focal -Neurochecks per protocol -Delirium precautions Respiratory #Acute Respiratory Insufficiency -Intubated perioperatively -Wean vent support in anticipation for extubation -Monitor chest tube output x2 (left pleural, mediastinal) -Serial CXRs/ABGs, CPT, pulmonary hygiene, encourage IS once extubated Cardiovascular #CAD s/p 1V CAB (STEPHEN to LAD) #NSTEMI #HTN -Admit to CVICU for postoperative management following coronary bypass -Unable to bypass RCA and circumflex, will eventually need interval PCI with cardiology -Pre- and Post-op TTE: normal LV function -Currently hemodynamically stable, not requiring vasoactive agents -Goal MAP >65, SBP <120-30 -A-line/PA catheter in place, continue close hemodynamic monitoring -Pacer wires in place, not requiring pacing -Continue aspirin/statin, start Plavix in AM -PRN diuresis to maintain net negative -Resume antihypertensives as needed -Cardiothoracic surgery and cardiology following Gastrointestinal/Nutrition -Strict NPO in anticipation for extubation -Post-op bowel regimen Renal -Renal function WNL -Maintain Jones for strict I/O postoperatively -Electrolyte protocol, maintain K >4.0, Phos >3.0, Mg >2.0 Infectious Disease #Perioperative SIRS -Completed perioperative abx per protocol -No concerns for infection at present, monitor fever curve Endocrine #NIDDM -Strict glycemic control postoperatively, maintain goal BS 140-180 -Start insulin gtt if refractory hyperglycemia -Hypoglycemia protocol HEME #Acute Blood Loss Anemia -EBL 700cc, received 1 PRBC intraop -H/H adequate, currently without evidence of bleeding -Transfuse for goal Hgb >8.0, platelets >10k or 20k with bleeding, and fibrinogen >150 MSK -PT/OT once extubated PPX -DVT: SCDs -GI: None GOC -Code: FULL per patient preoperatively -Advance Care Planning: None per history Dispo: Continue ICU level care Medications reviewed with ICU pharmacist Patient is critically ill and at risk of imminent life threatening injury or -- HISTORY -- REASON FOR CONSULT: Postoperative management CHIEF COMPLAINT: Chest Pain HPI: Patient is a 73-year old female with PMH notable for CAD, HTN, heart failure with preserved ejection fraction, non-insulin dependent diabetes, nicotine abuse, and morbid obesity initially admitted on 01/30 for preoperative optimization in preparation for coronary bypass. Patient admitted to CVICU postoperatively following single vessel coronary bypass (STEPHEN to LAD). History obtained from chart review and discussion with other providers. Patient initially developed shortness of breath and chest pain and was evaluated by management internship Dr Aliza Chavez in December. She underwent a coronary CTA which revealed a calcium score of 1885, with severe disease multivessel disease. She underwent LHC with showed disease involving the left main and severe three-vessel CAD, but was deemed not a candidate for PCI. Patient was subsequently referred to cardiothoracic surgery for coronary bypass evaluation. On 01/30, she presented to the hospital with a complaint of chest pain, and was subsequently admitted for management of NSTEMI and preoperative optimization in preparation for coronary bypass. Patient seen and examined today postoperatively following single vessel coronary bypass (STEPHEN to LAD). Patient tolerated procedure well and is transferred to CVICU hemodynamically stable. EBL 700cc. Patient received 1 PRBC and two spins of cell saver intraoperatively. Intentions were to revascularize the RCA and circumflex, however there were no available bypass targets, and subsequently they were not revascularized. PAST MEDICAL HISTORY: CAD, HTN, heart failure with preserved ejection fraction, non-insulin dependent diabetes, nicotine abuse, and morbid obesity PAST SURGICAL HISTORY: Hip replacement Knee replacement FAMILY HISTORY: Unable to obtain -SOCIAL HISTORY- -TOBACCO USE- DETAILS/COMMENTS: Known history of tobacco abuse per history -VAPING/INHALED SOLVENTS- DETAILS/COMMENTS: Unable to obtain -ALCOHOL USE- DETAILS/COMMENTS: Unable to obtain -DRUG USE- DETAILS/COMMENTS: Unable to obtain -- SUBJECTIVE -- PATIENT NARRATIVE: Patient seen and examined postoperatively. Sedation off but not alert nor following commands. Remains intubated. -- OBJECTIVE -- VITALS (02/10 13:24 - 02/11 13:24): Temperature C: 36.7 (36.5 - 37.0) Temperature source: Axillary Pulse Rate 72 (64 - 72) Respiratory rate: 17 (16 - 34) Blood pressure: 147/79 (131/64 - 147/79) Blood pressure source: Monitor I/Os (02/10 07:00 - 02/11 07:00): Net 869.00 Intake 869.00 -EXAM- OTHER: General: Adult female, intubated, not sedated, not alert, not following commands, in NAD HEENT: NCAT, clear conjunctiva, PERRLA, moist oral mucosa Neck: No JVD CV: RRR, no murmurs Lung: CTAB, unlabored breathing on full vent support, no wheezes, rales, rhonchi GI: Soft, NT/ND, no rebound, hypoactive bowel sounds Neuro: No focal deficits appreciated MSK: No spontaneous movement Extremities: No edema and warm bilaterally Skin: Sternotomy incision C/D/I, no rashes or lesions Psych: Unable to assess -- DATA -- MEDICATIONS diphenhydrAMINE HCL 25 MG PO Q6H PRN hydrALAZINE HCL 5 MG IV Q6HR PRN ONDANSETRON HCL/PF 4 MG IV Q6H PRN bisacodyL 10 MG RECTAL ASDIR PRN HEPARIN SODIUM,PORCINE 5000 UNIT IV ASDIR (PRN) HEPARIN SODIUM,PORCINE 4000 UNIT IV ASDIR (PRN) traMADol HCL 50 MG PO Q6HR ceFAZolin SODIUM with/in WATER FOR INJECTION,STERILE 2 GM IV ONCE clopidogreL 75 MG PO DAILY METOPROLOL TARTRATE 5 MG IV Q6H PRN LACTULOSE 30 ML PO BID PRN CYANOCOBALAMIN 500 MCG PO DAILY MAG HYDROX/AL HYDROX/SIMETH 30 ML PO Q4H PRN ATORVASTATIN CALCIUM 40 MG PO BEDTIME POTASSIUM CHLORIDE 20 MEQ IV ASDIR (PRN) DEXTROSE 50%-WATER 25 ML IV ASDIR PRN GLUCAGON 1 MG IM ASDIR PRN ASPIRIN 81 MG PO DAILY METOPROLOL SUCCINATE 25 MG PO Q12HR HEPARIN/SOD CHLOR 0.45% 28388 UNITS IV TITRATE ONDANSETRON 4 MG PO Q6H PRN NITROGLYCERIN 0.4 MG SL Q5M PRN MAGNESIUM 1 GM IV ASDIR PRN polyethylene glycoL 3350 1 PKT PO DAILY MAGNESIUM HYDROXIDE 30 ML PO ASDIR PRN cloNIDine HCL 0.1 MG PO Q8H PRN EPINEPHrine HCL/D5W 4 MG IV ASDIR ACETAMINOPHEN 650 MG PO Q4H PRN ACETAMINOPHEN 650 MG PO Q6HR HEPARIN PHARMACY TO MONITOR 1 EACH IV ASDIR FERROUS SULFATE 325 MG PO DAILY LACTULOSE 30 ML PO ASDIR PRN LACTULOSE 30 ML PO ASDIR PRN ALBUMIN HUMAN 12.5 GM IV ONCE (PRN) niCARdipine HCL with/in SODIUM CHLORIDE 100 mL BAG 25 MG IV TITRATE NOREPINEPHRINE BITARTRATE 4 MG IV TITRATE CALCIUM GLUC IN NACL, ISO-OSM 2 GM IV ASDIR PRN INSULIN REG HUMAN REC with/in SODIUM CHLORIDE 100 mL BAG 100 UNIT IV ASDIR SENNOSIDES 2 TAB PO ASDIR PRN SODIUM CHLORIDE 10 mL 10 ML IV ASDIR IPRATROPIUM/ALBUTEROL SULFATE 3 ML NEB RTQ6H MUPIROCIN 1 APPLIC NASAL BID ACETAMINOPHEN 650 MG RECTAL Q4H PRN DOCUSATE SODIUM 200 MG PO DAILY VANCOMYCIN HCL with/in SODIUM CHLORIDE 0.9% 1500 MG IV ONCE SODIUM BICARBONATE 8.4% 50 MEQ IV ASDIR PRN LABS ACT (02/12/24 12:52) COAGULATION TIME ACTIVATED 134 ACT (02/12/24 11:31) COAGULATION TIME ACTIVATED 574 H ACT (02/12/24 11:03) COAGULATION TIME ACTIVATED 635 H ACT (02/12/24 10:32) COAGULATION TIME ACTIVATED 776 H ACT (02/12/24 09:52) COAGULATION TIME ACTIVATED 690 H GLU BED (02/12/24 06:57) GLUBED 110 H -- QUALITY -- -MEDICATIONS- - I attest that the foregoing medication list in the medical record is true, accurate, and complete to the best of my knowledge. -- ATTESTATION -- TIME SPENT ON PATIENT CARE: - Critical care: time spent apart from any procedure 52 minutes Patient was critically ill due to: Coronary artery disease/NSTEMI s/p single vessel coronary bypass, acute respiratory insufficiency. My treatment and management were: discussed on ICU multi-disciplinary rounds with nursing, pharmacy, respiratory therapy, case management and consultants including cardiothoracic surgery, cardiology. CARE ACTIVITIES / CARE COORDINATION: - I have reviewed the history and repeated the escobar elements - I have seen and examined this patient - I have reviewed the progress in the clinical course since the last examination - I have discussed the patient's condition with other members of the care team Signed in PatientKeeper by Suhas Self MD on 02/12/24 at 17:15 at 1715 ATTENTION *EDITS and/or ADDENDA must be made in Patient Keeper for this note. * * Edits and ammendments created in [facility] are not visible * * in Patient Keeper or the legal medical record (HPF). * RPT #: [id number] END OF REPORT [facility] 2024-02-12 08:28:00 [facility] ([facility]) Cardiology Progress Notes REPORT #: [id number] REPORT STATUS: Signed DATE: 02/12/24 TIME: 827 PATIENT: PACO OLSONMITA ZEPEDAA UNIT #: [id number] ROOM #: P.0308 BED: 1 : 49 AGE: 73 SEX: F ATTEND: Flavio Ballesteros MD ADM AUTHOR: Cristiano Torres DO CF1 ATTENTION *EDITS and/or ADDENDA must be made in Patient Keeper for this note. * * Edits and ammendments created in [facility] are not visible * * in Patient Keeper or the legal medical record (HPF). * -- CO-SIGNATURE -- COMMENTS: I have seen and examined the patient with the power plant inspector, Cristiano Torres DO on 02/12/2024. I have reviewed all the clinical information, lab investigations, and imaging data. I agree with the following examination, findings, assessment and plan. I was present and supervised. Signed in PatientKeeper by DEJAH PARKER MD on 02/21/24 at 06:30 -- ASSESSMENT AND PLAN -- GENERAL ASSESSMENT: A/P: Mrs. Paco Olson is a 73-year-old female (Tanzanian speaking, patient of Dr. Chavez) has a PMHx of cardiomyopathy, hypertension, hyperlipidemia, diabetes, family history of coronary artery disease, h/o smoking who was having left-sided chest pain, shortness of breath and tiredness for the past couple of months. She was evaluated by her management internship and had a CTA of the coronaries on 12/2023 and showed a calcium score of 1885, with severe ostial/proximal 3 vessel coronary artery disease. She was taken to [facility] for selective coronary angiogram and showed calcified arteries left main and severe three-vessel coronary artery disease. She was referred for CABG evaluation to CV surgery, Dr. Rebollar. She presented at [facility] with worsening previously mentioned symptoms. Chest x-ray showed apparent widening of the mediastinum and may be positional, cardiac silhouette appears enlarged, there appears to be mild central pulmonary vascular congestion as well. Labs showed negative troponin, LDL 101, BNP 85. She is being admitted for further evaluation and management. Dx: Multivessel CAD Anemia Thrombocytopenia HTN HLD T2DM Tobacco use Prediabetes Obesity 02/10 TTE: 55-59%, no RWMA, G1DD Plan: -s/p CABG x1 today with Dr. Rebollar; HAILEE to LAD -s/p 1U PRBC, 1L IVFs, 1 cell saver -required brief Epi drip during procedure -[address] -Epicardial pacing wires in place -f/u post-CABG LAs, ABGs, VBGs -ASA/plavix and HI statin -Continue post-CABG care -monitor I/Os and tele -continue ICU level of care and hemodynamic monitoring Discussed with Dr. Parker. -- SUBJECTIVE -- HPI: S/p CABG x1 today with Dr. Rajni STEPHEN to LAD. -REVIEW OF SYSTEMS- COMMENT: Unable to obtain due to clinical status. -- OBJECTIVE -- VITALS (02/10 08:28 - 02/11 08:28): Temperature C: 36.7 (36.5 - 37.0) Temperature source: Axillary Pulse Rate 72 (62 - 73) Respiratory rate: 17 (16 - 37) Blood pressure: 147/79 (126/62 - 147/79) Blood pressure source: Monitor I/Os (02/10 07:00 - 02/11 07:00): Net 869.00 Intake 869.00 -EXAM- GENERAL: Well developed, well nourished, in no apparent distress. HEAD: Normocephalic, atraumatic. EYES: PERRL, EOM intact, conjunctiva and sclera clear, without nystagmus, lids normal. MOUTH: Oropharynx without deformities or lesions, normal mucosa.. CHEST: Sternotomy with overlying bandage and chest tubes noted LUNGS: Clear bilaterally with normal respiratory effort. HEART: Regular rate and rhythm, normal S1, S2, no murmurs, no rubs, no gallops, no clicks. ABDOMEN: Soft, non-tender, no organomegaly, no masses noted. EXTREMITIES: No clubbing, no cyanosis, no edema. NEUROLOGICAL: Intubated and sedated. PULSES: Pulses normal in all extremities. SKIN: Intact without significant lesions, or rashes. -- DATA -- MEDICATIONS diphenhydrAMINE HCL 25 MG PO Q6H PRN hydrALAZINE HCL 5 MG IV Q6HR PRN HEPARIN SODIUM,PORCINE 5000 UNIT IV ASDIR (PRN) HEPARIN SODIUM,PORCINE 4000 UNIT IV ASDIR (PRN) HEPARIN PHARMACY TO MONITOR 1 EACH IV ASDIR METOPROLOL TARTRATE 5 MG IV Q6H PRN LACTULOSE 30 ML PO BID PRN MAG HYDROX/AL HYDROX/SIMETH 30 ML PO Q4H PRN ATORVASTATIN CALCIUM 40 MG PO BEDTIME DOCUSATE SODIUM 100 MG PO BID ACETAMINOPHEN 650 MG PO Q4H PRN ASPIRIN 81 MG PO DAILY METOPROLOL SUCCINATE 25 MG PO Q12HR HEPARIN/SOD CHLOR 0.45% 82093 UNITS IV TITRATE ONDANSETRON 4 MG PO Q6H PRN NITROGLYCERIN 0.4 MG SL Q5M PRN cloNIDine HCL 0.1 MG PO Q8H PRN LABS GLU BED (02/12/24 06:57) GLUBED 110 H Signed in PatientKeeper by Cristiano Torres on 02/12/24 at 17:15 Cosigned by DEJAH PARKER MD on 02/21/24 at 06:30 at 0630 at 0630 ATTENTION *EDITS and/or ADDENDA must be made in Patient Keeper for this note. * * Edits and ammendments created in [facility] are not visible * * in Patient Keeper or the legal medical record (HPF). * [facility] #: [id number] END OF REPORT [facility] 2024-02-11 08:27:00 [id number] [facility] [address] [id number] PATIENT NAME: MITA CARBONE ADMIT DATE: 01/30/24 ACCOUNT NO: [id number] ROOM NO: P.0413 AGE: 73 REPORT TYPE: eECHOCARDIOGRAM REPORT SEX: F ADMITTING PHYSICIAN: Flavio Ballesteros MD ATTENDING PHYSICIAN: Flavio Ballesteros MD *[facility]* [address] [place] [address] Transthoracic Echocardiogram Patient: Mita Carbone Study Date: 01/31/2024 BP: URN: [id number] Location: : 1950 Age: 73 Gender: F Height: 62 in / 157.5 cm Weight: 217 lb / 98.4 kg BMI/BSA: 39.7 kg/m 2 / 2.13 m 2 *Ordering Physician: * Dick Panda *Fellow: * Jo Fofana *Interpreting Physician: * Dejah Parker M.D. *Spool Sorter: * Grabiel Navarrete Indications: PRE-OP CABG. Study data: Transthoracic echocardiogram. Procedure: A transthoracic echocardiogram was performed. Images were obtained using a travelfoxid E Portable cardiac ultrasound machine. Image quality was adequate. The study was technically limited due to poor acoustic window availability and poor patient compliance. Complete 2D, complete spectral Doppler, and color Doppler. Location: Emergency department. Patient status: Inpatient. Patient room number: 12. Study status: Routine. Heart rate: 83 bpm. Findings Left ventricle: The cavity size is normal. Wall thickness is increased. Systolic function is normal. The estimated ejection fraction is 55-59%. Wall motion is normal; there are no regional wall motion abnormalities. Grade I PATIENT NAME: MITA CARBONE diastolic dysfunction. Right ventricle: The cavity size is normal. Systolic function is normal. Left atrium: The atrium is normal in size. Right atrium: The atrium is normal in size. Aorta: Aortic root: The root is normal-sized. Aortic valve: The valve is trileaflet. The leaflets are mildly thickened and moderately calcified. There is no evidence of stenosis. There is trace regurgitation. Mitral valve: The valve is structurally normal. There is no evidence of stenosis. There is no regurgitation. Tricuspid valve: The valve is structurally normal. There is trivial regurgitation. Pulmonic valve: The valve is structurally normal. There is no regurgitation. Pericardium: There is no pericardial effusion. Systemic veins: Inferior vena cava: The IVC is normal-sized. Measurements Left ventricle Value Ref LYDIA, LAX 4.7 cm 3.8 - 5.2 ESD, LAX 3.7 cm 2.2 - 3.5 FS, LAX 21 % 27 - 45 LYDIA major ax, A2C 7.5 cm --------- IVS, ED 1.1 cm 0.6 - 0.9 ESD 3.7 cm 2.2 - 3.5 FS 21 % 27 - 45 PW, ED 1.0 cm 0.6 - 0.9 IVS/PW, ED 1.04 --------- EF 44 % 54 - 74 Mass 214 g 66 - 150 Mass/bsa 101 g/m 2 44 - 88 Mass/ht 2.7 62.79 g/m 2.7 --------- EF, MM on 2D Teich. 44 % >=55 E', lat inna, TDI 6.4 cm/sec >=10.0 E/e', lat inna, TDI 11 <=13 E', med inna, TDI 7.2 cm/sec >=7.0 E/e', med inna, TDI 10 --------- E', avg, TDI 6.8 cm/sec --------- E/e', avg, TDI 10 <=14 LVOT Value Ref Diam, S 1.64 cm --------- Area 2.1 cm 2 --------- Peak panfilo, S 1.25 m/sec --------- Mean panfilo, S 0.86 m/sec --------- VTI, S 25.8 cm --------- Peak grad, S 6 mm Hg --------- Mean grad, S 7 mm Hg --------- SV 55 ml --------- SV/bsa 26 ml/m 2 --------- PATIENT NAME: PACO OLSONMITA HUDSON Right ventricle Value Ref TAPSE, 2D 2.1 cm >=1.7 TAPSE, MM 2.1 cm >=1.7 S' lateral 12.9 cm/sec >=9.5 RVOT Value Ref Peak v, S 1.29 m/sec --------- Peak grad, S 7 mm Hg --------- Left atrium Value Ref LA ID 4.4 cm --------- AP dim, ES 4.4 cm 2.7 - 3.8 AP dim ES, LAX 4.4 cm 2.7 - 3.8 SI dim ES, LAX 4.4 cm --------- LA/Ao root ratio 1.62 --------- AP dim, ES MM 4.4 cm 2.7 - 3.8 LA/Ao root ratio, MM 1 --------- Aortic valve Value Ref Peak v, S 1.6 m/sec --------- Mean v, S 1.08 m/sec --------- VTI, S 30.6 cm --------- Mean grad, S 5 mm Hg --------- Peak grad, S 10.4 mm Hg --------- LVOT/AV, VTI ratio 0.84 --------- NENO, VTI 1.78 cm 2 --------- LVOT/AV, Vpeak ratio 0.78 --------- NENO, Vmax 1.64 cm 2 --------- Mitral valve Value Ref Mean v, D 0.55 m/sec --------- Peak E 0.07 m/sec --------- Peak A 0.96 m/sec --------- VTI leaflet coapt 16.7 cm --------- MiV/LVOT VTI 0.6 --------- Decel time 133 ms --------- PHT 31 ms --------- Mean grad, D 1 mm Hg --------- Peak grad, D 3.6 mm Hg --------- Peak E/A ratio 0.74 --------- MVA, PHT 7.2 cm 2 --------- Tricuspid valve Value Ref TR peak v 2.3 m/sec <=2.8 Peak RV-RA grad, S 21 mm Hg --------- Aortic root Value Ref Root diam 2.7 cm 2.8 - 4.2 Root diam, ED MM 4.4 cm --------- Ascending aorta Value Ref AAo AP diam, S 3.3 cm --------- PATIENT NAME: MITA CARBONE Conclusions Summary: Left ventricle: The cavity size is normal. Wall thickness is increased. Systolic function is normal. The estimated ejection fraction is 55-59%. Wall motion is normal; there are no regional wall motion abnormalities. Grade I diastolic dysfunction. Electronically signed by Dejah Parker M.D. 02/11/2024 08:27 at 0827 PATIENT NAME: MITA CARBONE [facility] 2024-02-11 08:20:00 [facility] ([facility]) Cardiology Progress Notes REPORT #: [id number] REPORT STATUS: Signed DATE: 02/11/24 TIME: 08 PATIENT: MITA CARBONE UNIT #: [id number] ROOM #: P.0308 BED: 1 : 49 AGE: 73 SEX: F ATTEND: Flavio Ballesteros MD ADM AUTHOR: Dick Panda ATTENTION *EDITS and/or ADDENDA must be made in Patient Keeper for this note. * * Edits and ammendments created in [facility] are not visible * * in Patient Keeper or the legal medical record (HPF). * -- CO-SIGNATURE -- COMMENTS: The patient was seen on rounds with ESPERANZA Mcintyre. The patient has no complaints Examination demonstrates normal heart sounds and clear lung walsh. Impression and plan The patient is a 73-year-old female with a history of ischemic cardiomyopathy and three-vessel disease with risk factors of hypertension, hyperlipidemia, diabetes mellitus and strong family history of coronary artery disease as well as smoking. The patient is NYHA class I and CCS class III. -Echo demonstrates normal ejection fraction with no significant valvular disease. -On heparin. -On statin and beta-carli. -Await surgical intervention on 02/11 Signed in PatientKeeper by DEJAH PARKER MD on 03/02/24 at 14:15 -- ASSESSMENT AND PLAN -- PROBLEMS: 1: Coronary artery disease A/P: The patient is a 73-year-old female (Tanzanian speaking, patient of Dr. Chavez) has a PMHx of cardiomyopathy, hypertension, hyperlipidemia, diabetes, family history of coronary artery disease, h/o smoking. She has been having left-sided chest pain, shortness of breath and tiredness for the past couple of months. She was evaluated by her management internship and had a CTA of the coronaries on 12/2023 and showed a calcium score of 1885, with severe ostial/proximal 3 vessel coronary artery disease. She was taken to [facility] for selective coronary angiogram and showed calcified arteries left main and severe three-vessel coronary artery disease. She was referred for CABG evaluation to CV surgery, Dr. Rebollar. She presented today at [facility] with worsening previously mentioned symptoms. Chest x-ray showed apparent widening of the mediastinum and may be positional, cardiac silhouette appears enlarged, there appears to be mild central pulmonary vascular congestion as well. Labs showed negative troponin, LDL 101, BNP 85. She is being admitted for further evaluation and management. - S/p SCA at previous admission ([facility]), see above - Echo (01/30) - EF 55-59%, grade I diastolic dysfunction - Pre-op workup per CV surgery - Continue heparin drip - On aspirin, atorvastatin 40mg daily, metoprolol XL 25mg BID - On SL nitroglycerin as needed for chest pain - On PT/OT/IS. Sitting in the chair and per nursing staff and physical therapy, the patient ambulated on the unit yesterday - CV surgery planning CABG tomorrow, Sunday (02/12/24). NPO after midnight -- SUBJECTIVE -- CHIEF COMPLAINT: Chest pain, coronary artery disease PATIENT NARRATIVE: Sitting in the chair. On heparin drip. She denies chest pain. Family member at bedside. Seen by CV surgery. No acute events overnight. -REVIEW OF SYSTEMS- GENERAL: Negative for fever, malaise, fatigue. EYES: Negative for blurry vision. No diplopia. EARS/NOSE/THROAT: Negative for sore throat. No otalgia. No rhinorrhea. RESPIRATORY: Negative for dyspnea or wheeze. No cough. CARDIOVASCULAR: Negative for chest pain or palpitations. No extremity swelling. GASTROINTESTINAL: Negative for abdominal pain or nausea. No emesis. No diarrhea. GENITOURINARY: Negative for dysuria, frequency, or urgency. No gross hematuria. MUSCULOSKELETAL: Negative for joint stiffness, pain, or arthralgias. SKIN: Negative for rashes. No pruritus. NEUROLOGICAL: Negative for headache. No vertigo. Denies paresthesias. PSYCHIATRIC: Negative for specific complaints. -- OBJECTIVE -- VITALS (02/09 07:03 - 02/10 07:03): Temperature C: 36.5 (36.4 - 36.7) Temperature source: Oral Pulse Rate 64 (62 - 76) Respiratory rate: 28 (12 - 31) Blood pressure: 117/58 (108/57 - 151/80) Blood pressure source: Monitor I/Os (02/09 07:00 - 02/10 07:00): Net 798.00 Intake 799.00 Output 1 -EXAM- OTHER: Constitutional: Well developed, well nourished patient, in no acute distress. Derm/Integumentary: Warm and dry with no rashes, sores, or lesions. HEENT: Eyes-sclera clear and white, symmetrical w/ no lag. ENT - Palate and gums pink, mucosa moist, no pallor/cyanosis. Neck: supple with no masses, no thyromegaly, No JVD. Respiratory: Clear to auscultation. Heart: S1S2+, Regular Rate and Rhythm, No murmurs, rubs, or gallops. Gastrointestinal: + Bowel Sounds all quadrants. Soft, nontender with no masses or organomegaly; No HJR. Musculoskeletal: Equal strength in all extremities. No weakness. Neurology: Alert and oriented X 3. Calm, cooperative affect. No focal deficits. Extremities: + peripheral pulses. No clubbing, cyanosis. No lower extremity edema. -- DATA -- MEDICATIONS diphenhydrAMINE HCL 25 MG PO Q6H PRN METOPROLOL SUCCINATE 25 MG PO Q12HR HEPARIN/SOD CHLOR 0.45% 20221 UNITS IV TITRATE hydrALAZINE HCL 5 MG IV Q6HR PRN HEPARIN SODIUM,PORCINE 5000 UNIT IV ASDIR (PRN) ONDANSETRON 4 MG PO Q6H PRN HEPARIN SODIUM,PORCINE 4000 UNIT IV ASDIR (PRN) HEPARIN PHARMACY TO MONITOR 1 EACH IV ASDIR NITROGLYCERIN 0.4 MG SL Q5M PRN METOPROLOL TARTRATE 5 MG IV Q6H PRN LACTULOSE 30 ML PO BID PRN MAG HYDROX/AL HYDROX/SIMETH 30 ML PO Q4H PRN ATORVASTATIN CALCIUM 40 MG PO BEDTIME DOCUSATE SODIUM 100 MG PO BID ACETAMINOPHEN 650 MG PO Q4H PRN ASPIRIN 81 MG PO DAILY cloNIDine HCL 0.1 MG PO Q8H PRN LABS MAG (02/11/24 03:50) MAGNESIUM 1.8 PHOS (02/11/24 03:50) PHOSPHOROUS 4.2 COMPREHENSIVE METABOLIC PANEL (02/11/24 03:50) SODIUM 138 POTASSIUM 4.1 CHLORIDE 107 CARBON DIOXIDE 27 GLUCOSE 104 BLOOD UREA NITROGEN 12 GLOMERULAR FILTRATION RATE >=60 max estimate CREATININE 0.80 TOTAL PROTEIN 5.9 ALBUMIN 3.5 CALCIUM 9.0 BILIRUBIN TOTAL 0.6 SGOT/AST 32 SGPT/ALT 42 ALKALINE PHOSPHATASE 100.0 PTT (02/11/24 03:49) THROMBOPLASTIN TIME PARTIAL 68.5 H PROTHROMBIN TIME (02/11/24 03:49) PROTHROMBIN TIME PATIENT 12.8 INTERNATIONAL NORMAL RATIO 1.15 H CBC W/AUTO DIFF (02/11/24 03:48) WHITE BLOOD CELL 6.2 RED BLOOD CELL 3.91 L HEMOGLOBIN 11.8L L HEMATOCRIT 36.3L L MEAN CELL VOLUME 92.8 MEAN CELL HGB 30.2 MEAN CELL HGB CONCENTRATION 32.5 L RED CELL DISTRIBUTION WIDTH 14.6 PLATELET COUNT 125L L MEAN PLATELET VOLUME 13.1 H NEUTROPHIL % 57.0 LYMPHOCYTE % 29.2 MONOCYTE % 7.4 EOSINOPHIL % 5.8 BASOPHIL % 0.3 NEUTROPHIL # 3.53 LYMPHOCYTE # 1.81 MONOCYTE # 0.46 EOSINOPHIL # 0.36 BASOPHIL # 0.02 PTT (02/10/24 09:09) THROMBOPLASTIN TIME PARTIAL 68.5 D H -- ATTESTATION -- CARE ACTIVITIES / CARE COORDINATION: - I have reviewed the history and repeated the escobar elements - I have seen and examined this patient - I have reviewed the progress in the clinical course since the last examination - I have discussed the patient's condition with other members of the care team ADDITIONAL DETAIL: Plan of care discussed with Dr. Dejah Parker Signed in PatientKeeper by DICK PANDA on 02/11/24 at 11:05 Cosigned by DEJAH PARKER MD on 03/02/24 at 14:15 at 1415 at 1415 ATTENTION *EDITS and/or ADDENDA must be made in Patient Keeper for this note. * * Edits and ammendments created in [facility] are not visible * * in Patient Keeper or the legal medical record (HPF). * [facility] #: [id number] END OF REPORT [facility] 2024-02-10 08:24:00 [facility] ([facility]) Cardiology Progress Notes REPORT #: [id number] REPORT STATUS: Signed DATE: 02/10/24 TIME: 823 PATIENT: MITA CARBONE UNIT #: [id number] ROOM #: P.0308 BED: 1 : 49 AGE: 73 SEX: F ATTEND: Flavio Ballesteros MD ADM AUTHOR: Dick Panda ATTENTION *EDITS and/or ADDENDA must be made in Patient Keeper for this note. * * Edits and ammendments created in [facility] are not visible * * in Patient Keeper or the legal medical record (HPF). * -- ASSESSMENT AND PLAN -- PROBLEMS: 1: Coronary artery disease A/P: The patient is a 73-year-old female (Tanzanian speaking, patient of Dr. Chavez) has a PMHx of cardiomyopathy, hypertension, hyperlipidemia, diabetes, family history of coronary artery disease, h/o smoking. She has been having left-sided chest pain, shortness of breath and tiredness for the past couple of months. She was evaluated by her management internship and had a CTA of the coronaries on 12/2023 and showed a calcium score of 1885, with severe ostial/proximal 3 vessel coronary artery disease. She was taken to [facility] for selective coronary angiogram and showed calcified arteries left main and severe three-vessel coronary artery disease. She was referred for CABG evaluation to CV surgery, Dr. Rebollar. She presented today at [facility] with worsening previously mentioned symptoms. Chest x-ray showed apparent widening of the mediastinum and may be positional, cardiac silhouette appears enlarged, there appears to be mild central pulmonary vascular congestion as well. Labs showed negative troponin, LDL 101, BNP 85. She is being admitted for further evaluation and management. - S/p SCA at previous admission ([facility]), see above - Echo completed - Pre-op workup per CV surgery - On heparin drip - Continue aspirin, atorvastatin 40mg daily, metoprolol XL 25mg BID - On SL nitroglycerin as needed for chest pain - On PT/OT/IS. Dr. Rebollar (CV surgery) had a long and detailed discussion yesterday with the patient and her family member regarding the patient to actively participate daily in PT/OT and frequent use of IS pre-surgery. They verbalized understanding. She is sitting in the chair this morning - CV surgery planning CABG likely on Sunday (02/12/24) -- SUBJECTIVE -- CHIEF COMPLAINT: Chest pain, coronary artery disease PATIENT NARRATIVE: Sitting in the chair. Denies chest pain. On heparin drip. She states ambulated on the unit yesterday. Seen by CV surgery today. No acute events overnight. -REVIEW OF SYSTEMS- GENERAL: Negative for fever, malaise, fatigue. EYES: Negative for blurry vision. No diplopia. EARS/NOSE/THROAT: Negative for sore throat. No otalgia. No rhinorrhea. RESPIRATORY: Negative for dyspnea or wheeze. No cough. CARDIOVASCULAR: Negative for chest pain or palpitations. No extremity swelling. GASTROINTESTINAL: Negative for abdominal pain or nausea. No emesis. No diarrhea. GENITOURINARY: Negative for dysuria, frequency, or urgency. No gross hematuria. MUSCULOSKELETAL: Negative for joint stiffness, pain, or arthralgias. SKIN: Negative for rashes. No pruritus. NEUROLOGICAL: Negative for headache. No vertigo. Denies paresthesias. PSYCHIATRIC: Negative for specific complaints. -- OBJECTIVE -- VITALS (02/08 07:18 - 02/09 07:18): Temperature C: 36.7 (36.5 - 36.9) Pulse Rate 69 (60 - 77) Respiratory rate: 17 (13 - 28) Blood pressure: 153/63 (119/54 - 155/89) Blood pressure source: Monitor I/Os (02/08 07:00 - 02/09 07:00): Net 250 Intake 250 -EXAM- OTHER: Constitutional: Well developed, well nourished patient, in no acute distress. Derm/Integumentary: Warm and dry with no rashes, sores, or lesions. HEENT: Eyes-sclera clear and white, symmetrical w/ no lag. ENT - Palate and gums pink, mucosa moist, no pallor/cyanosis. Neck: supple with no masses, no thyromegaly, No JVD. Respiratory: Clear to auscultation. Heart: S1S2+, Regular Rate and Rhythm, No murmurs, rubs, or gallops. Gastrointestinal: + Bowel Sounds all quadrants. Soft, nontender with no masses or organomegaly; No HJR. Musculoskeletal: Equal strength in all extremities. No weakness. Neurology: Alert and oriented X 3. Calm, cooperative affect. No focal deficits. Extremities: + peripheral pulses. No clubbing, cyanosis. No lower extremity edema. -- DATA -- MEDICATIONS diphenhydrAMINE HCL 25 MG PO Q6H PRN METOPROLOL SUCCINATE 25 MG PO Q12HR HEPARIN/SOD CHLOR 0.45% 72947 UNITS IV TITRATE hydrALAZINE HCL 5 MG IV Q6HR PRN HEPARIN SODIUM,PORCINE 5000 UNIT IV ASDIR (PRN) ONDANSETRON 4 MG PO Q6H PRN HEPARIN SODIUM,PORCINE 4000 UNIT IV ASDIR (PRN) HEPARIN PHARMACY TO MONITOR 1 EACH IV ASDIR NITROGLYCERIN 0.4 MG SL Q5M PRN METOPROLOL TARTRATE 5 MG IV Q6H PRN LACTULOSE 30 ML PO BID PRN MAG HYDROX/AL HYDROX/SIMETH 30 ML PO Q4H PRN ATORVASTATIN CALCIUM 40 MG PO BEDTIME DOCUSATE SODIUM 100 MG PO BID ACETAMINOPHEN 650 MG PO Q4H PRN ASPIRIN 81 MG PO DAILY cloNIDine HCL 0.1 MG PO Q8H PRN LABS CBC W/AUTO DIFF (02/10/24 02:40) WHITE BLOOD CELL 6.0 RED BLOOD CELL 3.92 L HEMOGLOBIN 11.6L L HEMATOCRIT 36.0L L MEAN CELL VOLUME 91.8 MEAN CELL HGB 29.6 MEAN CELL HGB CONCENTRATION 32.2 L RED CELL DISTRIBUTION WIDTH 14.6 PLATELET COUNT 131L L MEAN PLATELET VOLUME 12.7 H NEUTROPHIL % 58.8 LYMPHOCYTE % 28.3 MONOCYTE % 6.5 EOSINOPHIL % 5.7 BASOPHIL % 0.5 NEUTROPHIL # 3.52 LYMPHOCYTE # 1.69 MONOCYTE # 0.39 EOSINOPHIL # 0.34 BASOPHIL # 0.03 PTT (02/10/24 02:40) THROMBOPLASTIN TIME PARTIAL 96.8 D H PTT (02/09/24 19:37) THROMBOPLASTIN TIME PARTIAL 59.0 H PTT (02/09/24 11:24) THROMBOPLASTIN TIME PARTIAL 73.0 D H -- ATTESTATION -- CARE ACTIVITIES / CARE COORDINATION: - I have reviewed the history and repeated the escobar elements - I have seen and examined this patient - I have reviewed the progress in the clinical course since the last examination - I have discussed the patient's condition with other members of the care team ADDITIONAL DETAIL: Plan of care discussed with Dr. Dejah Parker Signed in PatientKeeper by DICK PANDA on 02/10/24 at 11:43 Cosigned by DEJAH PARKER MD on 03/02/24 at 14:15 at 1415 at 1415 ATTENTION *EDITS and/or ADDENDA must be made in Patient Keeper for this note. * * Edits and ammendments created in [facility] are not visible * * in Patient Keeper or the legal medical record (HPF). * [facility] #: [id number] END OF REPORT [facility] 2024-02-09 09:02:00 [facility] ([facility]) Cardiology Progress Notes REPORT #: [id number] REPORT STATUS: Signed DATE: 02/09/24 TIME: 901 PATIENT: MITA CARBONE UNIT #: [id number] ROOM #: P.0308 BED: 1 : 49 AGE: 73 SEX: F ATTEND: Flavio Ballesteros MD ADM AUTHOR: Dick Panda ATTENTION *EDITS and/or ADDENDA must be made in Patient Keeper for this note. * * Edits and ammendments created in [facility] are not visible * * in Patient Keeper or the legal medical record (HPF). * -- ASSESSMENT AND PLAN -- PROBLEMS: 1: Coronary artery disease A/P: The patient is a 73-year-old female (Tanzanian speaking, patient of Dr. Chavez) has a PMHx of cardiomyopathy, hypertension, hyperlipidemia, diabetes, family history of coronary artery disease, h/o smoking. She has been having left-sided chest pain, shortness of breath and tiredness for the past couple of months. She was evaluated by her management internship and had a CTA of the coronaries on 12/2023 and showed a calcium score of 1885, with severe ostial/proximal 3 vessel coronary artery disease. She was taken to [facility] for selective coronary angiogram and showed calcified arteries left main and severe three-vessel coronary artery disease. She was referred for CABG evaluation to CV surgery, Dr. Rebollar. She presented today at [facility] with worsening previously mentioned symptoms. Chest x-ray showed apparent widening of the mediastinum and may be positional, cardiac silhouette appears enlarged, there appears to be mild central pulmonary vascular congestion as well. Labs showed negative troponin, LDL 101, BNP 85. She is being admitted for further evaluation and management. - S/p SCA at previous admission ([facility]), see above - Echo completed - Pre-op workup per CV surgery - Continue heparin drip - On aspirin, atorvastatin 40mg daily, metoprolol XL 25mg BID - On PT/OT/IS. Dr. Rebollar (CV surgery) had a long and detailed discussion with the patient and her family member regarding the patient to actively participate daily in PT/OT and frequent use of IS pre-surgery. They verbalized understanding - CV surgery planning CABG on the week of 02/10/24, likely on Sunday (02/15/24) -- SUBJECTIVE -- CHIEF COMPLAINT: Chest pain, coronary artery disease PATIENT NARRATIVE: Sitting in bed. Eating breakfast. On heparin drip. She denies chest pain. Family member at bedside. Seen by CV surgery today. No acute events overnight. -REVIEW OF SYSTEMS- GENERAL: Negative for fever, malaise, fatigue. EYES: Negative for blurry vision. No diplopia. EARS/NOSE/THROAT: Negative for sore throat. No otalgia. No rhinorrhea. RESPIRATORY: Negative for dyspnea or wheeze. No cough. CARDIOVASCULAR: Negative for chest pain or palpitations. No extremity swelling. GASTROINTESTINAL: Negative for abdominal pain or nausea. No emesis. No diarrhea. GENITOURINARY: Negative for dysuria, frequency, or urgency. No gross hematuria. MUSCULOSKELETAL: Negative for joint stiffness, pain, or arthralgias. SKIN: Negative for rashes. No pruritus. NEUROLOGICAL: Negative for headache. No vertigo. Denies paresthesias. PSYCHIATRIC: Negative for specific complaints. -- OBJECTIVE -- VITALS (02/07 06:58 - 02/08 06:58): Temperature C: 36.6 (36.6 - 36.7) Temperature source: Axillary Pulse Rate 66 (60 - 77) Respiratory rate: 16 (14 - 41) Blood pressure: 143/65 (111/52 - 143/65) Blood pressure source: Monitor I/Os (02/06 07:00 - 02/07 07:00): Net -950 Output 950 -EXAM- OTHER: Constitutional: Well developed, well nourished patient, in no acute distress. Derm/Integumentary: Warm and dry with no rashes, sores, or lesions. HEENT: Eyes-sclera clear and white, symmetrical w/ no lag. ENT - Palate and gums pink, mucosa moist, no pallor/cyanosis. Neck: supple with no masses, no thyromegaly, No JVD. Respiratory: Clear to auscultation. Heart: S1S2+, Regular Rate and Rhythm, No murmurs, rubs, or gallops. Gastrointestinal: + Bowel Sounds all quadrants. Soft, nontender with no masses or organomegaly; No HJR. Musculoskeletal: Equal strength in all extremities. No weakness. Neurology: Alert and oriented X 3. Calm, cooperative affect. No focal deficits. Extremities: + peripheral pulses. No clubbing, cyanosis. No lower extremity edema. -- DATA -- MEDICATIONS diphenhydrAMINE HCL 25 MG PO Q6H PRN METOPROLOL SUCCINATE 25 MG PO Q12HR HEPARIN/SOD CHLOR 0.45% 89713 UNITS IV TITRATE hydrALAZINE HCL 5 MG IV Q6HR PRN HEPARIN SODIUM,PORCINE 5000 UNIT IV ASDIR (PRN) ONDANSETRON 4 MG PO Q6H PRN HEPARIN SODIUM,PORCINE 4000 UNIT IV ASDIR (PRN) HEPARIN PHARMACY TO MONITOR 1 EACH IV ASDIR NITROGLYCERIN 0.4 MG SL Q5M PRN METOPROLOL TARTRATE 5 MG IV Q6H PRN LACTULOSE 30 ML PO BID PRN MAG HYDROX/AL HYDROX/SIMETH 30 ML PO Q4H PRN ATORVASTATIN CALCIUM 40 MG PO BEDTIME DOCUSATE SODIUM 100 MG PO BID ACETAMINOPHEN 650 MG PO Q4H PRN ASPIRIN 81 MG PO DAILY cloNIDine HCL 0.1 MG PO Q8H PRN LABS CBC W/AUTO DIFF (02/09/24 03:54) WHITE BLOOD CELL 6.2 RED BLOOD CELL 3.92 L HEMOGLOBIN 11.7L L HEMATOCRIT 36.1L L MEAN CELL VOLUME 92.1 MEAN CELL HGB 29.8 MEAN CELL HGB CONCENTRATION 32.4 L RED CELL DISTRIBUTION WIDTH 14.6 PLATELET COUNT 122L L MEAN PLATELET VOLUME 13.2 H NEUTROPHIL % 55.8 LYMPHOCYTE % 29.4 MONOCYTE % 7.7 EOSINOPHIL % 5.9 BASOPHIL % 0.6 NEUTROPHIL # 3.46 LYMPHOCYTE # 1.83 MONOCYTE # 0.48 EOSINOPHIL # 0.37 BASOPHIL # 0.04 PTT (02/09/24 03:20) THROMBOPLASTIN TIME PARTIAL 92.6 H -- ATTESTATION -- CARE ACTIVITIES / CARE COORDINATION: - I have reviewed the history and repeated the escobar elements - I have seen and examined this patient - I have reviewed the progress in the clinical course since the last examination - I have discussed the patient's condition with other members of the care team ADDITIONAL DETAIL: Plan of care discussed with Dr. Dejah Parker Signed in PatientKeeper by DICK PANDA on 02/09/24 at 19:55 Cosigned by DEJAH PARKER MD on 03/02/24 at 14:14 at 1414 at 1414 ATTENTION *EDITS and/or ADDENDA must be made in Patient Keeper for this note. * * Edits and ammendments created in [facility] are not visible * * in Patient Keeper or the legal medical record (HPF). * [facility] #: [id number] END OF REPORT [facility] 2024-02-08 08:40:00 [facility] ([facility]) Cardiology Progress Notes REPORT #: [id number] REPORT STATUS: Signed DATE: 02/08/24 TIME: 839 PATIENT: MITA CARBONE UNIT #: [id number] ROOM #: P.0308 BED: 1 : 49 AGE: 73 SEX: F ATTEND: Flavio Ballesteros MD ADM AUTHOR: Dick Panda ATTENTION *EDITS and/or ADDENDA must be made in Patient Keeper for this note. * * Edits and ammendments created in [facility] are not visible * * in Patient Keeper or the legal medical record (HPF). * -- ASSESSMENT AND PLAN -- PROBLEMS: 1: Coronary artery disease A/P: The patient is a 73-year-old female (Tanzanian speaking, patient of Dr. Chavez) has a PMHx of cardiomyopathy, hypertension, hyperlipidemia, diabetes, family history of coronary artery disease, h/o smoking. She has been having left-sided chest pain, shortness of breath and tiredness for the past couple of months. She was evaluated by her management internship and had a CTA of the coronaries on 12/2023 and showed a calcium score of 1885, with severe ostial/proximal 3 vessel coronary artery disease. She was taken to [facility] for selective coronary angiogram and showed calcified arteries left main and severe three-vessel coronary artery disease. She was referred for CABG evaluation to CV surgery, Dr. Rebollar. She presented today at [facility] with worsening previously mentioned symptoms. Chest x-ray showed apparent widening of the mediastinum and may be positional, cardiac silhouette appears enlarged, there appears to be mild central pulmonary vascular congestion as well. Labs showed negative troponin, LDL 101, BNP 85. She is being admitted for further evaluation and management. - S/p SCA at previous admission ([facility]), see above - Echo completed - Pre-op workup per CV surgery - On heparin drip - Continue aspirin, atorvastatin 40mg daily, metoprolol XL 25mg BID - On PT/OT/IS - CV surgery planning CABG on the week of 02/10/24, likely on Sunday (02/15/24) -- SUBJECTIVE -- CHIEF COMPLAINT: Chest pain, coronary artery disease PATIENT NARRATIVE: Sitting in the chair. On heparin drip. Family member at bedside. No acute events overnight. -REVIEW OF SYSTEMS- GENERAL: Negative for fever, malaise, fatigue. EYES: Negative for blurry vision. No diplopia. EARS/NOSE/THROAT: Negative for sore throat. No otalgia. No rhinorrhea. RESPIRATORY: Negative for dyspnea or wheeze. No cough. CARDIOVASCULAR: Negative for chest pain or palpitations. No extremity swelling. GASTROINTESTINAL: Negative for abdominal pain or nausea. No emesis. No diarrhea. GENITOURINARY: Negative for dysuria, frequency, or urgency. No gross hematuria. MUSCULOSKELETAL: Negative for joint stiffness, pain, or arthralgias. SKIN: Negative for rashes. No pruritus. NEUROLOGICAL: Negative for headache. No vertigo. Denies paresthesias. PSYCHIATRIC: Negative for specific complaints. -- OBJECTIVE -- VITALS (02/06 07:32 - 02/07 07:32): Temperature C: 36.7 (36.4 - 36.7) Temperature source: Oral Pulse Rate 68 (61 - 74) Respiratory rate: 21 (14 - 33) Blood pressure: 126/60 (105/53 - 154/72) Blood pressure source: Monitor I/Os (02/06 07:00 - 02/07 07:00): Net -950 Output 950 -EXAM- OTHER: Constitutional: Well developed, well nourished patient, in no acute distress. Derm/Integumentary: Warm and dry with no rashes, sores, or lesions. HEENT: Eyes-sclera clear and white, symmetrical w/ no lag. ENT - Palate and gums pink, mucosa moist, no pallor/cyanosis. Neck: supple with no masses, no thyromegaly, No JVD. Respiratory: Clear to auscultation. Heart: S1S2+, Regular Rate and Rhythm, No murmurs, rubs, or gallops. Gastrointestinal: + Bowel Sounds all quadrants. Soft, nontender with no masses or organomegaly; No HJR. Musculoskeletal: Equal strength in all extremities. No weakness. Neurology: Alert and oriented X 3. Calm, cooperative affect. No focal deficits. Extremities: + peripheral pulses. No clubbing, cyanosis. No lower extremity edema. -- DATA -- MEDICATIONS diphenhydrAMINE HCL 25 MG PO Q6H PRN METOPROLOL SUCCINATE 25 MG PO Q12HR HEPARIN/SOD CHLOR 0.45% 68293 UNITS IV TITRATE hydrALAZINE HCL 5 MG IV Q6HR PRN HEPARIN SODIUM,PORCINE 5000 UNIT IV ASDIR (PRN) ONDANSETRON 4 MG PO Q6H PRN HEPARIN SODIUM,PORCINE 4000 UNIT IV ASDIR (PRN) HEPARIN PHARMACY TO MONITOR 1 EACH IV ASDIR NITROGLYCERIN 0.4 MG SL Q5M PRN METOPROLOL TARTRATE 5 MG IV Q6H PRN LACTULOSE 30 ML PO BID PRN MAG HYDROX/AL HYDROX/SIMETH 30 ML PO Q4H PRN ATORVASTATIN CALCIUM 40 MG PO BEDTIME DOCUSATE SODIUM 100 MG PO BID ACETAMINOPHEN 650 MG PO Q4H PRN ASPIRIN 81 MG PO DAILY cloNIDine HCL 0.1 MG PO Q8H PRN LABS CBC W/AUTO DIFF (02/08/24 04:14) WHITE BLOOD CELL 6.2 RED BLOOD CELL 3.98 L HEMOGLOBIN 11.8L L HEMATOCRIT 36.9L L MEAN CELL VOLUME 92.7 MEAN CELL HGB 29.6 MEAN CELL HGB CONCENTRATION 32.0 L RED CELL DISTRIBUTION WIDTH 14.4 PLATELET COUNT 122L L MEAN PLATELET VOLUME 13.4 H NEUTROPHIL % 59.0 LYMPHOCYTE % 25.9 MONOCYTE % 7.6 EOSINOPHIL % 6.5 BASOPHIL % 0.5 NEUTROPHIL # 3.64 LYMPHOCYTE # 1.60 MONOCYTE # 0.47 EOSINOPHIL # 0.40 BASOPHIL # 0.03 PTT (02/08/24 04:04) THROMBOPLASTIN TIME PARTIAL 88.8 H -- ATTESTATION -- CARE ACTIVITIES / CARE COORDINATION: - I have reviewed the history and repeated the escobar elements - I have seen and examined this patient - I have reviewed the progress in the clinical course since the last examination - I have discussed the patient's condition with other members of the care team ADDITIONAL DETAIL: Plan of care discussed with Dr. Dejah Parker Signed in PatientKeeper by DICK PANDA on 02/08/24 at 17:36 Cosigned by DEJAH PARKER MD on 03/02/24 at 14:14 at 1414 at 1414 ATTENTION *EDITS and/or ADDENDA must be made in Patient Keeper for this note. * * Edits and ammendments created in [facility] are not visible * * in Patient Keeper or the legal medical record ([facility]). * RPT #: [id number] END OF REPORT [facility] 2024-02-07 08:32:00 [facility] ([facility]) Cardiology Progress Notes REPORT #: [id number] REPORT STATUS: Signed DATE: 02/07/24 TIME: 0832 PATIENT: MITA CARBONE UNIT #: [id number] ROOM #: P.0308 BED: 1 : 49 AGE: 73 SEX: F ATTEND: Flavio Ballesteros MD ADM AUTHOR: Dick Panda ATTENTION *EDITS and/or ADDENDA must be made in Patient Keeper for this note. * * Edits and ammendments created in [facility] are not visible * * in Patient Keeper or the legal medical record ([facility]). * -- CO-SIGNATURE -- COMMENTS: The patient was seen on rounds with ESPERANZA Mcintyre. The patient has no complaints Examination demonstrates normal heart sounds and clear lung walsh. Impression and plan The patient is a 73-year-old female with a history of ischemic cardiomyopathy and three-vessel disease with risk factors of hypertension, hyperlipidemia, diabetes mellitus and strong family history of coronary artery disease as well as smoking. The patient is NYHA class I and CCS class III. -Echo demonstrates normal ejection fraction with no significant valvular disease. -On heparin. -On statin and beta-carli. -Await surgical intervention. -Antibiotic course for urinary tract infection is complete. Signed in PatientKeeper by DEJAH PARKER MD on 03/02/24 at 14:14 -- ASSESSMENT AND PLAN -- PROBLEMS: 1: Coronary artery disease A/P: The patient is a 73-year-old female (Tanzanian speaking, patient of Dr. Chavez) has a PMHx of cardiomyopathy, hypertension, hyperlipidemia, diabetes, family history of coronary artery disease, h/o smoking. She has been having left-sided chest pain, shortness of breath and tiredness for the past couple of months. She was evaluated by her management internship and had a CTA of the coronaries on 12/2023 and showed a calcium score of 1885, with severe ostial/proximal 3 vessel coronary artery disease. She was taken to [facility] for selective coronary angiogram and showed calcified arteries left main and severe three-vessel coronary artery disease. She was referred for CABG evaluation to CV surgery, Dr. Rebollar. She presented today at [facility] with worsening previously mentioned symptoms. Chest x-ray showed apparent widening of the mediastinum and may be positional, cardiac silhouette appears enlarged, there appears to be mild central pulmonary vascular congestion as well. Labs showed negative troponin, LDL 101, BNP 85. She is being admitted for further evaluation and management. - S/p SCA at previous admission ([facility]), see above - Echo completed - Pre-op workup per CV surgery - Continue heparin drip - On aspirin, atorvastatin 40mg daily, metoprolol XL 25mg BID - On PT/OT/IS - CV surgery planning CABG on the week of 02/10/24, likely on Sunday (02/15/24) -- SUBJECTIVE -- CHIEF COMPLAINT: Chest pain, coronary artery disease PATIENT NARRATIVE: Sitting on the side of the bed. On heparin drip. She denies chest pain. Family member at bedside. No acute events overnight. -REVIEW OF SYSTEMS- GENERAL: Negative for fever, malaise, fatigue. EYES: Negative for blurry vision. No diplopia. EARS/NOSE/THROAT: Negative for sore throat. No otalgia. No rhinorrhea. RESPIRATORY: Negative for dyspnea or wheeze. No cough. CARDIOVASCULAR: Negative for chest pain or palpitations. No extremity swelling. GASTROINTESTINAL: Negative for abdominal pain or nausea. No emesis. No diarrhea. GENITOURINARY: Negative for dysuria, frequency, or urgency. No gross hematuria. MUSCULOSKELETAL: Negative for joint stiffness, pain, or arthralgias. SKIN: Negative for rashes. No pruritus. NEUROLOGICAL: Negative for headache. No vertigo. Denies paresthesias. PSYCHIATRIC: Negative for specific complaints. -- OBJECTIVE -- VITALS (02/05 00:41 - 02/06 00:41): Temperature C: 37.0 (36.7 - 37.0) Pulse Rate 71 (64 - 74) Respiratory rate: 18 (6 - 26) Blood pressure: 115/57 (104/53 - 138/74) Blood pressure source: Monitor I/Os (02/04 07:00 - 02/05 07:00): Net -1,000 Output 1,000 -EXAM- OTHER: Constitutional: Well developed, well nourished patient, in no acute distress. Derm/Integumentary: Warm and dry with no rashes, sores, or lesions. HEENT: Eyes-sclera clear and white, symmetrical w/ no lag. ENT - Palate and gums pink, mucosa moist, no pallor/cyanosis. Neck: supple with no masses, no thyromegaly, No JVD. Respiratory: Clear to auscultation. Heart: S1S2+, Regular Rate and Rhythm, No murmurs, rubs, or gallops. Gastrointestinal: + Bowel Sounds all quadrants. Soft, nontender with no masses or organomegaly; No HJR. Musculoskeletal: Equal strength in all extremities. No weakness. Neurology: Alert and oriented X 3. Calm, cooperative affect. No focal deficits. Extremities: + peripheral pulses. No clubbing, cyanosis. No lower extremity edema. -- DATA -- MEDICATIONS diphenhydrAMINE HCL 25 MG PO Q6H PRN METOPROLOL SUCCINATE 25 MG PO Q12HR HEPARIN/SOD CHLOR 0.45% 70435 UNITS IV TITRATE hydrALAZINE HCL 5 MG IV Q6HR PRN HEPARIN SODIUM,PORCINE 5000 UNIT IV ASDIR (PRN) ONDANSETRON 4 MG PO Q6H PRN HEPARIN SODIUM,PORCINE 4000 UNIT IV ASDIR (PRN) HEPARIN PHARMACY TO MONITOR 1 EACH IV ASDIR NITROGLYCERIN 0.4 MG SL Q5M PRN METOPROLOL TARTRATE 5 MG IV Q6H PRN LACTULOSE 30 ML PO BID PRN MAG HYDROX/AL HYDROX/SIMETH 30 ML PO Q4H PRN ATORVASTATIN CALCIUM 40 MG PO BEDTIME DOCUSATE SODIUM 100 MG PO BID ACETAMINOPHEN 650 MG PO Q4H PRN ASPIRIN 81 MG PO DAILY cloNIDine HCL 0.1 MG PO Q8H PRN LABS PTT (02/06/24 04:32) THROMBOPLASTIN TIME PARTIAL 77.6 H CBC W/AUTO DIFF (02/06/24 04:32) WHITE BLOOD CELL 6.1 RED BLOOD CELL 3.79 L HEMOGLOBIN 11.2L L HEMATOCRIT 34.8L L MEAN CELL VOLUME 91.8 MEAN CELL HGB 29.6 MEAN CELL HGB CONCENTRATION 32.2 L RED CELL DISTRIBUTION WIDTH 14.6 PLATELET COUNT 116L L MEAN PLATELET VOLUME 12.9 H NEUTROPHIL % 58.0 LYMPHOCYTE % 26.6 MONOCYTE % 8.4 EOSINOPHIL % 5.8 BASOPHIL % 0.7 NEUTROPHIL # 3.53 LYMPHOCYTE # 1.62 MONOCYTE # 0.51 EOSINOPHIL # 0.35 BASOPHIL # 0.04 -- ATTESTATION -- CARE ACTIVITIES / CARE COORDINATION: - I have reviewed the history and repeated the escobar elements - I have seen and examined this patient - I have reviewed the progress in the clinical course since the last examination - I have discussed the patient's condition with other members of the care team ADDITIONAL DETAIL: Plan of care discussed with Dr. Dejah Parker Signed in PatientKeeper by DICK PANDA on 02/07/24 at 20:07 Cosigned by DEJAH PARKER MD on 03/02/24 at 14:14 at 1414 at 1414 ATTENTION *EDITS and/or ADDENDA must be made in Patient Keeper for this note. * * Edits and ammendments created in [facility] are not visible * * in Patient Keeper or the legal medical record ([facility]). * RPT #: [id number] END OF REPORT [facility] 2024-02-06 08:51:00 [facility] ([facility]) Cardiology Progress Notes REPORT #: [id number] REPORT STATUS: Signed DATE: 02/06/24 TIME: 08 PATIENT: MITA CARBONE UNIT #: [id number] ROOM #: P.0308 BED: 1 : 49 AGE: 73 SEX: F ATTEND: Flavio Ballesteros MD ADM AUTHOR: Dick Panda ATTENTION *EDITS and/or ADDENDA must be made in Patient Keeper for this note. * * Edits and ammendments created in [facility] are not visible * * in Patient Keeper or the legal medical record ([facility]). * -- CO-SIGNATURE -- COMMENTS: The patient was seen on rounds with ESPERANZA Mcintyre. The patient has no complaints Examination demonstrates normal heart sounds and clear lung walsh. Impression and plan The patient is a 73-year-old female with a history of ischemic cardiomyopathy and three-vessel disease with risk factors of hypertension, hyperlipidemia, diabetes mellitus and strong family history of coronary artery disease as well as smoking. The patient is NYHA class I and CCS class III. -Echo demonstrates normal ejection fraction with no significant valvular disease. -On heparin. -On statin and beta-carli. -Await surgical intervention. -Antibiotic course for urinary tract infection is complete. Signed in PatientKeeper by DEJAH PARKER MD on 03/02/24 at 14:14 -- ASSESSMENT AND PLAN -- PROBLEMS: 1: Coronary artery disease A/P: The patient is a 73-year-old female (Tanzanian speaking, patient of Dr. Chavez) has a PMHx of cardiomyopathy, hypertension, hyperlipidemia, diabetes, family history of coronary artery disease, h/o smoking. She has been having left-sided chest pain, shortness of breath and tiredness for the past couple of months. She was evaluated by her management internship and had a CTA of the coronaries on 12/2023 and showed a calcium score of 1885, with severe ostial/proximal 3 vessel coronary artery disease. She was taken to [facility] for selective coronary angiogram and showed calcified arteries left main and severe three-vessel coronary artery disease. She was referred for CABG evaluation to CV surgery, Dr. Rebollar. She presented today at [facility] with worsening previously mentioned symptoms. Chest x-ray showed apparent widening of the mediastinum and may be positional, cardiac silhouette appears enlarged, there appears to be mild central pulmonary vascular congestion as well. Labs showed negative troponin, LDL 101, BNP 85. She is being admitted for further evaluation and management. - S/p SCA at previous admission ([facility]), see above - Echo completed - Pre-op workup per CV surgery - On heparin drip - Continue aspirin, atorvastatin 40mg daily, metoprolol XL 25mg BID - Completed treatment with IV antibiotic for UTI. Urine culture grew E. coli - On PT/OT/IS - CV surgery planning CABG, pending OR time -- SUBJECTIVE -- CHIEF COMPLAINT: Chest pain, coronary artery disease PATIENT NARRATIVE: Resting in bed. She denies complaints today. Family at bedside. Seen by CV surgery today. No acute events overnight. -REVIEW OF SYSTEMS- GENERAL: Negative for fever, malaise, fatigue. EYES: Negative for blurry vision. No diplopia. EARS/NOSE/THROAT: Negative for sore throat. No otalgia. No rhinorrhea. RESPIRATORY: Negative for dyspnea or wheeze. No cough. CARDIOVASCULAR: Negative for chest pain or palpitations. No extremity swelling. GASTROINTESTINAL: Negative for abdominal pain or nausea. No emesis. No diarrhea. GENITOURINARY: Negative for dysuria, frequency, or urgency. No gross hematuria. MUSCULOSKELETAL: Negative for joint stiffness, pain, or arthralgias. SKIN: Negative for rashes. No pruritus. NEUROLOGICAL: Negative for headache. No vertigo. Denies paresthesias. PSYCHIATRIC: Negative for specific complaints. -- OBJECTIVE -- VITALS (02/04 07:21 - 02/05 07:21): Temperature C: 36.7 (36.7 - 37.2) Pulse Rate 66 (64 - 78) Respiratory rate: 18 (16 - 28) Blood pressure: 116/57 (104/56 - 149/74) Blood pressure source: Monitor I/Os (02/04 07:00 - 02/05 07:00): Net -1,000 Output 1,000 -EXAM- OTHER: Constitutional: Well developed, well nourished patient, in no acute distress. Derm/Integumentary: Warm and dry with no rashes, sores, or lesions. HEENT: Eyes-sclera clear and white, symmetrical w/ no lag. ENT - Palate and gums pink, mucosa moist, no pallor/cyanosis. Neck: supple with no masses, no thyromegaly, No JVD. Respiratory: Clear to auscultation. Heart: S1S2+, Regular Rate and Rhythm, No murmurs, rubs, or gallops. Gastrointestinal: + Bowel Sounds all quadrants. Soft, nontender with no masses or organomegaly; No HJR. Musculoskeletal: Equal strength in all extremities. No weakness. Neurology: Alert and oriented X 3. Calm, cooperative affect. No focal deficits. Extremities: + peripheral pulses. No clubbing, cyanosis. No lower extremity edema. -- DATA -- MEDICATIONS diphenhydrAMINE HCL 25 MG PO Q6H PRN METOPROLOL SUCCINATE 25 MG PO Q12HR HEPARIN/SOD CHLOR 0.45% 01438 UNITS IV TITRATE hydrALAZINE HCL 5 MG IV Q6HR PRN HEPARIN SODIUM,PORCINE 5000 UNIT IV ASDIR (PRN) ONDANSETRON 4 MG PO Q6H PRN HEPARIN SODIUM,PORCINE 4000 UNIT IV ASDIR (PRN) cefTRIAXone SODIUM with/in SODIUM CHLORIDE 0.9% 2 GM IV Q24H HEPARIN PHARMACY TO MONITOR 1 EACH IV ASDIR NITROGLYCERIN 0.4 MG SL Q5M PRN METOPROLOL TARTRATE 5 MG IV Q6H PRN LACTULOSE 30 ML PO BID PRN MAG HYDROX/AL HYDROX/SIMETH 30 ML PO Q4H PRN ATORVASTATIN CALCIUM 40 MG PO BEDTIME DOCUSATE SODIUM 100 MG PO BID ACETAMINOPHEN 650 MG PO Q4H PRN ASPIRIN 81 MG PO DAILY cloNIDine HCL 0.1 MG PO Q8H PRN LABS PTT (02/06/24 04:32) THROMBOPLASTIN TIME PARTIAL 77.6 H CBC W/AUTO DIFF (02/06/24 04:32) WHITE BLOOD CELL 6.1 RED BLOOD CELL 3.79 L HEMOGLOBIN 11.2L L HEMATOCRIT 34.8L L MEAN CELL VOLUME 91.8 MEAN CELL HGB 29.6 MEAN CELL HGB CONCENTRATION 32.2 L RED CELL DISTRIBUTION WIDTH 14.6 PLATELET COUNT 116L L MEAN PLATELET VOLUME 12.9 H NEUTROPHIL % 58.0 LYMPHOCYTE % 26.6 MONOCYTE % 8.4 EOSINOPHIL % 5.8 BASOPHIL % 0.7 NEUTROPHIL # 3.53 LYMPHOCYTE # 1.62 MONOCYTE # 0.51 EOSINOPHIL # 0.35 BASOPHIL # 0.04 -- ATTESTATION -- CARE ACTIVITIES / CARE COORDINATION: - I have reviewed the history and repeated the escobar elements - I have seen and examined this patient - I have reviewed the progress in the clinical course since the last examination - I have discussed the patient's condition with other members of the care team ADDITIONAL DETAIL: Plan of care discussed with Dr. Dejah Parker Signed in PatientKeeper by DICK PANDA on 02/06/24 at 22:27 Cosigned by DEJAH PARKER MD on 03/02/24 at 14:14 at 1414 at 1414 ATTENTION *EDITS and/or ADDENDA must be made in Patient Keeper for this note. * * Edits and ammendments created in [facility] are not visible * * in Patient Keeper or the legal medical record ([facility]). * [facility] #: [id number] END OF REPORT [facility] 2024-02-05 08:24:00 [facility] ([facility]) Cardiology Progress Notes REPORT #: [id number] REPORT STATUS: Signed DATE: 02/05/24 TIME: 823 PATIENT: MITA CARBONE UNIT #: [id number] ROOM #: P.[id number] BED: 1 : 49 AGE: 73 SEX: F ATTEND: Flavio Ballesteros MD ADM AUTHOR: Dick Panda ATTENTION *EDITS and/or ADDENDA must be made in Patient Keeper for this note. * * Edits and ammendments created in [facility] are not visible * * in Patient Keeper or the legal medical record ([facility]). * -- CO-SIGNATURE -- COMMENTS: The patient was seen on rounds with ESPERANZA Mcintyre. The patient has no complaints Examination demonstrates normal heart sounds and clear lung walsh. Impression and plan The patient is a 73-year-old female with a history of ischemic cardiomyopathy and three-vessel disease with risk factors of hypertension, hyperlipidemia, diabetes mellitus and strong family history of coronary artery disease as well as smoking. The patient is NYHA class I and CCS class III. -Echo demonstrates normal ejection fraction with no significant valvular disease. -On heparin. -On statin and beta-carli. -Await surgical intervention. -The patient's urine culture grew E. coli and the patient is currently now on antibiotics Signed in PatientKeeper by DEJAH PARKER MD on 03/02/24 at 14:13 -- ASSESSMENT AND PLAN -- PROBLEMS: 1: Coronary artery disease A/P: The patient is a 73-year-old female (Tanzanian speaking, patient of Dr. Chavez) has a PMHx of cardiomyopathy, hypertension, hyperlipidemia, diabetes, family history of coronary artery disease, h/o smoking. She has been having left-sided chest pain, shortness of breath and tiredness for the past couple of months. She was evaluated by her management internship and had a CTA of the coronaries on 12/2023 and showed a calcium score of 1885, with severe ostial/proximal 3 vessel coronary artery disease. She was taken to [facility] for selective coronary angiogram and showed calcified arteries left main and severe three-vessel coronary artery disease. She was referred for CABG evaluation to CV surgery, Dr. Rebollar. She presented today at [facility] with worsening previously mentioned symptoms. Chest x-ray showed apparent widening of the mediastinum and may be positional, cardiac silhouette appears enlarged, there appears to be mild central pulmonary vascular congestion as well. Labs showed negative troponin, LDL 101, BNP 85. She is being admitted for further evaluation and management. - S/p SCA at previous admission ([facility]), see above - Echo completed - Pre-op workup per CV surgery - Continue heparin drip - On aspirin, atorvastatin 40mg daily, metoprolol XL 25mg BID - On IV antibiotic for UTI. Urine culture grew E. coli - On PT/OT/IS - CV surgery planning CABG, pending OR time -- SUBJECTIVE -- CHIEF COMPLAINT: Chest pain, coronary artery disease PATIENT NARRATIVE: Sitting in the bed, eating breakfast. She denies chest pain. On heparin drip. Family member at bedside. No acute events overnight. -REVIEW OF SYSTEMS- GENERAL: Negative for fever, malaise, fatigue. EYES: Negative for blurry vision. No diplopia. EARS/NOSE/THROAT: Negative for sore throat. No otalgia. No rhinorrhea. RESPIRATORY: Negative for dyspnea or wheeze. No cough. CARDIOVASCULAR: Negative for chest pain or palpitations. No extremity swelling. GASTROINTESTINAL: Negative for abdominal pain or nausea. No emesis. No diarrhea. GENITOURINARY: Negative for dysuria, frequency, or urgency. No gross hematuria. MUSCULOSKELETAL: Negative for joint stiffness, pain, or arthralgias. SKIN: Negative for rashes. No pruritus. NEUROLOGICAL: Negative for headache. No vertigo. Denies paresthesias. PSYCHIATRIC: Negative for specific complaints. -- OBJECTIVE -- VITALS (02/03 00:54 - 02/04 00:54): Temperature C: 36.8 (36.4 - 37.0) Temperature source: Oral Pulse Rate 70 (65 - 74) Respiratory rate: 21 (16 - 26) Blood pressure: 134/62 (106/52 - 137/100) Blood pressure source: Monitor I/Os (02/02 07:00 - 02/03 07:00): Net 136.60 Intake 537.60 Output 401 -EXAM- OTHER: Constitutional: Well developed, well nourished patient, in no acute distress. Derm/Integumentary: Warm and dry with no rashes, sores, or lesions. HEENT: Eyes-sclera clear and white, symmetrical w/ no lag. ENT - Palate and gums pink, mucosa moist, no pallor/cyanosis. Neck: supple with no masses, no thyromegaly, No JVD. Respiratory: Clear to auscultation. Heart: S1S2+, Regular Rate and Rhythm, No murmurs, rubs, or gallops. Gastrointestinal: + Bowel Sounds all quadrants. Soft, nontender with no masses or organomegaly; No HJR. Musculoskeletal: Equal strength in all extremities. No weakness. Neurology: Alert and oriented X 3. Calm, cooperative affect. No focal deficits. Extremities: + peripheral pulses. No clubbing, cyanosis. No lower extremity edema. -- DATA -- MEDICATIONS diphenhydrAMINE HCL 25 MG PO Q6H PRN METOPROLOL SUCCINATE 25 MG PO Q12HR HEPARIN/SOD CHLOR 0.45% 60725 UNITS IV TITRATE hydrALAZINE HCL 5 MG IV Q6HR PRN HEPARIN SODIUM,PORCINE 5000 UNIT IV ASDIR (PRN) ONDANSETRON 4 MG PO Q6H PRN HEPARIN SODIUM,PORCINE 4000 UNIT IV ASDIR (PRN) cefTRIAXone SODIUM with/in SODIUM CHLORIDE 0.9% 2 GM IV Q24H HEPARIN PHARMACY TO MONITOR 1 EACH IV ASDIR NITROGLYCERIN 0.4 MG SL Q5M PRN METOPROLOL TARTRATE 5 MG IV Q6H PRN LACTULOSE 30 ML PO BID PRN MAG HYDROX/AL HYDROX/SIMETH 30 ML PO Q4H PRN ATORVASTATIN CALCIUM 40 MG PO BEDTIME DOCUSATE SODIUM 100 MG PO BID ACETAMINOPHEN 650 MG PO Q4H PRN ASPIRIN 81 MG PO DAILY cloNIDine HCL 0.1 MG PO Q8H PRN LABS PTT (02/04/24 03:42) THROMBOPLASTIN TIME PARTIAL 78.8 H COMPREHENSIVE METABOLIC PANEL (02/04/24 03:42) SODIUM 137 POTASSIUM 4.7 CHLORIDE 107 CARBON DIOXIDE 23 GLUCOSE 102 BLOOD UREA NITROGEN 9 GLOMERULAR FILTRATION RATE >=60 max estimate CREATININE 0.90 TOTAL PROTEIN 5.5 L ALBUMIN 3.2 CALCIUM 8.2 L BILIRUBIN TOTAL 0.3 SGOT/AST 29 SGPT/ALT 19 ALKALINE PHOSPHATASE 90.0 CBC W/AUTO DIFF (02/04/24 03:42) WHITE BLOOD CELL 7.0 RED BLOOD CELL 4.06 L HEMOGLOBIN 11.9L L HEMATOCRIT 37.4 MEAN CELL VOLUME 92.1 MEAN CELL HGB 29.3 MEAN CELL HGB CONCENTRATION 31.8 L RED CELL DISTRIBUTION WIDTH 14.4 PLATELET COUNT 132L L MEAN PLATELET VOLUME 13.2 H NEUTROPHIL % 61.3 LYMPHOCYTE % 24.9 MONOCYTE % 6.8 EOSINOPHIL % 6.0 BASOPHIL % 0.6 NEUTROPHIL # 4.26 LYMPHOCYTE # 1.73 MONOCYTE # 0.47 EOSINOPHIL # 0.42 BASOPHIL # 0.04 -- ATTESTATION -- CARE ACTIVITIES / CARE COORDINATION: - I have reviewed the history and repeated the escobar elements - I have seen and examined this patient - I have reviewed the progress in the clinical course since the last examination - I have discussed the patient's condition with other members of the care team ADDITIONAL DETAIL: Plan of care discussed with Dr. Dejah Parker Signed in PatientKeeper by DICK PANDA on 02/05/24 at 22:40 Cosigned by DEJAH PARKER MD on 03/02/24 at 14:13 at 1413 at 1413 ATTENTION *EDITS and/or ADDENDA must be made in Patient Keeper for this note. * * Edits and ammendments created in [facility] are not visible * * in Patient Keeper or the legal medical record ([facility]). * [facility] #: [id number] END OF REPORT [facility] 2024-02-04 15:27:00 [facility] ([facility]) Cardiothoracic Surg. Consult REPORT #: [id number] REPORT STATUS: Signed DATE: 02/04/24 TIME: 1526 PATIENT: MITA CARBONE UNIT #: [id number] ROOM #: P.0308 BED: 1 : 49 AGE: 73 SEX: F ATTEND: Flavio Ballesteros MD ADM AUTHOR: Bryan Means ATTENTION *EDITS and/or ADDENDA must be made in Patient Keeper for this note. * * Edits and ammendments created in [facility] are not visible * * in Patient Keeper or the legal medical record ([facility]). * -- ASSESSMENT AND PLAN -- RESUSCITATION DISCUSSION: Patient with accelerated angina symptoms found to have severe multivessel coronary artery disease with complex anatomy not felt to be amenable to percutaneous intervention. Left ventricular ejection fraction is Relatively preserved around 45%, Currently hemodynamically stable on a heparin drip bridging off Plavix. Denies any chest pain shortness of breath during exam GENERAL ASSESSMENT: Patient is seen by Dr. Rebollar left heart catheterization images have been reviewed she does have critical coronary artery disease with reasonable distal targets and a preserved left ventricular ejection fraction. She will be presented at high risk conference for the reason of her sedentary status and limited motor debility due to leg Pain with ambulation after knee surgery. Will continue heparin drip Monitor closely for worsening chest pain/angina symptoms Complete surgical workup for accurate to STS calculation to include carotid ultrasound, venous Doppler, echocardiogram CAT scan of the chest no evidence of renal insufficiency or endorgan dysfunction on labs Patient is noted to have urinary tract infection is ongoing IV antibiotics- Negative UA should be achieved prior to considering surgery unless chest pain worsens STS SCORE: 2.36 ADDITIONAL COMMENTS: Clinical Summary Planned Surgery: Isolated CABG, Urgent, First cardiovascular surgery Demographics: 73 year old, , female, 99kg, 157cm, BMI: 40.2 kg/m Lab Values: Creatinine: 0.9 mg/dL, Hematocrit: 38%, WBC Count: 6.4 10 / L, Platelet Count: [id number] cells/ L PreOp Medications: Oral diabetes control Substance Abuse: Former smoker Risk Factors / Comorbidities: Diabetes Mellitus , Hypertension Cardiac Status: Ejection Fraction = 45% Coronary Artery Disease: 3 vessel disease, Proximal LAD Stenosis 70%, Unstable Angina -- HISTORY -- CONSULT REQUESTED BY: Flavio Ballesteros MD DATE/TIME AT BEDSIDE: 2024-02-04 08:00 REASON FOR CONSULT: Critical CAD Worsening angina symptoms CHIEF COMPLAINT: Chest pain shortness of breath worsening fatigue with activities of daily living HPI: Ms. Paco Olson is a 73 yo female followed by Dr. Aliza Chavez, He was evaluated due to worsening chest pain, shortness of breath and general fatigue with minimal exertion. Workup led to the findings of critical multivessel with proximal and asked coronary artery disease not felt to be amenable to percutaneous intervention. She is transferred to [facility] for higher level care and consideration for coronary artery bypass surgery. Patient's family is at bedside and describes A slow decline over the last several months to years primarily felt to be due to leg pain after knee surgery but recently has experienced worsening shortness of breath and associated chest pain which prompted evaluation from her management internship who discovered the above findings. Patient is chest pain-free hemodynamically stable at the time of examination. PAST MEDICAL HISTORY: Hypertension Morbid obesity Diabetes Coronary artery disease Sedentary lifestyle Hyperlipidemia Remote tobacco use PAST SURGICAL HISTORY: Hip and knee surgeries section FAMILY HISTORY: Coronary artery disease is prevalent in her family history -SOCIAL HISTORY- -TOBACCO USE- DETAILS/COMMENTS: Former smoker -VAPING/INHALED SOLVENTS- DETAILS/COMMENTS: Denies -ALCOHOL USE- DETAILS/COMMENTS: Denies -DRUG USE- DETAILS/COMMENTS: Denies LIVING SITUATION: Does have strong family support -- ALLERGIES/HOME MEDS -- ALLERGIES: No Known Allergies (UNKNOWN - Allergy) ALLERGIES COMMENTS: No allergies reported HOME MEDICATIONS: CARVEdilol Tab (Coreg Tab) 12.5 MG PO DAILY Clopidogrel Tab (Plavix Tab) 75 MG PO DAILY Losartan Tab (Cozaar Tab) 25 MG PO DAILY metFORMIN Tab (Glucophage Tab) 500 MG PO DAILY Pantoprazole DR Tab (Protonix Tab) 40 MG PO DAILY Pravastatin Tab (Pravachol Tab) 40 MG PO DAILY HOME MEDICATIONS COMMENTS: Last dose Plavix 01/26/2020 -- SUBJECTIVE -- -REVIEW OF SYSTEMS- GENERAL: General fatigue, worsening shortness of breath with exertion and EYES: Negative for blurry vision. No diplopia. EARS/NOSE/THROAT: Negative for sore throat. No otalgia. No rhinorrhea. BREAST: Negative for change in shape, swelling, masses, nipple discharge, pain, skin changes. RESPIRATORY: known history of coronary artery disease shortness of breath on exertion no cough no productive sputum denies any recent exposures no history of lung disease known CARDIOVASCULAR: Now with a diagnosis of coronary artery disease and angina equivalent symptoms GASTROINTESTINAL: Negative for abdominal pain or nausea. No emesis. No diarrhea. GENITOURINARY: Negative for dysuria, frequency, or urgency. No gross hematuria. MUSCULOSKELETAL: Patient is morbidly obese and minimally ambulatory SKIN: Negative for rashes. No pruritus. NEUROLOGICAL: Negative for headache. No vertigo. Denies paresthesias. PSYCHIATRIC: Negative for specific complaints. ENDOCRINE: Negative for cold intolerance, heat intolerance, polyphagia, polydipsia, polyuria, weight change, fatigue. ALLERGIC / IMMUNOLOGIC: Negative for heat/cold intolerance, polydipsia, or polyuria. -- OBJECTIVE -- VITALS (02/02 15:27 - 02/03 15:27): Temperature C: 36.8 (36.3 - 37.0) Temperature source: Oral Pulse Rate 69 (64 - 74) Respiratory rate: 19 (16 - 23) Blood pressure: 113/54 (102/50 - 122/60) Blood pressure source: Monitor I/Os (02/02 07:00 - 02/03 07:00): Net 136.60 Intake 537.60 Output 401 -EXAM- GENERAL: presumably from previous knee surgery and possibly from limitations from angina obese sedentary female without any signs of distress EYES: PERRL, EOM intact, conjunctiva and sclera clear, without nystagmus, lids normal. EARS: TM's intact and clear, normal canals, grossly normal hearing. NOSE: No deformity, no discharge, no inflammation, no lesions. MOUTH: Oropharynx without deformities or lesions, normal mucosa.. NECK: No masses, no thyromegaly, no abnormal cervical nodes, trachea midline. CHEST: Grossly normal appearance. BREAST: No masses, no gynecomastia noted. LUNGS: Diminished at the bases breath sounds difficult to auscultate due to body habitus HEART: Regular rate and rhythm no appreciable murmurs or rub ABDOMEN: Obese soft nontender nondistended MUSCULOSKELETAL: No significant nonhealing wounds EXTREMITIES: No clubbing, no cyanosis, no edema. NEUROLOGICAL: No focal deficits, cranial nerves II-XII grossly intact, normal sensation, normal reflexes, normal coordination, normal muscle strength, normal tone. GENITOURINARY: Normal external genitalia. SKIN: Intact without significant lesions, or rashes. PSYCHIATRIC: Alert and oriented to time, person, place. Normal mood and affect, intact judgment and insight. -- DATA -- MEDICATIONS diphenhydrAMINE HCL 25 MG PO Q6H PRN METOPROLOL SUCCINATE 25 MG PO Q12HR HEPARIN/SOD CHLOR 0.45% 40597 UNITS IV TITRATE hydrALAZINE HCL 5 MG IV Q6HR PRN HEPARIN SODIUM,PORCINE 5000 UNIT IV ASDIR (PRN) ONDANSETRON 4 MG PO Q6H PRN HEPARIN SODIUM,PORCINE 4000 UNIT IV ASDIR (PRN) cefTRIAXone SODIUM with/in SODIUM CHLORIDE 0.9% 2 GM IV Q24H HEPARIN PHARMACY TO MONITOR 1 EACH IV ASDIR NITROGLYCERIN 0.4 MG SL Q5M PRN METOPROLOL TARTRATE 5 MG IV Q6H PRN LACTULOSE 30 ML PO BID PRN MAG HYDROX/AL HYDROX/SIMETH 30 ML PO Q4H PRN ATORVASTATIN CALCIUM 40 MG PO BEDTIME DOCUSATE SODIUM 100 MG PO BID ACETAMINOPHEN 650 MG PO Q4H PRN ASPIRIN 81 MG PO DAILY cloNIDine HCL 0.1 MG PO Q8H PRN LABS PTT (02/04/24 03:42) THROMBOPLASTIN TIME PARTIAL 78.8 H COMPREHENSIVE METABOLIC PANEL (02/04/24 03:42) SODIUM 137 POTASSIUM 4.7 CHLORIDE 107 CARBON DIOXIDE 23 GLUCOSE 102 BLOOD UREA NITROGEN 9 GLOMERULAR FILTRATION RATE >=60 max estimate CREATININE 0.90 TOTAL PROTEIN 5.5 L ALBUMIN 3.2 CALCIUM 8.2 L BILIRUBIN TOTAL 0.3 SGOT/AST 29 SGPT/ALT 19 ALKALINE PHOSPHATASE 90.0 CBC W/AUTO DIFF (02/04/24 03:42) WHITE BLOOD CELL 7.0 RED BLOOD CELL 4.06 L HEMOGLOBIN 11.9L L HEMATOCRIT 37.4 MEAN CELL VOLUME 92.1 MEAN CELL HGB 29.3 MEAN CELL HGB CONCENTRATION 31.8 L RED CELL DISTRIBUTION WIDTH 14.4 PLATELET COUNT 132L L MEAN PLATELET VOLUME 13.2 H NEUTROPHIL % 61.3 LYMPHOCYTE % 24.9 MONOCYTE % 6.8 EOSINOPHIL % 6.0 BASOPHIL % 0.6 NEUTROPHIL # 4.26 LYMPHOCYTE # 1.73 MONOCYTE # 0.47 EOSINOPHIL # 0.42 BASOPHIL # 0.04 Signed in PatientKeeper by Bryan Means on 02/18/24 at 13:35 at 1335 ATTENTION *EDITS and/or ADDENDA must be made in Patient Keeper for this note. * * Edits and ammendments created in [facility] are not visible * * in Patient Keeper or the legal medical record ([facility]). * [facility] #: [id number] END OF REPORT [facility] 2024-02-04 08:12:00 [facility] ([facility]) Cardiology Progress Notes REPORT #: [id number] REPORT STATUS: Signed DATE: 02/04/24 TIME: 08 PATIENT: MITA CARBONE UNIT #: [id number] ROOM #: P.0308 BED: 1 : 49 AGE: 73 SEX: F ATTEND: Flavio Ballesteros MD ADM AUTHOR: Dick Panda ATTENTION *EDITS and/or ADDENDA must be made in Patient Keeper for this note. * * Edits and ammendments created in [facility] are not visible * * in Patient Keeper or the legal medical record ([facility]). * -- CO-SIGNATURE -- COMMENTS: The patient was seen on rounds with ESPERANZA Mcintyre. The patient has no complaints Examination demonstrates normal heart sounds and clear lung walsh. Impression and plan The patient is a 73-year-old female with a history of ischemic cardiomyopathy and three-vessel disease with risk factors of hypertension, hyperlipidemia, diabetes mellitus and strong family history of coronary artery disease as well as smoking. The patient is NYHA class I and CCS class III. -Echo demonstrates normal ejection fraction with no significant valvular disease. -On heparin. -On statin and beta-carli. -Await surgical intervention. -The patient's urine culture grew E. coli and the patient is currently now on antibiotics Signed in PatientKeeper by DEJAH PARKER MD on 03/02/24 at 14:13 -- ASSESSMENT AND PLAN -- PROBLEMS: 1: Coronary artery disease A/P: The patient is a 73-year-old female (Tanzanian speaking, patient of Dr. Chavez) has a PMHx of cardiomyopathy, hypertension, hyperlipidemia, diabetes, family history of coronary artery disease, h/o smoking. She has been having left-sided chest pain, shortness of breath and tiredness for the past couple of months. She was evaluated by her management internship and had a CTA of the coronaries on 12/2023 and showed a calcium score of 1885, with severe ostial/proximal 3 vessel coronary artery disease. She was taken to [facility] for selective coronary angiogram and showed calcified arteries left main and severe three-vessel coronary artery disease. She was referred for CABG evaluation to CV surgery, Dr. Rebollar. She presented today at [facility] with worsening previously mentioned symptoms. Chest x-ray showed apparent widening of the mediastinum and may be positional, cardiac silhouette appears enlarged, there appears to be mild central pulmonary vascular congestion as well. Labs showed negative troponin, LDL 101, BNP 85. She is being admitted for further evaluation and management. - S/p SCA at previous admission ([facility]), see above - Echo completed - Pre-op workup per CV surgery - On heparin drip - Continue aspirin, atorvastatin 40mg daily, metoprolol XL 25mg BID - On IV antibiotic for UTI. Urine culture grew E. coli - On PT/OT/IS - CV surgery planning CABG, likely on -- SUBJECTIVE -- CHIEF COMPLAINT: Chest pain, coronary artery disease PATIENT NARRATIVE: Sitting in the bed. Eating breakfast. On heparin drip. She denies complaints today. Family member at bedside. No acute events overnight. -REVIEW OF SYSTEMS- GENERAL: Negative for fever, malaise, fatigue. EYES: Negative for blurry vision. No diplopia. EARS/NOSE/THROAT: Negative for sore throat. No otalgia. No rhinorrhea. RESPIRATORY: Negative for dyspnea or wheeze. No cough. CARDIOVASCULAR: Negative for chest pain or palpitations. No extremity swelling. GASTROINTESTINAL: Negative for abdominal pain or nausea. No emesis. No diarrhea. GENITOURINARY: Negative for dysuria, frequency, or urgency. No gross hematuria. MUSCULOSKELETAL: Negative for joint stiffness, pain, or arthralgias. SKIN: Negative for rashes. No pruritus. NEUROLOGICAL: Negative for headache. No vertigo. Denies paresthesias. PSYCHIATRIC: Negative for specific complaints. -- OBJECTIVE -- VITALS (02/02 07:30 - 02/03 07:30): Temperature C: 36.4 (36.3 - 37.0) Temperature source: Oral Pulse Rate 66 (64 - 79) Respiratory rate: 16 (16 - 26) Blood pressure: 113/52 (102/50 - 133/85) Blood pressure source: Monitor I/Os (02/02 07:00 - 02/03 07:00): Net 136.60 Intake 537.60 Output 401 -EXAM- OTHER: Constitutional: Well developed, well nourished patient, in no acute distress. Derm/Integumentary: Warm and dry with no rashes, sores, or lesions. HEENT: Eyes-sclera clear and white, symmetrical w/ no lag. ENT - Palate and gums pink, mucosa moist, no pallor/cyanosis. Neck: supple with no masses, no thyromegaly, No JVD. Respiratory: Clear to auscultation. Heart: S1S2+, Regular Rate and Rhythm, No murmurs, rubs, or gallops. Gastrointestinal: + Bowel Sounds all quadrants. Soft, nontender with no masses or organomegaly; No HJR. Musculoskeletal: Equal strength in all extremities. No weakness. Neurology: Alert and oriented X 3. Calm, cooperative affect. No focal deficits. Extremities: + peripheral pulses. No clubbing, cyanosis. No lower extremity edema. -- DATA -- MEDICATIONS diphenhydrAMINE HCL 25 MG PO Q6H PRN METOPROLOL SUCCINATE 25 MG PO Q12HR HEPARIN/SOD CHLOR 0.45% 85599 UNITS IV TITRATE hydrALAZINE HCL 5 MG IV Q6HR PRN HEPARIN SODIUM,PORCINE 5000 UNIT IV ASDIR (PRN) ONDANSETRON 4 MG PO Q6H PRN HEPARIN SODIUM,PORCINE 4000 UNIT IV ASDIR (PRN) cefTRIAXone SODIUM with/in SODIUM CHLORIDE 0.9% 2 GM IV Q24H HEPARIN PHARMACY TO MONITOR 1 EACH IV ASDIR NITROGLYCERIN 0.4 MG SL Q5M PRN METOPROLOL TARTRATE 5 MG IV Q6H PRN LACTULOSE 30 ML PO BID PRN MAG HYDROX/AL HYDROX/SIMETH 30 ML PO Q4H PRN ATORVASTATIN CALCIUM 40 MG PO BEDTIME DOCUSATE SODIUM 100 MG PO BID ACETAMINOPHEN 650 MG PO Q4H PRN ASPIRIN 81 MG PO DAILY cloNIDine HCL 0.1 MG PO Q8H PRN LABS PTT (02/04/24 03:42) THROMBOPLASTIN TIME PARTIAL 78.8 H COMPREHENSIVE METABOLIC PANEL (02/04/24 03:42) SODIUM 137 POTASSIUM 4.7 CHLORIDE 107 CARBON DIOXIDE 23 GLUCOSE 102 BLOOD UREA NITROGEN 9 GLOMERULAR FILTRATION RATE >=60 max estimate CREATININE 0.90 TOTAL PROTEIN 5.5 L ALBUMIN 3.2 CALCIUM 8.2 L BILIRUBIN TOTAL 0.3 SGOT/AST 29 SGPT/ALT 19 ALKALINE PHOSPHATASE 90.0 CBC W/AUTO DIFF (02/04/24 03:42) WHITE BLOOD CELL 7.0 RED BLOOD CELL 4.06 L HEMOGLOBIN 11.9L L HEMATOCRIT 37.4 MEAN CELL VOLUME 92.1 MEAN CELL HGB 29.3 MEAN CELL HGB CONCENTRATION 31.8 L RED CELL DISTRIBUTION WIDTH 14.4 PLATELET COUNT 132L L MEAN PLATELET VOLUME 13.2 H NEUTROPHIL % 61.3 LYMPHOCYTE % 24.9 MONOCYTE % 6.8 EOSINOPHIL % 6.0 BASOPHIL % 0.6 NEUTROPHIL # 4.26 LYMPHOCYTE # 1.73 MONOCYTE # 0.47 EOSINOPHIL # 0.42 BASOPHIL # 0.04 -- ATTESTATION -- CARE ACTIVITIES / CARE COORDINATION: - I have reviewed the history and repeated the escobar elements - I have seen and examined this patient - I have reviewed the progress in the clinical course since the last examination - I have discussed the patient's condition with other members of the care team ADDITIONAL DETAIL: Plan of care discussed with Dr. Dejah Parker Signed in PatientKeeper by DICK PANDA on 02/04/24 at 22:24 Cosigned by DEJAH PARKER MD on 03/02/24 at 14:13 at 1413 at 1413 ATTENTION *EDITS and/or ADDENDA must be made in Patient Keeper for this note. * * Edits and ammendments created in [facility] are not visible * * in Patient Keeper or the legal medical record (HPF). * [facility] #: [id number] END OF REPORT [facility] 2024-02-01 09:00:00 [facility] ([facility]) Cardiology Progress Notes REPORT #: [id number] REPORT STATUS: Signed DATE: 02/01/24 TIME: 899 PATIENT: MITA CARBONE UNIT #: [id number] ROOM #: P.[id number] BED: 1 : 49 AGE: 73 SEX: F ATTEND: Flavio Ballesteros MD ADM AUTHOR: Dick Panda ATTENTION *EDITS and/or ADDENDA must be made in Patient Keeper for this note. * * Edits and ammendments created in [facility] are not visible * * in Patient Keeper or the legal medical record (HPF). * -- CO-SIGNATURE -- COMMENTS: The patient was seen on rounds with ESPERANZA Mcintyre. The patient has no complaints Examination demonstrates normal heart sounds and clear lung walsh. Impression and plan The patient is a 73-year-old female with a history of ischemic cardiomyopathy and three-vessel disease with risk factors of hypertension, hyperlipidemia, diabetes mellitus and strong family history of coronary artery disease as well as smoking. The patient is NYHA class I and CCS class III. -Echo demonstrates normal ejection fraction with no significant valvular disease. -On heparin. -On statin and beta-carli. -Await surgical intervention. Signed in PatientKeeper by DEJAH PARKER MD on 03/02/24 at 14:12 -- ASSESSMENT AND PLAN -- PROBLEMS: 1: Coronary artery disease A/P: The patient is a 73-year-old female (Tanzanian speaking, patient of Dr. Chavez) has a PMHx of cardiomyopathy, hypertension, hyperlipidemia, diabetes, family history of coronary artery disease, h/o smoking. She has been having left-sided chest pain, shortness of breath and tiredness for the past couple of months. She was evaluated by her management internship and had a CTA of the coronaries on 12/2023 and showed a calcium score of 1885, with severe ostial/proximal 3 vessel coronary artery disease. She was taken to [facility] for selective coronary angiogram and showed calcified arteries left main and severe three-vessel coronary artery disease. She was referred for CABG evaluation to CV surgery, Dr. Rebollar. She presented today at [facility] with worsening previously mentioned symptoms. Chest x-ray showed apparent widening of the mediastinum and may be positional, cardiac silhouette appears enlarged, there appears to be mild central pulmonary vascular congestion as well. Labs showed negative troponin, LDL 101, BNP 85. She is being admitted for further evaluation and management. - S/p SCA at previous admission ([facility]), see above. - Echo completed - Pre-op workup per CV surgery - On heparin drip - On aspirin, atorvastatin 40mg daily, metoprolol XL 25mg BID - On PT/OT/IS - CV surgery planning CABG, pending OR time -- SUBJECTIVE -- CHIEF COMPLAINT: Chest pain, coronary artery disease PATIENT NARRATIVE: Sitting in the chair. Denies complaints today. No acute events overnight. -REVIEW OF SYSTEMS- GENERAL: Negative for fever, malaise, fatigue. EYES: Negative for blurry vision. No diplopia. EARS/NOSE/THROAT: Negative for sore throat. No otalgia. No rhinorrhea. RESPIRATORY: Negative for dyspnea or wheeze. No cough. CARDIOVASCULAR: Negative for chest pain or palpitations. No extremity swelling. GASTROINTESTINAL: Negative for abdominal pain or nausea. No emesis. No diarrhea. GENITOURINARY: Negative for dysuria, frequency, or urgency. No gross hematuria. MUSCULOSKELETAL: Negative for joint stiffness, pain, or arthralgias. SKIN: Negative for rashes. No pruritus. NEUROLOGICAL: Negative for headache. No vertigo. Denies paresthesias. PSYCHIATRIC: Negative for specific complaints. -- OBJECTIVE -- VITALS (01/30 07:55 - 01/31 07:55): Temperature F: 97.8 Temperature C: 36.5 (36.4 - 37.0) Temperature source: Oral Pulse Rate 61 (61 - 82) Respiratory rate: 16 (11 - 27) Blood pressure: 104/53 (104/53 - 154/65) Blood pressure source: Monitor I/Os (01/30 07:00 - 01/31 07:00): Net 337.60 Intake 337.60 -EXAM- OTHER: Constitutional: Well developed, well nourished patient, in no acute distress. Derm/Integumentary: Warm and dry with no rashes, sores, or lesions. HEENT: Eyes-sclera clear and white, symmetrical w/ no lag. ENT - Palate and gums pink, mucosa moist, no pallor/cyanosis. Neck: supple with no masses, no thyromegaly, No JVD. Respiratory: Clear to auscultation. Heart: S1S2+, Regular Rate and Rhythm, No murmurs, rubs, or gallops. Gastrointestinal: + Bowel Sounds all quadrants. Soft, nontender with no masses or organomegaly; No HJR. Musculoskeletal: Equal strength in all extremities. No weakness. Neurology: Alert and oriented X 3. Calm, cooperative affect. No focal deficits. Extremities: + peripheral pulses. No clubbing, cyanosis. No lower extremity edema. -- DATA -- MEDICATIONS diphenhydrAMINE HCL 25 MG PO Q6H PRN METOPROLOL SUCCINATE 25 MG PO Q12HR HEPARIN/SOD CHLOR 0.45% 43090 UNITS IV TITRATE hydrALAZINE HCL 5 MG IV Q6HR PRN HEPARIN SODIUM,PORCINE 5000 UNIT IV ASDIR (PRN) HEPARIN SODIUM,PORCINE 4000 UNIT IV ASDIR (PRN) ONDANSETRON 4 MG PO Q6H PRN HEPARIN PHARMACY TO MONITOR 1 EACH IV ASDIR NITROGLYCERIN 0.4 MG SL Q5M PRN METOPROLOL TARTRATE 5 MG IV Q6H PRN LACTULOSE 30 ML PO BID PRN MAG HYDROX/AL HYDROX/SIMETH 30 ML PO Q4H PRN ATORVASTATIN CALCIUM 40 MG PO BEDTIME morphine SULFATE 2 MG IV Q3H PRN CEFEPIME HCL with/in SODIUM CHLORIDE 50 mL BAG 1 GM IV Q6H DOCUSATE SODIUM 100 MG PO BID ACETAMINOPHEN 650 MG PO Q4H PRN ASPIRIN 81 MG PO DAILY cloNIDine HCL 0.1 MG PO Q8H PRN LABS PTT (02/01/24 04:29) THROMBOPLASTIN TIME PARTIAL 90.6 D H CBC W/AUTO DIFF (02/01/24 04:29) WHITE BLOOD CELL 6.0 RED BLOOD CELL 3.77 L HEMOGLOBIN 11.1L L HEMATOCRIT 33.9L L MEAN CELL VOLUME 89.9 MEAN CELL HGB 29.4 MEAN CELL HGB CONCENTRATION 32.7 L RED CELL DISTRIBUTION WIDTH 14.4 PLATELET COUNT 124L L MEAN PLATELET VOLUME 12.8 H NEUTROPHIL % 60.2 LYMPHOCYTE % 26.8 MONOCYTE % 7.5 EOSINOPHIL % 4.3 BASOPHIL % 0.5 NEUTROPHIL # 3.61 LYMPHOCYTE # 1.61 MONOCYTE # 0.45 EOSINOPHIL # 0.26 BASOPHIL # 0.03 PTT (01/31/24 09:14) THROMBOPLASTIN TIME PARTIAL 67.4 D H -- ATTESTATION -- CARE ACTIVITIES / CARE COORDINATION: - I have reviewed the history and repeated the escobar elements - I have seen and examined this patient - I have reviewed the progress in the clinical course since the last examination - I have discussed the patient's condition with other members of the care team ADDITIONAL DETAIL: Plan of care discussed with Dr. Dejah Parker Signed in PatientKeeper by DICK PANDA on 02/01/24 at 19:37 Cosigned by DEJAH PARKER MD on 03/02/24 at 14:12 at 1412 at 1412 ATTENTION *EDITS and/or ADDENDA must be made in Patient Keeper for this note. * * Edits and ammendments created in [facility] are not visible * * in Patient Keeper or the legal medical record (HPF). * [facility] #: [id number] END OF REPORT [facility] 2024-01-31 18:56:00 [facility] ([facility]) Hospitalist Progress Note REPORT #: [id number] REPORT STATUS: Signed DATE: 01/31/24 TIME: 1855 PATIENT: MITA CARBONE UNIT #: [id number] ROOM #: P.[id number] BED: A : 49 AGE: 73 SEX: F ATTEND: Flavio Ballesteros MD ADM AUTHOR: Flavio Ballesteros MD ATTENTION *EDITS and/or ADDENDA must be made in Patient Keeper for this note. * * Edits and ammendments created in [facility] are not visible * * in Patient Keeper or the legal medical record (HPF). * -- ASSESSMENT AND PLAN -- GENERAL ASSESSMENT: ASSESSMENT AND PLAN: 1. Angina pectoris. Recently diagnosed with multivessel coronary artery disease, not amenable to percutaneous intervention. She is being admitted for cardiothoracic surgery evaluation with Dr. Devante Rebollar. As she was on Plavix very recently, we will start her on heparin infusion. Beta-blockers, aspirin and statins. 2. Likely acute diastolic congestive cardiac failure. Gentle diuresis. 3. Hypertension, beta-blockers. Avoid MIGUEL inhibitors/ARB perioperatively. 4. Hyperlipidemia, high intensity statins. 5. Urinary tract infection present on admission. Positive leukocyte esterase and nitrites. I will cover with cefepime. Cultures are in progress. 6. Obesity, body mass index 39. 7. Mild anemia. 8. Mild thrombocytopenia. 9. History of prediabetes. Current blood sugars appear stable. ADDITIONAL COMMENTS: Preoperative optimization. Plans for CABG week of 02/04/2024. -- SUBJECTIVE -- HPI: This 73-year-old [place]anian-speaking female has a past medical history significant for hypertension, hyperlipidemia, non-insulin dependent diabetes and nicotine dependence in the past. She has had complaints of recurrent chest pain, shortness of breath, tiredness over the past several months, and initially, these symptoms were not attended to by the family. She was subsequently seen by Dr. Aliza Chavez of Cardiology and CTA of the coronaries on 12/2023 and showed a calcium score of 1885, with severe ostial/proximal 3 vessel coronary artery disease. Selective coronary angiogram showed calcified arteries left main and severe three-vessel coronary artery disease, not amenable to percutaneous intervention. She was started on guideline-directed medical therapy and was in the process of being evaluated by Cardiothoracic Surgery when she developed worsening chest pain and shortness of breath and decided to come to the Emergency Room on 01/30/2024. Troponin was negative, EKG was nondiagnostic and chest x-ray showed enlarged cardiac silhouette and mild central pulmonary vascular congestion. She is being admitted for further evaluation and management. She has been started on intravenous heparin infusion. PATIENT NARRATIVE: 01/31/24: On heparin infusion, PTT therapeutic. Pre-CABG workup in progress. No chest pain or shortness of breath. Chest x-ray shows mild cardiomegaly and mild pulmonary vascular congestion. On diuretics. Urine cultures growing gram-negative rods, identification and sensitivities pending. I have already started her on cefepime upon admission. -REVIEW OF SYSTEMS- GENERAL: CONSTITUTIONAL: Fatigue and tiredness. No fever or chills. HEENT: Diminished hearing. CARDIOPULMONARY: Recurrent left-sided chest pain and shortness of breath. GASTROINTESTINAL: Heartburn. GENITOURINARY: Denies any dysuria or discharge. NEUROLOGICAL: Denies any headache, dizziness or syncope. -- OBJECTIVE -- VITALS (01/30 00:10 - 01/31 00:10): Temperature F: 97.8 (97.8 - 98.3) Temperature C: 37.0 (36.4 - 37.0) Temperature source: Oral Pulse Rate 68 (68 - 82) Respiratory rate: 17 (14 - 24) Blood pressure: 132/63 (102/44 - 154/70) Blood pressure source: Monitor -EXAM- GENERAL: GENERAL: Elderly female, not in any distress. VITAL SIGNS: oxygen saturation is 96% on room air. Weight is 98.8 kilograms. Body mass index 39. HEENT: Head is atraumatic. Pupils are equal and round. Mallampati 3 oropharynx. NECK: Thick. CARDIOVASCULAR: Regular rate and rhythm. LUNGS: Clear to auscultation. ABDOMEN: Soft, nontender. EXTREMITIES: No edema, cyanosis or clubbing. Pedal pulses palpable. NEUROLOGIC: No focal deficit. -- DATA -- MEDICATIONS diphenhydrAMINE HCL 25 MG PO Q6H PRN METOPROLOL SUCCINATE 25 MG PO Q12HR HEPARIN/SOD CHLOR 0.45% 55825 UNITS IV TITRATE hydrALAZINE HCL 5 MG IV Q6HR PRN HEPARIN SODIUM,PORCINE 5000 UNIT IV ASDIR (PRN) HEPARIN SODIUM,PORCINE 4000 UNIT IV ASDIR (PRN) ONDANSETRON 4 MG PO Q6H PRN HEPARIN PHARMACY TO MONITOR 1 EACH IV ASDIR NITROGLYCERIN 0.4 MG SL Q5M PRN METOPROLOL TARTRATE 5 MG IV Q6H PRN LACTULOSE 30 ML PO BID PRN MAG HYDROX/AL HYDROX/SIMETH 30 ML PO Q4H PRN ATORVASTATIN CALCIUM 40 MG PO BEDTIME morphine SULFATE 2 MG IV Q3H PRN CEFEPIME HCL with/in SODIUM CHLORIDE 50 mL BAG 1 GM IV Q6H DOCUSATE SODIUM 100 MG PO BID ACETAMINOPHEN 650 MG PO Q4H PRN ASPIRIN 81 MG PO DAILY cloNIDine HCL 0.1 MG PO Q8H PRN LABS PTT (01/31/24 09:14) THROMBOPLASTIN TIME PARTIAL 67.4 D H PTT (01/31/24 03:43) THROMBOPLASTIN TIME PARTIAL 90.2 H TROPI (01/31/24 03:42) TROPONIN-I 5.0 L -- ATTESTATION -- CARE ACTIVITIES / CARE COORDINATION: - I have reviewed the history and repeated the escobar elements - I have seen and examined this patient - I have reviewed the progress in the clinical course since the last examination - I have discussed the patient's condition with other members of the care team Signed in PatientKeeper by Flavio Ballesteros MD on 02/01/24 at 00:17 at 0017 ATTENTION *EDITS and/or ADDENDA must be made in Patient Keeper for this note. * * Edits and ammendments created in [facility] are not visible * * in Patient Keeper or the legal medical record ([facility]). * RPT #: [id number] END OF REPORT [facility] 2024-01-31 09:48:00 [facility] ([facility]) Cardiology Progress Notes REPORT #: [id number] REPORT STATUS: Signed DATE: 01/31/24 TIME: 947 PATIENT: MITA CARBONE UNIT #: [id number] ROOM #: P.0308 BED: 1 : 49 AGE: 73 SEX: F ATTEND: Flavio Ballesteros MD ADM AUTHOR: Dick Panda ATTENTION *EDITS and/or ADDENDA must be made in Patient Keeper for this note. * * Edits and ammendments created in [facility] are not visible * * in Patient Keeper or the legal medical record ([facility]). * -- CO-SIGNATURE -- COMMENTS: The patient was seen on rounds with ESPERANZA Mcintyre. The patient has no complaints Examination demonstrates normal heart sounds and clear lung walsh. Impression and plan The patient is a 73-year-old female with a history of ischemic cardiomyopathy and three-vessel disease with risk factors of hypertension, hyperlipidemia, diabetes mellitus and strong family history of coronary artery disease as well as smoking. The patient is NYHA class I and CCS class III. -Echo demonstrates normal ejection fraction with no significant valvular disease. -Begin heparin. -On statin and beta-carli. -Await surgical intervention. Signed in PatientKeeper by DEJAH PARKER MD on 03/02/24 at 14:12 -- ASSESSMENT AND PLAN -- PROBLEMS: 1: Coronary artery disease A/P: The patient is a 73-year-old female (Tanzanian speaking, patient of Dr. Chavez) has a PMHx of cardiomyopathy, hypertension, hyperlipidemia, diabetes, family history of coronary artery disease, h/o smoking. She has been having left-sided chest pain, shortness of breath and tiredness for the past couple of months. She was evaluated by her management internship and had a CTA of the coronaries on 12/2023 and showed a calcium score of 1885, with severe ostial/proximal 3 vessel coronary artery disease. She was taken to [facility] for selective coronary angiogram and showed calcified arteries left main and severe three-vessel coronary artery disease. She was referred for CABG evaluation to CV surgery, Dr. Rebollar. She presented today at [facility] with worsening previously mentioned symptoms. Chest x-ray showed apparent widening of the mediastinum and may be positional, cardiac silhouette appears enlarged, there appears to be mild central pulmonary vascular congestion as well. Labs showed negative troponin, LDL 101, BNP 85. She is being admitted for further evaluation and management. - S/p SCA at previous admission ([facility]), see above - Echo completed - Pre-op workup per CV surgery - On heparin drip - Continue aspirin, atorvastatin 40mg daily, metoprolol XL 25mg BID - Needs PT/OT/IS - CV surgery planning CABG, pending OR time -- SUBJECTIVE -- CHIEF COMPLAINT: Chest pain, coronary artery disease PATIENT NARRATIVE: She denies chest pain now. Daughter at bedside. No acute events overnight. -REVIEW OF SYSTEMS- GENERAL: Negative for fever, malaise, fatigue. EYES: Negative for blurry vision. No diplopia. EARS/NOSE/THROAT: Negative for sore throat. No otalgia. No rhinorrhea. RESPIRATORY: Negative for dyspnea or wheeze. No cough. CARDIOVASCULAR: Negative for chest pain or palpitations. No extremity swelling. GASTROINTESTINAL: Negative for abdominal pain or nausea. No emesis. No diarrhea. GENITOURINARY: Negative for dysuria, frequency, or urgency. No gross hematuria. MUSCULOSKELETAL: Negative for joint stiffness, pain, or arthralgias. SKIN: Negative for rashes. No pruritus. NEUROLOGICAL: Negative for headache. No vertigo. Denies paresthesias. PSYCHIATRIC: Negative for specific complaints. -- OBJECTIVE -- VITALS (01/29 00:27 - 01/30 00:27): Pulse Rate 80 Respiratory rate: 18 Blood pressure: 148/67 Blood pressure source: Monitor -EXAM- OTHER: Constitutional: Well developed, well nourished patient, in no acute distress. Derm/Integumentary: Warm and dry with no rashes, sores, or lesions. HEENT: Eyes-sclera clear and white, symmetrical w/ no lag. ENT - Palate and gums pink, mucosa moist, no pallor/cyanosis. Neck: supple with no masses, no thyromegaly, No JVD. Respiratory: Clear to auscultation. Heart: S1S2+, Regular Rate and Rhythm, No murmurs, rubs, or gallops. Gastrointestinal: + Bowel Sounds all quadrants. Soft, nontender with no masses or organomegaly; No HJR. Musculoskeletal: Equal strength in all extremities. No weakness. Neurology: Alert and oriented X 3. Calm, cooperative affect. No focal deficits. Extremities: + peripheral pulses. No clubbing, cyanosis. No lower extremity edema. -- DATA -- MEDICATIONS diphenhydrAMINE HCL 25 MG PO Q6H PRN hydrALAZINE HCL 5 MG IV Q6HR PRN HEPARIN PHARMACY TO MONITOR 1 EACH IV ASDIR METOPROLOL TARTRATE 5 MG IV Q6H PRN HEPARIN/SOD CHLOR 0.45% 59849 UNITS IV TITRATE LACTULOSE 30 ML PO BID PRN MAG HYDROX/AL HYDROX/SIMETH 30 ML PO Q4H PRN hydrALAZINE HCL 10 MG IV Q2H PRN ATORVASTATIN CALCIUM 40 MG PO BEDTIME morphine SULFATE 2 MG IV Q3H PRN CEFEPIME HCL with/in SODIUM CHLORIDE 50 mL BAG 1 GM IV Q6H ONDANSETRON HCL/PF 4 MG IV Q6H PRN DOCUSATE SODIUM 100 MG PO BID ACETAMINOPHEN 650 MG PO Q4H PRN ASPIRIN 81 MG PO DAILY METOPROLOL SUCCINATE 25 MG PO Q12HR HEPARIN SODIUM,PORCINE 4000 UNIT IV ASDIR (PRN) ONDANSETRON 4 MG PO Q6H PRN HEPARIN SODIUM,PORCINE 5000 UNIT IV ASDIR (PRN) NITROGLYCERIN 0.4 MG SL Q5M PRN cloNIDine HCL 0.1 MG PO Q8H PRN LABS PROTHROMBIN TIME (01/30/24 21:14) PROTHROMBIN TIME PATIENT 13.0 H INTERNATIONAL NORMAL RATIO 1.16 H CBC W/AUTO DIFF (01/30/24 21:14) WHITE BLOOD CELL 6.0 RED BLOOD CELL 3.52 L HEMOGLOBIN 10.4D L D L HEMATOCRIT 32.3L L MEAN CELL VOLUME 91.8 MEAN CELL HGB 29.5 MEAN CELL HGB CONCENTRATION 32.2 L RED CELL DISTRIBUTION WIDTH 14.5 PLATELET COUNT 116L L MEAN PLATELET VOLUME 12.4 NEUTROPHIL % 64.4 LYMPHOCYTE % 22.6 MONOCYTE % 7.5 EOSINOPHIL % 4.5 BASOPHIL % 0.7 NEUTROPHIL # 3.88 LYMPHOCYTE # 1.36 MONOCYTE # 0.45 EOSINOPHIL # 0.27 BASOPHIL # 0.04 TROPI (01/30/24 21:14) TROPONIN-I 4.4 L PTT (01/30/24 21:14) THROMBOPLASTIN TIME PARTIAL 87.2 D H BNP (01/30/24 11:49) B-TYPE NATRIURETIC PEPTIDE 85 CBC W/O DIFF (01/30/24 11:49) WHITE BLOOD CELL 6.3 RED BLOOD CELL 4.13 L HEMOGLOBIN 12.2 HEMATOCRIT 38.1 MEAN CELL VOLUME 92.3 MEAN CELL HGB 29.5 MEAN CELL HGB CONCENTRATION 32.0 L RED CELL DISTRIBUTION WIDTH 14.4 PLATELET COUNT 67L L UA RFLX MICR amp;CULT IF INDICATED (01/30/24 11:49) UA COLOR YELLOW UA APPEARANCE HAZY H UA GLUCOSE DIPSTICK NEGATIVE UA BILIRUBIN DIPSTICK NEGATIVE UA KETONE DIPSTICK NEGATIVE UA SPECIFIC GRAVITY 1.020 UA BLOOD DIPSTICK SMALL A UA PH DIPSTICK 6.5 UA PROTEIN DIPSTICK 10 UA UROBILINOGEN DIPSTICK NORMAL UA NITRITE DIPSTICK 2+ A UA LEUKOCYTE ESTERASE DIPSTICK LARGE A UA WBC 11-20 A UA RBC 0-2 UA BACTERIA 1+ A UA SQUAMOUS CELLS NONE SEEN LIPID PROFILE (CORONARY RISK) (01/30/24 11:48) TRIGLYCERIDES 83 CHOLESTEROL 212 H HDL CHOLESTEROL 80 LIPOPROTEIN LDL 101 H CORONARY RISK FACTOR 2.65 LIVER FUNCTION PANEL (01/30/24 11:48) TOTAL PROTEIN 6.4 ALBUMIN 3.9 BILIRUBIN TOTAL 1.0 BILIRUBIN DIRECT 0.3 SGOT/AST 31 SGPT/ALT 14 ALKALINE PHOSPHATASE 104.0 PROTHROMBIN TIME (01/30/24 11:48) PROTHROMBIN TIME PATIENT 12.1 INTERNATIONAL NORMAL RATIO 1.08 PTT (01/30/24 11:48) THROMBOPLASTIN TIME PARTIAL 22.5 L BASIC METABOLIC PANEL (01/30/24 11:48) SODIUM 139 POTASSIUM 4.9 CHLORIDE 107 CARBON DIOXIDE 29 GLUCOSE 96 BLOOD UREA NITROGEN 10 GLOMERULAR FILTRATION RATE >=60 max estimate CREATININE 0.90 CALCIUM 8.7 MAG (01/30/24 11:48) MAGNESIUM 2.0 TROPI (01/30/24 11:48) TROPONIN-I 4.8 L -- ATTESTATION -- CARE ACTIVITIES / CARE COORDINATION: - I have reviewed the history and repeated the escobar elements - I have seen and examined this patient - I have reviewed the progress in the clinical course since the last examination - I have discussed the patient's condition with other members of the care team ADDITIONAL DETAIL: Plan of care discussed with Dr. Dejah Parker Signed in PatientKeeper by DICK PANDA on 01/31/24 at 21:38 Cosigned by DEJAH PARKER MD on 03/02/24 at 14:12 at 1412 at 1412 ATTENTION *EDITS and/or ADDENDA must be made in Patient Keeper for this note. * * Edits and ammendments created in [facility] are not visible * * in Patient Keeper or the legal medical record ([facility]). * [facility] #: [id number] END OF REPORT [facility] 2024-01-30 22:32:00 [id number] [facility] [address] [place] [address] PATIENT NAME: MITA CARBONE ADMIT DATE: 01/30/24 ACCOUNT NO: [id number] ROOM NO: P.0308 AGE: 73 REPORT TYPE: HISTORY AND PHYSICAL SEX: F ADMITTING PHYSICIAN:Flavio Ballesteros MD ATTENDING PHYSICIAN:Flavio Ballesteros MD ADMISSION DATE: 01/30/2024 12:46:00 REASON FOR ADMISSION: Unstable angina. HISTORY OF PRESENT ILLNESS: This 73-year-old [place]anian-speaking female has a past medical history significant for hypertension, hyperlipidemia, non-insulin dependent diabetes and nicotine dependence in the past. She has had complaints of recurrent chest pain, shortness of breath, tiredness over the past several months, and initially, these symptoms were not attended to by the family. She was subsequently seen by Dr. Aliza Chavez of Cardiology and underwent selective coronary angiogram, which showed multivessel coronary artery disease, not amenable to percutaneous intervention. She is on guideline-directed medical therapy and was in the process of being evaluated by Cardiothoracic Surgery when she developed worsening chest pain and shortness of breath and decided to come to the Emergency Room on 01/30/2024. Troponin was negative, EKG was nondiagnostic and chest x-ray showed enlarged cardiac silhouette and mild central pulmonary vascular congestion. She is being admitted for further evaluation and management. She has been started on intravenous heparin infusion. PAST MEDICAL HISTORY: 1. Hypertension. 2. Non-insulin dependent diabetes. 3. Hyperlipidemia. 4. Recent findings of coronary artery disease. PAST SURGICAL HISTORY: Multiple orthopedic surgeries. SOCIAL HISTORY: , lives at home with her . Tobacco use in the past. No alcohol. FAMILY HISTORY: Noncontributory. MEDICATIONS: Home medications have not been documented, ALLERGIES: NO KNOWN DRUG ALLERGIES. REVIEW OF SYSTEMS: Detailed review of systems was performed. CONSTITUTIONAL: Fatigue and tiredness. No fever or chills. HEENT: Diminished hearing. CARDIOPULMONARY: Recurrent left-sided chest pain and shortness of breath. GASTROINTESTINAL: Heartburn. GENITOURINARY: Denies any dysuria or discharge. PATIENT NAME: MITA CARBONE NEUROLOGICAL: Denies any headache, dizziness or syncope. PHYSICAL EXAMINATION: GENERAL: Elderly female, not in any distress. VITAL SIGNS: Temperature 97.8, heart rate 80 and irregular, respiratory rate 18, blood pressure 148/67, oxygen saturation is 96% on room air. Weight is 98.8 kilograms. Body mass index 39. HEENT: Head is atraumatic. Pupils are equal and round. Mallampati 3 oropharynx. NECK: Thick. CARDIOVASCULAR: Regular rate and rhythm. LUNGS: Clear to auscultation. ABDOMEN: Soft, nontender. EXTREMITIES: No edema, cyanosis or clubbing. Pedal pulses palpable. NEUROLOGIC: No focal deficit. LABORATORY DATA: WBC 6, hemoglobin 10.4, hematocrit 32.3, platelets 116. Sodium 139, potassium 4.9, chloride 107, CO2 of 29, BUN 10, creatinine 0.9, blood glucose 96, calcium 8.7. LFTs normal. Magnesium 2.0. Troponin is 4.8. BNP is 85. Triglycerides 83, total cholesterol 212, HDL 80, LDL 101. Urinalysis shows small blood, nitrite 2+, large leukocyte esterase, bacteria 1+. Urine cultures are in progress. ASSESSMENT AND PLAN: 1. Angina pectoris. Recently diagnosed with multivessel coronary artery disease, not amenable to percutaneous intervention. She is being admitted for cardiothoracic surgery evaluation with Dr. Devante Rebollar. As she was on Plavix very recently, we will start her on heparin infusion. Beta-blockers, aspirin and statins. 2. Likely acute diastolic congestive cardiac failure. Gentle diuresis. 3. Hypertension, beta-blockers. Avoid MIGUEL inhibitors/ARB perioperatively. 4. Hyperlipidemia, high intensity statins. 5. Urinary tract infection present on admission. Positive leukocyte esterase and nitrites. I will cover with cefepime. Cultures are in progress. 6. Obesity, body mass index 39. 7. Mild anemia. 8. Mild thrombocytopenia. 9. History of prediabetes. Current blood sugars appear stable. Plan of care discussed with the Emergency Room services and Dr. Devante Porat. The patient and granddaughter, Sera advised at bedside. Dictated By: Flavio Ballesteros MD Date Dictated: 01/30/2024 22:32:30 Date Transcribed: 01/31/2024 02:42:18 ANTONIO/KINZA/DAVION PATIENT NAME: MITA CARBONE Receipt ID: [id number] Authenticated by Flavio Ballesteros MD On 02/21/2024 11:52:19 PM at 1152 PATIENT NAME: MITA CARBONE [facility] 2024-01-30 17:30:00 [facility] ([facility] Hospitalist Clinical Note REPORT #: [id number] REPORT STATUS: Signed DATE: 01/30/24 TIME: 1730 PATIENT: MITA CARBONE UNIT #: [id number] ROOM #: [facility] BED: 1 : 49 AGE: 73 SEX: F ATTEND: Flavio Ballesteros MD ADM AUTHOR: Flavio Ballesteros MD ATTENTION *EDITS and/or ADDENDA must be made in Patient Keeper for this note. * * Edits and ammendments created in [facility] are not visible * * in Patient Keeper or the legal medical record (HPF). * -- NOTATION -- NOTATION: [id number] Signed in PatientKeeper by Flavio Ballesteros MD on 01/30/24 at 22:32 at 2232 ATTENTION *EDITS and/or ADDENDA must be made in Patient Keeper for this note. * * Edits and ammendments created in [facility] are not visible * * in Patient Keeper or the legal medical record (HPF). * RPT #: [id number] END OF REPORT [facility] 2024-01-30 12:44:00 [facility] ([facility]) EMERGENCY PROVIDER REPORT REPORT#:[id number] REPORT STATUS: Signed DATE:01/30/24 TIME: 1244 PATIENT: MITA CARBONE UNIT #: [id number] ROOM: [facility] BED: A AGE: 73 SEX: F PCP PHYS: Solomon Medina DO SERVICE AUTHOR: Juan Gomez MD * ALL edits or amendments must be made on the electronic/computer document * HPI-Chest Pain 40 and Over Free Text HPI Notes Free Text HPI Notes PMH of HTN, HLD, DM. Recetn diagnosis of multivessel CAD. C/o chest pain. Has been intermittent for the past couple weeks, worse today. Recent heart cath by her management internship in [place]. Reportedly with significant multivessel disease. Told to come here to [facility] should her pain recur to be evaluated by Dr. Rebollar, CT surgery, for CABG. General Initial Greet Date/Time 01/30/24 1029 Presentation Chief Complaint Chest pain Hx Obtained From Patient, Family Sudden in Onset? No Risk-Chest Pain 40 and Over Risk Stratification )( AMI-Aspirin Aspirin Last 24 Hrs None )( HEART for MACE )( HEART for MACE Response Value History Mod index of suspicion 1 ECG Interpretation Nonspec repol disturb 1 Age Age 65 or over 2 Risk Factors for CAD 3+ CAD risk factors 2 Troponin < or = to NL troponin 0 Total 6 Review of Systems ROS Statements All systems rev neg except as marked. Past Medical History - Adult Stated Complaint CHEST PAIN Allergies Coded Allergies: No Known Allergies (01/30/24) Home Medications Reported Medications Pravastatin (Pravachol) 40 MG PO DAILY Pantoprazole Dr (Protonix) 40 MG PO DAILY Metformin 500 MG PO DAILY carvediloL (Coreg) 12.5 MG PO DAILY Losartan (Cozaar) 25 MG PO DAILY Clopidogrel Bisulfate (Plavix) 75 MG PO DAILY Past Medical History: Reports: Coronary artery disease, Diabetes mellitus, Hypertension, Dyslipidemia. Additional Surgical History see nurse's notes Additional Family History Includes CAD. Smoking status for patients 13 years old or older: Former Smoker Physical Exam Vital Signs Vital Signs First Documented: Result Date Time Pulse Ox 96 01/29 1030 B/P 148/67 01/29 1030 B/P Mean 94 01/29 1030 O2 Delivery Room air 01/29 1030 Pulse 80 01/29 1030 Resp 18 01/29 1030 Last Documented: Result Date Time Pulse Ox 96 01/29 1030 B/P 148/67 01/29 1030 B/P Mean 94 01/29 1030 O2 Delivery Room air 01/29 1030 Pulse 80 01/29 1030 Resp 18 01/29 1030 Review of Vital Signs Reviewed Focused PE General/Const General/Const Awake, Alert, Cooperative, Not toxic appearing MS Neck Neck Supple, Full range of motion Resp/Chest Respiratory/Chest No respiratory distress, No retractions Cardiovascular Cardiovascular Heart rate NL, Regular rhythm, Peripheral circulation NL Abdomen/GI Abdomen/GI No distention MS Lower Extrem Lower Ext/Pelvis/MS 1-2+ pitting edema bilateral lower legs Skin Skin Color NL, Dry Neurologic Neurologic Oriented X3, Speech NL Interpretation Diagnostics Lab Results Interpretation Results Laboratory Tests 01/30/24 1148: [Embedded Image Not Available] 01/30/24 1149: [Embedded Image Not Available] Laboratory Tests: 01/29 01/29 1148 1148 Chemistry Sodium (136 - 145 mmol/L) 139 Potassium (3.5 - 5.1 mmol/L) 4.9 Chloride (98 - 107 mmol/l) 107 Carbon Dioxide (20 - 31 mmol/L) 29 BUN (9 - 23 mg/dL) 10 Creatinine (0.55 - 1.02 mg/dL) 0.90 Glomerular Filtr Rate (>60 mL/min) >=60 max estimate Glucose (74 - 106 mg/dL) 96 Calcium (8.7 - 10.4 mg/dL) 8.7 Magnesium (1.6 - 2.6 mg/dL) 2.0 Total Bilirubin (0.3 - 1.2 mg/dL) 1.0 Direct Bilirubin (<0.3 mg/dL) 0.3 AST (<34 U/L) 31 ALT (10 - 49 U/L) 14 Total Alk Phosphatase (46 - 116 U/L) 104.0 Troponin I High Sens (27.36 - 66.23 pg/mL) 4.8 L Total Protein (5.7 - 8.2 g/dL) 6.4 Albumin (3.2 - 4.8 g/dL) 3.9 Triglycerides (<150 mg/dL) 83 Cholesterol (<200 mg/dL) 212 H LDL Cholesterol Measurd (<100 mg/dL) 101 H HDL Cholesterol (>60 mg/dL) 80 Coronary Risk Interp 2.65 Coagulation PT (10.3 - 12.9 SECONDS) 12.1 INR (0.9 - 1.11) 1.08 PTT (Tali) (23.8 - 34.8 secs) 22.5 L 01/29 1149 Chemistry B-Natriuretic Peptide (<100 pg/mL) 85 Hematology WBC (4.8 - 10.8 x10 3/uL) 6.3 RBC (4.20 - 5.40 x10 6/uL) 4.13 L Hgb (12.0 - 16.0 g/dL) 12.2 Hct (37.0 - 47.0 %) 38.1 MCV (81.0 - 99.0 fL) 92.3 MCH (27 - 31 pg) 29.5 MCHC (33 - 36.5 G/DL) 32.0 L RDW (12.9 - 16.9 %) 14.4 Plt Count (150 - 440 x10 3/uL) 67 L Urines Urine Color (YELLOW DISCRIPT) YELLOW Urine Appearance (CLEAR DISCRIPT) HAZY H Urine pH (5.0 - 9.0) 6.5 Ur Specific [place] (1.005 - 1.030) 1.020 Urine Protein (NEGATIVE mg/dL) 10 Urine Glucose (UA) (NEGATIVE mg/dL) NEGATIVE Urine Ketones (NEGATIVE mg/dL) NEGATIVE Urine Blood (NEGATIVE) SMALL A Urine Nitrite (NEGATIVE) 2+ A Urine Bilirubin (NEGATIVE) NEGATIVE Urine Urobilinogen (0.2 - 1.0 mg/dL) NORMAL Ur Leukocyte Esterase (NEGATIVE) LARGE A Urine RBC (0 - 2 #RBC/HPF) 0-2 Urine WBC (0 - 2 #WBC/HPF) 11-20 A Ur Squamous Epith Cells (NONE - TRACE /LPF) NONE SEEN Urine Bacteria (NONE - TRACE /HPF) 1+ A Microbiology: Date/Time Procedure - Status Source Growth 01/29 1149 Urine Culture - RES URINE GRAM NEGATIVE CARO GRAM NEGATIVE CARO#2 Recent Impressions: RADIOLOGY - XR CHEST 1 V 01/29 1100 Report Impression - Status: SIGNED Entered: 01/30/2024 1113 IMPRESSION: Apparent widening of the mediastinum and may be positional. Cardiac silhouette appears enlarged. There appears to be mild central pulmonary vascular congestion as well. Recommend follow-up standard PA and lateral chest x-ray or CT. Impression By: Karl HAWK M.D. Lab Imaging Statement Laboratory radiographic studies reviewed and considered in the medical decision-making. ECG #1 Interpretation Text/Dict Note rate 77 bpm, nsr, normal alia, normal qrs duration, normal st segments, nonspecific t-wave changes in lead v6. no stemi ECG Documented in MUSE Yes Date 01/31/24 Time 1050 Interpreted by and reviewed by me, Independently interpreted, ED physician Re-Evaluation MDM Free Text MDM Notes Free Text MDM Notes Unstable angina. Given aspirin. Started on heparin. Dr. Rebollar notified, will consult. Recs for admission to [facility]. Spoke with Dick Panda, accepted for cardiology team consult. Patient with mild pulmonary vascular congestion. No significant resp distress. Defere to inpatient team. ED Course Medication(s) Ordered Medication(s) Ordered: Blood Formation,Coagulation Sig/Ginny Start time Last Medication Dose Route Stop Time Status Admin Heparin Sodium 5,000 UNIT ASDIR PRN 01/29 1300 DC (Porcine) IV 01/30 1148 Heparin Sodium 4,000 UNIT ASDIR PRN 01/29 1300 DC (Porcine) IV 01/30 1148 Heparin Sodium/ 500 ML TITRATE 01/29 1300 DC 01/29 Sodium Chloride IV 01/30 1148 1506 Cardiovascular Drugs Sig/Ginny Start time Last Medication Dose Route Stop Time Status Admin Hydralazine HCl 10 MG Q2H PRN PRN 01/29 1300 DC IV 01/30 1146 Gastrointestinal Drugs Sig/Ginny Start time Last Medication Dose Route Stop Time Status Admin Ondansetron HCl 4 MG Q6H PRN PRN 01/29 1300 DC IV 01/30 1146 Patient Discharge Departure Vital Signs/Condition Vital Signs First Documented: Result Date Time Pulse Ox 96 01/29 1030 B/P 148/67 01/29 1030 B/P Mean 94 01/29 1030 O2 Delivery Room air 01/29 1030 Pulse 80 01/29 1030 Resp 18 01/29 1030 Last Documented: Result Date Time Pulse Ox 96 01/29 1030 B/P 148/67 01/29 1030 B/P Mean 94 01/29 1030 O2 Delivery Room air 01/29 1030 Pulse 80 01/29 1030 Resp 18 01/29 1030 All vital signs available at the time of this entry have been reviewed. 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 Disposition Decision Hospitalize Hosp Physician Name Flavio Ballesteros Valentina WATERMAN Hosp Physician Hospitalist Request Time 1245 Request Date 01/30/24 )( Accepts Hospitalization Yes )( Reason for Hospitalization cabg evaluation )( Accepted Time 1245 )( Accepted Date 01/30/24 Call Information will see patient, agrees with eval, agrees with plan Discharge/Care Plan Counseled Regarding Diagnosis, Lab results, Imaging studies, Need for admission at 1125 RPT #:[id number] END OF REPORT [facility] 2024-01-30 12:23:00 [facility] ([facility]) Cardiology Consultation REPORT #: [id number] REPORT STATUS: Signed DATE: 01/30/24 TIME: 1223 PATIENT: MITA CARBONE UNIT #: [id number] ROOM #: P.0308 BED: 1 : 49 AGE: 73 SEX: F ATTEND: Flavio Ballesteros MD ADM AUTHOR: Dick Panda ATTENTION *EDITS and/or ADDENDA must be made in Patient Keeper for this note. * * Edits and ammendments created in [facility] are not visible * * in Patient Keeper or the legal medical record (HPF). * -- CO-SIGNATURE -- COMMENTS: The patient was seen on rounds with ESPERANZA Mcintyre. The patient has no complaints Examination demonstrates normal heart sounds and clear lung walsh. Impression and plan The patient is a 73-year-old female with a history of ischemic cardiomyopathy and three-vessel disease with risk factors of hypertension, hyperlipidemia, diabetes mellitus and strong family history of coronary artery disease as well as smoking. The patient is NYHA class I and CCS class III. - will get echocardiogram today. -Begin heparin. -On statin and beta-carli. -Await surgical intervention. Signed in PatientKeeper by DEJAH PARKER MD on 03/02/24 at 14:10 -- ASSESSMENT AND PLAN -- PROBLEMS: 1: Coronary artery disease A/P: The patient is a 73-year-old female (Tanzanian speaking, patient of Dr. Chavez) has a PMHx of cardiomyopathy, hypertension, hyperlipidemia, diabetes, family history of coronary artery disease, h/o smoking. She has been having left-sided chest pain, shortness of breath and tiredness for the past couple of months. She was evaluated by her management internship and had a CTA of the coronaries on 12/2023 and showed a calcium score of 1885, with severe ostial/proximal 3 vessel coronary artery disease. She was taken to [facility] for selective coronary angiogram and showed calcified arteries left main and severe three-vessel coronary artery disease. She was referred for CABG evaluation to CV surgery, Dr. Rebollar. She presented today at [facility] with worsening previously mentioned symptoms. Chest x-ray showed apparent widening of the mediastinum and may be positional, cardiac silhouette appears enlarged, there appears to be mild central pulmonary vascular congestion as well. Labs showed negative troponin, LDL 101, BNP 85. She is being admitted for further evaluation and management. - S/p SCA at previous admission ([facility]), see above - Echo today - Pre-op workup per CV surgery - Started on heparin in the ER - On aspirin, atorvastatin 40mg daily, metoprolol XL 25mg BID - Needs PT/OT/IS - CV surgery planning CABG, pending OR time -- HISTORY -- CONSULT REQUESTED BY: Juan Gomez MD REASON FOR CONSULT: Chest pain, coronary artery disease CHIEF COMPLAINT: Chest pain, coronary artery disease HPI: The patient is a 73-year-old female (Tanzanian speaking, patient of Dr. Chavez) has a PMHx of cardiomyopathy, hypertension, hyperlipidemia, diabetes, family history of coronary artery disease, h/o smoking. She has been having left-sided chest pain, shortness of breath and tiredness for the past couple of months. She was evaluated by her management internship and had a CTA of the coronaries on 12/2023 and showed a calcium score of 1885, with severe ostial/proximal 3 vessel coronary artery disease. She was taken to [facility] for selective coronary angiogram and showed calcified arteries left main and severe three-vessel coronary artery disease. She was referred for CABG evaluation to CV surgery, Dr. Rebollar. She presented today at [facility] with worsening previously mentioned symptoms. Chest x-ray showed apparent widening of the mediastinum and may be positional, cardiac silhouette appears enlarged, there appears to be mild central pulmonary vascular congestion as well. Labs showed negative troponin, LDL 101, BNP 85. She is being admitted for further evaluation and management. PAST MEDICAL HISTORY: Cardiomyopathy Hypertension Hyperlipidemia Diabetes Family history of coronary artery disease H/o smoking PAST SURGICAL HISTORY: x 2 Hip and knee surgery FAMILY HISTORY: Father - [place] -SOCIAL HISTORY- -TOBACCO USE- DETAILS/COMMENTS: H/o smoking -VAPING/INHALED SOLVENTS- DETAILS/COMMENTS: Denies -ALCOHOL USE- DETAILS/COMMENTS: Denies -DRUG USE- DETAILS/COMMENTS: Denies -- SUBJECTIVE -- -REVIEW OF SYSTEMS- GENERAL: Negative for fever, malaise, fatigue. EYES: Negative for blurry vision. No diplopia. EARS/NOSE/THROAT: Negative for sore throat. No otalgia. No rhinorrhea. RESPIRATORY: Negative for dyspnea or wheeze. No cough. CARDIOVASCULAR: Negative for chest pain or palpitations. No extremity swelling. GASTROINTESTINAL: Negative for abdominal pain or nausea. No emesis. No diarrhea. GENITOURINARY: Negative for dysuria, frequency, or urgency. No gross hematuria. MUSCULOSKELETAL: Negative for joint stiffness, pain, or arthralgias. SKIN: Negative for rashes. No pruritus. NEUROLOGICAL: Negative for headache. No vertigo. Denies paresthesias. PSYCHIATRIC: Negative for specific complaints. -- OBJECTIVE -- -EXAM- OTHER: Constitutional: Well developed, well nourished patient, in no acute distress. Derm/Integumentary: Warm and dry with no rashes, sores, or lesions. HEENT: Eyes-sclera clear and white, symmetrical w/ no lag. ENT - Palate and gums pink, mucosa moist, no pallor/cyanosis. Neck: supple with no masses, no thyromegaly, No JVD. Respiratory: Clear to auscultation. Heart: S1S2+, Regular Rate and Rhythm, No murmurs, rubs, or gallops. Gastrointestinal: + Bowel Sounds all quadrants. Soft, nontender with no masses or organomegaly; No HJR. Musculoskeletal: Equal strength in all extremities. No weakness. Neurology: Alert and oriented X 3. Calm, cooperative affect. No focal deficits. Extremities: + peripheral pulses. No clubbing, cyanosis. No lower extremity edema. -- ATTESTATION -- CARE ACTIVITIES / CARE COORDINATION: - I have reviewed the history and repeated the escobar elements - I have seen and examined this patient - I have reviewed the progress in the clinical course since the last examination - I have discussed the patient's condition with other members of the care team ADDITIONAL DETAIL: Plan of care discussed with Dr. Dejah Parker Signed in PatientKeeper by DICK PANDA on 01/30/24 at 23:40 Cosigned by DEJAH PARKER MD on 03/02/24 at 14:10 at 1410 at 1410 ATTENTION *EDITS and/or ADDENDA must be made in Patient Keeper for this note. * * Edits and ammendments created in [facility] are not visible * * in Patient Keeper or the legal medical record (HPF). * [facility] #: [id number] END OF REPORT [facility] 2024-01-30 10:50:00 [id number] [address] PATIENT NAME: MITA CARBONE ADMIT DATE: 01/30/24 ACCOUNT NO: [id number] ROOM NO: P.0428 AGE: 73 REPORT TYPE: eELECTROCARDIOGRAM SEX: F ADMITTING PHYSICIAN: Flavio Ballesteros MD ATTENDING PHYSICIAN: Flavio Ballesteros MD Order: [id number] Test Reason : Test Date/Time Stamp: SunJan 30 2024 10:50:04 Blood Pressure : / mmHG Vent. Rate : 077 BPM Atrial Rate : 077 BPM P-R Int : 162 ms QRS Dur : 086 ms QT Int : 390 ms P-R-T Axes : 009 007 020 degrees QTc Int : 441 ms Normal sinus rhythm Low voltage QRS Cannot rule out Anterior infarct , age undetermined Confirmed by fellow Marisel Cueto ([id number]) on 02/04/2024 10:40:28 AM Confirmed by ANGELIQUE SANCHEZ ([id number]) on 02/04/2024 4:28:41 PM Referred By: Self Referred Confirmed by:ANGELIQUE SANCHEZ at 1628 PATIENT NAME: MITA CARBONE [facility] 2024-01-26 08:48:00 [id number] [address] PATIENT NAME: ODALYS RODRIGUEZ ADMIT DATE: 01/26/24 ACCOUNT NO: [id number] ROOM NO: AGE: 73 REPORT TYPE: eELECTROCARDIOGRAM SEX: F ADMITTING PHYSICIAN: ATTENDING PHYSICIAN: Aliza Chavez MD Order: [id number] Test Reason : PREOP Test Date/Time Stamp: [facility] Jan 26 2024 08:48:20 Blood Pressure : / mmHG Vent. Rate : 078 BPM Atrial Rate : 078 BPM P-R Int : 176 ms QRS Dur : 098 ms QT Int : 388 ms P-R-T Axes : 083 074 033 degrees QTc Int : 442 ms Normal sinus rhythm Normal ECG When compared with ECG of 26-JAN-2024 06:26, Left bundle branch block is no longer present Confirmed by ALIZA CHAVEZ ([id number]) on 01/26/2024 9:24:07 AM Referred By: Aliza Chavez Confirmed by:ALIZA CHAVEZ at 0924 PATIENT NAME: ODALYS RODRIGUEZ [facility] 2024-01-26 08:23:00 [id number] [address] PATIENT NAME: ODALYS RODRIGUEZ ADMIT DATE: 01/26/24 ACCOUNT NO: [id number] ROOM NO: AGE: 73 REPORT TYPE: OPERATIVE REPORT SEX: F ADMITTING PHYSICIAN: ATTENDING PHYSICIAN: Aliza Chavez MD Cardiology OPERATION DATE: 01/26/2024 [facility] OPERATOR: Aliza Chavez MD INDICATION FOR THE PROCEDURE: Angina, coronary artery disease and aortic disease. TITLE OF PROCEDURE: 1. Left heart catheterization. 2. STEPHEN subclavian angiogram. 3. Aortic root angiogram. 4. Abdominal angiogram and follow through. 5. Closing device. ESTIMATED BLOOD LOSS: Minimal. COMPLICATIONS: None. CONTRAST: 220 mL ANESTHESIA: Conscious sedation with Versed and fentanyl. 1% lidocaine for local anesthesia. FINAL DIAGNOSIS: Calcified arteries left main and severe 3-vessel coronary artery disease, normal ejection fraction, elevated left ventricular end-diastolic pressure, found significant aortic atherosclerosis, gave me a hard time going up from the groin. Did several selective angiograms that showed 40% eccentric calcified plaquing supra and infrarenal level of the aorta and a small infrarenal AAA, mild renal atherosclerosis. RECOMMENDATION: Urgent bypass and medical therapy for the rest of the disease. PROCEDURE IN DETAIL: After informed consent, the patient was brought to the cardiac catheterization lab in a stable fasting nonsedated state. She was prepped and draped in the usual sterile fashion. After conscious sedation, 1% lidocaine was administered to the right common femoral artery area for local anesthesia. A 6-Danish sheath was placed in the right common femoral artery using standard techniques and fluoroscopy. After heparinization left coronary angiogram showed 30% ostial left main and 80% distal left main, all calcified vessels. Ostial LAD suspected at 80%, proximal LAD 80%, mid LAD 80%, small diagonal first 80%, circumflex 80%, proximal and then a small obtuse marginal 90%, and then 30% plaque in the circumflex. I had a hard time going up with a PATIENT NAME: ODALYS RODRIGUEZ right coronary catheter due to significant aortic atherosclerosis, which was checked later on and right coronary angiogram showed a long 90% proximal lesion and 50% distal lesion. It is a dominant vessel. Selective left subclavian showed the STEPHEN to be of good caliber for bypass, angulated subclavian but no significant disease. Aortic root angiogram showed mild dilation, calcifications, luminal irregularities. Around the suprarenal and infrarenal area, there is significant disease of the aorta. I had to take multiple pictures with the injector and the renals around 30% and above and below the renals about 40% eccentric calcified plaque. There is a 25% common femoral plaque on the right. The right groin was sealed using Angio-Seal. There were no complications. The patient tolerated the procedure well. She was transferred back to the holding area for observation. Surgical consultation will be obtained for urgent bypass sometime this week if possible. The patient tolerated the procedure well. There were no complications. She will be hydrated for the next few hours and then after discussing with her and the surgeon, we will decide if she needs to be released to see the surgeon this week or be transferred. This will be discussed in detail with the patient and her family. Dictated By: Aliza Chavez MD Date Dictated: 01/26/2024 08:23:30 Date Transcribed: 01/26/2024 12:08:16 YOKASTA/REGINE/RENETTA Receipt ID: [id number] Authenticated by Aliza Chavez MD On 01/26/2024 03:13:23 PM at 0313 PATIENT NAME: ODALYS RODRIGUEZ [facility] 2024-01-26 06:26:00 [id number] [address] PATIENT NAME: ODALYS RODRIGUEZ ADMIT DATE: 01/26/24 ACCOUNT NO: [id number] ROOM NO: AGE: 73 REPORT TYPE: eELECTROCARDIOGRAM SEX: F ADMITTING PHYSICIAN: ATTENDING PHYSICIAN: Aliza Chavez MD Order: [id number] Test Reason : CAD Test Date/Time Stamp: SunJan 26 2024 06:26:43 Blood Pressure : / mmHG Vent. Rate : 085 BPM Atrial Rate : 085 BPM P-R Int : 168 ms QRS Dur : 134 ms QT Int : 392 ms P-R-T Axes : 077 036 083 degrees QTc Int : 466 ms Normal sinus rhythm Left bundle branch block Abnormal ECG No previous ECGs available Confirmed by ALIZA CHAVEZ ([id number]) on 01/26/2024 6:27:55 AM Referred By: Aliza Chavez Confirmed by:ALIZA CHAVEZ at 0627 PATIENT NAME: ODLAYS RODRIGUEZ [facility] 2024-01-25 06:58:00 [id number] [facility] [address] [place] [address] PATIENT NAME: ODALYS RODRIGUEZ ADMIT DATE: ACCOUNT NO: [id number] ROOM NO: AGE: 73 REPORT TYPE: HISTORY AND PHYSICAL SEX: F ADMITTING PHYSICIAN: ATTENDING PHYSICIAN: Aliza Chavez MD Cardiology PATIENT NAME: ODALYS RODRIGUEZ ADMIT DATE:01/26/2024 ADMISSION DATE: 01/26/2024 11:00:00 WELDING PANTOGRAPH OPERATOR: Aliza Chavez MD REASON FOR ADMISSION: Angina, cardiomyopathy; for cardiac catheterization, and possible revascularization. HISTORY OF PRESENT ILLNESS: Odalys is a 73-year-old patient of mine who have been following in my office since 2005. The patient has been suspected to have significant coronary artery disease, history of cardiomyopathy, has been managed with medical therapy over the years, has not had any previous cardiac catheterization. The patient recently was evaluated with worsening symptoms. EKG continued to be normal. Echocardiogram continued to show the same findings with ejection fraction of 45 to 50%. She has had negative nuclear stress test back in 2021, with normal ejection fraction showing no evidence of reversibility. CTA of the coronaries was carried out on 12/14/2023, that showed a calcium score of 1885, with severe ostial/proximal 3-vessel coronary artery disease. So, the patient most likely has balanced ischemia on the nuclear stress test. It was a chemical stress test and the patient has significant disease that may benefit from intervention especially with her symptoms. The patient has atypical chest pain that have some suggestive of cardiac features, but some of them look like GI symptoms, but given the CT findings, most likely this is CAD related. The patient has multiple cardiovascular risk factors. There is no history of congestive heart failure, TIAs, or strokes. PAST MEDICAL HISTORY: Remarkable for hypertension, hyperlipidemia, hypothyroidism, acid reflux, depression, diabetes, diabetic neuropathy, and allergies. PAST SURGICAL HISTORY: Remarkable for right hip surgery in 2015 and knee surgery in 2018. ALLERGIES: NO KNOWN DRUG ALLERGIES. MEDICATIONS: Pravastatin 40 mg daily, clopidogrel 75 mg daily, aspirin 81 mg daily, metformin is on hold, omeprazole 40 mg daily, losartan 25 mg daily, carvedilol 6.25 mg twice daily. SOCIAL HISTORY: There is no history of smoking, alcohol or street drug use. FAMILY HISTORY: Positive for cardiovascular disease. PATIENT NAME: ODALYS RODRIGUEZ REVIEW OF SYSTEMS: Enclosed. Remarkable for allergies, blurred vision, easy bruisability, difficulty balancing, poor coordination. Overweight. No acute GI or symptoms other than what is stated above. No TIAs or strokes. PHYSICAL EXAMINATION: GENERAL: A pleasant 73-year-old lady, in no acute distress. VITAL SIGNS: Blood pressure 109/59, pulse 70 and regular, respiratory rate 16 and unlabored. Temperature afebrile. HEENT: Head atraumatic, normocephalic. Eyes and ENT examination within normal for age. NECK: Supple. No jugular venous distention, bruits, or lymphadenopathy. Normal upstroke. LUNGS: Clear and resonant. HEART: Regular rate and rhythm with 1/6 systolic ejection murmur at the left lower sternal border and no gallops. The heart is enlarged. ABDOMEN: Soft. No tenderness, no organomegaly, no masses or bruits. The abdomen is obese. EXTREMITIES: 1 to 2+ distal pulses. No edema, cyanosis, or clubbing. NEUROLOGIC: Alert and oriented x3. Examination appears to be nonfocal. LABORATORY DATA: Pending. Noninvasive cardiovascular workup enclosed. The patient had negative lower arterial Doppler examination in 2015, had a negative carotid Doppler in 2020. IMPRESSION/PLAN: This is a 73-year-old lady with worsening angina, dyspnea. Findings of significant 3-vessel coronary artery disease on a CTA of the coronaries. The patient appears to have significant coronary artery disease that would benefit from revascularization. Recommendation is to proceed with left heart catheterization and possible revascularization. The risks and benefits of the planned procedures were discussed in detail with the patient and available family members and she is willing to proceed. Rest as per orders. Dictated By: Aliza Chavez MD Date Dictated: 01/25/2024 06:58:13 Date Transcribed: 01/25/2024 08:54:21 YOKASTA/KILEY Receipt ID: [id number] Authenticated and Edited by Aliza Chavez MD On 01/25/24 4:47:21 PM at 0448 PATIENT NAME: ODALYS RODRIGUEZ [facility]
[2024-03-19 13:57] LABS: PT Prothrombin Time 14.2 SECONDS (9.4-12.5); PTT, Activated Partial Thromb 30.6 SECONDS (24.3-36.9); Protime INR 1.28
[2024-03-19 14:00] LABS: Absolute Basophils 0.1 K/uL (0-0.5); Absolute Lymphocytes (CBC) 1.4 K/uL (0.7-4.9); Absolute Monocytes 0.9 K/uL (0.1-1.3); Absolute Neutrophil 11.2 K/uL (1.8-8.0); Basophils % 0.4 % (0-1.3); Eosinophils % 0.2 % (0-4.4); Hemoglobin 12.3 g/dL (12.0-15.0); Lymphocytes % 10.2 % (15.3-44.8); MCHC 32.4 g/dL (32.0-36.0); MCV 92.7 fL (80-100); Monocytes % 6.7 % (3.3-12.3); Neutrophils % 82.5 % (41.7-73.7); Platelets 149 thou/uL (152-406); Red Cell Distribution Width 16.5 % (12.1-15.2)
[2024-03-19 14:08] LABS: Albumin 3.4 g/dL (3.4-5.0); Albumin/Globulin Ratio 0.9 (1.1-1.8); Anion Gap 10.8 mEq/L (5.0-15.0); Bilirubin Total 1.2 mg/dL (0.2-1.0); Globulin 3.6 g/dL (2.3-3.5); Potassium 3.8 mEq/L (3.5-5.1)
[2024-03-19] MEDS ORDERED: NA CHLORIDE 0.9% 100 ML ONE (14:44)
[2024-03-19] MEDS ORDERED: VANCOMYCIN 1 GM/VIAL ONE (14:44)
[2024-03-19] MEDS ORDERED: CEFEPIME 1 GM/VIAL ONE (14:44)
[2024-03-19] MEDS ORDERED: NA CHLORIDE 0.9% 250 ML ONE (14:44)
--- NOTE | 2024-03-19 14:49 | EDPHYS ---
Physician Documentation [facility] Name: Mita Olson Age: 73 yrs Sex: Female : 1950 Arrival Date: 03/19/2024 Time: 13:07 Bed 7 Private MD: ED Physician Eliot Jacobs HPI: 03/19 13:21 This 73 yrs old Female presents to ER via Unassigned with complaints of Chest kb Pain, Shortness Of Breath, Leg Swelling. 13:21 Pt is a 73 year old female who presents for redness and swelling to left lower kb extremity with fever that started this morning. Daughter states pt had no redness yesterday. Reports CABG completed at the end of January so she has had some swelling. Pt has been home from rehab for 1.5 weeks. . Historical: - Allergies: 13:22 No Known Allergies; ll1 - PMHx: 13:22 Diabetes - NIDDM; Hypertension; ll1 - PSHx: 13:22 heart precedure. 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 - Infectious Disease History:: Denies. - Social history:: Smoking status: Patient denies any tobacco usage or history of. ROS: 13:24 Constitutional: As per HPI kb Exam: 13:24 Constitutional: This is a well developed, well nourished patient who is awake, alert, kb and in no acute distress. Head/Face: Normocephalic, atraumatic. ENT: Moist Mucous membranes Cardiovascular: Regular rate Respiratory: Respirations even and unlabored. No increased work of breathing. Talking in full sentences Abdomen/GI: Soft, non-tender. No distention MS/ Extremity: Pulses equal, no cyanosis. Neurovascular intact. Full, normal range of motion. Neuro: Awake and alert, GCS 15, oriented to person, place, time, and situation. Moves all extremities. Normal gait. 13:24 Skin: erythema, swelling to left lower extremity from medial aspect of lower thigh to foot. Vital Signs: 13:23 BP 151 / 62; Pulse 92; Resp 17; Temp 98; Pulse Ox 95% on R/A; Weight 99.79 kg; Height 5 ll1 ft. 2 in. ; Pain 8/10; 14:00 BP 131 / 59; Pulse 93; Resp 17; Pulse Ox 96% on R/A; me1 15:00 BP 126 / 51; Pulse 89; Resp 20; Pulse Ox 96% on R/A; me1 16:00 BP 117 / 59; Pulse 86; Resp 20; Pulse Ox 94% ; me1 17:00 BP 139 / 60; Pulse 81; Resp 20; Pulse Ox 98% ; me1 13:23 Body Mass Index 40.24 (99.79 kg, 157.48 cm) ll1 13:23 Pain Scale: Adult ll1 MDM: 13:13 Patient medically screened. kb 14:48 Differential diagnosis: cellulitis, DVT. Data reviewed: vital signs, nurses notes. kb Consideration of Admission/Observation Patient was admitted/placed on observation. Escalation of care including admission/observation considered. Management of patient was discussed with the following: Hospitalist: Hospitalist team, pt accepted for admission under Dr Jacobs. Historians other than the Patient: Daughter/Son: daughter. Counseling: I had a detailed discussion with the patient and/or guardian regarding the historical points, exam findings, and any diagnostic results supporting the discharge/admit diagnosis, lab results, radiology results, the need for further work-up and treatment in the hospital. 03/19 13:21 Order name: Blood Culture Adult (2) kb 03/19 13:21 Order name: CBC with Diff; Complete Time: 14:13 kb 03/19 13:21 Order name: CMP; Complete Time: 14:08 kb 03/19 13:21 Order name: Lactate w/ 2H reflex if indic.; Complete Time: 14:08 kb 03/19 13:21 Order name: Protime (+inr); Complete Time: 14:00 kb 03/19 13:21 Order name: Ptt, Activated; Complete Time: 14:00 kb 03/19 13:21 Order name: Urinalysis w/ reflexes kb 03/19 13:21 Order name: Chest Single View XRAY; Complete Time: 15:42 kb 03/19 13:25 Order name: US Extremity Venous Unilateral Ltd; Complete Time: 15:16 kb 03/19 13:21 Order name: Cardiac monitoring; Complete Time: 15:04 kb 03/19 13:21 Order name: EKG - Nurse/Tech; Complete Time: 15:04 kb 03/19 13:21 Order name: IV Saline Lock - Large Bore; Complete Time: 13:42 kb 03/19 13:21 Order name: Labs collected and sent; Complete Time: 13:42 kb 03/19 13:21 Order name: O2 Per Protocol; Complete Time: 13:22 kb 03/19 13:21 Order name: O2 Sat Monitoring; Complete Time: 13:22 kb 03/19 13:21 Order name: Vital Signs; Complete Time: 13:22 kb EC:03 Rate is 90 beats/min. Rhythm is regular. QRS [place] is Normal. ND interval is normal at kb 144 msec. QRS interval is normal at 90 msec. QT interval is normal at 423 msec. Administered Medications: 15:03 Drug: Cefepime IVPB 1 grams IVPB at 200 ml/hr once over 30 mins; (mix in NS 100 mL) me1 Route: IVPB; Rate: 200 ml/hr; Infused Over: 30 mins; Site: right antecubital; 15:36 Follow up: Response: No adverse reaction; IV Status: Completed infusion; IV Intake: me1 100ml 15:36 Drug: vancoMYCIN IVPB 1 grams IVPB once over 2 hrs Route: IVPB; Infused Over: 2 hrs; me1 Site: right antecubital; 16:36 Follow up: Response: No adverse reaction; IV Status: Completed infusion; IV Intake: me1 250ml Disposition: 17:46 Co-signature as Attending Physician, Eliot Jacobs MD I reviewed the patient's care rn provided by the Advanced Practice Provider and agree with the diagnosis and treatment plan. Disposition Summary: 03/19/24 14:49 Hospitalization Ordered Notes: Hospitalization Status: Inpatient Admission kb Provider: Alireza Jacobs Location: Telemetry/[facility] (Inpatient) kb Condition: Stable kb Problem: new kb Symptoms: are unchanged kb Bed/Room Type: Standard Room Assignment: 218(03/19/24 16:14) iw Diagnosis - Cellulitis of left lower limb kb Forms: - Medication Reconciliation Form kb - SBAR form kb - Leadership Thank You Letter kb Signatures: Dispatcher [employer] Teresita Marr, DICKSON-C JOB CAPTAIN-CkSheila Lin RN RN Eliot Jaquez MD MD rn Lewis, Lynsay, RN RN 1 Isabell Castillo RN RN me1 Corrections: (The following items were deleted from the chart) 16:14 14:49 kb iw
--- NOTE | 2024-03-19 14:49 | ER ---
Nurse's Notes [facility] Name: Mita Olson Age: 73 yrs Sex: Female : 1950 Arrival Date: 03/19/2024 Time: 13:07 Bed 7 Private MD: Diagnosis: Cellulitis of left lower limb Presentation: 03/19 13:23 Chief complaint: Patient states: LLE started to get red, swollen, and painful today. ll1 Coronavirus screen: Client denies travel out of the [place] in the last 14 days. At this time, the client does not indicate any symptoms associated with coronavirus-19. Ebola Screen: Patient denies travel to an Ebola-affected area in the 21 days before illness onset. Initial Sepsis Screen: Does the patient meet any 2 criteria? No. Patient's initial sepsis screen is negative. Does the patient have a suspected source of infection? No. Patient's initial sepsis screen is negative. Risk Assessment: Do you want to hurt yourself or someone else? Patient reports no desire to harm self or others. Onset of symptoms was March 19, 2024. 13:23 Method Of Arrival: Wheelchair ll1 13:23 Acuity: RODNEY 2 ll1 Triage Assessment: 13:23 General: Appears uncomfortable, ill, Behavior is calm, cooperative, appropriate for ll1 age. Pain: Complains of pain in left leg Pain currently is 8 out of 10 on a pain scale. Quality of pain is described as aching, throbbing. Derm: Skin is red, Skin temperature is hot Reports LLE red. Musculoskeletal: Circulation, motion, and sensation intact. Capillary refill < 3 seconds, Swelling present in left leg tender and sore Reports pain in left leg. Historical: - Allergies: 13:22 No Known Allergies; ll1 - PMHx: 13:22 Diabetes - NIDDM; Hypertension; ll1 - PSHx: 13:22 heart precedure. 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 - Infectious Disease History:: Denies. - Social history:: Smoking status: Patient denies any tobacco usage or history of. Screenin:[address] [facility] ED Fall Risk Assessment (Adult) History of falling in the last 3 months, me1 including since admission No falls in past 3 months (0 pts) Confusion or Disorientation No (0 pts) Intoxicated or Sedated No (0 pts) Impaired Gait No (0 pts) Mobility Assist Device Used No (0 pt) Altered Elimination No (0 pt) Score/Fall Risk Level 0 - 2 = Low Risk Maintained a safe environment, Provided non-skid footwear, Hourly rounding (assess needs \T\ fall precautionary measures) done. Abuse screen: Denies threats or abuse. Nutritional screening: No deficits noted. Tuberculosis screening: No symptoms or risk factors identified. Assessment: 13:53 General: Appears uncomfortable, obese, well groomed, well developed, Behavior is calm, me1 cooperative, appropriate for age, Reports LLE started to get red, swollen, and painful today. Wound to medial LLE since CABG in January and wound to lateral LLE since end of February. Pain: Complains of pain in left leg Pain does not radiate. Pain currently is 3 out of 10 on a pain scale. Quality of pain is described as tender, Pain began gradually, 1 day ago. Is continuous. Neuro: Level of Consciousness is awake, alert, obeys commands, Oriented to person, place, time, situation, Appropriate for age. Cardiovascular: Patient's skin is warm and dry. Respiratory: Airway is patent Respiratory effort is even, unlabored, Respiratory pattern is regular, symmetrical. GI: No signs and/or symptoms were reported involving the gastrointestinal system. : No signs and/or symptoms were reported regarding the genitourinary system. EENT: No signs and/or symptoms were reported regarding the EENT system. Derm: Wound noted left leg Wound is wound to medial LLE since January and wound to lateral LLE since end of February. Musculoskeletal: No signs and/or symptoms reported regarding the musculoskeletal system. Vital Signs: 13:23 BP 151 / 62; Pulse 92; Resp 17; Temp 98; Pulse Ox 95% on R/A; Weight 99.79 kg; Height 5 ll1 ft. 2 in. ; Pain 8/10; 14:00 BP 131 / 59; Pulse 93; Resp 17; Pulse Ox 96% on R/A; me1 15:00 BP 126 / 51; Pulse 89; Resp 20; Pulse Ox 96% on R/A; me1 16:00 BP 117 / 59; Pulse 86; Resp 20; Pulse Ox 94% ; me1 17:00 BP 139 / 60; Pulse 81; Resp 20; Pulse Ox 98% ; me1 13:23 Body Mass Index 40.24 (99.79 kg, 157.48 cm) ll1 13:23 Pain Scale: Adult ll1 ED Course: 13:10 Patient arrived in ED. im 13:13 Teresita Vega FNP-C is PHCP. kb 13:13 Eliot Jacobs MD is Attending Physician. kb 13:21 Isabell Castillo, RN is Primary Nurse. me1 13:22 Arm band placed on Patient placed in an exam room, on a stretcher. ll1 13:24 Triage completed. ll1 13:38 Initial lab(s) drawn, by me, sent to lab. First set of blood cultures drawn by me. me1 13:42 Blood Culture Adult (2) Sent. me1 13:42 CBC with Diff Sent. me1 13:42 CMP Sent. me1 13:42 Lactate w/ 2H reflex if indic. Sent. me1 13:42 Protime (+inr) Sent. me1 13:42 Ptt, Activated Sent. me1 13:42 Inserted saline lock: 22 gauge in right antecubital area, using aseptic technique. me1 13:50 Second set of blood cultures drawn by me. me1 13:53 Patient has correct armband on for positive identification. Bed in low position. Call me1 light in reach. Side rails up X2. Provided Education on: POC. Verbalized understanding. . Client placed on continuous cardiac and pulse oximetry monitoring. NIBP monitoring applied. 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 Pulse ox on. NIBP on. 13:53 No provider procedures requiring assistance completed. Patient maintains SpO2 me1 saturation greater than 95% on room air. 14:30 US Extremity Venous Unilateral Ltd In Process Unspecified. EDMS 14:49 Alireza Jacobs MD is Hospitalizing Provider. kb 15:04 EKG done, by ED staff, reviewed by Teresita LIRIANO. me1 15:32 Chest Single View XRAY In Process Unspecified. EDMS 16:21 1621 CM met with Mrs.Perez Olson and her granddaughter Ankita at the bedside in ane the ED exam room. Patient identified by name and . Demographic sheet confirmed. Patient continued lying in bed with eyes closed, respirations even an unlabored. Anktia states that prior to admission, patient perform ADLs independently and typically uses a walker. In the last few days, she had increased leg pain and difficulty ambulating even with use of the walker. Other DME in the home includes a shower chair, and bedside commode. Ankita reports patient receives HH services from [facility] that includes PT and nurse visits once to twice a week. She did have an OT evaluation this week and it was decided that she is not in need of OT services. No MPOA in place and her PCP is Dr. Solomon Medina. The preferred plan is to return home upon discharge and Ankita states either her or patient's Dhruv will transport her home. CM team will continue to follow and coordinate care during this hospital stay. 16:46 Patient admitted, IV remains in place. ko1 Administered Medications: 15:03 Drug: Cefepime IVPB 1 grams IVPB at 200 ml/hr once over 30 mins; (mix in NS 100 mL) me1 Route: IVPB; Rate: 200 ml/hr; Infused Over: 30 mins; Site: right antecubital; 15:36 Follow up: Response: No adverse reaction; IV Status: Completed infusion; IV Intake: me1 100ml 15:36 Drug: vancoMYCIN IVPB 1 grams IVPB once over 2 hrs Route: IVPB; Infused Over: 2 hrs; me1 Site: right antecubital; 16:36 Follow up: Response: No adverse reaction; IV Status: Completed infusion; IV Intake: me1 250ml Medication: 13:53 VIS not applicable for this client. me1 Intake: 15:36 IV: 100ml; Total: 100ml. me1 16:36 IV: 250ml; Total: 350ml. me1 Outcome: 14:49 Decision to Hospitalize by Provider. kb 17:45 Patient left the ED. me1 18:22 Admitted to me1 18:22 Admitted to Med/surg accompanied by tech, via stretcher, room 218, with chart, Report me1 called to faxed 18:22 Condition: stable 18:22 Instructed on the need for admit, Signatures: Dispatcher [employer] Teresita Marr, HERI FORMAN-Kira Alarcon RN RN ll1 Michelle Pinzon RN RN ko1 Lizzy Dhaliwal Michelle, RN RN me1 Johnny, Daniela, RN RN ane Corrections: (The following items were deleted from the chart) 13:53 13:23 Chief complaint: Patient states: LLE started to get red, swollen, and painful me1 today ll1 16:49 Condition: stable ko1 ko1 16:49 Admitted to Tele accompanied by tech, via stretcher, room 218, with chart, ko1 ko1 16:49 Instructed on the need for admit, ko1 ko1
--- NOTE | 2024-03-19 15:12 | RAD REPORT ---
EXAMINATION: US LEFT LOWER EXTREMITY VENOUS DOPPLER CLINICAL INDICATION: [facility] MAIN left lower leg Pain;Swelling Bed Name: 7 N TECHNIQUE: Complete bilateral duplex sonography of the LEFT lower extremity veins was performed. The examination included compression for vein patency, color Doppler imaging and flow augmentation in response to distal compression of the distal external iliac, common femoral, femoral, popliteal, tibi al, and great and small saphenous veins. COMPARISON: No prior exam. FINDINGS: Duplex sonography testing of the veins of the LEFT lower extremity was performed. Color flow imaging shows all veins to be compressible with [id number] color filling. Pulsatile and phasic flow is present within all lower extremity deep and superficial veins examined. Elongated fluid collection wh ich extends from the groin to the mid thigh. Another collection component present in the popliteal fossa extending into the upper lower leg measuring up to 12 cm in length. IMPRESSION: No evidence of deep venous thrombosis. Collections along the thigh and popliteal fossa as above, may represent organizing hematomas.
--- NOTE | 2024-03-19 15:40 | RAD REPORT ---
EXAMINATION: ONE VIEW CHEST XR CLINICAL INDICATION: Female, 73 years old.,FEVER TECHNIQUE: Frontal chest projection is submitted. Examination is limited by patient positioning and t echnique. COMPARISON: 02/05/2018 FINDINGS: Decreased inspiratory effort somewhat limits evaluation The lungs are well inflated and clear. No pn eumothorax or sizable effusion. The heart is normal in size. Sequelae of median sternotomy, probable CABG, and surgical clips near the left apex IMPRESSION: No acute intrathoracic abnormalities.
--- NOTE | 2024-03-19 17:12 | P.HP ---
Certification for Inpatient Patient admitted to: Inpatient With expected LOS: >2 Midnights Patient will require the following post-hospital care: None Practitioner: I am a practitioner with admitting privileges, knowledge of patient current condition, hospital course, and medical plan of care. Services: Services provided to patient in accordance with Admission requirements found in Title 42 Section 412.3 of the Code of Federal Regulations Patient History Date of Service: 03/19/24 Reason for admission: Left lower extremity cellulitis, sepsis History of Present Illness: 73-year-old female with history of byc-trvqsso-wsgatyijl diabetes, hypertension, CHFunknown EF, CAD with recent CABG about 6 weeks ago presents to the emergency department with chief complaint of erythema, swelling and pain to the left lower extremity. She had her CABG in January and stayed at the hospital [facility] for 2 weeks after the procedure, was subsequently discharged to [facility] for 2 weeks and has been home for about a week and a half. She was prescribed Bactrim for 10 days which she finished about 2 days ago for an unknown reason/prophylaxis. Daughter at bedside reports that her legs look fine last night but this morning they noticed it was erythematous and swollen and patient ran a fever of 101.2 axillary at home and for that reason they brought her to the emergency department. Patient was evaluated in the emergency department her labs are significant for a white blood cell count of 13.6 sodium 132 creatinine 1.37 glucose 151 lactic acid 1.9. Lower extremity ultrasound was completed on the left lower extremity which showed collections along the thigh and popliteal fossa which may represent organizing hematomas, the popliteal fossa collection measuring up to 12 cm in length. On exam patient's left lower extremity is erythematous, tender with swelling in the popliteal area. Patient will be admitted for sepsis, cellulitis, possible infected hematoma Allergies No Known Allergies Allergy (Verified 11/20/23 08:51) - Past Medical/Surgical History Diabetic: Yes -: htn -: hld -: niddm -: CHFunknown EF -: CABG/CAD -: hip replacement -: knee replacement -: CABG Psychosocial/ Personal History: Lives at home with family - Social History Place of Residence: Home Review of Systems 10-point ROS is otherwise unremarkable General: Fever, Chills Musculoskeletal: Leg Pain Physical Examination - Physical Exam General: Alert, In no apparent distress, Oriented x3 HEENT: Atraumatic, PERRLA, EOMI Neck: Supple, 2+ carotid pulse no bruit, No LAD Respiratory: Clear to auscultation bilaterally, Normal air movement Cardiovascular: Regular rate/rhythm, Normal S1 S2 Gastrointestinal: Normal bowel sounds, No tenderness Musculoskeletal: No tenderness Integumentary: Tenderness/swelling, Erythema (Left lower extremity), [place] Neurological: Normal gait, Normal speech, Normal strength at 5/5 x4 extr, Normal tone, Normal affect Lymphatics: No axilla or inguinal lymphadenopathy - Studies Laboratory Data (last 24 hrs) 03/19/24 03/19/24 03/19/24 13:38 13:38 13:38 WBC 13.60 H Hgb 12.3 Hct 38.0 Plt Count 149 L PT 14.2 H INR 1.28 APTT 30.6 Sodium 132 L Potassium 3.8 BUN 24 H Creatinine 1.37 H Glucose 151 H Total Bilirubin 1.2 H AST 22 ALT 24 Alkaline Phosphatase 123 H Assessment and Plan - Plan Assessment: Sepsis secondary to left lower extremity cellulitis with possible infected hematoma CAD status post CABG January 2024 CHFunknown EF Diabetes mellitus type [id number]-ktkbubhdk Hypertension Hyperlipidemia Plan: Sepsis secondary to left lower extremity cellulitis with possible infected hemat alberto Blood cultures obtained in ED, initial lactate less than 2 Surgical consult for possible infected hematoma n.p.o. after midnight in case of need for intervention Continue broad-spectrum antibiotics with vancomycin/cefepime CAD status post CABG January 2024 CHFunknown EF No active CHF exacerbation at this time Continue medications as prescribed by her medical reception Diabetes mellitus type [id number]-dvembzzna ACHS Accu-Chek, sliding scale insulin Hypertension Hyperlipidemia Continue home medications once verified DVT PPX: Lovenox Code status: Full Discharge Plan: Home Plan to discharge in: Greater than 2 days - Advance Directives Does patient have a Living Will: No Does patient have a Durable POA for Healthcare: No - Code Status/Comfort Care Code Status Assessed: Yes (Full code) Critical Care: No Time Spent Managing Pts Care (In Minutes): 63
[2024-03-19] MEDS ORDERED: ONDANSETRON 4 MG/2 ML VIAL IV PRN (17:35)
[2024-03-19] MEDS ORDERED: ACETAMINOPHEN 325 MG TABLET PO PRN (17:35)
[2024-03-19] MEDS: INSULIN REGULAR (HUMAN) 100 UNIT/ML SQ SCH (17:35)
[2024-03-19 18:14] VITALS: BMI 40.2
[2024-03-19] MEDS: ENOXAPARIN 30 MG/0.3 ML SQ SCH (20:03)
[2024-03-19] MEDS: VANCOMYCIN 750 MG in NA CHLORIDE 0.9% 150 ML IVPB ONE (20:07)
[2024-03-19] MEDS: CEFEPIME 1 GM in NA CHLORIDE 0.9% 100 ML IV SCH (21:06)
[2024-03-20 04:46] LABS: Absolute Eosinophils 0.1 K/uL (0-0.5); Absolute Lymphocytes (CBC) 1.7 K/uL (0.7-4.9); Absolute Monocytes 0.7 K/uL (0.1-1.3); Absolute Neutrophil 6.7 K/uL (1.8-8.0); Basophils % 0.5 % (0-1.3); Eosinophils % 1.2 % (0-4.4); Hemoglobin 11.3 g/dL (12.0-15.0); Lymphocytes % 18.7 % (15.3-44.8); MCH 31.5 pg (27.0-35.0); MCHC 34.3 g/dL (32.0-36.0); MCV 91.6 fL (80-100); MPV 10.4 fL (7.6-11.3); Monocytes % 7.5 % (3.3-12.3); Neutrophils % 72.1 % (41.7-73.7); Platelets 144 thou/uL (152-406); Red Cell Distribution Width 16.4 % (12.1-15.2)
[2024-03-20 04:56] LABS: Anion Gap 9.5 mEq/L (5.0-15.0); Potassium 3.5 mEq/L (3.5-5.1)
[2024-03-20 07:08] LABS: Calcium Oxalate Crystals- Ur Few /HPF (None Seen); Specific Gravity > 1.030 (1.005-1.030); Sqamous Epithelial <5 /HPF (None Seen); Urine Bacteria >50 /HPF (<20); Urine Bilirubin NEGATIVE (Negative); Urine Blood Trace (Negative); Urine Clarity Extremely Turbid (Clear); Urine Color Yellow (Yellow); Urine Culture Reflex Order REFLEXED; Urine Glucose NEGATIVE (Negative); Urine Ketones TRACE (Negative); Urine Microscopic Reflex YN ORDER UMIC; Urine Mucus Slight /HPF (None Seen); Urine Nitrite 2+ (Negative); Urine Protein 1+ (Negative); Urine Urobilinogen Normal (Normal); Urine WBC >50 /HPF (<5)
--- NOTE | 2024-03-20 08:34 | P.PN ---
Date of Service: 03/20/24 Subjective: lower left extremity pain ~same, worsened with movement/touch tentative plan for surgery today breathing okay on room air no n/v/d No new/Worsening symptoms ROS: 10 point ROS as noted above, otherwise negative Physical Exam: GEN: Alert, oriented, NAD CV: Regular rate and rhythm Pulm: Nonlabored respirations on room air, clear bilaterally ABD: soft, nontender, nondistended Integumentary: Erythema and swelling from medial aspect of lower left thigh to foot Neuro: Normal speech, normal affect Problem List: Sepsis secondary to left lower extremity cellulitis with possible infected hematoma Possible UTI Hx CAD s/p CABG (01/2024) Chronic CHF (unknown EF) NIDDM2 Hypertension Hyperlipidemia Sepsis secondary to left lower extremity cellulitis with possible infected hematoma On admission, presents with worsening erythema, swelling and pain to the left lower extremity. +101.2 fever at home. underwent CABG at [facility] ~6 weeks ago. Was hospitalized for 2 weeks than disch arged to SNF for 2 weeks. Has been home for ~1.5 weeks. Recently completed 10 day prescription of Bactrim ~2 days prior to admission for unknown reason. Venous u/s (03/19): No DVT. Collections along the left thigh and popliteal fossa concerning for hematomas Dr. Rojas, general surgery consulted NPO for tentative I&D today Cardiology consulted for cardiac clearance wound care per surgery continue empiric vancomycin/cefepime (03/20-) follow blood, urine, and wound cultures pain control Possible UTI UA suspicious for UTI continue empiric vancomycin/cefepime (03/20-) Patient initially denied symptoms, but family said that they have noticed it has been darker and odor follow blood, urine cultures Hx CAD s/p CABG (01/2024) CHFunknown EF Recent CABG ~6 weeks ago at [facility] ?[place] with Dr. Cox Cardiology consulted for cardiac clearance for surgery confirm home meds, restart as appropriate CXR negative NIDDM2 accu-cheks, SSI Hypertension Hyperlipidemia confirm home meds, restart as appropriate VTE: lovenox Code: Full Dispo: Home, ~2-3 days Pending surgery/recovery, culture results Improvement Time Spent Managing Pts Care (In Minutes): 41
--- NOTE | 2024-03-20 12:22 | P.CNS ---
Date of Consult: 03/20/24 Chief Complaint: Left lower extremity cellulitis, sepsis History of Present Illness: Patient with PMH of CAD s/p recent CABG, presented with left lower extremity cellulitis, denies having chest pain, no SOB, no YUSUF, no palpitations, no syncope. Allergies No Known Allergies Allergy (Verified 03/19/24 18:25) Home medications list reviewed: Yes Home Medications: Aspirin Chewable [Aspirin Chewable*] 1 tab PO DAILY 03/19/24 Atorvastatin Calcium 40 mg PO BEDTIME 03/19/24 Carvedilol [Coreg] 12.5 mg PO BID 03/19/24 Ferrous Sulfate [Feosol] 325 mg PO DAILY 03/19/24 Furosemide [Lasix] 40 mg PO DAILY 03/19/24 Potassium Chloride 20 meq PO DAILY 03/19/24 methocarbamoL [Methocarbamol] 500 mg PO Q8HP PRN 03/19/24 - Past Medical/Surgical History Diabetic: Yes -: htn -: hld -: niddm -: CHFunknown EF -: CABG/CAD -: R hip replacement -: R knee replacement -: CABG Psychosocial/ Personal History: Lives at home with family - Family History Father Medical History: Heart disease, Diabetes - Social History Alcohol use: No CD- Drugs: No Caffeine use: No Place of Residence: Home Review of Systems 10-point ROS is otherwise unremarkable Physical Examination Temp Pulse Resp BP Pulse Ox 96.8 F 82 17 117/57 L 93 03/20/24 08:00 03/20/24 08:00 03/20/24 08:00 03/20/24 08:00 03/20/24 08:00 General: Alert, In no apparent distress HEENT: Atraumatic, PERRLA, Mucous membr. moist/pink, EOMI, Sclerae nonicteric Neck: Supple, 2+ carotid pulse no bruit, No LAD, Without JVD or thyroid abnormality Respiratory: Clear to auscultation bilaterally, Normal air movement Cardiovascular: Regular rate/rhythm, Normal S1 S2 Gastrointestinal: Normal bowel sounds, No tenderness Musculoskeletal: No tenderness Integumentary: No rashes Neurological: Normal gait, Normal speech, Normal tone, Normal affect Lymphatics: No axilla or inguinal lymphadenopathy Laboratory Data (last 24 hrs) 03/19/24 03/19/24 03/19/24 13:38 13:38 13:38 WBC 13.60 H Hgb 12.3 Hct 38.0 Plt Count 149 L PT 14.2 H INR 1.28 APTT 30.6 Sodium 132 L Potassium 3.8 BUN 24 H Creatinine 1.37 H Glucose 151 H Total Bilirubin 1.2 H AST 22 ALT 24 Alkaline Phosphatase 123 H - Problems (1) Preoperative clearance Current Visit: Yes Status: Acute Plan: Patient denies having any active cardiac symptoms at this time, no chest pain, laying comfortable in bed, Patient is cleared as intermediate cardiac risk for surgery. (2) CAD (coronary artery disease) of bypass graft Current Visit: Yes Status: Acute Plan: please get records from [facility], continue ASA 81 mg daily continue Lipitor 40 mg daily
--- NOTE | 2024-03-20 16:53 | EKG ---
Test Date: 2024-03-19 Test Time: 14:58:54 Sample Coordinator: MEASUREMENT RESULTS: Intervals: Rate: 90 GA: 144 QRSD: 90 QT: 346 QTc: 423 [place]: P: 95 GA: 144 QRS: 79 T: 92 INTERPRETIVE STATEMENTS: Normal sinus rhythm Possible Anterior infarct, age undetermined Abnormal ECG No previous ECG available for comparison Electronically Signed On 03-20-24 16:50:24 CDT by Mo Philip
--- NOTE | 2024-03-20 19:54 | PN ---
Date of Progress Note: 03/20/2024 Diagnosis: Left lower extremity cellulitis. Today, we have the clearance to move to floor and drain infected hematoma the patient has in the lowe r extremity. The patient and family especially the daughter and the were explained in Englis h and Syriac the proposed procedure. The test shows multiple hematomas, one of them is the one that shows sign of infection, which is in popliteal region, so we offered her an incision and drainage of an abscess and drainage of a hematoma in the popliteal region. The area of the thigh at least today does not look erythematosus. The one erythematous is behind the knee. We are going to address that issue at this moment, which is the one we believe is causing trouble. The risks still including inf ection, bleeding, damage to adjacent structures, bleeding obviously because she has been on blood thi nners, but at the same time leaving that area alone may also lead her into sepsis. They understood t he risks. She is going to be placed n.p.o. after midnight. Obviously, she wants to have it done und er some anesthetic and then the OR was notified. FERNANDA/LES Voice ID: [id number] Report ID: [id number]
[2024-03-20] MEDS: carvediloL 12.5 MG TAB PO SCH (20:22)
[2024-03-20] MEDS: ATORVASTATIN 40 MG TAB PO SCH (20:22)
--- NOTE | 2024-03-20 23:09 | CON ---
Date of Consultation: 03/19/2024 History Of Present Illness: This is a case of a 73-year-old patient apparently in recently she had a vascular procedure done at [facility] in [place]. She has cardiac bypass about 6 weeks ago with harvest of veins from the left leg. Recently, she come to the ER because she noticed redness coming through th e left lower extremity. She had some bumps in the popliteal and femoral region before she was told i t was hematomas in those areas and since it was not red, they just left to her own, but right now, th ere is erythema and swelling over the left lower extremity including the popliteal area and she was a dmitted for cellulitis abscess, possible infected hematoma on the popliteal region. She denies any t rauma. Review of Systems: Redness, increased temperature on the left lower extremity with heaviness. Past Medical History: Lqn-wtqsrlx-sbmxdjrxx diabetes, hypertension, congestive heart failure, jones ry artery disease status post CABG about 6 weeks ago harvesting from the left lower extremity. The patient also has knee replacements, hip replacement. Social History: She does not smoke. She does not drink alcohol. Medications: Reviewed. Family History: Noncontributory. Physical Examination: Vital Signs: Stable. General: The patient is awake, alert. She speaks Barbadian. I do speak Barbadian fluently. So, I talk ed to her and to her , fortunately also her daughter is here and she is speaking both language s. So, she was able to communicate her problems little bit better. HEENT: The pupils are equal and reactive. Anicteric. Neck: Supple. Chest: Bilateral breath sounds. Abdomen: Soft and depressible. No guarding or rebound. Lower Extremity: Over the left lower extremity, she has cellulitis of the entire lower area. No Dipti ans signs, but still swelling over the foot, leg, and the popliteal region. Happened to be in that a silver has mass effect, probably abscess hematomas. There are areas from there that the vein was harves poncho. There is also some swelling over the thigh region, but does not shows any cellulitis in that re gion. Dorsalis pedis pulses still present. Laboratory Data: Blood work shows WBC count of 13.6, hemoglobin of 12.3, and platelets of 149 with a n INR of 1.28, bicarb 26, sodium is 136. Venous Doppler shows no evidence of deep vein thrombosis. There is collection along the thigh and popliteal region that could represent hematoma. The one in t he popliteal region is about 12 cm in length. Assessment: This is a 73-year-old patient with left leg cellulitis, abscess in the popliteal region, possible infected hematoma. We obtained cardiac clearance since the patient had surgery recently to make sure there are no modifications or any advised to have for us since this might have to be done under anesthesia since the area is very tender. The benefits, alternatives, and risks of I and D or evacuation of hematoma fully explained to the patient, family in Barbadian and Djiboutian which include, b ut not limited to, infection, bleeding, damage to adjacent structures, anesthesia complication, nonhe aling wound, recurrence, [place], even . She also understands this may require wound care. She was advised to see her doctors once she gets discharged home. FERNANDA/LES Voice ID: [id number] Report ID: [id number]
[2024-03-21] MEDS: VANCOMYCIN 1.75 GM in NA CHLORIDE 0.9% 500 ML IVPB SCH (03:53)
[2024-03-21 05:54] LABS: Absolute Eosinophils 0.2 K/uL (0-0.5); Absolute Lymphocytes (CBC) 1.1 K/uL (0.7-4.9); Absolute Monocytes 0.5 K/uL (0.1-1.3); Basophils % 0.4 % (0-1.3); Eosinophils % 3.7 % (0-4.4); Hematocrit 32.2 % (36.0-45.0); Lymphocytes % 19.3 % (15.3-44.8); MCH 31.3 pg (27.0-35.0); MCHC 34.2 g/dL (32.0-36.0); MCV 91.6 fL (80-100); MPV 10.4 fL (7.6-11.3); Monocytes % 8.4 % (3.3-12.3); Neutrophils % 68.2 % (41.7-73.7); Nucleated Red Blood Cells % 0.1 % (0-0); Platelets 122 thou/uL (152-406); RBC Red Blood Cell Count 3.52 M/uL (3.86-4.86); Red Cell Distribution Width 16.6 % (12.1-15.2)
[2024-03-21 06:03] LABS: Anion Gap 6.5 mEq/L (5.0-15.0); Potassium 3.5 mEq/L (3.5-5.1)
[2024-03-21] MEDS: NA CHLORIDE 0.9% 1,000 ML ONE (07:16)
[2024-03-21] MEDS ORDERED: LIDOCAINE 2% MPF 5 ML VIAL ONE (07:19)
[2024-03-21] MEDS ORDERED: FENTANYL CITR 100 MCG/2 ML ONE (07:19)
[2024-03-21] MEDS ORDERED: ONDANSETRON 4 MG/2 ML VIAL ONE (07:19)
[2024-03-21] MEDS ORDERED: propofoL 200 MG/20 ML VIAL IV ONE (07:19)
--- NOTE | 2024-03-21 08:33 | P.BOP ---
Preoperative diagnosis: Left leg popliteal infected hematoma with abscess cellulitis Postoperative diagnosis: same Primary procedure: Evacuation of left leg popliteal hematoma with complex abscess drainage Secondary procedure: 12x3cm Estimated blood loss: <10cc Specimen: culture Findings: infected hemotoma/abscess left leg Anesthesia: General Complications: None Drain(s): Other (1/" iodoform packing) Transferred to: Recovery Room Condition: Good
[2024-03-21 09:18] VITALS: O2SAT 97
--- NOTE | 2024-03-21 09:20 | OP ---
Date of Procedure: 03/21/2024 Surgeon: Thomas Rojas MD Preoperative Diagnosis: Left leg cellulitis with infected popliteal hematoma and abscess. Postoperative Diagnosis: Left leg cellulitis with infected popliteal hematoma and abscess. Procedure: Evacuation of left popliteal hematoma with complex abscess drainage, it is about 12 x 3 c m. Estimated Blood Loss: Less than 10 cc. Specimen: Culture. Finding: Infected hematoma/abscess. Anesthesia: General plus local. Packing: Iodoform quarter of an inch. Indications: This is a case of a 73-year-old patient underwent harvesting of the left leg for a CABG several weeks ago. The left leg eventually became infected and also the hematoma became infected in the popliteal region. Antibiotics were started. Ultrasound shows the hematoma with infection and a bscess. On top of that, we decided to I and D that area, evacuated hematoma, and drained the abscess . The benefits, alternatives, and risks were fully explained to the patient, which include, but not limited to infection, bleeding, damage to adjacent structures, nonhealing wound, [place], and even . She also understood this may not relieve symptoms, they may need more than one surgical intervention . They understood, signed a consent. The area of concern was marked by me and the patient in the ho lding room. Description Of Procedure: The patient was brought to the operating room, placed in supine position. Anesthesia was done without complication. Left leg was prepped and draped in a sterile fashion. A time-out was called. We found the point of maximum fluctuance. We made an incision in that region a nd immediately fluid was obtained. A purulent discharge was present too. So, the hematoma was evacu ated. There was some lymphedema component, blood component, and also pus component. Once we explore d the cavity in this complex abscess, there were so many loculations. We proceeded then to irrigate the area, obtained hemostasis, and then put local anesthetic and packed the area with iodoform quarte r of an inch. The patient tolerated the procedure well. No bleeding. The patient was sent to [facility] in stable condition. FERNANDA/LES Voice ID: [id number] Report ID: [id number]
--- NOTE | 2024-03-21 10:48 | P.PN ---
Date of Service: 03/21/24 Subjective: doing ok, seen post-op pain tolerable no new/worsening symptoms ROS: 10 point ROS as noted above, otherwise negative Physical Exam: GEN: Alert, oriented, NAD CV: Regular rate and rhythm Pulm: Nonlabored respirations on room air, clear bilaterally ABD: soft, nontender, nondistended Integumentary: Erythema and swelling from medial aspect of lower left thigh to foot. Surgical Dressing in place, pain with ROM Neuro: Normal speech, normal affect Problem List: Sepsis secondary to left lower extremity cellulitis with infected popliteal hematoma/abscess (12 x 3 cm) now s/p I&D with evacuation of hematoma with complex abscess drainage (03/21) Possible UTI Hx CAD s/p CABG (01/2024) Chronic CHF (unknown EF) NIDDM2 Hypertension Hyperlipidemia Sepsis secondary to left lower extremity cellulitis with infected popliteal hematoma/abscess (12 x 3 cm) now s/p I&D with evacuation of hematoma with complex abscess drainage (03/21) On admission, presents with worsening erythema, swelling and pain to the left lower extremity. +101.2 fever at home. underwent CABG at [facility] ~6 weeks ago. Was hospitalized for 2 weeks than discharged to SNF for 2 weeks. Has been home for ~1.5 weeks. Recently completed 10 day prescription of Bactrim ~2 days prior to admission for unknown reason. Venous u/s (03/19): No DVT. Collections along the left thigh and popliteal fossa concerning for hematomas Dr. Rojas, general surgery consulted s/p I&D with evacuation of left popliteal hematoma with complex abscess drainage. (12x3cm) local wound care per surgery continue empiric cefepime (03/20-); vanc dc'd 03/21 Surgical wound cultures pending blood/urine cx (03/20) - prelim no growth pain control Possible UTI UA suspicious for UTI Urine cx (03/20): prelim no growth on empiric cefepime (03/20-) to cover cellulitis/abscess; also covers urine Patient initially denied symptoms, but family said that they have noticed it has been darker and odor follow blood, urine cultures - prelim no growth Hx CAD s/p CABG (01/2024) CHFunknown EF Recent CABG ~6 weeks ago at [facility] ?[place] with Dr. Cox Cardiology consulted for cardiac clearance for surgery resume coreg, statin CXR negative NIDDM2 accu-cheks, SSI Hypertension Hyperlipidemia resume coreg, statin VTE: lovenox Code: Full Dispo: Home, ~2 days Pending culture results, recovery/improvement Time Spent Managing Pts Care (In Minutes): 55
--- NOTE | 2024-03-21 14:06 | EKG ---
Test Date: 2024-03-21 Test Time: 08:45:08 Executive Asst: ELMIRA MEASUREMENT RESULTS: Intervals: Rate: 89 [place]: 166 QRSD: 146 QT: 404 QTc: 491 [place]: P: 82 [place]: 166 QRS: 55 T: 194 INTERPRETIVE STATEMENTS: Normal sinus rhythm Left bundle branch block Abnormal ECG Compared to ECG 03/21/2024 08:41:19 Left bundle-branch block now present Electronically Signed On 03-21-24 14:05:28 CDT by Etienne Guerra
--- NOTE | 2024-03-21 14:06 | EKG ---
Test Date: 2024-03-21 Test Time: 08:41:19 Computer Assistant: ELMIRA MEASUREMENT RESULTS: Intervals: Rate: 0 [place]: QRSD: 0 QT: 0 QTc: 0 [place]: P: PA: QRS: 0 T: 0 INTERPRETIVE STATEMENTS: No QRS complexes found, no ECG analysis possible Compared to ECG 03/19/2024 14:58:54 Sinus rhythm no longer present Myocardial infarct finding no longer present Electronically Signed On 03-21-24 14:05:30 CDT by Etienne Guerra
[2024-03-22 07:01] LABS: Absolute Lymphocytes (CBC) 0.8 K/uL (0.7-4.9); Absolute Monocytes 0.3 K/uL (0.1-1.3); Absolute Neutrophil 4.2 K/uL (1.8-8.0); Basophils % 0.4 % (0-1.3); Hematocrit 32.2 % (36.0-45.0); Hemoglobin 10.9 g/dL (12.0-15.0); Lymphocytes % 14.9 % (15.3-44.8); MCH 31.1 pg (27.0-35.0); MCHC 33.8 g/dL (32.0-36.0); MCV 91.9 fL (80-100); MPV 11.4 fL (7.6-11.3); Monocytes % 5.5 % (3.3-12.3); Neutrophils % 79.2 % (41.7-73.7); Platelets 123 thou/uL (152-406); Red Cell Distribution Width 15.6 % (12.1-15.2)
[2024-03-22 07:08] LABS: Anion Gap 6.3 mEq/L (5.0-15.0); Magnesium 2.3 mg/dL (1.6-2.4); Potassium 4.3 mEq/L (3.5-5.1)
--- NOTE | 2024-03-22 08:50 | P.PN ---
Date of Service: 03/22/24 Subjective: continues with left leg pain ~same lower left extremity swelling, erythema improving afebrile ROS: 10 point ROS as noted above, otherwise negative Physical Exam: GEN: Alert, oriented, NAD CV: Regular rate and rhythm Pulm: Nonlabored respirations on room air, clear bilaterally ABD: soft, nontender, nondistended Integumentary: lower left extremity erythema and swelling improving. Surgical Dressing in place, pain with ROM, erythema mild, and less area involved Neuro: Normal speech, normal affect Problem List: Sepsis secondary to left lower extremity cellulitis with infected popliteal hematoma/abscess (12 x 3 cm) now s/p I&D with evacuation of hematoma with complex abscess drainage (03/21) Possible UTI Hx CAD s/p CABG (01/2024) Chronic CHF (unknown EF) NIDDM2 Hypertension Hyperlipidemia Sepsis secondary to left lower extremity cellulitis with infected popliteal hematoma/abscess (12 x 3 cm) now s/p I&D with evacuation of hematoma with complex abscess drainage (03/21) On admission, presents with worsening erythema, swelling and pain to the left lower extremity. +101.2 fever at home. underwent CABG at [facility] ~6 weeks ago. Was hospitalized for 2 weeks than discha rged to SNF for 2 weeks. Has been home for ~1.5 weeks. Recently completed 10 day prescription of Bactrim ~2 days prior to admission for unknown reason. Venous u/s (03/19): No DVT. Collections along the left thigh and popliteal fossa concerning for hematomas Dr. Rojas, general surgery consulted s/p I&D with evacuation of left popliteal hematoma with complex abscess drainage. (12x3cm) local wound care per surgery continue empiric vanc/cefepime (03/20-) Surgical wound cx (03/21): pending blood cx (03/20) - NGTD cultures may be affected by bactrim course completed 2 days prior to admission pain control Possible UTI UA suspicious for UTI on empiric cefepime (03/20-) to cover cellulitis/abscess; also covers urine Patient initially denied symptoms, but family said that they have noticed it has been darker and odor Urine cx (03/20): no growth Blood cx (03/20): NGTD Hx CAD s/p CABG (01/2024) CHFunknown EF Recent CABG ~6 weeks ago at [facility] ?[place] with Dr. Cox Cardiology consulted for cardiac clearance for surgery resume coreg, statin CXR negative NIDDM2 accu-cheks, SSI Hypertension Hyperlipidemia resume coreg, statin VTE: lovenox Code: Full Dispo: Home, ~1-2 days Pending culture results, pain control ambulatory Time Spent Managing Pts Care (In Minutes): 45
[2024-03-22] MEDS: HYDROCODONE/APAP 5/325 MG TAB PO PRN (09:35)
--- NOTE | 2024-03-22 13:03 | PN ---
Date of Progress Note: 03/22/2024 Subjective: Status post I and D of infected hematoma, doing great. She is ambulating. She is movin g. Chest clear. Extremities, good capillary refill. Intact surgical site. Plan: Continue with same packing. She may need Home Health, which is going to be a quarter of an in [facility]. [facility]up if possible this [facility]. She has be en there before. I will be there on Sunday and Sunday, so she was asked and the to call on Sunday to make the appointment for one of those 2 days. If it is not possible, then in a week aft er. FERNANDA/LES Voice ID: [id number] Report ID: [id number]
[2024-03-22] MEDS ORDERED: VANCOMYCIN 1.75 GM in NA CHLORIDE 0.9% 500 ML IVPB SCH (15:00)
[2024-03-22] MEDS: VANCOMYCIN 1.75 GM in NA CHLORIDE 0.9% 500 ML IVPB SCH (15:42)
[2024-03-23 04:52] LABS: Absolute Eosinophils 0.1 K/uL (0-0.5); Absolute Lymphocytes (CBC) 1.2 K/uL (0.7-4.9); Absolute Monocytes 0.4 K/uL (0.1-1.3); Absolute Neutrophil 2.2 K/uL (1.8-8.0); Basophils % 1.1 % (0-1.3); Eosinophils % 2.4 % (0-4.4); Hematocrit 31.6 % (36.0-45.0); Hemoglobin 10.7 g/dL (12.0-15.0); MCHC 33.9 g/dL (32.0-36.0); MCV 91.5 fL (80-100); MPV 10.4 fL (7.6-11.3); Monocytes % 10.1 % (3.3-12.3); Neutrophils % 55.4 % (41.7-73.7); Nucleated Red Blood Cells % 0.1 % (0-0); Platelets 142 thou/uL (152-406); RBC Red Blood Cell Count 3.45 M/uL (3.86-4.86); Red Cell Distribution Width 15.7 % (12.1-15.2)
[2024-03-23 05:12] LABS: Anion Gap 5.8 mEq/L (5.0-15.0); Magnesium 2.2 mg/dL (1.6-2.4); Potassium 3.8 mEq/L (3.5-5.1)
[2024-03-23] MEDS: SMZ./TMP. 800/160 MG TABLET PO SCH (08:47)
[2024-03-23] MEDS: POTASSIUM CL SA 10 MEQ TAB PO ONE (08:47)
[2024-03-23] MEDS: ASPIRIN 81 MG CHEWABLE TABLET PO SCH (08:47)
[2024-03-23 09:08] VITALS: BP 118/61; TEMP 97.3
--- NOTE | 2024-03-23 10:09 | P.DS ---
Admission Date: 03/19/24 Discharge Date: 03/23/24 Disposition: DC HOME/HOME HEALTH CARE Discharge Condition: GOOD Reason for Admission: Left lower extremity cellulitis, sepsis Consultations: Cardiology - Dr. Guerra General Surgery - Dr. Rojas Brief History of Present Illness: 73 yo F, PMH: [id number] diabetes, hypertension, CHFunknown EF, CAD with recent CABG about 6 weeks ago Patient presents to the emergency department with chief complaint of erythema, swelling and pain to the left lower extremity. She had her CABG in January and stayed at the hospital [facility] [place] for 2 weeks after the procedure, was subsequently discharged to [facility] for 2 weeks and has been home for about a week and a half. She was prescribed Bactrim for 10 days which she finished about 2 days ago for an unknown reason/prophylaxis. Daughter at bedside reports that her legs look fine last night but this morning they noticed it was erythematous and swollen and patient ran a fever of 101.2 axillary at home and for that reason they brought her to the emergency department. Patient was evaluated in the emergency department her labs are significant for a white blood cell count of 13.6 sodium 132 creatinine 1.37 glucose 151 lactic acid 1.9. Lower extremity ultrasound was completed on the left lower extremity which showed collections along the thigh and popliteal fossa which may represent organizing hematomas, the popliteal fossa collection measuring up to 12 cm in length. On exam patient's left lower extremity is erythematous, tender with swelling in the popliteal area. Patient will be admitted for sepsis, cellulitis, possible infected hematoma Hospital Course: Problem List: Sepsis secondary to left lower extremity cellulitis with infected popliteal hematoma/abscess (12 x 3 cm) now s/p I&D with evacuation of hematoma with complex abscess drainage (03/21) Possible UTI Hx CAD s/p CABG (01/2024) Chronic CHF (unknown EF) [id number] Hypertension Hyperlipidemia Physician discharge instructions: Patient presented with worsening left lower extremity pain, erythema, swelling secondary to left lower extremity cellulitis complicated by infected popliteal hematoma/abscess (12x3 cm). Venous ultrasound was negative for DVT but did note some collections along the left thigh and popliteal fossa concerning for hematomas. She was evaluated by Dr. Rojas, general surgeon, and underwent I&D with evacuation of popliteal hematoma with complex abscess drainage on 10/11. She initially received empiric vanc/cefepime and had improvement of her symptoms. Antibiotics were deescalated to oral bactrim and patient had continued improvement. UA was positive leuk est, WBC, and bacteria. She had UTI a few wee ks ago when hospitalized, which grew E.coli at that time and completed a course of IV rocephin. Urine, Blood, and Wound cultures have all been without growth this hospitalization. She did report recently completing script of bactrim ~2 days prior to admission which could've affected culture growth. Patient is to complete 10 more days of bactrim 2 DS tabs twice daily. Gram stain of infected hematoma noted GNR and other noted gram positive. Culture results were preliminary at time of discharge, and I spoke with lab at that time as well. Reported no gram negative bacteria growing, and only small area of skin maite / non-MRSA. Patient was feeling better, lower extremity pain/erythema improving, afebrile without leukocytosis, and was deemed stable for discharge. Follow up with Dr. Rojas at wound healing center this coming Sunday. Call Sunday morning to make an appointment. Continue local wound care: pack wound with Nu Gauze packing 1/4" daily Medications: Bactrim twice daily for 10 days Tylenol #3 as needed for pain Restart pantoprazole 40 mg daily for acid reflux/heart burn Her home lasix was stopped this hospitalization due to hyperkalemia, deh ydration, decreased intake. Discussed with patient and family to continue to hold off on lasix for next 2-3 days. Okay to restart home lasix once patient's oral intake has returned near her baseline. Follow up: PCP 3-5 days Follow-up at wound healing center this coming Sunday Patient/family to call the wound center this Sunday when they open in the morning to get the appointment time. Physical Exam: GEN: Alert, oriented, NAD CV: Regular rate and rhythm Pulm: Nonlabored respirations on room air, clear bilaterally ABD: soft, nontender, nondistended Integumentary: minimal lower left extremity erythema; Surgical Dressing in place, pain with ROM Neuro: Normal speech, normal affect Vital Signs/Physical Exam: Temp Pulse Resp BP Pulse Ox 97.3 F 86 16 118/61 95 03/23/24 08:00 03/23/24 08:00 03/23/24 08:00 03/23/24 08:00 03/23/24 08:00 Laboratory Data at Discharge: WBC 3.90 thou/uL (4.3-10.9) L 03/23/24 04:36 Hgb 10.7 g/dL (12.0-15.0) L 03/23/24 04:36 Hct 31.6 % (36.0-45.0) L 03/23/24 04:36 Plt Count 142 thou/uL (152-406) L 03/23/24 04:36 PT 14.2 SECONDS (9.4-12.5) H 03/19/24 13:38 INR 1.28 03/19/24 13:38 APTT 30.6 SECONDS (24.3-36.9) 03/19/24 13:38 Sodium 139 mEq/L (136-145) 03/23/24 04:36 Potassium 3.8 mEq/L (3.5-5.1) 03/23/24 04:36 BUN 21 mg/dL (7-18) H 03/23/24 04:36 Creatinine 0.91 mg/dL (0.55-1.02) 03/23/24 04:36 Glucose 105 mg/dL (74-106) 03/23/24 04:36 Magnesium 2.2 mg/dL (1.6-2.4) 03/23/24 04:36 Total Bilirubin 1.2 mg/dL (0.2-1.0) H 03/19/24 13:38 AST 22 U/L (15-37) 03/19/24 13:38 ALT 24 U/L (13-56) 03/19/24 13:38 Alkaline Phosphatase 123 U/L (45-117) H 03/19/24 13:38 Home Medications: Aspirin Chewable [Aspirin Chewable*] 1 tab PO DAILY 03/19/24 Atorvastatin Calcium 40 mg PO BEDTIME 03/19/24 Carvedilol [Coreg] 12.5 mg PO BID 03/19/24 Ferrous Sulfate [Ferrous Sulfate*] 325 mg PO DAILY 03/19/24 Furosemide [Lasix*] 40 mg PO DAILY 03/19/24 Potassium Chloride 20 meq PO DAILY 03/19/24 methocarbamoL [Methocarbamol] 500 mg PO Q8HP PRN 03/19/24 Codeine/APAP [Tylenol W/Codeine #3 tab] 1 tab PO Q6HP PRN #10 tab 03/23/24 Pantoprazole [Protonix Tab*] 40 mg PO DAILY 30 Days #30 tab 03/23/24 Smz./Tmp. [Bactrim Ds 800 MG/160 MG] 2 tab PO BID 10 Days #40 tab 03/23/24 New Medications: Codeine/APAP [Tylenol W/Codeine #3 tab] 1 tab PO Q6HP PRN #10 tab PRN Reason: Pain Smz./Tmp. [Bactrim Ds 800 MG/160 MG] 2 tab PO BID 10 Days #40 tab Pantoprazole [Protonix Tab*] 40 mg PO DAILY 30 Days #30 tab Physician Discharge Instructions: Physician discharge instructions: Patient presented with worsening left lower extremity pain, erythema, swelling secondary to left lower extremity cellulitis complicated by infected popliteal hematoma/abscess (12x3 cm). Venous ultrasound was negative for DVT but did note some collections along the left thigh and popliteal fossa concerning for hematomas. She was evaluated by Dr. Rojas, general surgeon, and underwent I&D with evacuation of popliteal hematoma with complex abscess drainage on 03/21. She initially received empiric vanc/cefepime and had improvement of her symptoms. Antibiotics were deescalated to oral bactrim and patient had continued improvement. UA was positive leuk est, WBC, and bacteria. She had UTI a few weeks ago when hospitalized, which grew E.coli at that time and completed a course of IV rocephin. Urine, Blood, and Wound cultures have all been without growth this hospitalization. She did report recently completing script of bactrim ~2 days prior to admission which could've affected culture growth. Patient is to complete 10 more days of bactrim 2 DS tabs twice daily. Gram stain of infected hematoma noted GNR and other noted gram positive. Culture results were preliminary at time of discharge, and I spoke with lab at that time as well. Reported no gram negative bacteria growing, and only small area of skin maite / non-MRSA. Patient was feeling better, lower extremity pain/erythema improving, afebrile without leukocytosis, and was deemed stable for discharge. Follow up with Dr. Rojas at wound healing center this coming Sunday. Call Sunday morning to make an appointment. Continue local wound care: pack wound with Nu Gauze packing /" daily Medications: Bactrim twice daily for 10 days Tylenol #3 as needed for pain Restart pantoprazole 40 mg daily for acid reflux/heart burn Her home lasix was stopped this hospitalization due to hyperkalemia, dehydratio n, decreased intake. Discussed with patient and family to continue to hold off on lasix for next 2-3 days. Okay to restart home lasix once patient's oral intake has returned near her baseline. Follow up: PCP 3-5 days Follow-up at wound healing center this coming Sunday Patient/family to call the wound center this Sunday when they open in the morning to get the appointment time. Followup: Solomon Medina, [Primary Care Provider] -
== END 2024-03-23 11:55 | disposition home health service (06) | DRG 854 ==
LOC: ER 13:07 → ERHOLD 15:56 → 2ND 16:27
PROVIDERS: ADMIT Hospitalist; ATTEND Hospitalist
PROC: 06CN0ZZ Extirpation of Matter from Left Femoral Vein, Open Approach (ICD-10-PCS; principal; 2024-03-21 07:30)
DX: A41.9 Sepsis, unspecified organism (principal); L02.416 Cutaneous abscess of left lower limb; L03.116 Cellulitis of left lower limb; N39.0 Urinary tract infection, site not specified; E78.5 Hyperlipidemia, unspecified; I11.0 Hypertensive heart disease with heart failure; I50.9 Heart failure, unspecified; E11.9 Type 2 diabetes mellitus without complications; I25.10 Atherosclerotic heart disease of native coronary artery without angina pectoris; S80.12XA Contusion of left lower leg, initial encounter; Z95.1 Presence of aortocoronary bypass graft; Z79.82 Long term (current) use of aspirin; Z79.02 Long term (current) use of antithrombotics/antiplatelets; Z79.899 Other long term (current) drug therapy; Z96.649 Presence of unspecified artificial hip joint; Z96.659 Presence of unspecified artificial knee joint
CPT/HCPCS: 36415; 71045; 80048; 80053; 80202; 81001; 82947; 83036; 83605; 83735; 85025; 85610; 85730; 87040; 87070; 87075; 87086; 87088; 87205; 93005; 93971; 94010; 97116; 97161; J0692; J1650; J2001; J2405; J2704; J3010; J7030; J7040; J7050